=== PATIENT | female | born 1965 | race Caucasian/White ===

== ENCOUNTER 2018-12-31 09:50 | Emergency (ER) | payer OTHER ==
[~2018-12-31] VITALS: Ht 165.1 cm; Wt 65.8 kg
[2018-12-31] MEDS ORDERED: NS IV 1000 ML 1,000 ML IV ONE (10:03)
[2018-12-31] MEDS ORDERED: fentaNYL INJECTION 100 MCG/2 ML AMP IVP ONE (10:15)
[2018-12-31] MEDS ORDERED: PROMETHAZINE INJ 25 MG/ML (PHENERGAN) AMP IVP ONE (10:15)
[2018-12-31] MEDS ORDERED: ORPHENADRINE 60 MG/2 ML (NORFLEX) AMP IV ONE (10:15)
[2018-12-31 10:18] LABS: BASOPHILS % (AUTO) 1 % (0-10); EOSINOPHILS # (AUTO) 0.1 10^3/uL (0.0-0.3); EOSINOPHILS % (AUTO) 2 % (0-10); HEMATOCRIT 41 % (35-52); HEMOGLOBIN 13.9 G/DL (11.5-16.0); LYMPHOCYTES # (AUTO) 2.2 X 10^3 (1.0-4.0); LYMPHOCYTES % (AUTO) 33 % (12-44); MEAN CORPUSCULAR HEMOGLOBIN 30 PG (25-34); MEAN CORPUSCULAR HGB CONC 34 G/DL (32-36); MEAN CORPUSCULAR VOLUME 89 FL (80-99); MEAN PLATELET VOLUME 10.1 FL (7.4-10.4); MONOCYTES # (AUTO) 0.6 X 10^3 (0.0-1.0); MONOCYTES % (AUTO) 9 % (0-12); NEUTROPHILS # (AUTO) 3.8 X 10^3 (1.8-7.8); NEUTROPHILS % (AUTO) 56 % (42-75); PLATELET COUNT 272 10^3/uL (130-400); RED CELL DISTRIBUTION WIDTH 13.3 % (10.0-14.5); WHITE BLOOD COUNT 6.8 10^3/uL (4.3-11.0)
--- NOTE | 2018-12-31 10:21 | ED Headache ---
General Chief Complaint: Head/Cervical Problems Stated Complaint: HEADACHE Nursing Triage Note: AMB TO ROOM WITH YURY. PATIENT REPORTS THAT SHE HAS HAS A HEADACHE FOR 2 WEEKS WITH NAUSEA AND DIZZY. . TOOK 1000M OF IBPUFRON AT 5AM TODAY. Nursing Sepsis Screen: No Definite Risk Source: patient, family Exam Limitations: no limitations History of Present Illness Date Seen by Provider: Dec 31, 2018 Time Seen by Provider: 09:55 Initial Comments This 53-year-old woman presents to the emergency room accompanied by her daughter with complaints of intermittent severe headaches over the past 2 weeks. She has dizziness, nausea and light sensitivity associated with these head aches. She does not have a prior history of migraines. This is a new phenomenon for her. She just recently moved to the area from [place]. 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 She has been taking [id number]-[id number] medications at home including 1000 mg of ibuprofen taken at 05:00. She states this is not helpful. She denies any focal neurologic deficits although she sometimes has intermittent blurriness of partial smiley of vision. She also sometimes has incontinence with urinary leaking Allergies and Home Medications Allergies Coded Allergies: No Known Drug Allergies (Unverified , 12/31/18) Home Medications Cephalexin 500 Mg Capsule, 500 MG PO QID Prescribed by: DODIE CABRERA on 12/31/18 1120 Hydrocodone Bit/Acetaminophen 1 Tab Tab, 1 EACH PO Q4-6HR PRN for PAIN-MODERATE Prescribed by: DODIE CABRERA on 12/31/18 1120 Ondansetron 4 Mg Tab.rapdis, 4 MG PO Q4H PRN for NAUSEA/VOMITING-1ST LINE Prescribed by: DODIE CABRERA on 12/31/18 1120 Patient Home Medication List Home Medication List Reviewed: Yes Review of Systems Review of Systems Constitutional: no symptoms reported Eyes: See HPI Ears, Nose, Mouth, Throat: no symptoms reported Respiratory: no symptoms reported Cardiovascular: no symptoms reported Gastrointestinal: see HPI Genitourinary: see HPI : No Musculoskeletal: no symptoms reported Skin: no symptoms reported Psychiatric/Neurological: See HPI Past Blxjldx-Kpvsfk-Oubvgv Hx Past Med/Social Hx: Reviewed and Corrections made Patient Social History Alcohol Use: Occasionally Uses Recreational Drug Use: No Smoking Status: Current Everyday Smoker Recent Foreign Travel: No Contact w/Someone Who Travel: No Recent Infectious Disease Expo: No Past Medical History Surgeries: Yes (FISTULA , CERVICAL) Abdominal (fistula repair resulting in colostomy) Respiratory: No Cardiac: No Neurological: No : No Reproductive Disorders: No Genitourinary: No Gastrointestinal: No Musculoskeletal: No Endocrine: No HEENT: No Cancer: Yes Cervical Psychosocial: No Physical Exam Vital Signs Vital Signs - First Documented 12/31/18 09:54 Temp 97.5 Pulse 78 Resp 18 B/P (MAP) 143/80 (101) Pulse Ox 97 Capillary Refill : Less Than 3 Seconds Height, Weight, BMI Height: 5'5.00" Weight: 145lbs. oz. [id number]; BMI Method:Stated General Appearance: WD/WN, moderate distress (tearful) HEENT: PERRL/EOMI, normal ENT inspection, TMs normal, pharynx normal, other (light sensitivity) Neck: normal inspection Cardiovascular: regular rate, rhythm, no edema, no murmur Respiratory: lungs clear, normal breath sounds, no respiratory distress, no accessory muscle use Gastrointestinal: normal bowel sounds, non tender, soft, other (colostomy) Extremities: normal inspection, no pedal edema Crainal Nerves: normal hearing, normal speech, PERRL Coordination/Gait: normal finger to nose (normal heel to echols) Motor/Sensory: no motor deficit, no sensory deficit Skin: normal color, warm/dry Progress/Results/Core Measures Results/Orders Lab Results Laboratory Tests Test 12/31/18 10:08 12/31/18 10:41 Range/Units White Blood Count 6.8 4.3-11.0 10^3/uL Red Blood Count 4.61 4.35-5.85 10^6/uL Hemoglobin 13.9 11.5-16.0 G/DL Hematocrit 41 35-52 % Mean Corpuscular Volume 89 80-99 FL Mean Corpuscular Hemoglobin 30 25-34 PG Mean Corpuscular Hemoglobin Concent 34 32-36 G/DL Red Cell Distribution Width 13.3 10.0-14.5 % Platelet Count 272 130-400 10^3/uL Mean Platelet Volume 10.1 7.4-10.4 FL Neutrophils (%) (Auto) 56 42-75 % Lymphocytes (%) (Auto) 33 12-44 % Monocytes (%) (Auto) 9 0-12 % Eosinophils (%) (Auto) 2 0-10 % Basophils (%) (Auto) 1 0-10 % Neutrophils # (Auto) 3.8 1.8-7.8 X 10^3 Lymphocytes # (Auto) 2.2 1.0-4.0 X 10^3 Monocytes # (Auto) 0.6 0.0-1.0 X 10^3 Eosinophils # (Auto) 0.1 0.0-0.3 10^3/uL Basophils # (Auto) 0.0 0.0-0.1 10^3/uL Erythrocyte Sedimentation Rate 17 0-30 MM/HR Sodium Level 139 135-145 MMOL/L Potassium Level 3.5 L 3.6-5.0 MMOL/L Chloride Level 108 H 98-107 MMOL/L Carbon Dioxide Level 19 L 21-32 MMOL/L Anion Gap 12 5-14 MMOL/L Blood Urea Nitrogen 19 H 7-18 MG/DL Creatinine 0.79 0.60-1.30 MG/DL Estimat Glomerular Filtration Rate > 60 BUN/Creatinine Ratio 24 Glucose Level 113 H 70-105 MG/DL Calcium Level 9.3 8.5-10.1 MG/DL Corrected Calcium 9.1 8.5-10.1 MG/DL Magnesium Level 1.7 L 1.8-2.4 MG/DL Total Bilirubin 0.3 0.1-1.0 MG/DL Aspartate Amino Transf (AST/SGOT) 17 5-34 U/L Alanine Aminotransferase (ALT/SGPT) 15 0-55 U/L Alkaline Phosphatase 75 40-136 U/L Total Protein 7.0 6.4-8.2 GM/DL Albumin 4.2 3.2-4.5 GM/DL Urine Color YELLOW Urine Clarity SLIGHTLY CLOUDY Urine pH 5 5-9 Urine Specific Hume 1.020 1.016-1.022 Urine Protein 2+ H NEGATIVE Urine Glucose (UA) NEGATIVE NEGATIVE Urine Ketones NEGATIVE NEGATIVE Urine Nitrite NEGATIVE NEGATIVE Urine Bilirubin NEGATIVE NEGATIVE Urine Urobilinogen NORMAL NORMAL MG/DL Urine Leukocyte Esterase 3+ H NEGATIVE Urine RBC (Auto) 5+ H NEGATIVE Urine RBC >100 H /HPF Urine WBC TNTC H /HPF Urine Renal Epithelial Cells RARE /HPF Urine Crystals NONE /LPF Urine Bacteria MODERATE H /HPF Urine Casts NONE /LPF Urine Mucus NEGATIVE /LPF Urine Culture Indicated YES My Orders Orders - DODIE CASTANEDA MD Cbc With Automated Diff (12/31/18 10:03) Comprehensive Metabolic Panel (12/31/18 10:03) Erythrocyte Sedimentation Rate (12/31/18 10:03) Magnesium (12/31/18 10:03) Ua Culture If Indicated (12/31/18 10:03) Ed Iv/Invasive Line Start (12/31/18 10:03) Ns Iv 1000 Ml (Sodium Chloride 0.9%) (12/31/18 10:03) Ct Head Wo (12/31/18 10:03) Fentanyl Injection (Sublimaze Injection (12/31/18 10:15) Promethazine Injection (Phenergan Injec (12/31/18 10:15) Orphenadrine Injection (Norflex Injectio (12/31/18 10:15) Urine Culture (12/31/18 10:41) Ceftriaxone For Iv Use (Rocephin For I (12/31/18 11:00) Medications Given in ED Current Medications Medications Dose Ordered Sig/Reggie Route Start Time Stop Time Status Last Admin Dose Admin Ceftriaxone Sodium 1000 mg/ Sterile Water 10 ml @ 200 mls/hr ONCE ONCE IV 12/31/18 11:00 12/31/18 11:02 DC 12/31/18 11:07 200 MLS/HR Fentanyl Citrate 50 mcg ONCE ONCE IVP 12/31/18 10:15 12/31/18 10:16 DC 12/31/18 10:18 50 MCG Promethazine HCl 25 mg ONCE ONCE IVP 12/31/18 10:15 12/31/18 10:16 DC 12/31/18 10:16 25 MG Sodium Chloride 1,000 ml @ 0 mls/hr Q0M ONCE IV 12/31/18 10:03 12/31/18 10:06 DC 12/31/18 10:16 1,000 MLS/HR Vital Signs/I&O 12/31/18 09:54 Temp 97.5 Pulse 78 Resp 18 B/P (MAP) 143/80 (101) Pulse Ox 97 Blood Pressure Mean: 101 Progress Progress Note #1: Time: 10:30 Progress Note Patient is being treated with Phenergan, fentanyl, and IV fluids. Labs and CT of the head are pending. Progress Note #2: Time: 11:27 Progress Note Patient's pain improved from 10 down to 4/10. CT of the head showed an area of low attenuation in the right posterior periventricular area. This was nonspecific and does not necessarily correlate with her symptoms. Follow-up MRI was suggested if symptoms don't resolve after treating urinary tract infection. Significant evidence of UTI was seen on urinalysis. A gram of Rocephin is being administered by IV route. Patient was advised to follow-up with a primary care provider soon as possible, to review urine culture results, and to discuss her imaging results with a primary care provider. See discharge instructions. Diagnostic Imaging Diagonstic Imaging: CT Plain Films/CT/US/NM/MRI: head Comments CT head viewed by me and report reviewed. See report below: NAME: [facility] REC#: [id number] PT STATUS: REG ER : 1965 PHYSICIAN: DODIE CASTANEDA MD ADMIT DATE: 12/31/18/ER Draft Date of Exam:12/31/18 CT HEAD WO PROCEDURE: CT head without contrast. TECHNIQUE: Multiple contiguous axial images were obtained through the brain without the use of intravenous contrast. Auto Exposure Controls were utilized during the CT exam to meet ALARA standards for radiation dose reduction. DATE: December 31, 2018. COMPARISON: None. INDICATION: 53-year-old female, headache for 10 days. Nausea and dizziness. FINDINGS: There is an area of low attenuation in the right posterior periventricular white matter on axial image 17 which is not CSF in attenuation. This is not specific. The ventricles and cerebral spinal fluid spaces are of normal size and configuration for the patient's age. There is no mass effect or midline shift. There is no acute intracranial hemorrhage. There is no abnormal extra-axial fluid collection. The visualized portions of the paranasal sinuses, mastoid air cells and middle ears are well aerated. IMPRESSION: 1. Small focal area of low attenuation in the right posterior periventricular white matter which is nonspecific. Particularly if there are symptoms referrable to this area or concern for infarct, MRI brain with and without contrast may be helpful for further assessment. 2. No evidence of acute intracranial hemorrhage, mass effect, or midline shift. Dictated on workstation # [id number] Dict: 12/31/18 1039 Trans: 12/31/18 1048 [facility] [id number] Interpreted by: DUSTIN LOPEZ MD Departure Impression Primary Impression: Urinary tract infection Qualified Codes: N39.0 - Urinary tract infection, site not specified Additional Impressions: Migraine Qualified Codes: G43.109 - Migraine with aura, not intractable, without status migrainosus Dizziness Abnormal CT of the head Disposition: HOME, SELF-CARE Condition: Improved Departure-Patient Inst. Decision time for Depature: 11:10 Referrals: [facility] [place] SMITHA,LOCAL PHYSICIAN (PCP) Primary Care Physician Patient Instructions: Urinary Tract Infections in Adults, Migraine Headaches in Adults Add. Discharge Instructions: Drink plenty of clear liquids and get plenty of rest. Complete your antibiotic as prescribed. Follow-up with a primary care provider next week. Discuss your CT results with your primary care provider. Further studies such as MRI may be recommended. For pain you may take ibuprofen up to 600 mg every 6 hours as needed. Add hydrocodone as prescribed for pain not controlled by ibuprofen. Use Zofran (ondansetron) as prescribed for nausea and vomiting. You should follow-up on your urine culture result either through your primary care office or by calling the emergency room. Results should be available by Wednesday. Return to the emergency room if you have worsening symptoms. All discharge instructions reviewed with patient and/or family. Voiced understanding. Scripts Hydrocodone Bit/Acetaminophen (Hydrocodone/Acetaminophen 5/325mg Tablet) 1 Tab Tab 1 EACH PO Q4-6HR PRN for PAIN-MODERATE MDD 10, #10 TAB Prov: DODIE CASTANEDA MD 12/31/18 Ondansetron (Ondansetron Odt) 4 Mg Tab.rapdis 4 MG PO Q4H PRN for NAUSEA/VOMITING-1ST LINE, #10 TAB Prov: DODIE CASTANEDA MD 12/31/18 Cephalexin (Keflex) 500 Mg Capsule 500 MG PO QID, #28 CAP Prov: DODIE CASTANEDA MD 12/31/18 DODIE CASTANEDA MD Dec 31, 2018 10:21
[2018-12-31 10:40] LABS: BILIRUBIN,TOTAL 0.3 MG/DL (0.1-1.0); CALCIUM 9.3 MG/DL (8.5-10.1); CARBON DIOXIDE 19 MMOL/L (21-32); CHLORIDE 108 MMOL/L (98-107); MAGNESIUM 1.7 MG/DL (1.8-2.4); POTASSIUM 3.5 MMOL/L (3.6-5.0); SODIUM 139 MMOL/L (135-145)
[2018-12-31 10:45] LABS: ERYTHROCYTE SEDIMENTATION RATE 17 MM/HR (0-30)
--- NOTE | 2018-12-31 10:48 | Diagnostic Imaging Report ---
PROCEDURE: CT head without contrast. TECHNIQUE: Multiple contiguous axial images were obtained through the brain without the use of intravenous contrast. Auto Exposure Controls were utilized during the CT exam to meet ALARA standards for radiation dose reduction. DATE: December 31, 2018. COMPARISON: None. INDICATION: 53-year-old female, headache for 10 days. Nausea and dizziness. FINDINGS: There is an area of low attenuation in the right posterior periventricular white matter on axial image 17 which is not CSF in attenuation. This is not specific. The ventricles and cerebral spinal fluid spaces are of normal size and configuration for the patient's age. There is no mass effect or midline shift. There is no acute intracranial hemorrhage. There is no abnormal extra-axial fluid collection. The visualized portions of the paranasal sinuses, mastoid air cells and middle ears are well aerated. IMPRESSION: 1. Small focal area of low attenuation in the right posterior periventricular white matter which is nonspecific. Particularly if there are symptoms referrable to this area or concern for infarct, MRI brain with and without contrast may be helpful for further assessment. 2. No evidence of acute intracranial hemorrhage, mass effect, or midline shift. Dictated by: Dictated on workstation # [id number]
[2018-12-31 10:50] LABS: BILIRUBIN,URINE NEGATIVE (NEGATIVE); CLARITY,URINE SLIGHTLY CLOUDY; COLOR,URINE YELLOW; GLUCOSE, URINE (UA) NEGATIVE (NEGATIVE); KETONES,URINE NEGATIVE (NEGATIVE); LEUKOCYTE ESTERASE ,URINE 3+ (NEGATIVE); NITRITE,URINE NEGATIVE (NEGATIVE); PH,URINE 5 (5-9); PROTEIN,URINE 2+ (NEGATIVE); UROBILINOGEN,URINE NORMAL (NORMAL)
[2018-12-31 10:56] LABS: RBC,URINE >100 /HPF
[2018-12-31 10:57] LABS: BACTERIA,URINE MODERATE /HPF; RENAL EPITHELIAL CELLS,URINE RARE /HPF; WBC,URINE TNTC /HPF
[2018-12-31 10:58] LABS: ALANINE AMINOTRANSFERASE 15 U/L (0-55); ALBUMIN 4.2 GM/DL (3.2-4.5); ALKALINE PHOSPHATASE 75 U/L (40-136); BUN/CREATININE RATIO 24; CREATININE SERUM 0.79 MG/DL (0.60-1.30); GFR ESTIMATED > 60; GLUCOSE 113 MG/DL (70-105)
[2018-12-31] MEDS ORDERED: cefTRIAXone FOR IV USE 1,000 MG in WATER (STERILE) FOR INJECTION 10 ML IV ONE (11:00)
--- NOTE | 2018-12-31 11:03 | NUR ---
TO ROOM FLUIDS INFUSED PAIN 4/10
[2018-12-31] MEDS ORDERED: CEPH-507 PO (11:20)
[2018-12-31] MEDS ORDERED: ACHD5005 PO (11:20)
[2018-12-31] MEDS ORDERED: ONDA4TAB11 PO (11:20)
[2018-12-31 11:29] VITALS: BP 105/69
== END 2018-12-31 11:29 | disposition home or self-care (01) ==
LOC: ER 09:52
DX: G43.909 Migraine, unspecified, not intractable, without status migrainosus (principal); N39.0 Urinary tract infection, site not specified; R42 Dizziness and giddiness; R93.0 Abnormal findings on diagnostic imaging of skull and head, not elsewhere classified; F17.200 Nicotine dependence, unspecified, uncomplicated; Z85.41 Personal history of malignant neoplasm of cervix uteri; Z93.3 Colostomy status
CPT/HCPCS: 36415; 70450; 80053; 81000; 83735; 85025; 85652; 87077; 87088; 87186

== ENCOUNTER → 2019-01-16 | Outpatient (CLI) | payer OTHER ==
[~2019-01-16] MED LIST: ACHD5005 PO; CEPH-507 PO; GADOBUTROL 7.5 MMOL/7.5 ML (GADAVIST) VIAL IV ONE; ONDA4TAB11 PO
--- NOTE | 2019-01-16 17:26 | Diagnostic Imaging Report ---
PROCEDURE: MR imaging of the brain with and without contrast. TECHNIQUE: Multiplanar, multisequence MR imaging of the brain was performed with and without contrast. INDICATION: History of headaches. Prior abnormal head CT. COMPARISON: Comparison is made with prior CT head from December 31, 2018. FINDINGS: Areas of low attenuation within the white matter of the right parietal lobe near the atrium of the right lateral ventricle are found by MRI to be of nearly CSF signal intensity centrally on T2-weighted imaging with a small degree of adjacent surrounding gliosis. While this may reflect a prior small lacunar infarct, this is most likely reflective of some mild prominence of the perivascular spaces. There are some mild microvascular changes within the white matter about the lateral ventricles. The diffusion series demonstrates no evidence of restriction to suggest acute or subacute ischemia. There is no hemorrhage. There is no mass effect or shift. There is no hydrocephalus. There is no abnormal extra-axial fluid collection. The basilar cisterns are patent. The posterior fossa demonstrates no acute process. The pituitary gland and the pineal region are unremarkable. There is normal alignment of the craniocervical junction. Postcontrast imaging demonstrates no evidence of pathologic intracranial enhancement. Mastoids are clear. Paranasal sinuses are clear. Orbital contents are unremarkable. Major expected vascular flow voids appear preserved. IMPRESSION: 1. There are no MR findings of an acute intracranial abnormality. There is no evidence of acute ischemia, hemorrhage, mass effect, hydrocephalus, or pathologic intracranial enhancement. 2. Previously described low attenuation on the prior CT examination appears reflective of prominent perivascular spaces with less likely consideration of previous small lacunar infarct. 3. There are mild microvascular changes in the periventricular white matter. Dictated by: Dictated on workstation # [id number]
== END ==
LOC: RAD 01-10 08:51
PROVIDERS: ATTEND Physician Assistant
DX: R90.82 White matter disease, unspecified (principal)
CPT/HCPCS: 70553

== ENCOUNTER 2019-02-20 10:44 | Inpatient (IN) | payer OTHER ==
[~2019-02-20] VITALS: Ht 165.1 cm; Wt 63.2 kg
[~2019-02-20 10:44] MED LIST changes: -GADOBUTROL 7.5 MMOL/7.5 ML (GADAVIST) VIAL IV ONE
[2019-02-20 11:56] LABS: BASOPHILS % (AUTO) 0 % (0-10); EOSINOPHILS % (AUTO) 0 % (0-10); HEMATOCRIT 38 % (35-52); HEMOGLOBIN 13.8 G/DL (11.5-16.0); LYMPHOCYTES % (AUTO) 8 % (12-44); MEAN CORPUSCULAR HEMOGLOBIN 30 PG (25-34); MEAN CORPUSCULAR HGB CONC 36 G/DL (32-36); MEAN CORPUSCULAR VOLUME 83 FL (80-99); MONOCYTES % (AUTO) 7 % (0-12); NEUTROPHILS # (AUTO) 11.2 X 10^3 (1.8-7.8); NEUTROPHILS % (AUTO) 85 % (42-75); PLATELET COUNT 565 10^3/uL (130-400); RED CELL DISTRIBUTION WIDTH 11.9 % (10.0-14.5); WHITE BLOOD COUNT 13.2 10^3/uL (4.3-11.0)
[2019-02-20] MEDS ORDERED: NS IV 1000 ML 1,000 ML IV SCH ×2 (12:00→14:15)
--- NOTE | 2019-02-20 12:02 | ED Abdominal Pain ---
General Chief Complaint: Abdominal/GI Problems Stated Complaint: ABD PAIN Nursing Triage Note: AMB TO ROOM WAS SENT BY [facility]. ACCORDNG TO PATIENT HAS HAD ABD PAIN FOR 2 WEEKS WAS SEEN AT [facility] ON WEDNESDAY. HAD LAB AND SONO WHICH WAS OK FEMALE AT BEDSIDE REPORT AMYLASE AND LIPASE WAS NEG SON NEG. FOR GALLBLADDER.PATIENT DOES HAVE COLOSTOMY Sepsis Screen: No Definite Risk Source of Information: Patient Exam Limitations: No Limitations History of Present Illness Date Seen by Provider: Feb 20, 2019 Time Seen by Provider: 12:00 Initial Comments 53-year-old female who presents to emergency room with complaints of right upper quadrant abdominal pain for the past 2 weeks. She reports that last Wednesday she did have an appointment with Indy Mireles and she ordered a sonogram and the lab work which was normal. She does have a colostomy from a fistula is not having any issues and is having normal stool in her colostomy bag. She denies fevers. History of cervical cancer which led to her fistulas and colostomy. Radiation: RUQ Associated Symptoms: Nausea/Vomiting Allergies and Home Medications Allergies Coded Allergies: No Known Drug Allergies (Unverified , 02/20/19) Home Medications Ibuprofen 200 Mg Tablet, 800 MG PO TID PRN for PAIN-MILD, (Reported) Pantoprazole Sodium 40 Mg Tablet.dr, 40 MG PO DAILY, (Reported) Patient Home Medication List Home Medication List Reviewed: Yes Review of Systems Review of Systems Constitutional: see HPI; No chills, No fever Gastrointestinal: See HPI, Abdominal Pain, Nausea, Vomiting All Other Systems Reviewed Negative Unless Noted: Yes Past Bdzjgiq-Hfdlvn-Qlvach Hx Past Med/Social Hx: Reviewed Nursing Past Med/Soc Hx Patient Social History Recent Foreign Travel: No Contact w/Someone Who Travel: No Recent Infectious Disease Expo: No Past Medical History Surgeries: Yes (FISTULA , CERVICAL) Abdominal Respiratory: No Cardiac: No Neurological: No Reproductive Disorders: No Genitourinary: No Gastrointestinal: No Musculoskeletal: No Endocrine: No HEENT: No Cancer: Yes Cervical Psychosocial: No Family Medical History Reviewed Nursing Family Hx Physical Exam Vital Signs Vital Signs - First Documented 02/20/19 11:33 Temp 99.2 Pulse 92 Resp 18 B/P (MAP) 128/88 (101) Pulse Ox 100 O2 Delivery Room Air Capillary Refill : Less Than 3 Seconds Height/Weight/BMI Height: 5'5.00" Weight: 138lbs. oz. 62.511962cb; BMI Method:Stated General Appearance: WD/WN, no apparent distress Respiratory: chest non-tender, lungs clear, normal breath sounds, no respiratory distress, no accessory muscle use Cardiovascular: normal peripheral pulses, regular rate, rhythm, no edema, no gallop, no JVD, no murmur Gastrointestinal: normal bowel sounds, soft, no organomegaly, no pulsatile mass, tenderness (right upper quadrant abdominal) Extremities: normal capillary refill Neurologic/Psychiatric: alert, normal mood/affect, oriented x 3 Skin: normal color, warm/dry Progress/Results/Core Measures Results/Orders Lab Results Laboratory Tests Test 02/20/19 11:46 02/20/19 13:31 Range/Units White Blood Count 13.2 H 4.3-11.0 10^3/uL Red Blood Count 4.63 4.35-5.85 10^6/uL Hemoglobin 13.8 11.5-16.0 G/DL Hematocrit 38 35-52 % Mean Corpuscular Volume 83 80-99 FL Mean Corpuscular Hemoglobin 30 25-34 PG Mean Corpuscular Hemoglobin Concent 36 32-36 G/DL Red Cell Distribution Width 11.9 10.0-14.5 % Platelet Count 565 H 130-400 10^3/uL Mean Platelet Volume 10.0 7.4-10.4 FL Neutrophils (%) (Auto) 85 H 42-75 % Lymphocytes (%) (Auto) 8 L 12-44 % Monocytes (%) (Auto) 7 0-12 % Eosinophils (%) (Auto) 0 0-10 % Basophils (%) (Auto) 0 0-10 % Neutrophils # (Auto) 11.2 H 1.8-7.8 X 10^3 Lymphocytes # (Auto) 1.0 1.0-4.0 X 10^3 Monocytes # (Auto) 1.0 0.0-1.0 X 10^3 Eosinophils # (Auto) 0.0 0.0-0.3 10^3/uL Basophils # (Auto) 0.0 0.0-0.1 10^3/uL Neutrophils % (Manual) 63 % Lymphocytes % (Manual) 16 % Monocytes % (Manual) 7 % Eosinophils % (Manual) 1 % Basophils % (Manual) 0 % Band Neutrophils 13 % Blood Morphology Comment NORMAL Sodium Level 129 L 135-145 MMOL/L Potassium Level 3.6 3.6-5.0 MMOL/L Chloride Level 90 L 98-107 MMOL/L Carbon Dioxide Level 22 21-32 MMOL/L Anion Gap 17 H 5-14 MMOL/L Blood Urea Nitrogen 49 H 7-18 MG/DL Creatinine 0.99 0.60-1.30 MG/DL Estimat Glomerular Filtration Rate 59 BUN/Creatinine Ratio 49 Glucose Level 101 70-105 MG/DL Calcium Level 9.7 8.5-10.1 MG/DL Corrected Calcium 9.8 8.5-10.1 MG/DL Total Bilirubin 0.4 0.1-1.0 MG/DL Aspartate Amino Transf (AST/SGOT) 16 5-34 U/L Alanine Aminotransferase (ALT/SGPT) 10 0-55 U/L Alkaline Phosphatase 103 40-136 U/L Total Protein 7.8 6.4-8.2 GM/DL Albumin 3.9 3.2-4.5 GM/DL Amylase Level 32 25-125 U/L Lipase 27 8-78 U/L Urine Color YELLOW Urine Clarity CLEAR Urine pH 6 5-9 Urine Specific [place] 1.015 L 1.016-1.022 Urine Protein NEGATIVE NEGATIVE Urine Glucose (UA) NEGATIVE NEGATIVE Urine Ketones 3+ H NEGATIVE Urine Nitrite POSITIVE H NEGATIVE Urine Bilirubin NEGATIVE NEGATIVE Urine Urobilinogen NORMAL NORMAL MG/DL Urine Leukocyte Esterase 1+ H NEGATIVE Urine RBC (Auto) 3+ H NEGATIVE Urine RBC RARE /HPF Urine WBC 25-50 H /HPF Urine Squamous Epithelial Cells RARE /HPF Urine Crystals NONE /LPF Urine Bacteria MODERATE H /HPF Urine Casts NONE /LPF Urine Mucus NEGATIVE /LPF Urine Culture Indicated YES My Orders Orders - MÓNICA NOBLE Comprehensive Metabolic Panel (02/20/19 11:51) Lipase (02/20/19 11:51) Amylase (02/20/19 11:51) Ua Culture If Indicated (02/20/19 11:51) Ed Iv/Invasive Line Start (02/20/19 11:51) Cbc With Automated Diff (02/20/19 11:51) Ns Iv 1000 Ml (Sodium Chloride 0.9%) (02/20/19 12:00) Manual Differential (02/20/19 11:46) Fentanyl Injection (Sublimaze Injection (02/20/19 12:00) Ct Abdomen/Pelvis W (02/20/19 11:59) Ondansetron Injection (Zofran Injectio (02/20/19 12:15) Iohexol Injection (Omnipaque 350 Mg/Ml 1 (02/20/19 12:30) Di Iv Start (Assessment) .IV start (02/20/19 12:17) Received Contrast (Hold Metformin- Contr (02/20/19 12:30) Ns (Ivpb) (Sodium Chloride 0.9% Ivpb Bag (02/20/19 12:30) Urine Culture (02/20/19 13:31) Fentanyl Injection (Sublimaze Injection (02/20/19 14:15) Ns Iv 1000 Ml (Sodium Chloride 0.9%) (02/20/19 14:15) Ondansetron Injection (Zofran Injectio (02/20/19 14:45) Medications Given in ED Current Medications Medications Dose Ordered Sig/Reggie Route Start Time Stop Time Status Last Admin Dose Admin Fentanyl Citrate 50 mcg ONCE ONCE IVP 02/20/19 14:15 02/20/19 14:16 DC 02/20/19 12:09 50 MCG Fentanyl Citrate 50 mcg Q1H PRN IVP 02/20/19 12:00 02/20/19 16:33 DC 02/20/19 14:31 50 MCG Iohexol 100 ml ONCE ONCE IV 02/20/19 12:30 02/20/19 12:36 DC 02/20/19 13:24 100 ML Ondansetron HCl 4 mg ONCE ONCE IVP 02/20/19 12:15 02/20/19 12:16 DC 02/20/19 12:09 4 MG Ondansetron HCl 4 mg ONCE ONCE IVP 02/20/19 14:45 02/20/19 14:46 DC 02/20/19 14:40 4 MG Sodium Chloride 100 ml ONCE ONCE IV 02/20/19 12:30 02/20/19 12:36 DC 02/20/19 13:24 80 ML Vital Signs/I&O 02/20/19 11:33 Temp 99.2 Pulse 92 Resp 18 B/P (MAP) 128/88 (101) Pulse Ox 100 O2 Delivery Room Air Blood Pressure Mean: 101 Diagnostic Imaging Diagonstic Imaging: CT Comments NAME: CLAUDIA SHAW MED REC#: [id number] PT STATUS: ADM IN : 1965 PHYSICIAN: MÓNICA NOBLE ADMIT DATE: 02/20/19 Signed Date of Exam: 02/20/19 CT ABDOMEN/PELVIS W PROCEDURE: CT abdomen and pelvis with contrast. TECHNIQUE: Multiple contiguous axial images were obtained through the abdomen and pelvis after administration of intravenous contrast. Auto Exposure Controls were utilized during the CT exam to meet ALARA standards for radiation dose reduction. INDICATION: Mid abdominal pain, history of cervical cancer. FINDINGS: No comparison available. Limited views of the lower thorax are normal. Liver is normal. No focal liver lesions are seen. Gallbladder is normal. Portal vein is patent. No biliary ductal dilation. Pancreas, spleen, and left adrenal gland are normal. There is an indeterminate right adrenal nodule measuring 2.2 x 2.9 cm. Kidneys enhance symmetrically without focal lesion or hydronephrosis. Urinary bladder is normal. There is a small bowel obstruction with the transition point in the pelvis at the level of the vaginal fornices. There is an area of soft tissue thickening measuring 5.3 x 3.1 cm in this location concerning for local tumor recurrence given the provided history of cervical cancer. There is also a parastomal hernia containing small bowel, but the transition point is not within the parastomal hernia. There is presacral stranding and thickening which may represent changes of radiation or tumor infiltration. There has been a partial colectomy with an end colostomy. The colon is decompressed. Retroperitoneal lymph nodes all measure less than 1 cm in short axis. Abdominal aorta is normal in caliber with atherosclerosis but no aneurysm. No free fluid or air. There are no suspicious osseous lesions. IMPRESSION: 1. Small bowel obstruction with a transition point at the level of the vaginal fornices where there is an area of soft tissue thickening concerning for local tumor recurrence, less likely radiation fibrosis. 2. Please note that there is a parastomal hernia containing small bowel, but the transition point is not within the hernia. 3. Indeterminate right adrenal nodule. Dictated by: Dictated on workstation # [id number] Dict: 02/20/19 1333 Trans: 02/20/19 1535 Interpreted by: JARAD MORGAN MD Electronically signed by: JARAD MORGAN MD 02/20/19 1535 Reviewed: Reviewed by Me Departure Communication (Admissions) Time/Spoke to Admitting Phy: 15:[address] Novak she agrees to accept the patient to her services with a consult to Dr. Ortiz. Time/Spoke to Consulting Phy: 14:[address] Harris. He agrees to consult on the patient. He will be out to see the patient in the emergency room. 1535: Discussed case with Dr. Ortiz he agrees to consult on the patient. He recommends additional labs. Labs were ordered. Impression Primary Impression: Small bowel obstruction Additional Impression: Urinary tract infection Disposition: ADMITTED INPATIENT Condition: Stable/Unchanged Admissions Decision to Admit Reason: Admit from ER (General) Decision to Admit/Date: Feb 20, 2019 Time/Decision to Admit Time: 15:50 Departure-Patient Inst. Referrals: NO,LOCAL PHYSICIAN (PCP/Family) Primary Care Physician MÓNICA NOBLE Feb 20, 2019 12:01
[2019-02-20] MEDS: fentaNYL INJECTION 100 MCG/2 ML AMP IVP PRN ×2 (12:10→14:31)
[2019-02-20 12:15] LABS: ALBUMIN 3.9 GM/DL (3.2-4.5); BILIRUBIN,TOTAL 0.4 MG/DL (0.1-1.0); CALCIUM 9.7 MG/DL (8.5-10.1); CREATININE SERUM 0.99 MG/DL (0.60-1.30); POTASSIUM 3.6 MMOL/L (3.6-5.0); TOTAL PROTEIN 7.8 GM/DL (6.4-8.2)
[2019-02-20] MEDS ORDERED: ONDANSETRON 4 MG/2 ML (SDV) Z0FRAN IVP ONE ×2 (12:15→14:45)
[2019-02-20] MEDS ORDERED: IOHEXOL 350 MG/ML 100 ML (OMNIPAQUE 350) VIAL IV ONE (12:30)
[2019-02-20] MEDS ORDERED: HOLD METFORMIN - RECEIVED CONTRAST 20 ML VIAL IV SCH (12:30)
[2019-02-20] MEDS ORDERED: NS 100 ML (IVPB) BAG IV ONE (12:30)
[2019-02-20 12:43] LABS: BAND NEUTROPHILS 13 %; BASOPHILS % (MANUAL) 0 %; EOSINOPHILS % (MANUAL) 1 %; LYMPHOCYTES % (MANUAL) 16 %; MONOCYTES % (MANUAL) 7 %; NEUTROPHILS % (MANUAL) 63 %
[2019-02-20 12:44] LABS: RBC MORPH NORMAL
--- OUTSIDE RECORDS SUMMARY | 2019-02-20 13:11 | XMS REPORT | Continuity of Care Document ---
Author Organization Unknown Address Unknown Phone Unavailable Allergies There is no data. Medications There is no data. Problems There is no data. Procedures There is no data. Results Test Result Range TSH - 01/02/19 10:20 TSH 7.77 mIU/L NRG MAGNESIUM SERUM - 01/17/19 09:44 MAGNESIUM 1.9 mg/dL 1.5-2.5 CULTURE, URINE - 01/18/19 15:15 CULTURE, URINE, ROUTINE SEE NOTE NRG Encounters ACCT No. Visit Date/Time Discharge Status Pt. Type Provider Facility Loc./Unit Complaint [id number] 01/18/2019 15:00:00 01/18/2019 23:59:59 [facility] Outpatient SANDRA MENDOZA [facility] [id number] 01/18/2019 15:00:00 Document Registration [id number] 01/17/2019 08:40:00 Document Registration [id number] 01/02/2019 09:00:00 Document Registration
[2019-02-20 13:40] LABS: BILIRUBIN,URINE NEGATIVE (NEGATIVE); CLARITY,URINE CLEAR; COLOR,URINE YELLOW; GLUCOSE, URINE (UA) NEGATIVE (NEGATIVE); KETONES,URINE 3+ (NEGATIVE); LEUKOCYTE ESTERASE ,URINE 1+ (NEGATIVE); NITRITE,URINE POSITIVE (NEGATIVE); PH,URINE 6 (5-9); PROTEIN,URINE NEGATIVE (NEGATIVE); UROBILINOGEN,URINE NORMAL (NORMAL)
--- NOTE | 2019-02-20 13:45 | Diagnostic Imaging Report ---
PROCEDURE: CT abdomen and pelvis with contrast. TECHNIQUE: Multiple contiguous axial images were obtained through the abdomen and pelvis after administration of intravenous contrast. Auto Exposure Controls were utilized during the CT exam to meet ALARA standards for radiation dose reduction. INDICATION: Mid abdominal pain, history of cervical cancer. FINDINGS: No comparison available. Limited views of the lower thorax are normal. Liver is normal. No focal liver lesions are seen. Gallbladder is normal. Portal vein is patent. No biliary ductal dilation. Pancreas, spleen, and left adrenal gland are normal. There is an indeterminate right adrenal nodule measuring 2.2 x 2.9 cm. Kidneys enhance symmetrically without focal lesion or hydronephrosis. Urinary bladder is normal. There is a small bowel obstruction with the transition point in the pelvis at the level of the vaginal fornices. There is an area of soft tissue thickening measuring 5.3 x 3.1 cm in this location concerning for local tumor recurrence given the provided history of cervical cancer. There is also a parastomal hernia containing small bowel, but the transition point is not within the parastomal hernia. There is presacral stranding and thickening which may represent changes of radiation or tumor infiltration. There has been a partial colectomy with an end colostomy. The colon is decompressed. Retroperitoneal lymph nodes all measure less than 1 cm in short axis. Abdominal aorta is normal in caliber with atherosclerosis but no aneurysm. No free fluid or air. There are no suspicious osseous lesions. IMPRESSION: 1. Small bowel obstruction with a transition point at the level of the vaginal fornices where there is an area of soft tissue thickening concerning for local tumor recurrence, less likely radiation fibrosis. 2. Please note that there is a parastomal hernia containing small bowel, but the transition point is not within the hernia. 3. Indeterminate right adrenal nodule. Dictated by: Dictated on workstation # [id number]
[2019-02-20 13:50] LABS: BACTERIA,URINE MODERATE /HPF; RBC,URINE RARE /HPF; SQUAMOUS EPITHELIAL CELL,UR RARE /HPF; WBC,URINE 25-50 /HPF
[2019-02-20] MEDS ORDERED: fentaNYL INJECTION 100 MCG/2 ML AMP IVP ONE (14:15)
--- NOTE | 2019-02-20 15:06 | NUR ---
DR KLEIN HERE. TO ROOM TO SEE PATIENT.
--- OUTSIDE RECORDS SUMMARY | 2019-02-20 15:28 | XMS REPORT | Continuity of Care Document ---
[...] Status Pt. Type Provider Facility Loc./Unit Complaint [id number] 01/18/2019 15:00:00 01/18/2019 23:59:59 [facility] Outpatient SANDRA MENDOZA [facility] [id number] 01/18/2019 15:00:00 Document Registration [id number] 01/17/2019 08:40:00 Document Registration [id number] 01/02/2019 09:00:00 Document Registration
--- NOTE | 2019-02-20 16:00 | NUR ---
REPORT TAKEN FROM MICHELLE DUVALL AT THIS TIME. THIS RN WILL ASSUME CARE OF THIS PATIENT WHEN SHE ARRIVES TO THIS FLOOR.
[2019-02-20 16:07] VITALS: BP 127/61
[2019-02-20] MEDS ORDERED: IBUP-30 PO (16:33)
[2019-02-20] MEDS ORDERED: RANI-613 PO (16:33)
--- NOTE | 2019-02-20 16:34 | NUR ---
PATIENT STATES SHE TAKES ZANTAC THAT SHE WAS RECENTLY PRESCRIBED AND SHE TAKES ADVIL OTC. SHE STATES SHE CAN NOT TAKE TYLENOL BECAUSE IT UPSETS HER STOMACH BUT SHE HAS BEEN TAKING 8 OF THE OTC 200MG ADVIL TABLETS AT A TIME. I ENTERED IT 800MG PRN. [facility] HAS NOT FILLED ANY MEDICATIONS RECENTLY FOR THE PATIENT. I CALLED AND SPOKE WITH THE NURSE AT [facility] WHO STATES THE PATIENT HAS PANTOPRAZOLE 40MG DAILY READY FOR HER HOWEVER IT HAS NOT BEEN PICKED UP YET. I ADDED IT TO THE MED REC AT THIS TIME TO BE ADDRESSED AT DISCHARGE BECAUSE IT IS READY FOR [employer].
[2019-02-20] MEDS ORDERED: PANT40TA2 PO (16:43)
[2019-02-20] MEDS ORDERED: CATHETER FLUSH 10 ML SYR IV PRN (16:45)
[2019-02-20] MEDS: fentaNYL INJECTION 100 MCG/2 ML AMP IV PRN ×4 (16:47→23:39)
[2019-02-20] MEDS: cefTRIAXone 1,000 MG/SWFI 10 ML IV PUSH IV SCH ×2 (16:47)
[2019-02-20] MEDS: NS IV 1000 ML 1,000 ML IV SCH (16:48)
[2019-02-20] MEDS: ONDANSETRON 4 MG/2 ML (SDV) Z0FRAN IV PRN ×2 (16:57→20:59)
--- NOTE | 2019-02-20 17:04 | History & Physical-Hospitalist ---
GAY HERNANDEZ [facility] 02/20/19 1704: History of Present Illness HPI/Chief Complaint C/C: Abdominal pain HPI: Umu is a 53 year old white female that has had abdominal pain for the last 2 weeks. She was sent over from [facility]. She states she was trying to just wait and see what happens with the pain but it just got worse and worse until she had her appointment at [facility] and they sent her right over. Date Seen 02/20/19 Time Seen by a Provider: 04:30 Attending Physician Shona Jay DO [facility] [place] Referring Physician Date of Admission Feb 20, 2019 at 15:07 Home Medications & Allergies Home Medications Reviewed patient Home Medication Reconciliation performed by pharmacy medication reconciliations slot technician and/or nursing. Patients Allergies have been reviewed. Patient states she is on Advil and Zantac at home and cannot remember the dose or frequency Allergies Allergies Coded Allergies No Known Drug Allergies (Unverified02/20/19) Patient stated she has no allergies to medicine, food or the environment Past Jztwzpj-Gxtffw-Imwloz Hx Patient Social History Marrital Status: domestic partnership (Been with her partner for 32 years ) Number of Children: 2 (One son and one daughter ) Employed/Student: unemployed Alcohol Use: Denies Use Recreational Drug Use: No Smoking Status: Current Everyday Smoker Cigaretts per day: 24 (1 pack a day ) Recent Foreign Travel: No Contact w/other who traveled: No Recent Hopitalizations: No Recent Infectious Disease Expo: No Past Medical History Surgeries: Abdominal (Fistula in 2016) Reproductive: No Cervical cancer when the patient was 39 years old Fistula in 2016 Cancer: Cervical Did You Recieve Any Treatments: Yes What Type of Treatment Did You: Chemotherapy, Radiation Family History Patient has is currently is a parternership for 32 years. She has two kids, one boy and one girl Mother: from cancer (type: unknown) Father: , had history of strokes Review of Systems Constitutional: No chills, No diaphoresis; dizziness; No fever; weight loss, other (patient has lost about 10ibs since her pain started ) EENTM: No blurred vision, No double vision, No vision loss Respiratory: cough Cardiovascular: No edema; other (Patient had chest pain about a week ago, but believes it was gas. ) Gastrointestinal: abdominal pain, loss of appetite, nausea, vomiting, other (Patient has diffuse pain and has not been able to hold any solid foods down ) Genitourinary: no symptoms reported Musculoskeletal: no symptoms reported Skin: no symptoms reported Psychiatric/Neurological: Denies Anxiety; Other (Patient states she is feels bad about her dx and not getting better but never depressed to the point where it bothers her or ruins her day. She really just wants to get better and is motivated to do. ) Physical Exam Physical Exam Vital Signs Vital Signs - First Documented 02/20/19 11:33 Temp 99.2 Pulse 92 Resp 18 B/P (MAP) 128/88 (101) Pulse Ox 100 O2 Delivery Room Air Capillary Refill : Less Than 3 Seconds Height, Weight, BMI Height: 5'5.00" Weight: 138lbs. oz. 62.987715ni; BMI Method:Stated HEENT: Other Neck: Full Range of Motion Respiratory: Chest Non Tender, No Respiratory Distress, Wheezing Cardiovascular: Regular Rate, Rhythm, No Edema, No JVD, Other (radial pulse 2/4 bilaterally ) Gastrointestinal: Other (Did not examine abdomen because patient just came from ER where the examination caused alot of pain. She states it is a 10/10. 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 Assessment/Plan Assessment and Plan Assessment 1. GI obstruction 2. New cancer or metastasis from cervical cancer. 3. COPD 4. hyponatremia 5. UTI Plan: 1. Consult Surgery 2. Patient is NPO 3. DC Advil use 4. Consult oncology 5. Monitor vitals q4 6. Monitor patients pain and keep her comfortable 7. Consult Dr. Coulter for pulmonary 8. Consider Abx for UTI 9. Consider stopping Fluids due to hyponatremia SHONA JAY DO 02/21/192046: History of Present Illness Source: patient Past Tbxzzoc-Pzhmyd-Derjml Hx Past Med/Social Hx: Reviewed Nursing Past Med/Soc Hx, Reviewed and Corrections made Patient Social History Marrital Status: domestic partnership (Been with her partner for 32 years ) Employed/Student: unemployed Smoking Status: Current Everyday Smoker Past Medical History Surgeries: Abdominal (Fistula in 2016) Cancer: Cervical Did You Recieve Any Treatments: Yes What Type of Treatment Did You: Chemotherapy, Radiation Review of Systems Constitutional: see HPI Gastrointestinal: abdominal pain (RUQ), loss of appetite, nausea Physical Exam Physical Exam General Appearance: No Apparent Distress, WD/WN, Anxious, Chronically ill, Thin Eyes: Right Eye Normal Inspection, Right Eye PERRL HEENT: PERRL/EOMI, TMs Normal, Normal ENT Inspection, Pharynx Normal, Moist Mucous Membranes Neck: Full Range of Motion, Normal Inspection, Non Tender Respiratory: Chest Non Tender, Lungs Clear, Normal Breath Sounds, No Accessory Muscle Use, No Respiratory Distress Cardiovascular: Regular Rate, Rhythm, No Edema, No Gallop, No JVD, No Murmur, Normal Peripheral Pulses Gastrointestinal: No Organomegaly, No Pulsatile Mass, Tenderness Back: Normal Inspection, No CVA Tenderness, No Vertebral Tenderness Extremity: Normal Capillary Refill, Normal Inspection, Normal Range of Motion, Non Tender, No Calf Tenderness, No Pedal Edema Neurologic/Psychiatric: Alert, Oriented x3, No Motor/Sensory Deficits, Normal Mood/Affect Skin: Normal Color, Warm/Dry Lymphatic: No Adenopathy Assessment/Plan Admission Diagnosis Assessment: SBO Cervical cancer at 39yo [place] on CT scan? Smoker Plan: IVF Anti-emetics Dr Harris consultation Dr Burger consultation Admission Status: Inpatient Order (span 2 midnights) Reason for Inpatient Admission: SBO will take 3 days Diagnosis/Problems Diagnosis/Problems (1) Small bowel obstruction Status: Acute Supervisory-Addendum Brief Verification & Attestation Time: Verification & Attestat.: 16:00 Participated in pt care: history, MDM, physical Personally performed: exam, history, MDM, supervision of care Care discussed with: Medical Student Procedures: n/a Results interpretation: Verified all documentation Verification and Attestation of Medical Student E/M Service A medical student performed and documented this service in my presence. I reviewed and verified all information documented by the medical student and made modifications to such information, when appropriate. I personally performed the physical exam and medical decision making. Shona Jay, Feb 21, 2019,20:46 GAY HERNANDEZ [facility] Feb 20, 2019 17:04 SHONA JAY DO Feb 21, 2019 20:47
--- NOTE | 2019-02-20 18:56 | Consultation - Surgery ---
History of Present Illness History of Present Illness Patient Consulted On(sepideh/time) 02/20/19 18:47 Time Seen by Provider: 15:23 History of Present Illness Surgery asked to consult regarding PSBO. HPI: pt is a 53 yo female with hx of Cervical CA and Colostomy secondary to perforated diverticulitis. Pt seen with her daughter at bedside. Pt states pain started about 2 weeks ago; describes it as dull achey and constant. Started at about 3-4 out of 10 and now is 8 out of 10. Three days ago she started vomiting and has not been able to keep anything down. She has not eaten anything. Still has been getting stuff in her colostomy; solid until about 2 days ago and since then liquid. Still got some liquid output today. She thinks her belly is slightly distended. This has happened once before; "when I got backed up and they had to cut out 4 more inches of colostomy". Pain is mostly in upper abdomen, does not really radiate anywhere. Nothing seems to make pain better, attempting to eat makes it worse. She does admit to being thirsty. Allergies and Home Medications Allergies Coded Allergies: No Known Drug Allergies (Unverified , 02/20/19) Home Medications Ibuprofen 200 Mg Tablet, 800 MG PO TID PRN for PAIN-MILD, (Reported) Pantoprazole Sodium 40 Mg Tablet.dr, 40 MG PO DAILY, (Reported) Patient Home Medication List Home Medication List Reviewed: Yes Past Icexrgd-Slrxck-Vblgtr Hx Patient Social History Alcohol Use: Denies Use Recreational Drug Use: No Smoking Status: Current Everyday Smoker Cigarettes Per Day: 24 (1 pack a day ) Recent Foreign Travel: No Contact w/Someone Who Travel: No Recent Infectious Disease Expo: No Recent Hopitalizations: No Surgeries History of Surgeries: Yes (FISTULA , CERVICAL) Surgeries: Abdominal (Fistula in 2016) Respiratory History of Respiratory Disorde: No Cardiovascular History of Cardiac Disorders: No Neurological History of Neurological Disord: No Reproductive System Hx Reproductive Disorders: No Genitourinary History of Genitourinary Disor: No Gastrointestinal History of Gastrointestinal Di: No Musculoskeletal History of Musculoskeletal Dis: No Endocrine History of Endocrine Disorders: No HEENT History of HEENT Disorders: No Cancer History of Cancer: Yes Cancer: Cervical Psychosocial History of Psychiatric Problem: No Family Medical History Significant Family History: Cancer (father had lung cancer) Family Medial History: Dementia 19 FATHER FH: cancer 19 FATHER, Onset:76 19 MOTHER, Onset:46 Fibrocystic disease of breast Review of Systems-General Constitutional: No chills, No diaphoresis; malaise, weakness EENTM: No blurred vision, No mouth pain, No mouth swelling, No epistaxis, No throat swelling Respiratory: No cough, No dyspnea on exertion, No hemoptysis Cardiovascular: No chest pain, No edema Gastrointestinal: abdominal pain; No jaundice; nausea, vomiting Genitourinary: No frequency, No hematuria, No hesitancy Musculoskeletal: joint pain, joint swelling, muscle stiffness Skin: No change in color, No change in hair/nails Psychiatric/Neurological: Denies Anxiety, Denies Depressed, Denies Seizure, Denies Tremors Other pt denies any abnormal bleeding or bruising; no heat or cold intolerance Physical Exam-General Problems Physical Exam Vital Signs Vital Signs - First Documented 02/20/19 11:33 Temp 99.2 Pulse 92 Resp 18 B/P (MAP) 128/88 (101) Pulse Ox 100 O2 Delivery Room Air Capillary Refill : Less Than 3 Seconds General Appearance: mild distress, thin Eyes: Bilateral Eye PERRL, Bilateral Eye EOMI HEENT: pharynx normal; No scleral icterus (R), No scleral icterus (L); other (poor dentition) Neck: non-tender, supple; No thyromegaly Respiratory: lungs clear, normal breath sounds, no respiratory distress, no accessory muscle use Cardiovascular: regular rate, rhythm, no murmur Gastrointestinal: soft, no organomegaly, tenderness (diffusely), hernia (parastomal), other (stoma pink and functioning) Back: no CVA tenderness, no vertebral tenderness Extremities: non-tender, no pedal edema, no calf tenderness, normal capillary r efill Neurologic/Psychiatric: digital account supervisor II-XII nml as tested, no motor/sensory deficits, alert, normal mood/affect, oriented x 3 Skin: normal color, warm/dry Lymphatic: no adenopathy (neck, axilla or groin) Data Review Labs Laboratory Tests 02/20/19 11:46: White Blood Count 13.2H, Red Blood Count 4.63, Hemoglobin 13.8, Hematocrit 38, Mean Corpuscular Volume 83, Mean Corpuscular Hemoglobin 30, Mean Corpuscular Hemoglobin Concent 36, Red Cell Distribution Width 11.9, Platelet Count 565H, Mean Platelet Volume 10.0, Neutrophils (%) (Auto) 85H, Lymphocytes (%) (Auto) 8L , Monocytes (%) (Auto) 7, Eosinophils (%) (Auto) 0, Basophils (%) (Auto) 0, Neutrophils # (Auto) 11.2H, Lymphocytes # (Auto) 1.0, Monocytes # (Auto) 1.0, Eosinophils # (Auto) 0.0, Basophils # (Auto) 0.0, Neutrophils % (Manual) 63, Lymphocytes % (Manual) 16, Monocytes % (Manual) 7, Eosinophils % (Manual) 1, Basophils % (Manual) 0, Band Neutrophils 13, Blood Morphology Comment NORMAL, Sodium Level 129L, Potassium Level 3.6, Chloride Level 90L, Carbon Dioxide Level 22, Anion Gap 17H, Blood Urea Nitrogen 49H, Creatinine 0.99, Estimat Glomerular Filtration Rate 59, BUN/Creatinine Ratio 49, Glucose Level 101, Calcium Level 9.7, Corrected Calcium 9.8, Total Bilirubin 0.4, Aspartate Amino Transf (AST/SGOT) 16, Alanine Aminotransferase (ALT/SGPT) 10, Alkaline Phosphatase 103, Total Protein 7.8, Albumin 3.9, Amylase Level 32, Lipase 27 02/20/19 13:31: Urine Color YELLOW, Urine Clarity CLEAR, Urine pH 6, Urine Specific [place] 1.015L, Urine Protein NEGATIVE, Urine Glucose (UA) NEGATIVE, Urine Ketones 3+H, Urine Nitrite POSITIVEH, Urine Bilirubin NEGATIVE, Urine Urobilinogen NORMAL, Urine Leukocyte Esterase 1+H, Urine RBC (Auto) 3+H, Urine RBC RARE, Urine WBC 25-50H, Urine Squamous Epithelial Cells RARE, Urine Crystals NONE, Urine Bacteria MODERATEH, Urine Casts NONE, Urine Mucus NEGATIVE, Urine Culture Indicated YES Assessment/Plan Assessment/Plan Assessment/Plan PSBO Hx of Cervical CA Plan is to admit, NPO, IV fluids, pain control, anti-emetics as needed. CT showed possible transition point down in the pelvis; I went over films with radiologist. Will plan for SBFT tomorrow with gastrograffin and recheck labs. Monitor abdomen. Clinical Quality Measures DVT/VTE Risk/Contraindication: Risk Factor Score Per Nursin RFS Level Per Nursing on Admit: 4+=Very High Other: see orders for details, GOGO KLEIN DO Feb 20, 2019 18:56
[2019-02-20 20:16] VITALS: BP 100/68
[2019-02-21 00:30] VITALS: BP 90/59
[2019-02-21] MEDS: ONDANSETRON 4 MG/2 ML (SDV) Z0FRAN IV PRN ×4 (01:46→21:59)
[2019-02-21] MEDS: fentaNYL INJECTION 100 MCG/2 ML AMP IV PRN ×6 (01:49→11:12)
[2019-02-21 04:30] VITALS: BP 88/56
[2019-02-21] MEDS: NS IV 1000 ML 1,000 ML IV SCH ×2 (05:15→17:49)
[2019-02-21 05:59] LABS: BASOPHILS % (AUTO) 0 % (0-10); EOSINOPHILS % (AUTO) 0 % (0-10); HEMATOCRIT 32 % (35-52); HEMOGLOBIN 10.8 G/DL (11.5-16.0); LYMPHOCYTES # (AUTO) 0.7 X 10^3 (1.0-4.0); LYMPHOCYTES % (AUTO) 9 % (12-44); MEAN CORPUSCULAR HEMOGLOBIN 30 PG (25-34); MEAN CORPUSCULAR HGB CONC 34 G/DL (32-36); MEAN CORPUSCULAR VOLUME 87 FL (80-99); MEAN PLATELET VOLUME 9.9 FL (7.4-10.4); MONOCYTES # (AUTO) 0.8 X 10^3 (0.0-1.0); MONOCYTES % (AUTO) 10 % (0-12); NEUTROPHILS # (AUTO) 6.2 X 10^3 (1.8-7.8); NEUTROPHILS % (AUTO) 80 % (42-75); PLATELET COUNT 378 10^3/uL (130-400); RED CELL DISTRIBUTION WIDTH 12.1 % (10.0-14.5); WHITE BLOOD COUNT 7.7 10^3/uL (4.3-11.0)
[2019-02-21 06:17] LABS: ALANINE AMINOTRANSFERASE 10 U/L (0-55); ALBUMIN 2.9 GM/DL (3.2-4.5); ALKALINE PHOSPHATASE 83 U/L (40-136); BILIRUBIN,TOTAL 0.3 MG/DL (0.1-1.0); BUN/CREATININE RATIO 40; CALCIUM 8.3 MG/DL (8.5-10.1); CARBON DIOXIDE 17 MMOL/L (21-32); CHLORIDE 102 MMOL/L (98-107); CREATININE SERUM 0.75 MG/DL (0.60-1.30); GFR ESTIMATED > 60; GLUCOSE 75 MG/DL (70-105); POTASSIUM 3.4 MMOL/L (3.6-5.0); SODIUM 135 MMOL/L (135-145); TOTAL PROTEIN 5.6 GM/DL (6.4-8.2)
[2019-02-21 07:28] VITALS: BP 87/57
--- NOTE | 2019-02-21 11:40 | NUR ---
PT AND DAUGHTER VOICED THAT WHEN THEY WERE IN ER -- DR VOICED NEED TO CHECK BOWEL FOR POSSIBLE C DIFF AND OTHER PATHOGENS-- NO ORDER WAS FOUND -- CALLED AND TALKED TO DR JAY -- SHE VOICED THAT DR KLEIN WAS CONSULTED AND TO CALL HIM FOR ORDERS -- CALLED AND LEFT MESSAGE --
[2019-02-21 11:42] VITALS: BP 96/61
--- NOTE | 2019-02-21 11:46 | Progress Note - Hospitalist ---
[facility]Y HERNAN[facility]Z [facility] 02/21/19 1146: Subjective HPI/CC On Admission Date Seen by Provider: Feb 21, 2019 Time Seen by Provider: 08:00 C/C: Abdominal pain HPI: Umu is a 53 year old white female that has had abdominal pain for the last 2 weeks. She was sent over from [facility]. She states she was trying to just wait and see what happens with the pain but it just got worse and worse until she had her appointment at [facility] and they sent her right over. Subjective/Events-last exam Umu was alert and orieted this morning. She was in a lot of pain and crying when I was talking to her. Patient still has pain she has been sleeping better Patient is currently NPO, but has been urinating and can feel that she has been passing gas. Vitals: Blood pressure was low this morning at 87/57 and the rest of her vitals were stable ROS: Patient denied chest pain, SOB, N/V, fever and chills Labs: HgB 10.8, Potassium 3.4, WBC decreased from yesterday from 13.2 to 7.7 and her platelet count has come down from 565 to 378. Patient is receiving antibiotics and pain medications Has a small bowel follow through procedure today Focused Exam Respiratory: Chest Non Tender, No Accessory Muscle Use, No Respiratory Distress, Wheezing Cardiovascular: Regular Rate, Rhythm, No Edema Peripheral Pulses: 2+ Radial Pulses (R), 2+ Radial Pulses (L) Skin: normal color, warm/dry Objective Exam Vital Signs Vital Signs Date Time Temp Pulse Resp B/P (MAP) Pulse Ox O2 Delivery O2 Flow Rate FiO2 02/21/19 11:12 98.4 02/21/19 08:00 96 Nasal Cannula 02/21/19 07:28 66 18 87/57 (67) Capillary Refill : Less Than 3 Seconds General Appearance: Mild Distress Respiratory: Chest Non Tender, No Accessory Muscle Use, No Respiratory Distress, Wheezing Cardiovascular: Regular Rate, Rhythm, No Edema, No Gallop, No JVD, No Murmur Gastrointestinal: Other (Did not examine due to the patients pain ) Extremity: Normal Capillary Refill Neurologic/Psychiatric: Alert, Oriented x3 Skin: Normal Color, Warm/Dry Results/Procedures Lab Laboratory Tests 02/20/19 11:46 02/21/19 05:10 Patient resulted labs reviewed. Assessment/Plan Assessment and Plan Assess & Plan/Chief Complaint Assessment 1. GI obstruction 2. New cancer or metastasis from cervical cancer. 3. COPD 4. hyponatremia 5. UTI Plan: 1. Get results from surgery 2. Patient is NPO 3. DC Advil use 4. Consult oncology, they have not come yet 5. Monitor vitals q4 (make sure BP continues to increase 6. Monitor patients pain and keep her comfortable 7. Consult Dr. Coulter for pulmonary 8. Consider Abx for UTI 9. Consider stopping Fluids due to hyponatremia 10. Follow up on labs and imaging 11. Consult surgery about patient being able to eat and drink after imaging study 12. CBC with Diff and CMP for tomorrow 13. wound care to make sure colostomy bag is okay and in place Clinical Quality Measures DVT/VTE Risk/Contraindication: Risk Factor Score Per Nursin RFS Level Per Nursing on Admit: 4+=Very High Other: see orders for details, SHONA JAY DO 02/21/192049: Subjective Subjective/Events-last exam Pt undergoing small bowel follow-through series with gastric graffin Pain continues along with nausea. Reviewed chart. Appreciate Dr. Harris and Dr. Ortiz consultation. Pt appears to be thin and frail, highly suspicious of cancer as the small bowel obstruction versus scarring and adhesions. BP low 87/57 but she still remains dehydrated no evidence of any sepsis. Passing gas. Remains NPO. Slept better last night than she has in two weeks. Review of Systems General: Fatigue Gastrointestinal: Abdominal Pain Objective Exam General Appearance: No Apparent Distress, WD/WN, Chronically ill Respiratory: Chest Non Tender, Lungs Clear, Normal Breath Sounds, No Accessory Muscle Use, No Respiratory Distress Cardiovascular: Regular Rate, Rhythm, No Edema, No Gallop, No JVD, No Murmur, Normal Peripheral Pulses Gastrointestinal: Soft, Abnormal Bowel Sounds Assessment/Plan Assessment and Plan Assess & Plan/Chief Complaint Consult Dr Hernández Appreciate Ivonne Burger and Kimberly Diagnosis/Problems Diagnosis/Problems (1) Small bowel obstruction Status: Acute Supervisory-Addendum Brief Verification & Attestation Time: Verification & Attestat.: 09:00 Participated in pt care: history, MDM, physical Personally performed: exam, history, MDM, supervision of care Care discussed with: Medical Student Procedures: n/a Results interpretation: Verified all documentation Verification and Attestation of Medical Student E/M Service A medical student performed and documented this service in my presence. I reviewed and verified all information documented by the medical student and made modifications to such information, when appropriate. I personally performed the physical exam and medical decision making. Shona Jay, Feb 21, 2019,20:50 [facility] Feb 21, 2019 11:46 SHONA JAY DO Feb 21, 2019 20:50
--- NOTE | 2019-02-21 12:10 | Progress Note - Surgery ---
Subjective Time Seen by a Provider: 11:55 Subjective/Events-last exam Pt seen and examined, complaining of some abdominal pain. She just finished SBFT and had "complete blowout". She is hungry, but mostly thirsty. Review of Systems General: No Chills, No Night Sweats Pulmonary: No Dyspnea, No Cough Cardiovascular: No: Chest Pain, Palpitations Gastrointestinal: Abdominal Pain; No: Nausea, Vomiting Objective Exam Vital Signs Date Time Temp Pulse Resp B/P (MAP) Pulse Ox O2 Delivery O2 Flow Rate FiO2 02/21/19 11:42 98.0 76 18 96/61 (73) 98 Room Air 02/21/19 11:12 98.4 02/21/19 10:47 98.4 02/21/19 09:14 98.4 02/21/19 08:44 98.4 02/21/19 08:00 96 Nasal Cannula 02/21/19 07:28 98.4 66 18 87/57 (67) 97 Room Air 02/21/19 04:30 98.4 94 18 88/56 (67) 98 Room Air 02/21/19 00:30 99.1 73 19 90/59 (69) 96 Room Air 02/20/19 20:16 100.8 75 18 100/68 (79) 98 Room Air 02/20/19 20:00 96 Nasal Cannula 02/20/19 17:18 100 Room Air 02/20/19 16:07 99.6 77 18 127/61 100 Room Air 02/20/19 14:16 92 18 128/88 (101) 100 I & O 02/21/19 07:00 Intake Total 2000 ml Output Total 750 ml Balance 1250 ml Capillary Refill : Less Than 3 Seconds General Appearance: Mild Distress, Thin HEENT: PERRL/EOMI, Pharynx Normal Respiratory: Lungs Clear, Normal Breath Sounds, No Accessory Muscle Use, No Respiratory Distress, Wheezing Cardiovascular: Regular Rate, Rhythm, No Murmur Peripheral Pulses: 2+ Radial Pulses (R), 2+ Radial Pulses (L) Gastrointestinal: normal bowel sounds, soft, no organomegaly, no pulsatile mass, tenderness (right upper quadrant abdominal) Neurologic/Psychiatric: Alert, Oriented x3 Skin: Normal Color, Warm/Dry Results Lab Laboratory Tests 02/20/19 13:31: Urine Color YELLOW, Urine Clarity CLEAR, Urine pH 6, Urine Specific [place] 1.015L, Urine Protein NEGATIVE, Urine Glucose (UA) NEGATIVE, Urine Ketones 3+H, Urine Nitrite POSITIVEH, Urine Bilirubin NEGATIVE, Urine Urobilinogen NORMAL, Urine Leukocyte Esterase 1+H, Urine RBC (Auto) 3+H, Urine RBC RARE, Urine WBC 25-50H, Urine Squamous Epithelial Cells RARE, Urine Crystals NONE, Urine Bacteria MODERATEH, Urine Casts NONE, Urine Mucus NEGATIVE, Urine Culture Indicated YES 02/21/19 05:10: White Blood Count 7.7, Red Blood Count 3.65L, Hemoglobin 10.8#L, Hematocrit 32L, Mean Corpuscular Volume 87, Mean Corpuscular Hemoglobin 30, Mean Corpuscular Hemoglobin Concent 34, Red Cell Distribution Width 12.1, Platelet Count 378, Mean Platelet Volume 9.9, Neutrophils (%) (Auto) 80H, Lymphocytes (%) (Auto) 9L, Monocytes (%) (Auto) 10, Eosinophils (%) (Auto) 0, Basophils (%) (Auto) 0, Neutrophils # (Auto) 6.2, Lymphocytes # (Auto) 0.7L, Monocytes # (Auto) 0.8, Eosinophils # (Auto) 0.0, Basophils # (Auto) 0.0, Sodium Level 135, Potassium Level 3.4L, Chloride Level 102, Carbon Dioxide Level 17L, Anion Gap 16H, Blood Urea Nitrogen 30H, Creatinine 0.75, Estimat Glomerular Filtration Rate > 60, BUN/Creatinine Ratio 40, Glucose Level 75, Calcium Level 8.3L, Corrected Calcium 9.2, Total Bilirubin 0.3, Aspartate Amino Transf (AST/SGOT) 11, Alanine Aminotransferase (ALT/SGPT) 10, Alkaline Phosphatase 83, Total Protein 5.6L, Albumin 2.9L Assessment/Plan Assessment/Plan Assessment/Plan PSBO - resolved Hx of Cervical CA SBFT went through in 2 hours and pt is now having large liquid BM's. Labs look good; will switch to PO pain meds and start liquid diet. Increase diet as tolerated no indications for surgery intervention at this time. Will continue to follow while pt is in hospital. Clinical Quality Measures DVT/VTE Risk/Contraindication: Risk Factor Score Per Nursin RFS Level Per Nursing on Admit: 4+=Very High Other: see orders for details, GOGO KLEIN DO Feb 21, 2019 12:10
[2019-02-21] MEDS: HYDROcodone/APAP 10 MG/325 MG (LORTAB) TAB PO PRN ×2 (12:34→19:37)
--- NOTE | 2019-02-21 12:39 | Diagnostic Imaging Report ---
INDICATION: Mid abdominal pain for 2 weeks with nausea. Findings suggestive of small bowel obstruction on a CT of one day earlier. TECHNIQUE: The patient was given 120 cc of Gastrografin contrast mixed with 120 cc of water and serial radiographs over the abdomen were obtained. FINDINGS: The preliminary radiograph of the abdomen shows moderate gaseous distention of small bowel loops in the central abdomen. Serial radiographs do show moderate distention of the small bowel loops by ingested contrast; however, contrast does reach the right colon in approximately 2 hours. IMPRESSION: No evidence of complete small bowel obstruction. Dictated by: Dictated on workstation # [id number]
[2019-02-21 16:26] VITALS: BP 112/73
[2019-02-21] MEDS ORDERED: KETOROLAC 30 MG/ML VIAL IVP NR (16:30)
--- NOTE | 2019-02-21 16:36 | CONSULTATION REPORT ---
DATE OF SERVICE: 02/21/2019 THE PATIENT IS ADMITTED TO ROOM: 425. PHYSICIAN REQUESTING CONSULTATION: Shona Novak DO IMPRESSION: 1. A 53-year-old female with a history of cervical cancer, who was admitted with increasing abdominal pain, nausea and vomiting. 2. Evaluation at the emergency room showed evidence of partial small-bowel obstruction with a mass in the pelvis. 3. History of cervical cancer at the age of 38 years and treated at [facility] in [place]. Per patient history, she was treated with chemotherapy and radiation as well as implants. RECOMMENDATIONS: 1. Agree with surgical recommendations regarding a partial small-bowel obstruction. The patient is having bowel movements today and is drinking fluids without vomiting. 2. Try to obtain previous Oncology records including pathology report and radiation as well as chemotherapy details from [place]. 3. Consult Gynecology for evaluation of the mass. If this could be biopsied, then I would recommend so. Another option is to obtain a PET CT scan once the patient recovers from the current partial small-bowel obstruction. 4. If the patient does have evidence of recurrent disease, we will talk about palliative treatment options. If disease or scar tissue from previous chemoradiation, then she does not need any treatment at this point other than supportive care. 5. We will follow the patient with you. BRIEF HISTORY: The patient is a 53-year-old female, who came to the emergency room with several day history of worsening abdominal pain, nausea and vomiting. She has not been able to eat or drink for several days. She came to the emergency room for evaluation and was admitted to the hospital for further management. CT scan of the abdomen and pelvis done at the emergency room showed evidence of bowel obstruction with a transition zone in the pelvis. This also showed mass in the pelvis. Because of her history of cervical cancer and pelvic mass, Oncology consultation was requested. PAST MEDICAL HISTORY: Significant for diagnosis of cervical cancer at the age of 38 years and treated in [facility] in [place]. The patient indicated that she did not have any surgery done, but was treated with combined chemotherapy and radiation. She is unsure if she completed the chemotherapy, but mentioned that she may have missed one or two treatments at the end. She did not follow up with Oncology or Gynecological Oncology. In 2016, she was diagnosed with either a fistula or obstruction of the colon requiring exploration and placement of colostomy. She indicated that this was complications from previous radiation therapy. She denied any new bony aches or pains, no headaches or visual changes. No new lumps or masses. No other major medical problems: SOCIAL HISTORY: The patient is not , but has been living with her domestic partner for more than 32 years. They have two children in their early 30s. A son, who lives in [place] and a daughter, who lives in [place]. 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 She is smoking one pack of cigarettes daily. She denied any alcohol or other recreational drug use. FAMILY HISTORY: Unremarkable with no major malignancies that the patient knows of. PHYSICAL EXAMINATION: GENERAL: Today, showed a middle-aged female, thin appearing, anxious, awake and oriented, in mild distress due to the abdominal discomfort. HEENT: Normocephalic. Extraocular muscles are intact. Conjunctivae pink. Oral mucosa is slightly dry. NECK: Supple with no JVD. No cervical, supraclavicular or axillary lymphadenopathy palpable. CHEST: Symmetrical. LUNGS: With slightly diminished breath sounds bilaterally without wheezes or rales. CARDIOVASCULAR: Regular in rate and rhythm. No murmurs or gallops heard. ABDOMEN: Soft with tenderness in the upper abdomen without guarding or rebound. Bowel sounds were heard. EXTREMITIES: Showed no edema. NEUROLOGIC: Showed no focal motor deficits. LABORATORY DATA: CBC done today showed WBC 7.7, hemoglobin 10.8, platelet count 378,000. Neutrophil count 6.2 and lymphocyte count 0.7. Chemistry panel showed potassium level of and CO2 17. BUN was 30 and creatinine 0.75 with GFR more than 60 mL per minute. Liver function studies were within normal limits except albumin level of 2.9. CA125 level was elevated at 101.1. CT scan of the abdomen and pelvis done yesterday in the emergency room showed evidence of small-bowel obstruction with a transition point at the level of the vaginal fornices. There is an area of soft tissue thickening measuring 5.3 x 3.1 cm in this location concerning for local tumor recurrence or radiation fibrosis. There is a right lower quadrant colostomy with a parastomal hernia containing small bowel. There is an indeterminate right adrenal nodule measuring 2.2 x 2.9 cm. Thank you for allowing me to participate in this patient's care. I will follow the patient with you and make appropriate recommendations. Job ID: [id number] DocumentID: [id number] Dictated Date: 02/21/2019 15:59:15 Pattern Chart Writer Date: 02/21/2019 16:36:07 Dictated By: MILENA HART MD [facility]
--- NOTE | 2019-02-21 17:11 | Consultation ---
History of Present Illness History of Present Illness Patient Consulted On(sepideh/time) 02/21/19 17:05 Date Seen by Provider: Feb 21, 2019 Time Seen by Provider: 17:00 Reason for Visit: SBO, Hx of cervical cancer s/p radiation/chemo History of Present Illness This 53 yo female is a patient admitted by the medical service for SBO, consultations have been made to Med/Onc and General Surgery for hx of Cervical ca, and SBO. The patient reports having pain that started earlier last week and has become progressively worse. She was admitted through the ER for SBO, and has been managed by the other services up to this point. She complains of abdominal pain and is requesting pain medication as I speak with her, however has been told this must be withheld to hopefully restore bowel function. She does not seem to understand this and seems to become quite angry with discussion. Reports no vaginal bleeding, nor any intercourse in quite some time(several years). She had her treatment for, what sounds to be, >stage 2 cervical cancer, in [place], [place] and I have not seen records from this. Allergies and Home Medications Allergies Coded Allergies: No Known Drug Allergies (Unverified , 02/20/19) Home Medications Ibuprofen 200 Mg Tablet, 800 MG PO TID PRN for PAIN-MILD, (Reported) Pantoprazole Sodium 40 Mg Tablet.dr, 40 MG PO DAILY, (Reported) Patient Home Medication List Home Medication List Reviewed: Yes Past Lgoqcjj-Twypsf-Jlasst Hx Past Med/Social Hx: Reviewed Nursing Past Med/Soc Hx Patient Social History Alcohol Use: Denies Use Recreational Drug Use: No Smoking Status: Current Everyday Smoker Recent Foreign Travel: No Contact w/Someone Who Travel: No Recent Infectious Disease Expo: No Recent Hopitalizations: No Past Medical History Surgeries: Yes (FISTULA , CERVICAL) Abdominal (Fistula in 2016) Respiratory: No Cardiac: No Neurological: No Reproductive Disorders: No Genitourinary: No Gastrointestinal: No Musculoskeletal: No Endocrine: No HEENT: No Cancer: Yes Cervical Did You Recieve Any Treatments: Yes What Type of Treatment Did You: Chemotherapy, Radiation Psychosocial: No Family Medical History Reviewed Nursing Family Hx Dementia 19 FATHER FH: cancer 19 FATHER, Onset:[age] MOTHER, Onset:46 Fibrocystic disease of breast Cancer (father had lung cancer) Patient has is currently is a parternership for 32 years. She has two kids, one boy and one girl Mother: from cancer (type: unknown) Father: , had history of strokes Review of Systems-General Constitutional: see HPI EENTM: see HPI Cardiovascular: see HPI Genitourinary: see HPI : No Musculoskeletal: see HPI Skin: see HPI Psychiatric/Neurological: See HPI Physical Exam-General Problems Physical Exam Vital Signs Vital Signs - First Documented 02/20/19 11:33 Temp 99.2 Pulse 92 Resp 18 B/P (MAP) 128/88 (101) Pulse Ox 100 O2 Delivery Room Air Capillary Refill : Less Than 3 Seconds General Appearance: moderate distress HEENT: PERRL/EOMI Neurologic/Psychiatric: alert, normal mood/affect, oriented x 3 Skin: normal color Assessment/Plan Assessment/Plan Admission Diagnosis/Plan Diagnosis: SBO- being addressed by Surgical team management Pelvic mass noted on CT with involvement of SB. Plan: Will await records for final call, but this likely reoccurance of advanced stage recurrent cervical carcinoma has already been treated. Max doses of pelvic radiation have also likely already been reached. The patient, at this stage, is not a candidate for surgical treatment of this other than, as needed for tumor debulking and release of bowel obstruction as this may occur. This an advanced case that will likely require oncology recommendation for any further chemotherapy based on previous treatment, and possibly radiation but not likely. As far as from Construction Stonemason standpoint there is no further input I can offer as far as this patients management from here goes. If further recommendation is wanted GynOnclogy consultation would be the best line of care, however in my experience , they would not be able to offer anything further either. Please contact me via text/phone if any further questions, thanks for the consultation but I will not follow the patient further unless requested for any new information. Admission Status: Other Clinical Quality Measures DVT/VTE Risk/Contraindication: Risk Factor Score Per Nursin RFS Level Per Nursing on Admit: 4+=Very High Other: see orders for details, DONNA LOUSIE DO Feb 21, 2019 17:11
--- NOTE | 2019-02-21 17:30 | NUR ---
NOTE THAT PT IS VOICING A LOT OF MYKE DR KLEIN WAS CALLED AND HE GAVE THIS RN A ONE TIME DOS OF IV TORADOL 30MG AND HAT WAS GIVEN -- DR LOUISE WAS ON FLOOR AND SAW THE PT -- HE WAS QUESTIONING THE PAIN MEDS THIS RN EXPLAINED THAT DR KLEIN FOUND NO SBO AND HE CHANGED PAIN MED TO THE HYDROCODONE Q 6HRS PRN -- AND THAT I HAD GOTTEN A ONE TIME DOSE OF IV TORADOL 30 MG AND HAD GIVEN IT TO PT -- DR LOUISE VOICED PT PROBABLE HAD PAIN DUE TO INOPERATIVE CERVICAL CANCER -- THIS RN CALLED DR KLEIN BACK AND ASKED HIS IF IT WOULD BE OK TO CALL DR HART ABOUT PRN IV MEDS -- HE VOICED THAT WAS FINE THIS RN CALLED DR HART AND HE RESTARTED THE IV [id number] PRN FOR BREAK THROUGH DISCOMFORT
[2019-02-21] MEDS: cefTRIAXone 1,000 MG/SWFI 10 ML IV PUSH IV SCH ×2 (17:49)
[2019-02-21 19:28] VITALS: BP 98/64
[2019-02-21] MEDS: fentaNYL INJECTION 100 MCG/2 ML AMP IVP PRN ×2 (20:32→22:41)
[2019-02-22 00:25] VITALS: BP 103/71
[2019-02-22] MEDS: fentaNYL INJECTION 100 MCG/2 ML AMP IVP PRN ×5 (00:45→10:55)
[2019-02-22 04:30] VITALS: BP 101/67
[2019-02-22 05:34] LABS: BASOPHILS % (AUTO) 0 % (0-10); EOSINOPHILS # (AUTO) 0.1 10^3/uL (0.0-0.3); EOSINOPHILS % (AUTO) 1 % (0-10); HEMATOCRIT 31 % (35-52); HEMOGLOBIN 10.8 G/DL (11.5-16.0); LYMPHOCYTES # (AUTO) 0.5 X 10^3 (1.0-4.0); LYMPHOCYTES % (AUTO) 5 % (12-44); MEAN CORPUSCULAR HEMOGLOBIN 30 PG (25-34); MEAN CORPUSCULAR HGB CONC 35 G/DL (32-36); MEAN CORPUSCULAR VOLUME 86 FL (80-99); MEAN PLATELET VOLUME 9.8 FL (7.4-10.4); MONOCYTES # (AUTO) 0.9 X 10^3 (0.0-1.0); MONOCYTES % (AUTO) 9 % (0-12); NEUTROPHILS # (AUTO) 8.5 X 10^3 (1.8-7.8); NEUTROPHILS % (AUTO) 85 % (42-75); PLATELET COUNT 379 10^3/uL (130-400); RED CELL DISTRIBUTION WIDTH 11.8 % (10.0-14.5)
[2019-02-22 05:57] LABS: ALANINE AMINOTRANSFERASE 10 U/L (0-55); ALBUMIN 3.1 GM/DL (3.2-4.5); ALKALINE PHOSPHATASE 91 U/L (40-136); BILIRUBIN,TOTAL 0.2 MG/DL (0.1-1.0); BUN/CREATININE RATIO 35; CALCIUM 8.4 MG/DL (8.5-10.1); CARBON DIOXIDE 22 MMOL/L (21-32); CHLORIDE 99 MMOL/L (98-107); CREATININE SERUM 0.66 MG/DL (0.60-1.30); GFR ESTIMATED > 60; GLUCOSE 140 MG/DL (70-105); POTASSIUM 2.7 MMOL/L (3.6-5.0); SODIUM 132 MMOL/L (135-145)
[2019-02-22 07:18] VITALS: BP 106/71
[2019-02-22] MEDS: ONDANSETRON 4 MG/2 ML (SDV) Z0FRAN IV PRN ×5 (08:48→22:38)
[2019-02-22] MEDS: NS IV 1000 ML 1,000 ML IV SCH ×2 (09:47→22:47)
[2019-02-22] MEDS: MAGNESIUM 1 GM/100 ML IVPB 100 ML IV SCH ×2 (10:42→11:35)
--- NOTE | 2019-02-22 11:18 | Progress Note - Hospitalist ---
GAY HERNANDEZ [facility] 02/22/19 1118: Subjective HPI/CC On Admission Date Seen by Provider: Feb 22, 2019 Time Seen by Provider: 07:15 Subjective/Events-last exam Went in to see Umu and she was sitting at the edge of the bed in pain. Patient was in tears. She was alert and oriented and rated her abdominal pain a 10/10 Patient started eating again last night and then her pain started again and the pain is worse then it has ever been. She is drinking. She has had fluids come out her colostomy bag, but the patient also had small bowel follow through and had to drink then. The patient is feeling N/V ROS: patient denies chest pain, but feels short of breath, and she feels na useous and like she needs to vomit. She denies fevers and chills and the abdomen is in alot pain. Vitals: stable Labs: HgB 10.8, Sodium 132, Potassium 2.7, CA125 was 101.1, Glucose 140 Patient is having labs drawn for lactic acid, LDH and is starting potassium and Mg. Lungs: wheezing, no chest tenderness Heart: HRRR Abdomen: Abdomen was tender, distended, livedo reticularis, bowel sounds were pr esent Focused Exam Lactate Level 02/22/19 10:25: Lactic Acid Level 0.96 Respiratory: Chest Non Tender, Wheezing Cardiovascular: Regular Rate, Rhythm, No Edema, No JVD, Normal Peripheral Pulses Peripheral Pulses: 2+ Radial Pulses (R), 2+ Radial Pulses (L) Skin: other (Patients abdomen had what appeared to be livedo reticularis ) Lactic Acid Level Laboratory Tests Test 02/22/19 10:25 Lactic Acid Level 0.96 MMOL/L (0.50-2.00) Objective Exam Vital Signs Vital Signs Date Time Temp Pulse Resp B/P (MAP) Pulse Ox O2 Delivery O2 Flow Rate FiO2 02/22/19 08:00 Nasal Cannula 02/22/19 07:18 98.6 68 20 106/71 (83) 97 Capillary Refill : Less Than 3 Seconds General Appearance: Severe Distress Neck: Full Range of Motion, Normal Inspection, Non Tender Respiratory: Chest Non Tender, Wheezing Cardiovascular: Regular Rate, Rhythm, No Edema, No JVD, Normal Peripheral Pulses Gastrointestinal: Distended, Other (Patient had diminished bowel sounds with skin showing what appeared to be livedo reticularis. ) Extremity: Normal Capillary Refill Neurologic/Psychiatric: Alert, Oriented x3 Results/Procedures Lab Laboratory Tests 02/22/19 04:56 Patient resulted labs reviewed. Assessment/Plan Assessment and Plan Assess & Plan/Chief Complaint Assessment 1. GI obstruction 2. New cancer or metastasis from cervical cancer. 3. COPD 4. hyponatremia 5. UTI Plan: 1. Consult surgery again due to patient change 2. Patient should be back on NPO 3. DC Advil use 4. Continue to monitor oncology consult and plan 5. Monitor vitals q4 (make sure BP continues to increase 6. Monitor patients pain and keep her comfortable 7. Continue to monitor pulmonary function 8. Consider Abx for UTI 9. Start patient on potassium and magnesium. 10. Follow up on labs and imaging 11. Continue to talk with surgery and see what the patient status is 12. CBC with Diff and CMP for tomorrow 13. wound care to make sure colostomy bag is okay and in place 14. Lactic acid and LDH stat Clinical Quality Measures DVT/VTE Risk/Contraindication: Risk Factor Score Per Nursin RFS Level Per Nursing on Admit: 4+=Very High Other: see orders for details, SHONA JAY DO 02/22/192045: Subjective Subjective/Events-last exam Abdominal pain is still intense. Nausea and vomiting persists. CA125 is 101. Conferred with Dr. Hernández. Conferred with Dr. Harris. Abdomen has appearance of livedo reticularis so unsure of what that means. Lactic acid checked 0.96 so not sepsis and LDH is 118. Overall very poor prognosis it appears that this is a cancer process. Will reach out to Dr. Ortiz and Dr. Harris for plan. Dr Burger called me and we talked and he recommended to talk to Dr Burgos Oncology [employer] Ar[employer]anger at [facility] so I spoke to her and she rec NGT and prealbumin and biopsy CT guided so I spoke to Dr Harris who talked to Radiology and rec pelvic USG because she still has uterus and it may not be mass at all and will monitor pain and nausea in the meantime Review of Systems Gastrointestinal: Abdominal Pain Objective Exam General Appearance: WD/WN, Chronically ill, Moderate Distress Respiratory: Chest Non Tender, Lungs Clear, Normal Breath Sounds, No Accessory Muscle Use, No Respiratory Distress Cardiovascular: Regular Rate, Rhythm, No Edema, No Gallop, No JVD, No Murmur, Normal Peripheral Pulses Gastrointestinal: Distended, Tenderness, Other (Patient had diminished bowel sounds with skin showing what appeared to be livedo reticularis. ) Neurologic/Psychiatric: Alert, Oriented x3, No Motor/Sensory Deficits, Normal Mood/Affect Assessment/Plan Assessment and Plan Assess & Plan/Chief Complaint Dilaudid for pain and DC Fentanyl Conferred with Tao Tovar Delman and Aubrey ([facility] Onc Seed Potato Arranger) Pelvic USG NGT? Check prealbumin to see if she is a surgical candidate regardless Diagnosis/Problems Diagnosis/Problems (1) Abdominal pain Status: Acute Qualifiers: Qualified Codes: R10.84 - Generalized abdominal pain (2) Uterine cancer Status: Chronic Qualifiers: Qualified Codes: C55 - Malignant neoplasm of uterus, part unspecified (3) Nausea & vomiting Status: Acute Qualifiers: (4) Small bowel obstruction Status: Acute Supervisory-Addendum Brief Verification & Attestation Participated in pt care: history, MDM, physical Personally performed: exam, history, MDM, supervision of care Care discussed with: Medical Student Procedures: n/a Results interpretation: Verified all documentation Verification and Attestation of Medical Student E/M Service A medical student performed and documented this service in my presence. I reviewed and verified all information documented by the medical student and made modifications to such information, when appropriate. I personally performed the physical exam and medical decision making. Shona Jay, Feb 22, 2019,20:46 G[facility] HERNANDEZ [facility] Feb 22, 2019 11:18 SHONA JAY DO Feb 22, 2019 20:46
[2019-02-22 11:37] VITALS: BP 102/68
[2019-02-22] MEDS: POTASSIUM CL 10MEQ/50ML IVPB 50 ML IV SCH ×8 (12:35→20:14)
[2019-02-22] MEDS: HYDROmorphone 2 MG/ML VIAL (DILAUDID) IV PRN ×4 (13:24→22:39)
[2019-02-22] MEDS: ENOXAPARIN 40 MG/0.4 ML (LOVENOX) SYR SC SCH (14:00)
--- NOTE | 2019-02-22 14:27 | Progress Note - Surgery ---
Subjective Time Seen by a Provider: 14:15 Subjective/Events-last exam Pt seen and examined, states the pain medicine helped and is now trying to sleep cause she feels better. Pt denies vomiting and is still having ostomy output. She is not very hungry and states she can't really eat. Review of Systems General: No Chills, No Night Sweats Pulmonary: No Dyspnea, No Cough Cardiovascular: No: Chest Pain, Palpitations Genitourinary: No Dysuria, No Frequency Focused Exam Lactate Level 02/22/19 10:25: Lactic Acid Level 0.96 Lactic Acid Level Laboratory Tests Test 02/22/19 10:25 Lactic Acid Level 0.96 MMOL/L (0.50-2.00) Objective Exam Vital Signs Date Time Temp Pulse Resp B/P (MAP) Pulse Ox O2 Delivery O2 Flow Rate FiO2 02/22/19 11:37 97.6 59 20 102/68 (79) 98 Room Air 02/22/19 08:00 Nasal Cannula 02/22/19 07:18 98.6 68 20 106/71 (83) 97 Room Air 02/22/19 04:30 98.6 72 21 101/67 (78) 95 Room Air 02/22/19 00:25 98.5 63 22 103/71 (82) 96 Room Air 02/21/19 19:50 96 Nasal Cannula 02/21/19 19:28 99.0 74 18 98/64 (75) 100 Room Air 02/21/19 17:15 99.0 02/21/19 16:40 100.6 02/21/19 16:26 100.6 81 20 112/73 (86) 99 Room Air I & O 02/22/19 07:00 Intake Total 3390 ml Output Total 2700 ml Balance 690 ml Capillary Refill : Less Than 3 Seconds General Appearance: Mild Distress HEENT: PERRL/EOMI, Moist Mucous Membranes Respiratory: Chest Non Tender, No Accessory Muscle Use, No Respiratory Distress, Wheezing Cardiovascular: Regular Rate, Rhythm, No Murmur Peripheral Pulses: 2+ Radial Pulses (R), 2+ Radial Pulses (L) Gastrointestinal: normal bowel sounds, soft, no organomegaly, tenderness (diffusely with palpation, mild when she is lying still), other (abdomen appear to have almost a mottling appearance, but it is actually better compared to this am) Extremity: Normal Capillary Refill Neurologic/Psychiatric: Alert, Oriented x3 Skin: Normal Color, Warm/Dry Lymphatic: No Adenopathy Results Lab Laboratory Tests 02/22/19 04:56: White Blood Count 10.0, Red Blood Count 3.64L, Hemoglobin 10.8L, Hematocrit 31L, Mean Corpuscular Volume 86, Mean Corpuscular Hemoglobin 30, Mean Corpuscular Hemoglobin Concent 35, Red Cell Distribution Width 11.8, Platelet Count 379, Mean Platelet Volume 9.8, Neutrophils (%) (Auto) 85H, Lymphocytes (%) (Auto) 5L, Monocytes (%) (Auto) 9, Eosinophils (%) (Auto) 1, Basophils (%) (Auto) 0, Neutrophils # (Auto) 8.5H, Lymphocytes # (Auto) 0.5L, Monocytes # (Auto) 0.9, Eosinophils # (Auto) 0.1, Basophils # (Auto) 0.0, Sodium Level 132L, Potassium Level 2.7L, Chloride Level 99, Carbon Dioxide Level 22, Anion Gap 11, Blood Urea Nitrogen 23H, Creatinine 0.66, Estimat Glomerular Filtration Rate > 60, BUN/Creatinine Ratio 35, Glucose Level 140H, Calcium Level 8.4L, Corrected Calcium 9.1, Total Bilirubin 0.2, Aspartate Amino Transf (AST/SGOT) 15, Alanine Aminotransferase (ALT/SGPT) 10, Alkaline Phosphatase 91, Total Protein 6.0L, Albumin 3.1L 02/22/19 10:25: Lactic Acid Level 0.96, Lactate Dehydrogenase 118L Microbiology 02/20/19 Urine Culture - Final, Complete Escherichia coli Assessment/Plan Assessment/Plan Assessment/Plan Abdominal Pain - unknown etiology PSBO- resolved, SBFT showed contrast in colon after 2 hours and pt began having output in ostomy Plan is to continue IV fluids, pain control and anti-emetics. I am unsure why she is having pain; WBC was 10 and Lactic acid is not elevated. I will continue to monitor labs and her abdomen; I don't think she needs surgical intervention at this time, because I am not sure what I would be doing. Pt continues to have ostomy output. Pt did not have any surgical resection of Uterus/Cervix or Ovaries. I believe the "pelvic mass" is her uterus; although there still could be some cancer in this area. Clinical Quality Measures DVT/VTE Risk/Contraindication: Risk Factor Score Per Nursin RFS Level Per Nursing on Admit: 4+=Very High Other: see orders for details, GOGO KLEIN DO Feb 22, 2019 14:27
--- NOTE | 2019-02-22 15:59 | Progress Note ---
Standard Progress Note Progress Notes/Assess & Plan Date Seen by a Provider: Feb 22, 2019 Time Seen by a Provider: 15:52 Progress/Assessment & Plan 53-year-old female admitted with abdominal pain and found to have partial small bowel obstruction. Patient has history of cervical cancer at 38 years of age and underwent combined chemoradiation in [facility]. Unable to obtain records as they have been destroyed. 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 Pathology report from this surgery showed no evidence of recurrent malignancy. She developed stricture of colostomy requiring adhesion lysis and resection of a short segment of colon in May 2017. No pathology reports were available from this admission. Small bowel follow-through from current admission noted and patient was having bowel movements yesterday. She was started on liquid diet but developed significant abdominal pain, nausea and vomiting. Pain is under control with medications. Colostomy is functioning with liquid in the colostomy bag. TISSUE SPECIALIST evaluation noted. I have discussed the case with Dr. Hernández and he does not feel that he could do a biopsy of the pelvic mass locally. I have discussed this with the Dr. Novka and patient would be best served at the tertiary center their TISSUE SPECIALIST oncology and GI surgery services are available. Dr. Novak will con [facility] and arrange transfer. I discussed this with the patient and she is not opposed to transfer. Option of PET scan for further evaluation was discussed. This will not be available until next Wednesday in [place]. The results may be compromised because of inflammatory changes with the partial small bowel obstruction. In my opinion, she would be best served at a tertiary center. Focused Exam Lactate Level 02/22/19 10:25: Lactic Acid Level 0.96 MILENA HART Feb 22, 2019 15:59
[2019-02-22 16:25] VITALS: BP 98/67
--- NOTE | 2019-02-22 17:33 | Diagnostic Imaging Report ---
EXAMINATION: Limited pelvic ultrasound, transabdominal. HISTORY: Evaluate for presence of uterus versus a mass. FINDINGS: Comparison is CT from 02/20/2019. Transabdominal images of the pelvis were obtained. The uterus is not definitely seen. Ovaries are not seen. The patient was unable to tolerate transvaginal images. IMPRESSION: 1. No uterus or ovaries are seen on the transabdominal scan; the patient could not tolerate transvaginal images. Dictated by: Dictated on workstation # [id number]
[2019-02-22] MEDS: cefTRIAXone 1,000 MG/SWFI 10 ML IV PUSH IV SCH ×2 (18:03)
[2019-02-22 19:54] VITALS: BP 98/66
[2019-02-22] MEDS ORDERED: ACETAMINOPHEN 650 MG SUPP (TYLENOL) PR PRN (21:00)
[2019-02-23 00:34] VITALS: BP 104/70
[2019-02-23] MEDS: HYDROmorphone 2 MG/ML VIAL (DILAUDID) IV PRN ×6 (03:54→22:57)
[2019-02-23] MEDS: ONDANSETRON 4 MG/2 ML (SDV) Z0FRAN IV PRN ×3 (03:54→19:45)
[2019-02-23 05:14] LABS: BASOPHILS % (AUTO) 0 % (0-10); EOSINOPHILS # (AUTO) 0.1 10^3/uL (0.0-0.3); EOSINOPHILS % (AUTO) 1 % (0-10); HEMATOCRIT 31 % (35-52); HEMOGLOBIN 10.4 G/DL (11.5-16.0); LYMPHOCYTES # (AUTO) 0.5 X 10^3 (1.0-4.0); LYMPHOCYTES % (AUTO) 7 % (12-44); MEAN CORPUSCULAR HEMOGLOBIN 30 PG (25-34); MEAN CORPUSCULAR HGB CONC 34 G/DL (32-36); MEAN CORPUSCULAR VOLUME 87 FL (80-99); MEAN PLATELET VOLUME 9.4 FL (7.4-10.4); MONOCYTES % (AUTO) 13 % (0-12); NEUTROPHILS # (AUTO) 6.1 X 10^3 (1.8-7.8); NEUTROPHILS % (AUTO) 79 % (42-75); PLATELET COUNT 355 10^3/uL (130-400); RED CELL DISTRIBUTION WIDTH 12.2 % (10.0-14.5); WHITE BLOOD COUNT 7.7 10^3/uL (4.3-11.0)
[2019-02-23 05:42] LABS: ALANINE AMINOTRANSFERASE 11 U/L (0-55); ALBUMIN 2.9 GM/DL (3.2-4.5); ALKALINE PHOSPHATASE 96 U/L (40-136); BILIRUBIN,TOTAL 0.3 MG/DL (0.1-1.0); BUN/CREATININE RATIO 19; CARBON DIOXIDE 20 MMOL/L (21-32); CHLORIDE 100 MMOL/L (98-107); CREATININE SERUM 0.63 MG/DL (0.60-1.30); GFR ESTIMATED > 60; GLUCOSE 112 MG/DL (70-105); POTASSIUM 3.7 MMOL/L (3.6-5.0); SODIUM 130 MMOL/L (135-145); TOTAL PROTEIN 5.8 GM/DL (6.4-8.2)
[2019-02-23] MEDS: HYDROcodone/APAP 10 MG/325 MG (LORTAB) TAB PO PRN ×2 (07:52→19:45)
[2019-02-23 07:58] VITALS: BP 96/65
--- NOTE | 2019-02-23 10:26 | NUR ---
Met with pt briefly as she was tearful but pleasant. She states that she moved in with her daughter living locally about 3 months ago from [place] as could no longer work due to her health. She would like to file for Medicaid and Social Security disability. Advised Financial services of her request. Will follow and assit.
--- NOTE | 2019-02-23 10:31 | Progress Note - Hospitalist ---
GAY HERNANDEZ [facility] 02/23/19 1031: Subjective HPI/CC On Admission Date Seen by Provider: Feb 23, 2019 Time Seen by Provider: 07:30 Subjective/Events-last exam Umu is alert and oriented and her pain seems better controlled today. She has not been eating and has been drinking small amounts of fluids She is urinating and has had some movement into her colostomy bag ROS: patient denied chest pain, denies F/C but does have minor SOB, N/V Heart: HRRR Lungs: Wheezing bilaterally Abdomen: still distended but no change from yesterday, no change in skin color, pain on palpation, bowels sounds present. Vitals: stable Labs: Sodium 130, K+ 3.7, HgB 10.4, which is down from yesterday 10.8 and 13.8 on 02/20/19. WBC 7.7 Patient pelvic US: see report for notes. Midline placement today Continue to monitor patient and see what general surgery thinks Focused Exam Lactate Level 02/22/19 10:25: Lactic Acid Level 0.96 Respiratory: Chest Non Tender, Wheezing Cardiovascular: Regular Rate, Rhythm, No Edema, No JVD Peripheral Pulses: 2+ Radial Pulses (R), 2+ Radial Pulses (L) Objective Exam Vital Signs Vital Signs Date Time Temp Pulse Resp B/P (MAP) Pulse Ox O2 Delivery O2 Flow Rate FiO2 02/23/19 08:00 100 Room Air 02/23/19 07:58 97.8 70 16 96/65 (75) Capillary Refill : Less Than 3 SecondsLess Than 3 Seconds General Appearance: No Apparent Distress Neck: Full Range of Motion Respiratory: Chest Non Tender, Wheezing Cardiovascular: Regular Rate, Rhythm, No Edema, No JVD Gastrointestinal: Tenderness Extremity: Normal Capillary Refill Neurologic/Psychiatric: Alert, Oriented x3 Skin: Normal Color, Other (Abdomen still had livedo reticularis, but has not changed since yesterday ) Results/Procedures Lab Laboratory Tests 02/23/19 05:09 Patient resulted labs reviewed. Assessment/Plan Assessment and Plan Assess & Plan/Chief Complaint Assessment 1. GI obstruction 2. New cancer or metastasis from cervical cancer. 3. COPD 4. hyponatremia 5. UTI Plan: 1. Continue to be in contact with surgery 2. Patient should be back on NPO 3. DC Advil use 4. Continue to monitor oncology consult and plan 5. Monitor vitals q4 (make sure BP continues to increase 6. Monitor patients pain and keep her comfortable 7. Continue to monitor pulmonary function 8. Consider Abx for UTI 9. continue to monitor potassium and magnesium. Keep an eye on sodium level 10. Follow up on labs and imaging 11. CBC with Diff and CMP for tomorrow 13. wound care to make sure colostomy bag is okay and in place 14. Continue to monitor patients electrolytes and hydration status Clinical Quality Measures DVT/VTE Risk/Contraindication: Risk Factor Score Per Nursin RFS Level Per Nursing on Admit: 4+=Very High Other: see orders for details, SHONA JAY DO 02/23/192107: Subjective Subjective/Events-last exam Midline will be placed due to loss of IV access Pelvic US will be reviewed Pt report she did not have any type of hysterectomy or oophorectomy during uterine cancer diagnosis but pelvic US will be reviewed for details of that Pain is well controlled on Dilaudid Will continue IV fluid and advanced diet on clear liquids Appreciate Dr. Harris comment Dr. Burger, Dr. Hernández, and Dr. Burgos from Review of Systems General: Fatigue Gastrointestinal: Abdominal Pain, Constipation Objective Exam General Appearance: WD/WN, Chronically ill, Moderate Distress Respiratory: Chest Non Tender, Lungs Clear, Normal Breath Sounds, No Accessory Muscle Use, No Respiratory Distress Cardiovascular: Regular Rate, Rhythm, No Edema, No Gallop, No JVD, No Murmur, Normal Peripheral Pulses Gastrointestinal: Distended, Tenderness Assessment/Plan Assessment and Plan Assess & Plan/Chief Complaint Check labs in am Monitor pain Appreciate all consultants Diagnosis/Problems Diagnosis/Problems (1) Abdominal pain Status: Acute Qualifiers: Qualified Codes: R10.84 - Generalized abdominal pain (2) Nausea & vomiting Status: Acute Qualifiers: (3) Uterine cancer Status: Chronic Qualifiers: Qualified Codes: C55 - Malignant neoplasm of uterus, part unspecified (4) Small bowel obstruction Status: Acute (5) Urinary tract infection Status: Acute Supervisory-Addendum Brief Verification & Attestation Participated in pt care: history, MDM, physical Personally performed: exam, history, MDM, supervision of care Care discussed with: Medical Student Procedures: n/a Results interpretation: Verified all documentation Verification and Attestation of Medical Student E/M Service A medical student performed and documented this service in my presence. I reviewed and verified all information documented by the medical student and made modifications to such information, when appropriate. I personally performed the physical exam and medical decision making. Shona Jay, Feb 23, 2019,21:08 GAY HERNANDEZ [facility] Feb 23, 2019 10:31 SHONA JAY DO Feb 23, 2019 21:08
[2019-02-23] MEDS: ENOXAPARIN 40 MG/0.4 ML (LOVENOX) SYR SC SCH (13:37)
[2019-02-23] MEDS: NS IV 1000 ML 1,000 ML IV SCH (13:41)
--- NOTE | 2019-02-23 14:30 | NUR ---
Initial visit: Pt was tearful, states she is in pain and feels fearful and lonely. I pressed the call light for staff to respond to her request for pain management and offered prayer for her. No spiritual affiliation at this time.
[2019-02-23 15:35] VITALS: BP 92/69
--- NOTE | 2019-02-23 15:47 | Progress Note - Surgery ---
VIVIAN SANCHEZ,MED STUDENT 02/23/19 1547: Subjective Date Seen by a Provider: Feb 23, 2019 Time Seen by a Provider: 08:30 Subjective/Events-last exam Pt continues to have abdominal pain, although states the pressure under her ribs is gone. She thinks the pain has improved slightly. Pt has had no bowel movement since yesterday but has noticed gurgling at her stoma. Transvaginal ultrasonography was unsuccessful due to discomfort. Mottling on abdomen is reduced. Pt is voluntarily guarding. Focused Exam Lactate Level 02/22/19 10:25: Lactic Acid Level 0.96 Objective Exam Vital Signs Date Time Temp Pulse Resp B/P (MAP) Pulse Ox O2 Delivery O2 Flow Rate FiO2 02/23/19 08:00 100 Room Air 02/23/19 07:58 97.8 70 16 96/65 (75) 100 Room Air 02/23/19 04:43 98.6 02/23/19 00:34 98.6 66 19 104/70 (81) 97 Room Air 02/22/19 22:39 98.2 02/22/19 20:00 99 Room Air 02/22/19 19:54 98.2 74 20 98/66 (77) 96 Room Air 02/22/19 16:25 98.9 68 18 98/67 (77) 99 Room Air I & O 02/23/19 07:00 Intake Total 1925 ml Output Total 600 ml Balance 1325 ml Capillary Refill : Less Than 3 SecondsLess Than 3 Seconds General Appearance: WD/WN, Anxious HEENT: PERRL/EOMI; No Pale Conjunctivae (L), No Pale Conjunctivae (R), No Scleral Icterus (L), No Scleral Icterus (R) Neck: Full Range of Motion, Non Tender Respiratory: Chest Non Tender, No Accessory Muscle Use, No Respiratory Distress, Wheezing Cardiovascular: No Edema, Normal Peripheral Pulses Peripheral Pulses: 2+ Radial Pulses (R), 2+ Radial Pulses (L) Gastrointestinal: no organomegaly, distended, guarding (voluntary), tenderness (diffusely with palpation, mild when she is lying still), other (mild mottling) Extremity: Normal Capillary Refill, Non Tender Neurologic/Psychiatric: Alert, Oriented x3, No Motor/Sensory Deficits, Depressed Affect Skin: Normal Color, Mottled Lymphatic: No Adenopathy Results Lab Laboratory Tests 02/23/19 05:05: 02/23/19 05:09: White Blood Count 7.7, Red Blood Count 3.52L, Hemoglobin 10.4L, Hematocrit 31L, Mean Corpuscular Volume 87, Mean Corpuscular Hemoglobin 30, Mean Corpuscular Hemoglobin Concent 34, Red Cell Distribution Width 12.2, Platelet Count 355, Mean Platelet Volume 9.4, Neutrophils (%) (Auto) 79H, Lymphocytes (%) (Auto) 7L, Monocytes (%) (Auto) 13H, Eosinophils (%) (Auto) 1, Basophils (%) (Auto) 0, Neutrophils # (Auto) 6.1, Lymphocytes # (Auto) 0.5L, Monocytes # (Auto) 1.0, Eosinophils # (Auto) 0.1, Basophils # (Auto) 0.0, Sodium Level 130L, Potassium Level 3.7, Chloride Level 100, Carbon Dioxide Level 20L, Anion Gap 10, Blood Urea Nitrogen 12, Creatinine 0.63, Estimat Glomerular Filtration Rate > 60, BUN/Creatinine Ratio 19, Glucose Level 112H, Calcium Level 8.0L, Corrected Calc ium 8.9, Total Bilirubin 0.3, Aspartate Amino Transf (AST/SGOT) 11, Alanine Aminotransferase (ALT/SGPT) 11, Alkaline Phosphatase 96, Total Protein 5.8L, Albumin 2.9L Microbiology 02/20/19 Urine Culture - Final, Complete Escherichia coli Assessment/Plan Assessment/Plan Assessment/Plan Abdominal Pain - unknown etiology PSBO- resolved, SBFT showed contrast in colon after 2 hours and pt began having output in ostomy Plan is to continue IV fluids, pain control and anti-emetics while monitoring abdomen. WBC has fallen from 10 to 7. Clinical Quality Measures DVT/VTE Risk/Contraindication: Risk Factor Score Per Nursin RFS Level Per Nursing on Admit: 4+=Very High Other: see orders for details, FLAKITO HARRIS DO 02/23/191807: Subjective Subjective/Events-last exam Pt states pain is about the same as yesterday, not really better or worse. She does have stomal output. Thinks her belly is still distended. Review of Systems Cardiovascular: No: Chest Pain, Palpitations Gastrointestinal: Nausea, Abdominal Pain; No: Vomiting Supervisory-Addendum Brief Verification & Attestation Participated in pt care: history, MDM, physical Personally performed: exam, history Care discussed with: Medical Student Procedures: n/a Verification and Attestation of Medical Student E/M Service A medical student performed and documented this service in my presence. I reviewed and verified all information documented by the medical student and made modifications to such information, when appropriate. I personally performed the physical exam and medical decision making. Flakito Harris, Feb 23, 2019,18:08 VIVIAN SANCHEZ,MED STUDENT Feb 23, 2019 15:47 FLAKITO HARRIS DO Feb 23, 2019 18:08
[2019-02-23] MEDS: cefTRIAXone 1,000 MG/SWFI 10 ML IV PUSH IV SCH ×2 (16:41)
--- NOTE | 2019-02-23 23:49 | NUR ---
THIS NURSE WENT TO PATIENT ROOM TO REASSESS POST PAIN MEDICATION. PATIENT IS TEARFUL AND REPORTS THAT HER PAIN IS STILL A 10/10. SHE STATES "I DON'T KNOW WHY THE FEMALE DOCTOR CHANGED MY DOSE OF PAIN MEDICATION". THIS NURSE LOOKED THROUGH MAR AND TOLD PATIENT THAT HER DILAUDID DOSE IS 0.5MG WHICH IS THE INITIAL DOSE SHE WAS STARTED ON, NOTHING WAS DECREASED. PATIENT SAID "WELL WHEN THEY FIRST WERE GIVING IT TO ME I COULD FEEL IT GOING IN AND IT WOULD GIVE ME A BUZZ BUT I DON'T FEEL ANYTHING AT ALL NOW. WHEN I CAN HAVE IT AGAIN MAKE SURE TO BRING IT IN HERE TO ME". PATIENT WAS GIVEN A LORTAB AND DILAUDID SHORTLY AFTER SHIFT CHANGE AND WAS RESTING WITH EYES CLOSED WHEN THIS NURSE WENT TO REASSESS. PATIENT STATED THAT THE LORTAB DID NOTHING FOR HER PAIN. THIS NURSE OFFERED TO CALL PHYSICIAN AND DISCUSS CHANGING PAIN MEDS AND PATIENT SAID SHE WOULD WAIT UNTIL TOMORROW AND SPEAK WITH THE PHYSICIAN.
[2019-02-24] VITALS: BP 91/61
[2019-02-24] MEDS: NS IV 1000 ML 1,000 ML IV SCH (01:45)
[2019-02-24] MEDS: HYDROmorphone 2 MG/ML VIAL (DILAUDID) IV PRN ×8 (01:46→23:41)
[2019-02-24 05:46] LABS: BASOPHILS % (AUTO) 0 % (0-10); EOSINOPHILS % (AUTO) 1 % (0-10); HEMATOCRIT 29 % (35-52); HEMOGLOBIN 9.9 G/DL (11.5-16.0); LYMPHOCYTES # (AUTO) 0.6 X 10^3 (1.0-4.0); LYMPHOCYTES % (AUTO) 9 % (12-44); MEAN CORPUSCULAR HEMOGLOBIN 30 PG (25-34); MEAN CORPUSCULAR HGB CONC 35 G/DL (32-36); MEAN CORPUSCULAR VOLUME 87 FL (80-99); MONOCYTES # (AUTO) 0.9 X 10^3 (0.0-1.0); MONOCYTES % (AUTO) 15 % (0-12); NEUTROPHILS # (AUTO) 4.8 X 10^3 (1.8-7.8); NEUTROPHILS % (AUTO) 75 % (42-75); PLATELET COUNT 302 10^3/uL (130-400); WHITE BLOOD COUNT 6.4 10^3/uL (4.3-11.0)
[2019-02-24 06:21] LABS: CARBON DIOXIDE 19 MMOL/L (21-32); CHLORIDE 103 MMOL/L (98-107); POTASSIUM 3.5 MMOL/L (3.6-5.0); SODIUM 132 MMOL/L (135-145)
[2019-02-24 06:22] LABS: ALANINE AMINOTRANSFERASE 8 U/L (0-55); ALBUMIN 2.6 GM/DL (3.2-4.5); ALKALINE PHOSPHATASE 89 U/L (40-136); BILIRUBIN,TOTAL 0.3 MG/DL (0.1-1.0); BUN/CREATININE RATIO 10; CALCIUM 7.8 MG/DL (8.5-10.1); GFR ESTIMATED > 60; GLUCOSE 111 MG/DL (70-105); TOTAL PROTEIN 5.3 GM/DL (6.4-8.2)
[2019-02-24 08:00] VITALS: BP 100/55
[2019-02-24] MEDS: HYDROcodone/APAP 10 MG/325 MG (LORTAB) TAB PO PRN ×3 (08:08→20:43)
[2019-02-24] MEDS: ONDANSETRON 4 MG/2 ML (SDV) Z0FRAN IV PRN ×4 (08:08→21:36)
--- NOTE | 2019-02-24 09:43 | Progress Note - Surgery ---
VIVIAN SANCHEZ,MED STUDENT 02/24/19 0943: Subjective Date Seen by a Provider: Feb 24, 2019 Time Seen by a Provider: 07:15 Subjective/Events-last exam Pt states pain, nausea are better controlled today. Thinks her pain is improving. Admits fever overnight but temperature down today. Abdomen continues to have mottling and is distended, appears no change. Pt denies pressure under her ribs after drinking water last night which she was having. Review of Systems General: No Chills, No Night Sweats Pulmonary: Dyspnea (on exertion); No Cough Cardiovascular: No: Chest Pain, Edema Gastrointestinal: Nausea, Abdominal Pain; No: Vomiting Focused Exam Lactate Level 02/22/19 10:25: Lactic Acid Level 0.96 Objective Exam Vital Signs Date Time Temp Pulse Resp B/P (MAP) Pulse Ox O2 Delivery O2 Flow Rate FiO2 02/24/19 00:00 98.6 71 14 91/61 (71) 99 Room Air 02/23/19 22:45 98.5 02/23/19 20:30 100.6 02/23/19 19:56 Room Air 02/23/19 15:35 100.5 81 18 92/69 (77) 100 Room Air I & O 02/24/19 07:00 Intake Total 2610 ml Balance 2610 ml Capillary Refill : Less Than 3 SecondsLess Than 3 Seconds General Appearance: WD/WN, Chronically ill, Moderate Distress HEENT: PERRL/EOMI; No Pale Conjunctivae (L), No Pale Conjunctivae (R), No Scleral Icterus (L), No Scleral Icterus (R) Neck: Non Tender; No Lymphadenopathy (L), No Lymphadenopathy (R) Respiratory: Chest Non Tender, No Accessory Muscle Use, No Respiratory Distress Cardiovascular: Regular Rate, Rhythm, No Edema, Normal Peripheral Pulses Peripheral Pulses: 2+ Radial Pulses (R), 2+ Radial Pulses (L) Gastrointestinal: no organomegaly, distended, guarding (voluntary), tenderness (diffusely with palpation, mild when she is lying still), other (mottled) Extremity: Normal Capillary Refill, Non Tender Neurologic/Psychiatric: Alert, Oriented x3, No Motor/Sensory Deficits, Depressed Affect Skin: Normal Color, Mottled (abdomen) Lymphatic: No Adenopathy Results Lab Laboratory Tests 02/24/19 05:15: White Blood Count 6.4, Red Blood Count 3.31L, Hemoglobin 9.9L, Hematocrit 29L, Mean Corpuscular Volume 87, Mean Corpuscular Hemoglobin 30, Mean Corpuscular Hemoglobin Concent 35, Red Cell Distribution Width 12.0, Platelet Count 302, Mean Platelet Volume 10.0, Neutrophils (%) (Auto) 75, Lymphocytes (%) (Auto) 9L, Monocytes (%) (Auto) 15H, Eosinophils (%) (Auto) 1, Basophils (%) (Auto) 0, Neutrophils # (Auto) 4.8, Lymphocytes # (Auto) 0.6L, Monocytes # (Auto) 0.9, Eosinophils # (Auto) 0.0, Basophils # (Auto) 0.0, Sodium Level 132L, Potassium Level 3.5L, Chloride Level 103, Carbon Dioxide Level 19L, Anion Gap 10, Blood Urea Nitrogen 6L, Creatinine 0.60, Estimat Glomerular Filtration Rate > 60, BUN/Creatinine Ratio 10, Glucose Level 111H, Calcium Level 7.8L, Corrected Calcium 8.9, Total Bilirubin 0.3, Aspartate Amino Transf (AST/SGOT) 19, Alanine Aminotransferase (ALT/SGPT) 8, Alkaline Phosphatase 89, Total Protein 5.3L, Albumin 2.6L Microbiology 02/20/19 Urine Culture - Final, Complete Escherichia coli Assessment/Plan Assessment/Plan Assessment/Plan Abdominal pain, distension Anemia Pt is still experiencing bloating/abdominal pain with little fecal production. Continue pain control, IFV, and advance diet as tolerated. Clinical Quality Measures DVT/VTE Risk/Contraindication: Risk Factor Score Per Nursin RFS Level Per Nursing on Admit: 4+=Very High Other: see orders for details, FLAKITO HARRIS DO 02/24/19 1043: Subjective Time Seen by a Provider: 09:49 Subjective/Events-last exam Pt is frustrated about her pain and lack of perceived progress. She is able to drink some fluids, but states food make her stomach hurt. Pt is still getting output from ostomy. Objective Exam General Appearance: Mild Distress Gastrointestinal: soft, distended (mild, about same as yesterday), guarding (voluntary-minimal), tenderness (diffusely with palpation, mild when she is lying still), other (mottled, ostomy pink and functioning) Assessment/Plan Assessment/Plan Assessment/Plan Pt was told she must ambulate and should use an IS. I had long discussion at pt's bedside with her regarding next steps; unfortunately, there is still not a clear indication to do surgery. Her WBC is normal, she is not distended, pain not getting worse and she still has ostomy output. She may benefit from lysis of adhesions; however surgery will just cause more adhesions and I believe the risks outweigh the benefits of surgery at this point. Even if we take the small bowel off her uterus it will just stick back down. I am unsure if Die Cast Technician/Onc would have more to contribute, but this is still an option. I recommend she start sips of Ensure clear and will continue to monitor. Supervisory-Addendum Brief Verification & Attestation Participated in pt care: history, MDM, physical Personally performed: exam, history, MDM Care discussed with: Medical Student Procedures: n/a Verification and Attestation of Medical Student E/M Service A medical student performed and documented this service in my presence. I reviewed and verified all information documented by the medical student and made modifications to such information, when appropriate. I personally performed the physical exam and medical decision making. Flakito Harris, Feb 24, 2019,10:44 VIVIAN SANCHEZ,MED STUDENT Feb 24, 2019 09:43 FLAKITO HARRIS DO Feb 24, 2019 10:43
--- NOTE | 2019-02-24 10:49 | Progress Note - Hospitalist ---
GAY HERNANDEZ [facility] 02/24/19 1049: Subjective HPI/CC On Admission Date Seen by Provider: Feb 24, 2019 Time Seen by Provider: 07:15 Subjective/Events-last exam Patient was Alert and oriented with Mild distress She did not sleep due to discomfort. Patient tried eating again and pain came back. She has been urinating and has movement into her colostomy bag She has ambulating a little but not much. ROS: denied chest pain, SOB, N/V, fever and chills. Patient does has abdominal pain Vitals: Stable Labs: WBC 6.4, HgB is 9.9 down from 10.4 the previous day. K+ 3.5 and Na 132 Heart: HRRR Lungs: Wheezing Abdomen: slightly distented, tender to the touch and bowel sounds present Vascular: Radial 2/4 bilateral Focused Exam Lactate Level 02/22/19 10:25: Lactic Acid Level 0.96 Respiratory: Chest Non Tender, Wheezing Cardiovascular: Regular Rate, Rhythm, No Edema Peripheral Pulses: 2+ Radial Pulses (R), 2+ Radial Pulses (L) Skin: other (Still had some what seems to be livedo on the abdomen ) Objective Exam Vital Signs Vital Signs Date Time Temp Pulse Resp B/P (MAP) Pulse Ox O2 Delivery O2 Flow Rate FiO2 02/24/19 08:00 98.9 77 16 100/55 (70) 97 Room Air Capillary Refill : Less Than 3 SecondsLess Than 3 Seconds General Appearance: Mild Distress Neck: Full Range of Motion, Normal Inspection Respiratory: Chest Non Tender, No Accessory Muscle Use, No Respiratory Distress, Wheezing Cardiovascular: Regular Rate, Rhythm, No Edema, No JVD, Normal Peripheral Pulses Gastrointestinal: Tenderness, Other (Bowel sounds present ) Extremity: Normal Capillary Refill, No Pedal Edema Neurologic/Psychiatric: Alert, Oriented x3 Results/Procedures Lab Laboratory Tests 02/24/19 05:15 Patient resulted labs reviewed. Assessment/Plan Assessment and Plan Assess & Plan/Chief Complaint Assessment 1. GI obstruction 2. New cancer or metastasis from cervical cancer. 3. COPD 4. hyponatremia 5. UTI Plan: 1. Continue to be in contact with surgery 2. Patient should will try clear liquads and ensure 3. Make sure patient is seeing OT and PT 4. Continue to monitor oncology consult and plan 5. Monitor vitals q4 (make sure BP continues to increase 6. Monitor patients pain and keep her comfortable 7. Continue to monitor pulmonary function 8. Consider Abx for UTI 9. continue to monitor potassium and magnesium. Keep an eye on sodium level 10. Follow up on labs and imaging 11. CBC with Diff and CMP for tomorrow 13. wound care to make sure colostomy bag is okay and in place 14. Continue to monitor patients electrolytes and hydration status Clinical Quality Measures DVT/VTE Risk/Contraindication: Risk Factor Score Per Nursin RFS Level Per Nursing on Admit: 4+=Very High Other: see orders for details, SHONA NOVAK DO 02/24/192057: Subjective Subjective/Events-last exam Continues to eat a small amount than abdominal pain persist Peripheral nutrition will be started Colostomy has good output Hemoglobin 9.9 Ensure clear will be started also After rounds she appeared to want to eat more so diet was advanced Appreciate Dr. Harris expertise Review of Systems Gastrointestinal: Abdominal Pain Objective Exam General Appearance: No Apparent Distress, WD/WN Respiratory: Chest Non Tender, Lungs Clear, Normal Breath Sounds, No Accessory Muscle Use, No Respiratory Distress Cardiovascular: Regular Rate, Rhythm, No Edema, No Gallop, No JVD, No Murmur, Normal Peripheral Pulses Gastrointestinal: Tenderness Neurologic/Psychiatric: Alert, Oriented x3, No Motor/Sensory Deficits, Normal Mood/Affect Assessment/Plan Assessment and Plan Assess & Plan/Chief Complaint Ambulate PT/OT to get OOB Clinimix Diagnosis/Problems Diagnosis/Problems (1) Abdominal pain Status: Acute Qualifiers: Qualified Codes: R10.84 - Generalized abdominal pain (2) Nausea & vomiting Status: Acute Qualifiers: (3) Uterine cancer Status: Chronic Qualifiers: Qualified Codes: C55 - Malignant neoplasm of uterus, part unspecified (4) Small bowel obstruction Status: Acute Supervisory-Addendum Brief Verification & Attestation Participated in pt care: history, MDM, physical Personally performed: exam, history, MDM, supervision of care Care discussed with: Medical Student Procedures: n/a Results interpretation: Verified all documentation Verification and Attestation of Medical Student E/M Service A medical student performed and documented this service in my presence. I reviewed and verified all information documented by the medical student and made modifications to such information, when appropriate. I personally performed the physical exam and medical decision making. Shona Novak, Feb 24, 2019,20:58 GAY HERNANDEZ [facility] Feb 24, 2019 10:49 SHONA NOVAK DO Feb 24, 2019 20:58
[2019-02-24] MEDS: AA 4.25% W/LYTES IN D5W IV SOL 1,000 ML IV SCH ×2 (11:22→23:41)
--- NOTE | 2019-02-24 11:44 | Physical Therapy Progress Note ---
Therapy Progress Note Patient is up independently in hallway with family at this time. PT approached patient about PT and/or use of FWW to relieve abdominal pressure, however, patient adamantly declined all stated. Thank you for this referral. PT notified RN. 1 ref ([id number]) PUMA BEAN PT Feb 24, 2019 11:44
[2019-02-24] MEDS: ENOXAPARIN 40 MG/0.4 ML (LOVENOX) SYR SC SCH (12:25)
--- NOTE | 2019-02-24 13:30 | Occ Therapy Progress Note ---
Therapy Progress Note per communication with PT, nursing and patients, pt is independent with all ADLS and functional mobility using no AD. pt pleasantly declines OT evaluation session stating she is independence and stated no concerns for returning home. pt reports completing ambulation in hallway with dgtr indep, and dressing in room indep. pt is ad margi in room. d/c OT services at this time secondary to pt being independent. MOHAMUD OROZCO OT Feb 24, 2019 13:30
[2019-02-24 16:35] VITALS: BP 90/58
[2019-02-25 00:32] VITALS: BP 88/54
[2019-02-25] MEDS: HYDROcodone/APAP 10 MG/325 MG (LORTAB) TAB PO PRN ×2 (03:04→09:26)
[2019-02-25] MEDS: ONDANSETRON 4 MG/2 ML (SDV) Z0FRAN IV PRN ×2 (03:04→09:30)
[2019-02-25] MEDS: HYDROmorphone 2 MG/ML VIAL (DILAUDID) IV PRN ×2 (06:10→09:26)
--- NOTE | 2019-02-25 06:30 | NUR ---
Pt requested colostomy supplies (appliance & new bag). Pt denies assistance & states she and her daughter will change colostomy later today.
[2019-02-25 08:00] VITALS: BP 86/51
[2019-02-25] MEDS ORDERED: TRIM/SULFAMETH 160/800 (SEPTRA DS) TAB PO SCH (10:45)
--- NOTE | 2019-02-25 11:06 | Progress Note - Surgery ---
Subjective Time Seen by a Provider: 10:11 Subjective/Events-last exam Pt seen and examined, no changes. States she still has abdominal pain, no changes from yesterday and is having nausea and dry heaves yesterday. Nurse states that last night pt complained that someone had changed her meds and now she is not getting "the buzz I was getting". Review of Systems General: No Chills, No Night Sweats; Malaise Pulmonary: No Dyspnea, No Cough Cardiovascular: No: Chest Pain, Palpitations Gastrointestinal: Nausea, Vomiting, Abdominal Pain Objective Exam Vital Signs Date Time Temp Pulse Resp B/P (MAP) Pulse Ox O2 Delivery O2 Flow Rate FiO2 02/25/19 08:00 Room Air 02/25/19 08:00 98.5 63 20 86/51 (63) 95 Room Air 02/25/19 00:32 97.7 63 16 88/54 (65) 97 Room Air 02/24/19 20:05 Room Air 02/24/19 16:35 98.5 74 18 90/58 (69) 99 Room Air I & O 02/25/19 07:00 Intake Total 2800 ml Output Total 1450 ml Balance 1350 ml Capillary Refill : Less Than 3 SecondsLess Than 3 Seconds General Appearance: No Apparent Distress, WD/WN HEENT: PERRL/EOMI; No Pale Conjunctivae (L), No Pale Conjunctivae (R), No Scleral Icterus (L), No Scleral Icterus (R) Respiratory: Chest Non Tender, Lungs Clear, Normal Breath Sounds, No Accessory Muscle Use, No Respiratory Distress Cardiovascular: Regular Rate, Rhythm, No Murmur Peripheral Pulses: 2+ Radial Pulses (R), 2+ Radial Pulses (L) Gastrointestinal: soft; No distended (think this is her normal); guarding (voluntary-minimal), tenderness (diffusely with palpation but very minimal), other (mottled, ostomy pink and functioning) Extremity: Normal Capillary Refill, No Pedal Edema Neurologic/Psychiatric: Alert, Oriented x3, Depressed Affect Skin: Mottled (abdomen - no change) Results Lab Microbiology 02/20/19 Urine Culture - Final, Complete Escherichia coli Assessment/Plan Assessment/Plan Assessment/Plan PSBO - resolved Abd pain - unknown etiology UTI - Bactrim ordered I am unsure why pt still has abdominal pain, it may be her normal. It concerns me that pt was looking for pain meds to "make her feel good". I do not think she needs any surgical intervention at this time. Hopefully treating her UTI will help. She does not have a bowel obstruction; may just need to be sent home and continue anything further as an outpt. Clinical Quality Measures DVT/VTE Risk/Contraindication: Risk Factor Score Per Nursin RFS Level Per Nursing on Admit: 4+=Very High Other: see orders for details, GOGO KLEIN DO Feb 25, 2019 11:06
[2019-02-25] MEDS ORDERED: HYDR-3820 PO (11:16)
[2019-02-25] MEDS ORDERED: Trimethoprim/Sulfamethoxazole PO (11:16)
--- NOTE | 2019-02-25 11:17 | Discharge Summary ---
Diagnosis/Chief Complaint Date of Admission Feb 20, 2019 at 15:07 Date of Discharge Discharge Date: Feb 25, 2019 Admission Diagnosis Assessment: SBO Cervical cancer at 39yo Mass on CT scan? Smoker Plan: IVF Anti-emetics Dr Harris consultation Dr Burger consultation [facility] Discharge Diagnosis (1) Abdominal pain Status: Acute (2) Nausea & vomiting Status: Acute (3) Uterine cancer Status: Chronic (4) Small bowel obstruction Status: Acute Discharge Summary Discharge Physical Exam Allergies: Coded Allergies: No Known Drug Allergies (Unverified , 02/20/19) Vitals & I&Os Vital Signs Date Time Temp Pulse Resp B/P (MAP) Pulse Ox O2 Delivery O2 Flow Rate FiO2 02/25/19 08:00 Room Air 02/25/19 08:00 98.5 63 20 86/51 (63) 95 General Appearance: No Apparent Distress, WD/WN, Chronically ill Respiratory: Chest Non Tender, Lungs Clear, Normal Breath Sounds, No Accessory Muscle Use, No Respiratory Distress Cardiovascular: Regular Rate, Rhythm, No Edema, No Gallop, No JVD, No Murmur, Normal Peripheral Pulses Neurologic/Psychiatric: Alert, Oriented x3, No Motor/Sensory Deficits, Normal Mood/Affect Hospital Course Was the Problem List Reviewed?: Yes Hospital course: patient was admitted with abdominal pain suspicious for SBO so she was admitted placed NPO and maintained on IVF and Dilaudid pain meds along with antiemetics. Small bowel series revealed no obstruction. Dr Harris was consulted along with Dr Burger and Dr Hernández and reviewed CT scan for any sign of uterine cancer recurrence. DR Burgos at [facility] was called and updated and she recommended NGT if needed and check for biopsy of any mass on CT scan but no mass was identified after further eval by Dr Harris with Radiologist. Pelvic USG did not reveal any mass. Colostomy was functioning well with good output and na usea was improved at time of DC but she seemed to "get high" after Dilaudid given and was asking for a dose of it before she went home. Prealbumin was noted to be 4.4 which appeared to suggest a longer term issue instead of the 2 days prior to admit so she will have close f/u with PCP at [facility] to arrange for additional testing. Patient was able to eat small meals at time of DC. Labs (last 24 hrs) Microbiology 02/20/19 Urine Culture - Final, Complete Escherichia coli Patient resulted labs reviewed. Discussion & Recommendations Discharge Planning: <30 minutes discharge planning Discharge Home Medications: Active Scripts Active Hydrocodon-Acetaminophn 10-325 (Hydrocodone/Acetaminophen) 1 Each Tablet 1 Ea PO Q6HR PRN Reported Protonix (Pantoprazole Sodium) 40 Mg Tablet.dr 40 Mg PO DAILY Advil (Ibuprofen) 200 Mg Tablet 800 Mg PO TID PRN Instructions to patient/family Please see electronic discharge instructions given to patient. Clinical Quality Measures DVT/VTE Risk/Contraindication: Risk Factor Score Per Nursin RFS Level Per Nursing on Admit: 4+=Very High Other: see orders for details, Problem Qualifiers (1) Abdominal pain: Abdominal location: generalized Qualified Codes: R10.84 - Generalized abdominal pain (2) Nausea & vomiting: Vomiting type: unspecified (3) Uterine cancer: Malignant neoplasm of uterus location: unspecified site of uterus Qualified Codes: C55 - Malignant neoplasm of uterus, part unspecified ADRIANA JAY DO Feb 25, 2019 11:17
[2019-02-25] MEDS: AA 4.25% W/LYTES IN D5W IV SOL 1,000 ML IV SCH (12:55)
[2019-02-25] MEDS: ENOXAPARIN 40 MG/0.4 ML (LOVENOX) SYR SC SCH (13:00)
== END 2019-02-25 13:39 | disposition home or self-care (01) | DRG 389 ==
LOC: EDUNIT# 10:44 → ER 10:45 → 4TH 15:07
PROVIDERS: ADMIT Internal Medicine; ATTEND Internal Medicine
DX: K56.600 Partial intestinal obstruction, unspecified as to cause (principal); E87.1 Hypo-osmolality and hyponatremia; N39.0 Urinary tract infection, site not specified; K43.5 Parastomal hernia without obstruction or gangrene; R63.4 Abnormal weight loss; R11.2 Nausea with vomiting, unspecified; F17.210 Nicotine dependence, cigarettes, uncomplicated; J44.9 Chronic obstructive pulmonary disease, unspecified; Z85.41 Personal history of malignant neoplasm of cervix uteri; Z92.21 Personal history of antineoplastic chemotherapy; Z92.3 Personal history of irradiation; Z93.3 Colostomy status; Z87.19 Personal history of other diseases of the digestive system
CPT/HCPCS: 36415; 74177; 74250; 76857; 80053; 81000; 82150; 83605; 83615; 83690; 84134; 85007; 85025; 85027; 86304; 87088; 87186; 96361; 96374; 96375; 96376

== ENCOUNTER 2019-04-06 19:26 | Inpatient (IN) | payer OTHER ==
[~2019-04-06] VITALS: Ht 165.1 cm; Wt 43.4 kg
[~2019-04-06 19:26] MED LIST changes: +HYDR-3820 PO; +IBUP-30 PO; +PANT40TA2 PO; +RANI-613 PO; +Trimethoprim/Sulfamethoxazole PO
[2019-04-06] MEDS ORDERED: ONDANSETRON 4 MG/2 ML (SDV) Z0FRAN IVP ONE (20:00)
[2019-04-06] MEDS ORDERED: fentaNYL INJECTION 100 MCG/2 ML AMP IVP ONE (20:00)
[2019-04-06] MEDS: LACTATED RINGERS 1,000 ML IV SCH (20:05)
[2019-04-06 20:11] LABS: BASOPHILS # (AUTO) 0.1 10^3/uL (0.0-0.1); BASOPHILS % (AUTO) 0 % (0-10); EOSINOPHILS % (AUTO) 0 % (0-10); HEMATOCRIT 43 % (35-52); HEMOGLOBIN 15.6 G/DL (11.5-16.0); LYMPHOCYTES # (AUTO) 2.1 X 10^3 (1.0-4.0); LYMPHOCYTES % (AUTO) 19 % (12-44); MEAN CORPUSCULAR HEMOGLOBIN 29 PG (25-34); MEAN CORPUSCULAR HGB CONC 36 G/DL (32-36); MEAN CORPUSCULAR VOLUME 80 FL (80-99); MEAN PLATELET VOLUME 10.1 FL (7.4-10.4); MONOCYTES % (AUTO) 9 % (0-12); NEUTROPHILS % (AUTO) 72 % (42-75); PLATELET COUNT 551 10^3/uL (130-400); RED CELL DISTRIBUTION WIDTH 13.4 % (10.0-14.5); WHITE BLOOD COUNT 11.1 10^3/uL (4.3-11.0)
[2019-04-06] MEDS ORDERED: morphine INJ 10 MG/ML 1ML (SYR OR VIAL) IVP STA ×2 (20:29→22:03)
[2019-04-06 20:30] LABS: ALBUMIN 4.4 GM/DL (3.2-4.5); BILIRUBIN,TOTAL 0.9 MG/DL (0.1-1.0); CALCIUM 9.7 MG/DL (8.5-10.1); CREATININE SERUM 1.01 MG/DL (0.60-1.30); TOTAL PROTEIN 8.2 GM/DL (6.4-8.2)
--- NOTE | 2019-04-06 20:39 | ED Abdominal Pain ---
General Chief Complaint: Abdominal/GI Problems Stated Complaint: ABD PAIN Source of Information: Patient Exam Limitations: No Limitations (EFRAÍN BEAN STUDENT) History of Present Illness Date Seen by Provider: Apr 06, 2019 Time Seen by Provider: 19:44 Initial Comments 53yo female that presents LLQ abdominal pain and 3 day history of no bowel movements and vomiting. She has a colostomy bag. She is crying and asking for pain medication, pain 10/10. States abdominal issues presistant for months but significantly worse this last three days. Severity/Quality: Severe Activities at Onset: None Associated Symptoms: No Chest Pain; Fever/Chills, Nausea/Vomiting; No Shortness of Air (EFRAÍN BEAN STUDENT) Allergies and Home Medications Allergies Coded Allergies: No Known Drug Allergies (Unverified , 02/20/19) Home Medications Hydrocodone/Acetaminophen 1 Each Tablet, 1 EA PO Q6HR PRN for PAIN-MODERATE Prescribed by: ADRIANA JAY on 02/25/19 1116 Ibuprofen 200 Mg Tablet, 800 MG PO TID PRN for PAIN-MILD, (Reported) Pantoprazole Sodium 40 Mg Tablet.dr, 40 MG PO DAILY, (Reported) Patient Home Medication List Home Medication List Reviewed: Yes (EFRAÍN BEAN STUDENT) Review of Systems Review of Systems Constitutional: chills EENTM: No Symptoms Reported Respiratory: No Symptoms Reported Cardiovascular: No Symptoms Reported Gastrointestinal: See HPI, Abdomen Distended, Abdominal Pain, Constipated, Nausea Genitourinary: No Symptoms Reported Musculoskeletal: no symptoms reported Skin: other Psychiatric/Neurological: No Symptoms Reported Endocrine: No Symptoms Reported Hematologic/Lymphatic: No Symptoms Reported (EFRAÍN BEAN STUDENT) Past Hdeguhz-Ghudob-Nsojpg Hx Past Med/Social Hx: Reviewed and Corrections made (EFRAÍN BEAN STUDENT) Patient Social History Alcohol Use: Denies Use Recreational Drug Use: No Smoking Status: Current Everyday Smoker Type Used: Cigarettes Recent Foreign Travel: No Contact w/Someone Who Travel: No Recent Hopitalizations: No Physical Abuse: No Sexual Abuse: No Mistreated: No Fear: No (EFRAÍN BEAN STUDENT) Past Medical History Surgeries: Yes (FISTULA , CERVICAL) Abdominal, Bowel Surgery (Colostomy) Respiratory: No Cardiac: No Neurological: Yes Stroke Reproductive Disorders: No Genitourinary: No Gastrointestinal: Yes (COLOSTOMY, DIVERTICULITIS) Musculoskeletal: No Endocrine: No HEENT: No Cancer: Yes Cervical Did You Recieve Any Treatments: Yes What Type of Treatment Did You: Chemotherapy, Radiation Psychosocial: No Integumentary: No Blood Disorders: No (EFRAÍN BEAN STUDENT) Family Medical History Dementia 19 FATHER FH: cancer 19 FATHER, Onset:76 19 MOTHER, Onset:46 Fibrocystic disease of breast Cancer Patient has is currently is a parternership for 32 years. She has two kids, one boy and one girl Mother: from cancer (type: unknown) Father: , had history of strokes (EFRAÍN BEAN STUDENT) Physical Exam Vital Signs Vital Signs - First Documented 04/06/19 19:43 Temp 36.6 Pulse 122 Resp 20 B/P (MAP) 118/102 (107) (DODIE CASTANEDA MD) Vital Signs Capillary Refill : (EFRANÍ BEAN STUDENT) Height/Weight/BMI Height: 5'5.00" Weight: 139lbs. 7.0oz. 63.749498yd; 23.2 BMI Method:Stated General Appearance: severe distress (Patient and daughter crying), thin Respiratory: no respiratory distress, no accessory muscle use Cardiovascular: regular rate, rhythm, no edema, tachycardia Gastrointestinal: no organomegaly, no pulsatile mass, abnormal bowel sounds (hypoactive), distended, tenderness Neurologic/Psychiatric: alert, oriented x 3 Skin: mottled (Mottled discoloration on abdomen reported to be from heating pad) (EFRAÍN BEAN STUDENT) Progress/Results/Core Measures Results/Orders Lab Results Laboratory Tests Test 04/06/19 19:50 04/06/19 20:11 Range/Units White Blood Count 11.1 H 4.3-11.0 10^3/uL Red Blood Count 5.37 4.35-5.85 10^6/uL Hemoglobin 15.6 11.5-16.0 G/DL Hematocrit 43 35-52 % Mean Corpuscular Volume 80 80-99 FL Mean Corpuscular Hemoglobin 29 25-34 PG Mean Corpuscular Hemoglobin Concent 36 32-36 G/DL Red Cell Distribution Width 13.4 10.0-14.5 % Platelet Count 551 H 130-400 10^3/uL Mean Platelet Volume 10.1 7.4-10.4 FL Neutrophils (%) (Auto) 72 42-75 % Lymphocytes (%) (Auto) 19 12-44 % Monocytes (%) (Auto) 9 0-12 % Eosinophils (%) (Auto) 0 0-10 % Basophils (%) (Auto) 0 0-10 % Neutrophils # (Auto) 8.0 H 1.8-7.8 X 10^3 Lymphocytes # (Auto) 2.1 1.0-4.0 X 10^3 Monocytes # (Auto) 1.0 0.0-1.0 X 10^3 Eosinophils # (Auto) 0.0 0.0-0.3 10^3/uL Basophils # (Auto) 0.1 0.0-0.1 10^3/uL Prothrombin Time 14.0 12.2-14.7 SEC INR Comment 1.0 0.8-1.4 Activated Partial Thromboplast Time 30 24-35 SEC Sodium Level 127 L 135-145 MMOL/L Potassium Level 3.0 L 3.6-5.0 MMOL/L Chloride Level 83 L 98-107 MMOL/L Carbon Dioxide Level 25 21-32 MMOL/L Anion Gap 19 H 5-14 MMOL/L Blood Urea Nitrogen 31 H 7-18 MG/DL Creatinine 1.01 0.60-1.30 MG/DL Estimat Glomerular Filtration Rate 57 BUN/Creatinine Ratio 31 Glucose Level 128 H 70-105 MG/DL Calcium Level 9.7 8.5-10.1 MG/DL Corrected Calcium 9.4 8.5-10.1 MG/DL Total Bilirubin 0.9 0.1-1.0 MG/DL Aspartate Amino Transf (AST/SGOT) 31 5-34 U/L Alanine Aminotransferase (ALT/SGPT) 19 0-55 U/L Alkaline Phosphatase 121 40-136 U/L C-Reactive Protein High Sensitivity 0.50 0.00-0.50 MG/DL Total Protein 8.2 6.4-8.2 GM/DL Albumin 4.4 3.2-4.5 GM/DL Lipase 44 8-78 U/L Urine Color YELLOW Urine Clarity SLIGHTLY CLOUDY Urine pH 5 5-9 Urine Specific [place] 1.025 H 1.016-1.022 Urine Protein 2+ H NEGATIVE Urine Glucose (UA) NEGATIVE NEGATIVE Urine Ketones 4+ H NEGATIVE Urine Nitrite NEGATIVE NEGATIVE Urine Bilirubin 1+ H NEGATIVE Urine Urobilinogen 1 NORMAL MG/DL Urine Leukocyte Esterase 3+ H NEGATIVE Urine RBC (Auto) 2+ H NEGATIVE Urine RBC 5-10 H /HPF Urine WBC >100 H /HPF Urine Squamous Epithelial Cells 5-10 /HPF Urine Crystals NONE /LPF Urine Bacteria LARGE H /HPF Urine Casts NONE /LPF Urine Mucus NEGATIVE /LPF Urine Culture Indicated YES Urine Opiates Screen NEGATIVE NEGATIVE Urine Oxycodone Screen NEGATIVE NEGATIVE Urine Methadone Screen NEGATIVE NEGATIVE Urine Propoxyphene Screen NEGATIVE NEGATIVE Urine Barbiturates Screen NEGATIVE NEGATIVE Ur Tricyclic Antidepressants Screen NEGATIVE NEGATIVE Urine Phencyclidine Screen NEGATIVE NEGATIVE Urine Amphetamines Screen NEGATIVE NEGATIVE Urine Methamphetamines Screen NEGATIVE NEGATIVE Urine Benzodiazepines Screen NEGATIVE NEGATIVE Urine Cocaine Screen NEGATIVE NEGATIVE Urine Cannabinoids Screen POSITIVE H NEGATIVE (DODIE CASTANEDA MD) My Orders Orders - DODIE CASTANEDA MD Hs C Reactive Protein (04/06/19 20:01) Morphine Injection (Morphine Injection (04/06/19 20:29) Drug Screen Stat (Urine) (04/06/19 20:33) Ua Culture If Indicated (04/06/19 20:33) Iohexol Injection (Omnipaque 350 Mg/Ml 1 (04/06/19 21:00) Received Contrast (Hold Metformin- Contr (04/06/19 21:00) Sodium Chloride Flush (Catheter Flush Sy (04/06/19 21:00) Ns (Ivpb) (Sodium Chloride 0.9% Ivpb Bag (04/06/19 21:00) Diatrizoate Meglum/Sodium 37% (Gastrogra (04/06/19 21:00) Urine Culture (04/06/19 20:11) Ed Iv/Invasive Line Start (04/06/19 21:11) Ns Iv 1000 Ml (Sodium Chloride 0.9%) (04/06/19 21:11) Potassium Cl 10meq/50ml Ivpb (Kcl 10 Meq (04/06/19 21:15) Ng Tube Insert & Assessment (04/06/19 21:58) Chest 1 View, Ap/Pa Only (04/06/19 21:58) Ceftriaxone For Iv Use (Rocephin For I (04/06/19 22:15) Morphine Injection (Morphine Injection (04/06/19 22:03) Lorazepam Injection (Ativan Injection) (04/06/19 22:15) Benzocaine Extension Tube (Hurricaine Ex (04/06/19 22:15) (DODIE CASTANEDA MD) Medications Given in ED Current Medications Medications Dose Ordered Sig/Reggie Route Start Time Stop Time Status Last Admin Dose Admin Benzocaine 1 ea ONCE ONCE XX 04/06/19 22:15 04/06/19 22:16 DC 04/06/19 22:16 1 EA Ceftriaxone Sodium 1000 mg/ Sterile Water 10 ml @ 200 mls/hr ONCE ONCE IV 04/06/19 22:15 04/06/19 22:17 DC 04/06/19 22:15 200 MLS/HR Diatrizoate Meglum/ Diatrizoate Sod 120 ml ONCE ONCE PO 04/06/19 21:00 04/06/19 21:01 DC 04/06/19 20:56 50 ML Fentanyl Citrate 50 mcg ONCE ONCE IVP 04/06/19 20:00 04/06/19 20:01 DC 04/06/19 20:05 50 MCG Iohexol 100 ml ONCE ONCE IV 04/06/19 21:00 04/06/19 21:01 DC 04/06/19 21:37 66 ML Ondansetron HCl 4 mg ONCE ONCE IVP 04/06/19 20:00 04/06/19 20:01 DC 04/06/19 20:04 4 MG Potassium Chloride 50 ml @ 50 mls/hr ONCE ONCE IV 04/06/19 21:15 04/06/19 22:14 DC 04/06/19 21:59 50 MLS/HR Sodium Chloride 100 ml ONCE ONCE IV 04/06/19 21:00 04/06/19 21:01 DC 04/06/19 21:37 80 ML Sodium Chloride 1,000 ml @ 500 mls/hr Q2H ONCE IV 04/06/19 21:11 04/06/19 23:10 04/06/19 21:59 500 MLS/HR (DODIE CASTANEDA MD) Vital Signs/I&O 04/06/19 19:43 Temp 36.6 Pulse 122 Resp 20 B/P (MAP) 118/102 (107) (DODIE CASTANEDA MD) Departure Communication (Admissions) Time/Spoke to Admitting Phy: 22:07 Dr. Patel Time/Spoke to Consulting Phy: 22:05 Dr. Karimi (DODIE CASTANEDA MD) Impression Primary Impression: Small bowel obstruction Additional Impressions: Abdominal pain Qualified Codes: R10.84 - Generalized abdominal pain Acute hypokalemia Hyponatremia Disposition: ADMITTED INPATIENT Condition: Improved Admissions Decision to Admit Reason: Admit from ER (General) Decision to Admit/Date: Apr 06, 2019 Time/Decision to Admit Time: 19:55 (DODIE CASTANEDA MD) Departure-Patient Inst. Decision time for Depature: 21:12 (DODIE CASTANEDA MD) Referrals: [facility] [place] ([place]P/Family) Primary Care Physician Add. Discharge Instructions: All discharge instructions reviewed with patient and/or family. Voiced understanding. This patient was interviewed and examined by me personally along with Chad Bean, RENEE student. I have reviewed his documentation and agree with his history, physical, assessment, and documentation with the following additions and corrections. This 53-year-old woman presents to the emergency room with 3 days of fairly diffuse abdominal pain and no gas or stool output from her colostomy bag. She has history of admission last month for a small bowel obstruction. Colostomy is due to history of diverticulitis. Patient is afebrile. She is in distress and tachycardic upon arrival. She is fairly new to the area. Her colostomy was performed in [place]. Her primary care provider is Zelda Mireles at [facility]. Exam: Gen.: Alert, oriented, in moderate distress and tearful HEENT normocephalic and atraumatic, mucous membranes moist Heart: Tachycardia with regular rhythm without murmur Lungs: Clear to auscultation bilaterally with normal effort Abdomen: Distended, firm, bowel sounds present, diffusely tender, no output in the ostomy bag Extremities: normal to inspection without edema Neuropsych: Alert, anxious, in distress from pain, no focal deficits Skin: Warm and dry without rashes Patient was given Zofran and a multiple doses of opioid analgesics. CT scan with oral contrast was performed and showed a high-grade small bowel obstruction. NG was placed. Patient was also found to have a urinary tract infection. Rocephin was administered. WBC was minimally elevated and CRP was normal. I do not believe this patient has sepsis. Hypokalemia was also noted. Replacement was started with 10 mEq by IV route. Patient received a liter of LR and a liter of normal saline in the ER. Case was discussed with Dr. Karimi and Dr. Patel. (DODIE CASTANEDA MD) Copy Copies To 1: JUSTICE URBANO MD, NICK PA STUDENT Apr 06, 2019 20:38 DODIE CASTANEDA MD Apr 06, 2019 21:14
[2019-04-06 20:42] LABS: CLARITY,URINE SLIGHTLY CLOUDY; COLOR,URINE YELLOW; GLUCOSE, URINE (UA) NEGATIVE (NEGATIVE); KETONES,URINE 4+ (NEGATIVE); LEUKOCYTE ESTERASE ,URINE 3+ (NEGATIVE); NITRITE,URINE NEGATIVE (NEGATIVE); PH,URINE 5 (5-9); PROTEIN,URINE 2+ (NEGATIVE); UROBILINOGEN,URINE 1 MG/DL (NORMAL)
[2019-04-06] MEDS ORDERED: HOLD METFORMIN - RECEIVED CONTRAST 20 ML VIAL IV SCH (21:00)
[2019-04-06] MEDS ORDERED: IOHEXOL 350 MG/ML 100 ML (OMNIPAQUE 350) VIAL IV ONE (21:00)
[2019-04-06] MEDS ORDERED: NS 100 ML (IVPB) BAG IV ONE (21:00)
[2019-04-06] MEDS ORDERED: DIATRIZOATE MEGLUM/SODIUM 37% 120 ML (GASTROGRAFIN) PO ONE (21:00)
[2019-04-06] MEDS ORDERED: CATHETER FLUSH 10 ML SYR IV PRN (21:00)
[2019-04-06 21:05] LABS: AMPHETAMINE SCREEN, URINE NEGATIVE (NEGATIVE); BARBITURATE SCREEN URINE NEGATIVE (NEGATIVE); BENZODIAZEPINES SCREEN URINE NEGATIVE (NEGATIVE); CANNABINOID SCREEN, URINE POSITIVE (NEGATIVE); COCAINE SCREEN URINE NEGATIVE (NEGATIVE); METHADONE STAT NEGATIVE (NEGATIVE); METHAMPHETAMINE SCREEN URINE S NEGATIVE (NEGATIVE); OPIATE SCREEN URINE NEGATIVE (NEGATIVE); OXYCODONE STAT NEGATIVE (NEGATIVE); PROPOXYPHENE STAT NEGATIVE (NEGATIVE); TRICYCLIC ANTIDEPRESSANTS SCRE NEGATIVE (NEGATIVE)
[2019-04-06 21:06] LABS: BACTERIA,URINE LARGE /HPF; BILIRUBIN,URINE 1+ (NEGATIVE); WBC,URINE >100 /HPF
[2019-04-06] MEDS ORDERED: NS IV 1000 ML 1,000 ML IV ONE (21:11)
[2019-04-06] MEDS ORDERED: POTASSIUM CL 10MEQ/50ML IVPB 50 ML IV ONE (21:15)
--- NOTE | 2019-04-06 21:52 | Diagnostic Imaging Report ---
PROCEDURE: CT abdomen and pelvis with contrast. TECHNIQUE: Multiple contiguous axial images were obtained through the abdomen and pelvis after administration of intravenous contrast. Auto Exposure Controls were utilized during the CT exam to meet ALARA standards for radiation dose reduction. INDICATION: Abdominal pain. COMPARISON: 02/20/2019. FINDINGS: Compared to the previous examination, there has been significantly increased small bowel distention throughout. There is a stoma in the left lower quadrant. The colon is decompressed. A precise transition point in the small bowel is not clearly identified. There is no free air or free fluid. The gallbladder, solid organs and lung bases are clear. Distal ureters and urinary bladder are normal. There is no abscess. There is some stable thickening of the pre-sacral space. Osseous structures are unremarkable. IMPRESSION: 1. High-grade small bowel obstruction without obvious transition point. 2. No CT evidence for bowel ischemia, free air, free fluid or abscess. Dictated by: Dictated on workstation # [id number]
[2019-04-06 22:10] VITALS: BP 96/57
--- NOTE | 2019-04-06 22:10 | NUR ---
ELLIOTCLAUDIA HUFF admitted to room 409-1, with an admitting diagnosis of SBO, UTI, HYPONATREMIA, AND HYPOKALEMIA, on 04/06/19 from [facility] via [facility], accompanied by DAUGHTER.SAMRAFRANCKCLAUDIA Cullen introduced to surroundings, call light, bed controls, phone, TV, temperature control, lights, meal times, smoking policy, visitor policy, side rail policy, bathrooms and showers. Patient Rights given to patient in the handbook. CLAUDIA SHAW verbalizes understanding that [facility] is not responsible for the loss or damage to any personal effects or valuables that are kept in the patients posession during their hospitalization. Addendum: 04/07/19 at 0022 by ABDIAS SHAH RN PT ARRIVED TO FLOOR AT 2310, NOT 2210.
[2019-04-06] MEDS ORDERED: cefTRIAXone FOR IV USE 1,000 MG in WATER (STERILE) FOR INJECTION 10 ML IV ONE (22:15)
[2019-04-06] MEDS ORDERED: HURRICAINE EXT TUBE (BENZOCAINE) XX ONE (22:15)
[2019-04-06] MEDS ORDERED: LORazepam INJ 2 MG/ML (ATIVAN) VIAL IVP ONE (22:15)
--- NOTE | 2019-04-06 22:45 | NUR ---
16FR NG RIGHT NARE PLACED AT THIS TIME.
--- NOTE | 2019-04-06 23:03 | NUR ---
NGT PLACEMENT VERIFIED BY DR. CASTANEDA AFTER pCXR REVIEW.
[2019-04-06 23:10] VITALS: BP 96/57
[2019-04-06] MEDS ORDERED: ONDANSETRON 4 MG/2 ML (SDV) Z0FRAN IV PRN (23:45)
[2019-04-07] VITALS (13 sets, daily range): BP systolic 92–115; BP diastolic 54–76
[2019-04-07] MEDS: NS W/KCL 20 MEQ/L 1,000 ML IV SCH ×4 (00:01→23:57)
[2019-04-07] MEDS: morphine INJ 10 MG/ML 1ML (SYR OR VIAL) IV PRN ×6 (01:50→23:57)
[2019-04-07] MEDS: PROMETHAZINE INJ 25 MG/ML (PHENERGAN) AMP IV PRN ×2 (05:23→23:57)
[2019-04-07 06:48] LABS: BASOPHILS % (AUTO) 0 % (0-10); EOSINOPHILS # (AUTO) 0.1 10^3/uL (0.0-0.3); EOSINOPHILS % (AUTO) 2 % (0-10); HEMATOCRIT 34 % (35-52); HEMOGLOBIN 11.5 G/DL (11.5-16.0); LYMPHOCYTES # (AUTO) 1.2 X 10^3 (1.0-4.0); LYMPHOCYTES % (AUTO) 24 % (12-44); MEAN CORPUSCULAR HEMOGLOBIN 29 PG (25-34); MEAN CORPUSCULAR HGB CONC 34 G/DL (32-36); MEAN CORPUSCULAR VOLUME 84 FL (80-99); MEAN PLATELET VOLUME 10.7 FL (7.4-10.4); MONOCYTES # (AUTO) 0.5 X 10^3 (0.0-1.0); MONOCYTES % (AUTO) 11 % (0-12); NEUTROPHILS # (AUTO) 3.2 X 10^3 (1.8-7.8); NEUTROPHILS % (AUTO) 63 % (42-75); PLATELET COUNT 292 10^3/uL (130-400); RED CELL DISTRIBUTION WIDTH 13.4 % (10.0-14.5)
[2019-04-07 07:08] LABS: ALANINE AMINOTRANSFERASE 16 U/L (0-55); ALBUMIN 3.3 GM/DL (3.2-4.5); ALKALINE PHOSPHATASE 81 U/L (40-136); BILIRUBIN,TOTAL 0.4 MG/DL (0.1-1.0); BUN/CREATININE RATIO 36; CALCIUM 8.1 MG/DL (8.5-10.1); CARBON DIOXIDE 25 MMOL/L (21-32); CHLORIDE 91 MMOL/L (98-107); CREATININE SERUM 0.75 MG/DL (0.60-1.30); GFR ESTIMATED > 60; GLUCOSE 86 MG/DL (70-105); SODIUM 130 MMOL/L (135-145); TOTAL PROTEIN 5.7 GM/DL (6.4-8.2)
--- NOTE | 2019-04-07 07:16 | Consultation - Surgery ---
OLESYA CLINE [facility] 04/07/19 0716: History of Present Illness History of Present Illness Patient Consulted On(sepdieh/time) 04/07/19 07:11 Date Seen by Provider: Apr 07, 2019 Time Seen by Provider: 06:42 History of Present Illness Consult requested by Dr. Patel for small bowel obstruction. This is a 53 year old female that presented to the ED with LLQ abdominal pain that she has been having for several months, intensifying over the last three days. Patient reports that her pain is currently better, improves with pain medication and not made worse by anything. 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 CT of abdomen/pelvis showed high grade sbo. Allergies and Home Medications Allergies Coded Allergies: No Known Drug Allergies (Unverified , 02/20/19) Home Medications Ibuprofen 200 Mg Tablet, 800 MG PO TID PRN for PAIN-MILD, (Reported) Patient Home Medication List Home Medication List Reviewed: Yes Past Ahgxarf-Hscsuy-Qfxenw Hx Patient Social History Alcohol Use: Denies Use Recreational Drug Use: No Smoking Status: Current Everyday Smoker Type Used: Cigarettes Recent Foreign Travel: No Contact w/Someone Who Travel: No Recent Infectious Disease Expo: No Recent Hopitalizations: No Immunizations Up To Date Date of Pneumonia Vaccine: Aug 12, 2017 Surgeries History of Surgeries: Yes (FISTULA , CERVICAL) Surgeries: Abdominal, Bowel Surgery (Colostomy) Respiratory History of Respiratory Disorde: No Cardiovascular History of Cardiac Disorders: No Neurological History of Neurological Disord: Yes Neurological Disorders: Stroke Reproductive System Hx Reproductive Disorders: No Genitourinary History of Genitourinary Disor: No Gastrointestinal History of Gastrointestinal Di: Yes (COLOSTOMY, DIVERTICULITIS) Musculoskeletal History of Musculoskeletal Dis: No Endocrine History of Endocrine Disorders: No HEENT History of HEENT Disorders: No Cancer History of Cancer: Yes Cancer: Cervical Psychosocial History of Psychiatric Problem: No Integumentary History of Skin or Integumenta: No Blood Transfusions History of Blood Disorders: No Family Medical History Significant Family History: Cancer Family Medial History: Dementia 19 FATHER FH: cancer 19 FATHER, Onset:76 19 MOTHER, Onset:46 Fibrocystic disease of breast Review of Systems-General Constitutional: no symptoms reported EENTM: no symptoms reported Respiratory: no symptoms reported Cardiovascular: no symptoms reported Gastrointestinal: abdominal pain Genitourinary: no symptoms reported Musculoskeletal: no symptoms reported Skin: no symptoms reported Psychiatric/Neurological: No Symptoms Reported Physical Exam-General Problems Physical Exam Vital Signs Vital Signs - First Documented 04/06/19 04/06/19 19:43 22:10 Temp 36.6 Pulse 122 Resp 20 B/P (MAP) 118/102 (107) Pulse Ox 95 O2 Delivery Room Air Capillary Refill : Less Than 3 Seconds General Appearance: no apparent distress HEENT: PERRL/EOMI Neck: full range of motion, normal inspection Respiratory: no respiratory distress, no accessory muscle use Cardiovascular: regular rate, rhythm Gastrointestinal: soft Rectal: deferred Back: no CVA tenderness Extremities: normal inspection Neurologic/Psychiatric: no motor/sensory deficits, alert, normal mood/affect, oriented x 3 Skin: normal color, warm/dry Lymphatic: no adenopathy Data Review Labs Laboratory Tests 04/06/19 19:50: White Blood Count 11.1H, Red Blood Count 5.37, Hemoglobin 15.6, Hematocrit 43, Mean Corpuscular Volume 80, Mean Corpuscular Hemoglobin 29, Mean Corpuscular Hemoglobin Concent 36, Red Cell Distribution Width 13.4, Platelet Count 551H, Mean Platelet Volume 10.1, Neutrophils (%) (Auto) 72, Lymphocytes (%) (Auto) 19, Monocytes (%) (Auto) 9, Eosinophils (%) (Auto) 0, Basophils (%) (Auto) 0, Neutrophils # (Auto) 8.0H, Lymphocytes # (Auto) 2.1, Monocytes # (Auto) 1.0, Eosinophils # (Auto) 0.0, Basophils # (Auto) 0.1, Prothrombin Time 14.0, INR Comment 1.0, Activated Partial Thromboplast Time 30, Sodium Level 127L, Potassium Level 3.0L, Chloride Level 83L, Carbon Dioxide Level 25, Anion Gap 19H , Blood Urea Nitrogen 31H, Creatinine 1.01, Estimat Glomerular Filtration Rate 57, BUN/Creatinine Ratio 31, Glucose Level 128H, Calcium Level 9.7, Corrected Calcium 9.4, Total Bilirubin 0.9, Aspartate Amino Transf (AST/SGOT) 31, Alanine Aminotransferase (ALT/SGPT) 19, Alkaline Phosphatase 121, C-Reactive Protein High Sensitivity 0.50, Total Protein 8.2, Albumin 4.4, Lipase 44 04/06/19 20:11: Urine Color YELLOW, Urine Clarity SLIGHTLY CLOUDY, Urine pH 5, Urine Specific [place] 1.025H, Urine Protein 2+H, Urine Glucose (UA) NEGATIVE, Urine Ketones 4+H, Urine Nitrite NEGATIVE, Urine Bilirubin 1+H, Urine Urobilinogen 1, Urine Leukocyte Esterase 3+H, Urine RBC (Auto) 2+H, Urine RBC 5-10H, Urine WBC >100H, Urine Squamous Epithelial Cells 5-10, Urine Crystals NONE, Urine Bacteria LARGEH , Urine Casts NONE, Urine Mucus NEGATIVE, Urine Culture Indicated YES, Urine Opiates Screen NEGATIVE, Urine Oxycodone Screen NEGATIVE, Urine Methadone Screen NEGATIVE, Urine Propoxyphene Screen NEGATIVE, Urine Barbiturates Screen NEGATIVE, Ur Tricyclic Antidepressants Screen NEGATIVE, Urine Phencyclidine Screen NEGATIVE, Urine Amphetamines Screen NEGATIVE, Urine Methamphetamines Screen NEGATIVE, Urine Benzodiazepines Screen NEGATIVE, Urine Cocaine Screen NEGATIVE, Urine Cannabinoids Screen POSITIVEH 04/07/19 05:43: White Blood Count 5.0, Red Blood Count 4.00L, Hemoglobin 11.5#, Hematocrit 34L, Mean Corpuscular Volume 84, Mean Corpuscular Hemoglobin 29, Mean Corpuscular Hemoglobin Concent 34, Red Cell Distribution Width 13.4, Platelet Count 292, Mean Platelet Volume 10.7H, Neutrophils (%) (Auto) 63, Lymphocytes (%) (Auto) 24, Monocytes (%) (Auto) 11, Eosinophils (%) (Auto) 2, Basophils (%) (Auto) 0, Neutrophils # (Auto) 3.2, Lymphocytes # (Auto) 1.2, Monocytes # (Auto) 0.5, Eosinophils # (Auto) 0.1, Basophils # (Auto) 0.0, Sodium Level 130L, Potassium Level 3.0L, Chloride Level 91L, Carbon Dioxide Level 25, Anion Gap 14, Blood Urea Nitrogen 27H, Creatinine 0.75, Estimat Glomerular Filtration Rate > 60, BUN/Creatinine Ratio 36, Glucose Level 86, Calcium Level 8.1L, Corrected Calcium 8.7, Total Bilirubin 0.4, Aspartate Amino Transf (AST/SGOT) 23, Alanine Aminotransferase (ALT/SGPT) 16, Alkaline Phosphatase 81, Total Protein 5.7L, Albumin 3.3 Assessment/Plan Assessment/Plan Assessment/Plan high grade sbo leukocytosis - resolved Clinical Quality Measures DVT/VTE Risk/Contraindication: Risk Factor Score Per Nursin RFS Level Per Nursing on Admit: 3=High MAGEN KARIMI DO 04/07/19 1515: History of Present Illness History of Present Illness History of Present Illness Patient is a 53 year old female with several months of abdominal pain. Last 3 days having debilitating abdominal pain that varies in intensity but states is 10/10 at worse. She has not had any gas or stool out her colostomy for which she had colon resection and end colostomy for colovaginal fistula. Patient states she has had nausea and vomiting. Can not keep any food or liquids down. Pain medication has helped pain but still returns and severe. Patient had ct scan demonstrating high grade small bowel obstruction. Still with pain and follow up kub still evidence of obstruction and abdomen still with debilitating pain. Allergies and Home Medications Allergies Coded Allergies: No Known Drug Allergies (Unverified , 02/20/19) Home Medications Ibuprofen 200 Mg Tablet, 800 MG PO TID PRN for PAIN-MILD, (Reported) Patient Home Medication List Home Medication List Reviewed: Yes Past Yvxgdte-Hfwume-Bldjgj Hx Patient Social History Type Used: Cigarettes Surgeries Surgeries: Abdominal, Bowel Surgery (Colostomy) Neurological Neurological Disorders: Stroke Family Medical History Significant Family History: Cancer Family Medial History: Dementia 19 FATHER FH: cancer 19 FATHER, Onset:76 19 MOTHER, Onset:46 Fibrocystic disease of breast Review of Systems-General Constitutional: no symptoms reported EENTM: no symptoms reported Respiratory: no symptoms reported Cardiovascular: no symptoms reported Gastrointestinal: see HPI, abdominal pain, nausea, vomiting Genitourinary: no symptoms reported Musculoskeletal: no symptoms reported Skin: no symptoms reported Psychiatric/Neurological: No Symptoms Reported Physical Exam-General Problems Physical Exam General Appearance: no apparent distress HEENT: PERRL/EOMI Neck: full range of motion Respiratory: chest non-tender, no respiratory distress, no accessory muscle use Cardiovascular: regular rate, rhythm Gastrointestinal: distended, tenderness (diffusely, colostomy llq no gas or stool in colostomy bag) Rectal: deferred Back: no CVA tenderness Extremities: normal inspection Neurologic/Psychiatric: no motor/sensory deficits, alert, normal mood/affect, oriented x 3 Skin: normal color, warm/dry Lymphatic: no adenopathy Assessment/Plan Assessment/Plan Assessment/Plan high grade small bowel obstruction nausea and vomiting history of colovaginal fistula with colon resection and colostomy patient with significant abdominal pain, and evidence of high grade small bowel obstruction, I don't feel this is going to resolve on its own, and patient with significant pain, feel best to proceed with exploratory laparotomy all other indicated procedures. patient understands risks and benefits and wishes to proceed. To oR. ancef/flagyl preop consent NPO NG Tube Supervisory-Addendum Brief Verification & Attestation Participated in pt care: history, MDM, physical Personally performed: exam, history, MDM, supervision of care Care discussed with: Medical Student Procedures: n/a Results interpretation: Verified all documentation Verification and Attestation of Medical Student E/M Service A medical student performed and documented this service in my presence. I reviewed and verified all information documented by the medical student and made modifications to such information, when appropriate. I personally performed the physical exam and medical decision making. Magen Karimi, Apr 07, 2019,15:22 OLESYA CLINE [facility] [facility] Apr 07, 2019 07:16 MAGEN KARIMI DO Apr 07, 2019 15:15
--- NOTE | 2019-04-07 07:24 | Diagnostic Imaging Report ---
PATIENT HISTORY: NG tube check. TECHNIQUE: Frontal view of the chest COMPARISON: None FINDINGS: Lung volumes are normal. No focal consolidation is seen. There is no pleural effusion or pneumothorax. The cardiac silhouette is normal in size. The nasogastric tube projects over the stomach. IMPRESSION: The nasogastric tube projects over the stomach. No acute pulmonary abnormality is seen. Dictated by: Dictated on workstation # [id number]
[2019-04-07] MEDS: FAMOTIDINE 20MG/2ML IV (PEPCID) IV SCH ×2 (07:57→21:53)
--- NOTE | 2019-04-07 09:15 | NUR ---
PATIENT STATES SHE DOES NOT TAKE ANY PRESCRIPTION MEDICATIONS. SHE TAKES IBU OTC. SHE REPORTS SHE TAKES 5 AT A TIME, I ENTERED IT 800MG PRN.
--- NOTE | 2019-04-07 09:36 | History & Physical-Hospitalist ---
History of Present Illness HPI/Chief Complaint CC: Small bowel obstruction with UTI HPI: This is a 53yoWF clinic pt of [facility] who presented to the ER with complaints of abdominal pain with nausea and vomiting in the left lower quadrant for the past three days. She does have a colostomy. She reports the pain and nausea has worsened the last three days. CT scan showed a high grade small bowel obstruction with UTI and hyponatremia. She was subsequently placed in admission status, provided supportive care and pain medication, and white count went from 11 to 5.0, and sodium level went from 127 to 130. She is npo at this current time and Dr. Karimi has been consulted. UDS is positive for THC. She had been placed on Rocephin empirically. Source: patient, old records Exam Limitations: no limitations Date Seen 04/07/19 Time Seen by a Provider: 09:00 Attending Physician Shahana Patel DO [facility] [place] Referring Physician Date of Admission Apr 06, 2019 at 22:11 Home Medications & Allergies Home Medications Reviewed patient Home Medication Reconciliation performed by pharmacy medication reconciliations nail technician and/or nursing. Patients Allergies have been reviewed. Allergies Allergies Coded Allergies No Known Drug Allergies (Unverified02/20/19) Past Tyqouua-Urktjp-Xtvtry Hx Past Med/Social Hx: Reviewed Nursing Past Med/Soc Hx, Reviewed and Corrections made Patient Social History Marrital Status: single Employed/Student: employed Alcohol Use: Denies Use Recreational Drug Use: No Smoking Status: Current Everyday Smoker Type Used: Cigarettes Recent Foreign Travel: No Contact w/other who traveled: No Recent Hopitalizations: No Recent Infectious Disease Expo: No Immunizations Up To Date Date of Pneumonia Vaccine: Aug 12, 2017 Past Medical History Surgeries: Abdominal, Bowel Surgery (Colostomy) Neurological: Stroke Reproductive: No Cervical cancer when the patient was 39 years old Fistula in 2016 Cancer: Cervical Did You Recieve Any Treatments: Yes What Type of Treatment Did You: Chemotherapy, Radiation History of Blood Disorders: No Family History Dementia 19 FATHER FH: cancer 19 FATHER, Onset:76 19 MOTHER, Onset:46 Fibrocystic disease of breast Cancer Patient has is currently is a parternership for 32 years. She has two kids, one boy and one girl Mother: from cancer (type: unknown) Father: , had history of strokes Review of Systems Constitutional: see HPI Gastrointestinal: abdominal pain, loss of appetite, nausea, vomiting Physical Exam Physical Exam Vital Signs Vital Signs - First Documented 04/06/19 04/06/19 19:43 22:10 Temp 36.6 Pulse 122 Resp 20 B/P (MAP) 118/102 (107) Pulse Ox 95 O2 Delivery Room Air Capillary Refill : Less Than 3 Seconds Height, Weight, BMI Height: 5'5.00" Weight: 139lbs. 7.0oz. [id number]; 15.73 BMI Method:Stated General Appearance: Anxious, Chronically ill, Moderate Distress Respiratory: Lungs Clear, Normal Breath Sounds Cardiovascular: Regular Rate, Rhythm Gastrointestinal: Abnormal Bowel Sounds, Distended Neurologic/Psychiatric: Alert, Oriented x3, No Motor/Sensory Deficits, Normal Mood/Affect Results Results/Procedures Labs Laboratory Tests 04/06/19 19:50 04/07/19 05:43 Patient resulted labs reviewed. Assessment/Plan Admission Diagnosis Assessment: SBO Abdominal pain Cervical cancer at 39yo Smoker Similar admit 02/2019 included extensive testing and consultation due to possible mass on CT s/p disproved and conversation with Dr Burgos at [facility] and Dr Burger and Dr Hernández and Dr Harris Plan: OR per Dr Karimi Admission Status: Inpatient Order (span 2 midnights) Reason for Inpatient Admission: SBO Diagnosis/Problems Diagnosis/Problems (1) Small bowel obstruction Status: Acute (2) UTI (urinary tract infection) Status: Acute Qualifiers: Urinary tract infection type: acute cystitis Hematuria presence: without hematuria Qualified Codes: N30.00 - Acute cystitis without hematuria (3) Hyponatremia Status: Acute (4) Acute hypokalemia Status: Acute (5) Abdominal pain Status: Acute Qualifiers: Abdominal location: generalized Qualified Codes: R10.84 - Generalized abdominal pain (6) Nausea & vomiting Status: Acute (7) Uterine cancer Status: Chronic Clinical Quality Measures DVT/VTE Risk/Contraindication: Risk Factor Score Per Nursin RFS Level Per Nursing on Admit: 3=High ADRIANA JAY DO Apr 07, 2019 09:36
--- NOTE | 2019-04-07 10:30 | NUR ---
NG REMOVED BY PT. REINSERTED BY THIS RN. PT TOLERATED PROCEDURE WELL.
--- NOTE | 2019-04-07 11:17 | Diagnostic Imaging Report ---
INDICATION: Supine chest at 1055 hours. INDICATION: NG line placement. FINDINGS: The prior chest exam of 04/06/2019 noted that there was an NG line in place with the tip of the line overlying the lateral aspect of the gastric fundus. In the interval since the prior study, the tip of the line has been retracted and now lies at the gastroesophageal junction. The overall appearance of the chest itself is stable. The heart size is within normal limits and the lungs are clear. The mediastinum is not widened. The osseous structures are intact. IMPRESSION: 1. In the interval since the prior exam, the NG line has been retracted and the tip now overlies the gastroesophageal junction. 2. There is no acute cardiopulmonary abnormality noted. Dictated by: Dictated on workstation # [id number]
--- NOTE | 2019-04-07 12:43 | Diagnostic Imaging Report ---
CLINICAL INDICATION: Nasogastric tube adjustment. EXAM: Portable chest x-ray, upright view. COMPARISONS: Chest x-ray dated 04/07/2019 at 1055 hours. FINDINGS: Lungs/pleura: Lungs are clear. There is no pneumothorax. There is no pleural effusion. Mediastinum: Unremarkable. Pulmonary vasculature: Unremarkable. Heart: Unremarkable. Bones/extrathoracic soft tissue: Unremarkable. Nasogastric tube is again seen which has been advanced, and the tip is now overlying the expected region of the gastric antrum. The nasogastric tube is in good position. Air-filled dilated loops of small bowel are again seen overlying the stomach. IMPRESSION: 1: Nasogastric tube is again seen which has been advanced, and the tip is now overlying the expected region of the gastric antrum. The nasogastric tube is in good position. 2: The remainder of this exam shows no significant interval change compared to the prior study of comparison. Dictated by: Dictated on workstation # [id number]
--- NOTE | 2019-04-07 12:46 | Diagnostic Imaging Report ---
EXAMINATION: Supine abdomen at 1057 hours. INDICATION: Small bowel obstruction. TECHNIQUE: Two supine views of the abdomen were obtained. FINDINGS: The CT abdomen/pelvis exam on 04/06/2019 noted a small bowel obstruction. In the interval since the prior exam, an NG line has been inserted. The tip of the line overlies the gastroesophageal junction. The tip could be advanced another 10 cm to assure it is well within the stomach. The dilated gas-filled segments of small bowel seen on the prior study are again evident although perhaps somewhat less conspicuous than on the prior study. There is no mass or organomegaly appreciated. There is a moderate amount of contrast within the bladder. The ostomy site overlying the left lower quadrant seen previously is again evident. IMPRESSION: 1. There has been interval insertion of an NG line. The tip of the NG line overlies the gastroesophageal junction. It could be advanced another 10 cm. 2. There are still numerous dilated gas-filled segments of small bowel present, consistent with a small bowel obstruction. These gas filled segments are not quite as dilated as on the prior study, however. 3. A followup exam would be recommended for continued evaluation. 4. The report was called to Barbara by tanya@ 12:44 PM. Dictated by: Dictated on workstation # [id number]
[2019-04-07] MEDS: ENOXAPARIN 30 MG/0.3 ML (LOVENOX) SYR SC SCH (12:51)
--- NOTE | 2019-04-07 13:00 | NUR ---
Received report from MICHELLE Baldwin. Agree with previous assessment.
[2019-04-07] MEDS ORDERED: BUP/EPI 0.25% 1:200,000 (MARCAINE) 10 ML VIAL IJ ONE (14:55)
[2019-04-07] MEDS ORDERED: ceFAZolin INJECTION 1,000 MG in WATER (STERILE) FOR INJECTION 10 ML IV NR (15:00)
[2019-04-07] MEDS ORDERED: metroNIDAZOLE 500MG/100ML IVPB 100 ML IV NR (15:00)
[2019-04-07] MEDS ORDERED: ROCURONIUM 10 MG/ML 5 ML SYRINGE IV ONE (15:25)
[2019-04-07] MEDS ORDERED: DEXAMETHASONE 10 MG/ML (DECADRON) 1 ML VIAL ONE (15:25)
[2019-04-07] MEDS ORDERED: LIDOCAINE PF 2% 5 ML (XYLOCAINE) VIAL ONE (15:25)
[2019-04-07] MEDS ORDERED: MIDAZOLAM 2 MG/2 ML (VERSED) VIAL ONE (15:25)
[2019-04-07] MEDS ORDERED: ONDANSETRON 4 MG/2 ML (SDV) Z0FRAN ONE (15:25)
[2019-04-07] MEDS ORDERED: fentaNYL INJECTION 100 MCG/2 ML AMP ONE (15:25)
[2019-04-07] MEDS ORDERED: SUCCINYLCHOLINE INJ 100 MG/5 ML SYR ONE (15:25)
[2019-04-07] MEDS ORDERED: proPOfol 200 MG/20 ML (DIPRIVAN) VIAL IV ONE (15:25)
[2019-04-07] MEDS ORDERED: metroNIDAZOLE 500MG/100ML IVPB 100 ML ONE ×2 (15:34→21:45)
[2019-04-07] MEDS ORDERED: ceFAZolin INJECTION 1,000 MG ONE (15:34)
[2019-04-07] MEDS ORDERED: WATER (STERILE) FOR INJECTION 20 ML ONE (15:34)
[2019-04-07] MEDS ORDERED: HYDROmorphone 2 MG/ML VIAL (DILAUDID) ONE ×2 (15:40→16:21)
[2019-04-07] MEDS ORDERED: ETOMIDATE IV SOLN 20 MG/10 ML VIAL ONE (15:55)
[2019-04-07] MEDS ORDERED: SEVOFLURANE (ULTANE) 15 ML INHAL SOLN ONE ×7 (15:56→17:40)
[2019-04-07] MEDS: LACTATED RINGERS 1,000 ML IV SCH ×3 (16:32→17:16)
[2019-04-07] MEDS ORDERED: ROPIVACAINE 5MG/ML 30ML VIAL ONE (16:56)
--- NOTE | 2019-04-07 17:49 | Progress Note-Post Operative ---
Post-Operative Progess Note Surgeon (s)/[employer] (s) Surgeon MAGEN COUGHLIN DO [employer]: Dr. Harris Pre-Operative Diagnosis high grade small bowel obstruction Post-Operative Diagnosis high grade small bowel obstruction Procedure & Operative Findings Date of Procedure 04/07/19 Procedure Performed/Findings ex lap, lysis of adhesions, right colon resection, manual decompression of small bowel Anesthesia Type gen Estimated Blood Loss Estimated blood loss (mL): 150mL Specimens/Packing Specimens Removed right colon MAGEN COUGHLIN DO Apr 07, 2019 17:49
[2019-04-07] MEDS ORDERED: NALOXONE 0.4 MG/ML 1 ML (NARCAN) VIAL ONE (18:12)
[2019-04-07] MEDS ORDERED: ONDANSETRON 4 MG/2 ML (SDV) Z0FRAN IVP PRN (18:30)
[2019-04-07] MEDS ORDERED: HYDROmorphone 2 MG/ML VIAL (DILAUDID) IV ONE (18:30)
--- NOTE | 2019-04-07 20:10 | NUR ---
PT RETURNED FROM SURGERY AND IS STABLE. REPORT GIVEN FROM MICHELLE JUDD. DAUGHTER AT BEDSIDE.
--- NOTE | 2019-04-07 20:26 | NUR ---
THIS RN RECEIVED CALL FROM DR. COUGHLIN STATING HE WANTED PT TO HAVE IS EVERY 2 HOURS. ORDERS RECEIVED.
[2019-04-07] MEDS: ceFAZolin INJECTION 1,000 MG in WATER (STERILE) FOR INJECTION 10 ML IV SCH (21:52)
[2019-04-07] MEDS: cefTRIAXone 1,000 MG/SWFI 10 ML IV PUSH IV SCH ×2 (21:53)
[2019-04-07] MEDS: metroNIDAZOLE 500MG/100ML IVPB 250 MG in SYRINGE-IVPB 0 SYRINGE IV SCH (21:54)
[2019-04-08] MEDS: NS W/KCL 20 MEQ/L 1,000 ML IV SCH ×2 (03:19→14:55)
[2019-04-08 04:10] VITALS: BP 103/73
[2019-04-08] MEDS ORDERED: metroNIDAZOLE 500MG/100ML IVPB 100 ML ONE (04:18)
[2019-04-08] MEDS: ceFAZolin INJECTION 1,000 MG in WATER (STERILE) FOR INJECTION 10 ML IV SCH (04:31)
[2019-04-08] MEDS: metroNIDAZOLE 500MG/100ML IVPB 250 MG in SYRINGE-IVPB 0 SYRINGE IV SCH (04:31)
[2019-04-08 04:59] LABS: HEMOGLOBIN 13.4 G/DL (11.5-16.0); MEAN PLATELET VOLUME 10.1 FL (7.4-10.4); RED CELL DISTRIBUTION WIDTH 13.9 % (10.0-14.5); WHITE BLOOD COUNT 9.6 10^3/uL (4.3-11.0)
[2019-04-08 05:18] LABS: CALCIUM 8.2 MG/DL (8.5-10.1); CREATININE SERUM 1.01 MG/DL (0.60-1.30); MAGNESIUM 1.8 MG/DL (1.6-2.4); POTASSIUM 3.9 MMOL/L (3.6-5.0)
[2019-04-08] MEDS: morphine INJ 10 MG/ML 1ML (SYR OR VIAL) IV PRN ×8 (07:22→22:42)
[2019-04-08 07:31] VITALS: BP 93/63
[2019-04-08] MEDS: FAMOTIDINE 20MG/2ML IV (PEPCID) IV SCH (08:05)
[2019-04-08] MEDS: LORazepam INJ 2 MG/ML (ATIVAN) VIAL IVP PRN ×2 (08:06→12:07)
--- NOTE | 2019-04-08 09:01 | Progress Note - Surgery ---
OLESYA CLINE [facility] 04/08/19 0901: Subjective Date Seen by a Provider: Apr 08, 2019 Time Seen by a Provider: 07:45 Subjective/Events-last exam Patient is s/p exploratory laparotomy. Patient is awake and alert. She is very anxious about the pain she is experiencing which is causing her some distress and SOB. Pain is constant but moderately better with morphine but not controlled. NG tube drainage is 650mL, colostomy bag is empty. Patient says she is very thirsty and wants to drink, she is NPO right now. Review of Systems General: No Chills, No Night Sweats HEENT: No Head Aches, No Visual Changes Pulmonary: Dyspnea (with agitation/anxiety) Cardiovascular: No: Chest Pain Gastrointestinal: Abdominal Pain (diffuse s/p ex lap); No: Nausea, Vomiting Neurological: No: Change in speech, Confusion Objective Exam Vital Signs Date Time Temp Pulse Resp B/P (MAP) Pulse Ox O2 Delivery O2 Flow Rate FiO2 04/08/19 07:31 36.6 116 18 93/63 (73) 99 Room Air 04/08/19 04:10 36.0 108 18 103/73 (83) 97 OxyMask 5.00 04/07/19 23:33 36.2 96 16 92/64 (73) 97 OxyMask 5.00 04/07/19 20:00 99 OxyMask 5.00 04/07/19 19:51 36.4 93 20 94/64 (74) 95 Room Air 04/07/19 19:20 37.3 14 104/65 (78) 94 OxyMask 4 04/07/19 19:20 OxyMask 3 04/07/19 19:10 OxyMask 3 04/07/19 19:10 11 101/65 (77) 96 OxyMask 4 04/07/19 19:00 14 101/65 (77) 96 OxyMask 4 04/07/19 18:55 OxyMask 3 04/07/19 18:50 16 101/73 (82) 96 OxyMask 4 04/07/19 18:45 OxyMask 3 04/07/19 18:40 24 105/54 (71) 99 OxyMask 4 04/07/19 18:30 OxyMask 6 04/07/19 18:30 24 108/69 (82) 99 OxyMask 6 04/07/19 18:20 22 113/67 (82) 99 OxyMask 6 04/07/19 18:18 OxyMask 6 04/07/19 18:18 37.2 15 110/73 (85) 100 OxyMask 6 04/07/19 12:00 36.8 63 18 92/58 (69) 98 Room Air I & O 04/08/19 07:00 Intake Total 3130 ml Output Total 1680 ml Balance 1450 ml Capillary Refill : Less Than 3 SecondsLess Than 3 Seconds General Appearance: Anxious, Chronically ill, Mild Distress HEENT: PERRL/EOMI Neck: Non Tender, Supple Respiratory: Lungs Clear, Normal Breath Sounds, No Accessory Muscle Use, No Respiratory Distress Cardiovascular: Regular Rate, Rhythm, No Edema Gastrointestinal: distended, tenderness (diffuse) Extremity: Normal Inspection Neurologic/Psychiatric: Alert, Oriented x3, No Motor/Sensory Deficits, Normal Mood/Affect Skin: Warm/Dry, Mottled (abdomen) Lymphatic: No Adenopathy Results Lab Laboratory Tests 04/08/19 04:45: White Blood Count 9.6, Red Blood Count 4.73, Hemoglobin 13.4, Hematocrit 40, Mean Corpuscular Volume 85, Mean Corpuscular Hemoglobin 28, Mean Corpuscular Hemoglobin Concent 33, Red Cell Distribution Width 13.9, Platelet Count 425H, Mean Platelet Volume 10.1, Sodium Level 134L, Potassium Level 3.9, Chloride Level 99, Carbon Dioxide Level 22, Anion Gap 13, Blood Urea Nitrogen 32H, Creatinine 1.01, Estimat Glomerular Filtration Rate 57, BUN/Creatinine Ratio 32, Glucose Level 107H, Calcium Level 8.2L, Magnesium Level 1.8 Microbiology 04/06/19 Urine Culture - Preliminary, Resulted Escherichia coli Assessment/Plan Assessment/Plan Assessment/Plan s/p exploratory laparotomy, lysis of adhesions, R Colon resection, manual decompression of small bowel indicated for high grade SBO nausea and vomiting - resolved 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 She is asking for at least ice chips. Objective Exam Gastrointestinal: soft, other (incision is clean, some old blood, intact) Assessment/Plan Assessment/Plan Assessment/Plan Hyponatremia - on IV fluids which should help, it is already slowly improving Hypokalemia - resolved S/P Right colon resection - pain control and antiemetics, cont NGT Supervisory-Addendum Brief Verification & Attestation Participated in pt care: history, MDM, physical Personally performed: exam, history, MDM Care discussed with: Medical Student Procedures: n/a Verification and Attestation of Medical Student E/M Service A medical student performed and documented this service in my presence. I reviewed and verified all information documented by the medical student and made modifications to such information, when appropriate. I personally performed the physical exam and medical decision making. Flakito Harris, Apr 08, 2019,12:43 OLESYA CLINE [facility] Apr 08, 2019 09:01 FLAKITO HARRIS DO Apr 08, 2019 12:43
--- NOTE | 2019-04-08 09:32 | OPERATIVE REPORT ---
DATE OF SERVICE: 04/07/2019 PREOPERATIVE DIAGNOSIS: High-grade small bowel obstruction. POSTOPERATIVE DIAGNOSIS: High-grade small bowel obstruction. PROCEDURES: Exploratory laparotomy, lysis of adhesions, right colon resection and manual decompression of the small bowel. SURGEON: Gerardo Karimi DO. HEALTH SCIENCES DEPARTMENT CHAIR: Dr. Harris, assisted in retraction, dissection and closure. ANESTHESIA: General. ESTIMATED BLOOD LOSS: 150 mL. COMPLICATIONS: None. INDICATIONS: The patient is a 53-year-old female, who has been having abdominal issues for several months. Over the last 3 days ago though she became more distended having nausea and vomiting, had no output from her colostomy. 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 The patient had a CT scan demonstrating a high-grade bowel obstruction. She had NG tube placed and decompressed. Followup KUB did not show any improvement and the patient is having debilitating pain. We discussed risks and benefits of the procedure and she wished to proceed with procedure. Consent was signed in the chart. DESCRIPTION OF PROCEDURE: The patient was taken to the operating suite. She was prepped and draped in sterile fashion. Timeout was performed. Midline incision was made. Cautery was used to dissect down through the subcutaneous tissues and the fascia was then scored and opened. The small bowel was brought out through the incision, which was extremely dilated and multiple adhesions had to be taken down in order to continue to mobilize the small bowel out of the abdomen. The dilated small bowel advanced all proximal to an area that was fixed down on the left side of the pelvis, which was significantly adhered, which at a fixed point and then continued to be more fixed in the second spot down further in the deeper pelvis. Both cautery, blunt and finger fracture dissection was utilized in removing this. In doing so, a large enterotomy was made in the small bowel leaking some succus. The distal portion of this area where the adhesion was, was all nondilated, A bowel clamp was placed and the small bowel was then manually decompressed all the way back up towards the stomach using the NG tube in order to suction as well. From the small bowel enterotomy distally to the ileocecal valve, had multiple adhesions and also was fixed just above the sacral posteriorly. Therefore, the right colon was then begin to be mobilized with the cecum being scarred down within the pelvis. The cecum was significantly scarred down the pelvis and towards the right side. Both blunt and sharp dissection was used along with finger fracturing. Within this dissection, the cecum was then partially opened, but had to be grasped and continued to be carefully dissected around until it was able to be completely removed, which was stuck behind the uterus and deep in the pelvis. Once removed, the small bowel proximal to the ileocecal valve was able to be mobilized and had the appearance of some ischemic changes. Therefore, the small bowel was dissected around proximal to where the enterotomy was made and the portion of the right colon was removed in the small bowel where the enterocolonic anastomosis was made in a [id number] fashion using a [place] two-step fashion. Once fired, LigaSure was used to divide the mesentery and the mesentery defect was then closed using 3-0 Vicryl in a running fashion. A cross stitch was placed on the staple line. The anastomosis was patent. The abdomen was irrigated with copious amounts of irrigation and suction. Hemostasis was achieved. Small bowel was ran again demonstrating no other abnormalities. The incision was then closed using 1-0 looped PDS and the wound was then irrigated with copious amounts of irrigation and the skin was then closed with guilherme. The patient tolerated the procedure well without any complications. She was taken to the recovery room in stable condition. Job ID: [id number] DocumentID: [id number] Dictated Date: 04/07/2019 21:31:13 Explosive Specialist Date: 04/08/2019 02:38:03 Dictated By: DO NIRMAL HUMPHREY
--- NOTE | 2019-04-08 10:09 | Anesthesia-General Post-Op ---
General Patient Condition Mental Status/LOC: Same as Preop Cardiovascular: Satisfactory Nausea/Vomiting: Absent Respiratory: Satisfactory Pain: Controlled Complications: Absent Post Op Complications Complications None Follow Up Care/Instructions Patient Instructions None needed. Anesthesia/Patient Condition Patient Condition Patient is doing well, no complaints, stable vital signs, no apparent adverse anesthesia problems. No complications reported per nursing. [place] [facility] [place]: NISH Crowell CRNA Apr 08, 2019 10:08
--- NOTE | 2019-04-08 11:15 | Physical Therapy Evaluation ---
PT Evaluation-General Medical Diagnosis Admission Date Apr 06, 2019 at 22:11 Medical Diagnosis: SBO, s/p ex lap right colon resention Onset Date: Apr 06, 2019 Therapy Diagnosis Therapy Diagnosis: decreased mobility Height/Weight Height (Feet): 5 Height (Inches): 5.00 Weight (Pounds): 139 Weight (Ounces): 7.0 Precautions Precautions/Isolations: Fall Prevention, Standard Precautions Weight Bear Status Right Lower Extremity: Right Weight Bearing/Tolerated Left Lower Extremity: Left Weight Bearing/Tolerated Referral Physician: Gerardo Karimi DO Reason for Referral: Evaluation/Treatment Medical History Pertinent Medical History: CVA Additional Medical History colostomy, cervical CA Current History Presented to ED with abdominal pain, n/v. Social History Home: Single Level Current Living Status: Children (daughter) Entry Into Home: Stairs With Railing PT Steps Into Home: 5 Prior/Core FIM Prior Level of Function Therapy Code Descriptions/Definitions Functional [place] Measure: 0=Not Assessed/NA 4=Minimal Assistance 1=Total Assistance 5=Supervision or Setup 2=Maximal Assistance 6=Modified [place] 3=Moderate Assistance 7=Complete [place] Therapy Quality Codes: 6 Independent with activity with or without an assistive device 5 Patient requires set up or clean up by helper. Patient completes activity by themselves 4 Supervision or touching assist (CGA). [place] provide cues , steadying assist 3 The helper provides less than half the effort to complete the activity 2 The helper provides more than half the effort to complete the activity 1 Dependent. The helper does all the effort to complete an activity 7 Patient refused to complete or attempt activity 9 The patient did not perform the activity before the current illness or injury 88 Not attempted due to Medical conditions or safety concerns Functional Abilities and Goals: Independent: Patient completed the activities by him/herself, with or without an assistive device, with no assistance from a helper. Needed Some Help: Patient needed partial assistance from another person to complete activities. Dependent: A helper completed the activities for the patient. Unknown: Not Applicable: Bed Mobility: 7 Transfers (B,C,W/C) (FIM): 7 Gait: 7 Stairs: 7 PT Evaluation-Current Subjective Pt. rates abdominal pain 10/10 but agrees to therapy. Nursing states patient has been very anxious and recently given Ativan. Pt/Family Goals home with daughter Objective Patient Orientation: Person, Place, Time, Situation Attachments: IV ROM/Strength ROM Upper Extremities WFL ROM Lower Extremities WFL Strength Upper Extremities WFL Strength Lower Extremities Grossly 4/5 Integumentary/Posture Integumentary see nursing notes Neuromuscular (Tone, Coordination, Reflexes) unremarkable Sensory Vision: Functional Hearing: Functional Sensation Right Upper Extremit: Intact Sensation Left Upper Extremity: Intact Sensation Right Lower Extremit: Intact Sensation Left Lower Extremity: Intact Transfers Therapy Code Descriptions/Definitions Functional [place] Measure: 0=Not Assessed/NA 4=Minimal Assistance 1=Total Assistance 5=Supervision or Setup 2=Maximal Assistance 6=Modified [place] 3=Moderate Assistance 7=Complete [place] Transfers (B, C, W/C) (FIM): 3 Supine to/from Sit: 4 Sit to/from Stand: 4 bed t/f WC(FIM only if WC use): 3 Gait Mode of Locomotion: Walk Anticipated Mode of Locomotion: Walk Balance Sitting Static: Good Sitting Dynamic: Good Standing Static: Fair Standing Dynamic: Fair Assessment/Needs Pt. is a 53 y.o. female with decreased mobility following laparoscopic surgery for colon resection. Pt. is currently min-mod A with transfers; did not ambulate due to high pain level in abdomen. Pt. would benefit from skilled PT to improve mobility for return home (I) with daughter. Rehab Potential: Good PT Short Term Goals Short Term Goals Time Frame: Apr 15, 2019 Transfers (B,C,W/C) (FIM): 6 Gait (FIM): 6 Distance (FIM): 3=150 ft Gait Distance Comment: 150 ft Gait Level of Assist: 6 Gait Assistive Device: None, FWW PT Plan Problem List Problem List: Activity Tolerance, Functional Strength, Safety, Balance, Gait, Transfer, Bed Mobility, ROM Treatment/Plan Treatment Plan: Continue Plan of Care Treatment Plan: Bed Mobility, Education, Functional Activity Michael, Functional Strength, Gait, Safety, Therapeutic Exercise, Transfers Treatment Duration: Apr 15, 2019 Frequency: 6 times per week Estimated Hrs Per Day: .25 hour per day Patient and/or Family Agrees t: Yes Time/GCodes Time In: 825 Time Out: 840 Total Billed Treatment Time: 15 Total Billed Treatment 1, ROSI 15' MAHI LEE PT Apr 08, 2019 11:15
[2019-04-08 11:30] VITALS: BP 81/62
[2019-04-08] MEDS: ENOXAPARIN 30 MG/0.3 ML (LOVENOX) SYR SC SCH (12:06)
--- NOTE | 2019-04-08 13:01 | Progress Note - Hospitalist ---
Subjective HPI/CC On Admission Date Seen by Provider: Apr 08, 2019 Time Seen by Provider: 12:00 CC: Small bowel obstruction with UTI HPI: This is a 53yoWF clinic pt of [facility] who presented to the ER with complaints of abdominal pain with nausea and vomiting in the left lower quadrant for the past three days. She does have a colostomy. She reports the pain and nausea has worsened the last three days. CT scan showed a high grade small bowel obstruction with UTI and hyponatremia. She was subsequently placed in admission status, provided supportive care and pain medication, and white count went from 11 to 5.0, and sodium level went from 127 to 130. She is npo at this current time and Dr. Karimi has been consulted. UDS is positive for THC. She had been placed on Rocephin empirically. Subjective/Events-last exam I recall this patient in more detail every day from experience I had with her in February Now she is complaining of left foot numbness She is able to get up and around and daughter gave her a shower without nurse permission and lost another IV Patient appears to be very debilitated and just overall very difficult to manage Daughter at the bedside and seems to enable some behaviors Pain is well-controlled Ativan was given for severe anxiety Overall patient has very complex medical issues and continues to smoke and have bizarre behavior along with her daughter Review of Systems General: Fatigue Gastrointestinal: Abdominal Pain Objective Exam Vital Signs Vital Signs Date Time Temp Pulse Resp B/P (MAP) Pulse Ox O2 Delivery O2 Flow Rate FiO2 04/08/19 11:30 37.2 98 18 81/62 (68) 97 04/08/19 08:05 Room Air 04/08/19 04:10 5.00 Capillary Refill : Less Than 3 SecondsLess Than 3 Seconds General Appearance: WD/WN, Anxious, Chronically ill, Cachetic, Mild Distress, Thin Respiratory: Lungs Clear Cardiovascular: Regular Rate, Rhythm Neurologic/Psychiatric: Alert, Oriented x3, No Motor/Sensory Deficits, Normal Mood/Affect Results/Procedures Lab Laboratory Tests 04/08/19 04:45 Patient resulted labs reviewed. Assessment/Plan Assessment and Plan Assess & Plan/Chief Complaint Assessment: Small bowel obstruction status post right colectomy POD #1 History of uterine cancer Smoker Anxiety Personality disorder Plan: Supportive care Ambulate with assistance line pain control Monitor closely Diagnosis/Problems Diagnosis/Problems (1) Small bowel obstruction Status: Acute (2) UTI (urinary tract infection) Status: Acute Qualifiers: Urinary tract infection type: acute cystitis Hematuria presence: without hematuria Qualified Codes: N30.00 - Acute cystitis without hematuria (3) Hyponatremia Status: Acute (4) Acute hypokalemia Status: Acute (5) Abdominal pain Status: Acute Qualifiers: Abdominal location: generalized Qualified Codes: R10.84 - Generalized abdominal pain (6) Nausea & vomiting Status: Acute (7) Uterine cancer Status: Chronic Clinical Quality Measures DVT/VTE Risk/Contraindication: Risk Factor Score Per Nursin RFS Level Per Nursing on Admit: 3=High ADRIANA JAY DO Apr 08, 2019 13:01
[2019-04-08] MEDS ORDERED: NS IV 1000 ML 1,000 ML IV SCH (15:30)
[2019-04-08 16:00] VITALS: BP 87/58
[2019-04-08 19:37] VITALS: BP 94/64
[2019-04-08] MEDS: cefTRIAXone 1,000 MG/SWFI 10 ML IV PUSH IV SCH ×2 (20:32)
[2019-04-09] VITALS: BP 92/60
[2019-04-09] MEDS: NS W/KCL 20 MEQ/L 1,000 ML IV SCH ×4 (00:35→20:09)
[2019-04-09] MEDS: morphine INJ 10 MG/ML 1ML (SYR OR VIAL) IV PRN ×10 (00:35→22:43)
[2019-04-09 03:49] VITALS: BP 104/66
[2019-04-09 05:29] LABS: BASOPHILS % (AUTO) 0 % (0-10); EOSINOPHILS % (AUTO) 0 % (0-10); HEMATOCRIT 29 % (35-52); HEMOGLOBIN 9.7 G/DL (11.5-16.0); LYMPHOCYTES # (AUTO) 0.5 X 10^3 (1.0-4.0); LYMPHOCYTES % (AUTO) 8 % (12-44); MEAN CORPUSCULAR HEMOGLOBIN 29 PG (25-34); MEAN CORPUSCULAR HGB CONC 33 G/DL (32-36); MEAN CORPUSCULAR VOLUME 87 FL (80-99); MEAN PLATELET VOLUME 10.4 FL (7.4-10.4); MONOCYTES # (AUTO) 0.5 X 10^3 (0.0-1.0); MONOCYTES % (AUTO) 7 % (0-12); NEUTROPHILS # (AUTO) 6.1 X 10^3 (1.8-7.8); NEUTROPHILS % (AUTO) 85 % (42-75); PLATELET COUNT 212 10^3/uL (130-400); RED CELL DISTRIBUTION WIDTH 13.8 % (10.0-14.5); WHITE BLOOD COUNT 7.1 10^3/uL (4.3-11.0)
[2019-04-09 06:02] LABS: ALANINE AMINOTRANSFERASE 14 U/L (0-55); ALBUMIN 2.5 GM/DL (3.2-4.5); ALKALINE PHOSPHATASE 74 U/L (40-136); BILIRUBIN,TOTAL 0.2 MG/DL (0.1-1.0); BUN/CREATININE RATIO 46; CALCIUM 7.8 MG/DL (8.5-10.1); CARBON DIOXIDE 21 MMOL/L (21-32); CHLORIDE 105 MMOL/L (98-107); CREATININE SERUM 0.71 MG/DL (0.60-1.30); GFR ESTIMATED > 60; GLUCOSE 92 MG/DL (70-105); POTASSIUM 4.4 MMOL/L (3.6-5.0); SODIUM 134 MMOL/L (135-145); TOTAL PROTEIN 4.8 GM/DL (6.4-8.2)
[2019-04-09 08:20] VITALS: BP 92/54
[2019-04-09] MEDS: FAMOTIDINE 20MG/2ML IV (PEPCID) IV SCH (08:24)
[2019-04-09] MEDS: LORazepam INJ 2 MG/ML (ATIVAN) VIAL IVP PRN ×2 (08:24→22:43)
--- NOTE | 2019-04-09 08:45 | NUR ---
Telesitter initiated for pt. Bed alarm and chair alarm in place. Pt has gotten up without calling for assistance multiple tomes this AM. Pt has ELIE, murray, and IV connected, this RN has found pt to have multiple lines tangled when responding to bed alarms. Pt is A&O to person, place, and situation at this time but has answered questions inappropriately. Dr. Novak aware of pt condition. Will continue to monitor.
--- NOTE | 2019-04-09 08:52 | Progress Note - Surgery ---
OLESYA CLINE [facility] 04/09/19 0852: Subjective Date Seen by a Provider: Apr 09, 2019 Time Seen by a Provider: 08:16 Subjective/Events-last exam Patient says pain is better controlled. Ambulating with assistance and with pain. Pts Hgb has dropped to 9.7 today, down from 13.4 yesterday. Patient is upset and agitated and is confused about whether its day or night. Patient is crying when talking. Told the nurse she wanted her clothes so she can leave. Observed SOB is better from yesterday when she is talking. Colostomy bag has had no output. Drainage from NG tube has decreased. 400ml from 2pm to 10pm yesterday and 100ml from 10pm to 6am. Review of Systems General: No Chills, No Night Sweats Gastrointestinal: Abdominal Pain; No: Nausea, Vomiting Musculoskeletal: No: other, neck pain, shoulder pain, arm pain, back pain, hand pain, leg pain, foot pain Neurological: Confusion; No: Change in speech, Seizures Objective Exam Vital Signs Date Time Temp Pulse Resp B/P (MAP) Pulse Ox O2 Delivery O2 Flow Rate FiO2 04/09/19 03:49 36.3 108 20 104/66 (79) 93 Room Air 04/09/19 00:00 36.5 59 20 92/60 (71) 91 Room Air 04/08/19 20:00 Room Air 04/08/19 19:37 94/64 (74) 04/08/19 19:35 36.8 100 20 99 Room Air 04/08/19 16:00 36.8 93 20 87/58 (68) 87 Room Air 04/08/19 11:30 37.2 98 18 81/62 (68) 97 I & O 04/09/19 07:00 Intake Total 3000 ml Output Total 3175 ml Balance -175 ml Capillary Refill : Less Than 3 SecondsLess Than 3 Seconds General Appearance: WD/WN, Anxious, Chronically ill, Cachetic, Mild Distress, Thin HEENT: PERRL/EOMI Neck: Non Tender, Supple Respiratory: Lungs Clear, No Accessory Muscle Use, No Respiratory Distress Cardiovascular: Regular Rate, Rhythm Gastrointestinal: soft, other (incision is clean, some old blood, intact) Extremity: Normal Inspection Neurologic/Psychiatric: Alert, Oriented x3, No Motor/Sensory Deficits; No Normal Mood/Affect Skin: Warm/Dry, Mottled (abdomen) Lymphatic: No Adenopathy Results Lab Laboratory Tests 04/09/19 04:50: White Blood Count 7.1, Red Blood Count 3.35L, Hemoglobin 9.7#L, Hematocrit 29L, Mean Corpuscular Volume 87, Mean Corpuscular Hemoglobin 29, Mean Corpuscular Hemoglobin Concent 33, Red Cell Distribution Width 13.8, Platelet Count 212, Mean Platelet Volume 10.4, Neutrophils (%) (Auto) 85H, Lymphocytes (%) (Auto) 8L , Monocytes (%) (Auto) 7, Eosinophils (%) (Auto) 0, Basophils (%) (Auto) 0, Neutrophils # (Auto) 6.1, Lymphocytes # (Auto) 0.5L, Monocytes # (Auto) 0.5, Eosinophils # (Auto) 0.0, Basophils # (Auto) 0.0, Sodium Level 134L, Potassium Level 4.4, Chloride Level 105, Carbon Dioxide Level 21, Anion Gap 8, Blood Urea Nitrogen 33H, Creatinine 0.71, Estimat Glomerular Filtration Rate > 60, BUN/Creatinine Ratio 46, Glucose Level 92, Calcium Level 7.8L, Corrected Calcium 9.0, Total Bilirubin 0.2, Aspartate Amino Transf (AST/SGOT) 49H, Alanine Aminotransferase (ALT/SGPT) 14, Alkaline Phosphatase 74, Total Protein 4.8L, Albumin 2.5L Microbiology 04/07/19 MRSA Screen - Final, Complete MRSA not isolated 04/06/19 Urine Culture - Final, Complete Gram Pos Mixed Bacterial Riddhi Escherichia coli Assessment/Plan Assessment/Plan Assessment/Plan Hyponatremia - on IV fluids which should help, it is already slowly improving Hypokalemia - resolved S/P Right colon resection - pain control and antiemetics, cont NGT Continue ambulating Clinical Quality Measures DVT/VTE Risk/Contraindication: Risk Factor Score Per Nursin RFS Level Per Nursing on Admit: 3=High FLAKITO HARRIS DO 04/09/19 1245: Subjective Time Seen by a Provider: 10:23 Subjective/Events-last exam Pt has minimal pain, controlled with meds. Assessment/Plan Assessment/Plan Assessment/Plan Hyponatremia - cont IVF S/P R colon resection - pain control anti-emetics Supervisory-Addendum Brief Verification & Attestation Participated in pt care: history, MDM, physical Personally performed: exam, history, MDM Care discussed with: Medical Student Procedures: n/a Verification and Attestation of Medical Student E/M Service A medical student performed and documented this service in my presence. I reviewed and verified all information documented by the medical student and made modifications to such information, when appropriate. I personally performed the physical exam and medical decision making. Flakito Harris, Apr 09, 2019,12:45 OLESYA CLINE [facility] Apr 09, 2019 08:52 FLAKITO HARRIS DO Apr 09, 2019 12:45
--- NOTE | 2019-04-09 09:31 | Progress Note - Hospitalist ---
Subjective HPI/CC On Admission Date Seen by Provider: Apr 09, 2019 Time Seen by Provider: 08:30 CC: Small bowel obstruction with UTI HPI: This is a 53yoWF clinic pt of [facility] who presented to the ER with complaints of abdominal pain with nausea and vomiting in the left lower quadrant for the past three days. She does have a colostomy. She reports the pain and nausea has worsened the last three days. CT scan showed a high grade small bowel obstruction with UTI and hyponatremia. She was subsequently placed in admission status, provided supportive care and pain medication, and white count went from 11 to 5.0, and sodium level went from 127 to 130. She is npo at this current time and Dr. Karimi has been consulted. UDS is positive for THC. She had been placed on Rocephin empirically. Subjective/Events-last exam Patient doing much better but she has some sort of bizarre behavior at times Decreased urinary output resolved with a liter of IV fluid bolus I gave orders for yesterday Ambulating with assistance Ileus still remains Pain is well controlled Ativan given helps her anxiety Check meds and labs Conferred with legal financial specialist of Systems General: Fatigue Gastrointestinal: Abdominal Pain Objective Exam Vital Signs Vital Signs Date Time Temp Pulse Resp B/P (MAP) Pulse Ox O2 Delivery O2 Flow Rate FiO2 04/09/19 08:20 Room Air 04/09/19 08:20 36.1 99 19 92/54 (67) 100 04/08/19 04:10 5.00 Capillary Refill : Less Than 3 SecondsLess Than 3 Seconds General Appearance: No Apparent Distress, WD/WN, Chronically ill Respiratory: Chest Non Tender, Lungs Clear, Normal Breath Sounds, No Accessory Muscle Use, No Respiratory Distress Cardiovascular: Regular Rate, Rhythm, No Edema, No Gallop, No JVD, No Murmur, Normal Peripheral Pulses Neurologic/Psychiatric: Alert, Oriented x3, No Motor/Sensory Deficits, Normal Mood/Affect Results/Procedures Lab Laboratory Tests 04/09/19 04:50 Patient resulted labs reviewed. Assessment/Plan Assessment and Plan Assess & Plan/Chief Complaint Assessment: Small bowel obstruction status post right colectomy POD #2 History of uterine cancer Smoker Anxiety Personality disorder Plan: Supportive care Ambulate with assistance pain control Monitor closely Diagnosis/Problems Diagnosis/Problems (1) Small bowel obstruction Status: Acute (2) UTI (urinary tract infection) Status: Acute Qualifiers: Urinary tract infection type: acute cystitis Hematuria presence: without hematuria Qualified Codes: N30.00 - Acute cystitis without hematuria (3) Hyponatremia Status: Acute (4) Acute hypokalemia Status: Acute (5) Abdominal pain Status: Acute Qualifiers: Abdominal location: generalized Qualified Codes: R10.84 - Generalized abdominal pain (6) Nausea & vomiting Status: Acute (7) Uterine cancer Status: Chronic (8) S/P right colectomy (9) Ileus following gastrointestinal surgery (10) Postoperative anemia Clinical Quality Measures DVT/VTE Risk/Contraindication: Risk Factor Score Per Nursin RFS Level Per Nursing on Admit: 3=High ADRIANA JAY DO Apr 09, 2019 09:31
[2019-04-09 11:45] VITALS: BP 96/61
[2019-04-09] MEDS: ENOXAPARIN 30 MG/0.3 ML (LOVENOX) SYR SC SCH (13:59)
[2019-04-09 16:50] VITALS: BP 93/60
[2019-04-09] MEDS: cefTRIAXone 1,000 MG/SWFI 10 ML IV PUSH IV SCH ×2 (20:09)
[2019-04-09 20:57] VITALS: BP 94/60
[2019-04-10] VITALS: BP 93/61
[2019-04-10] MEDS: LORazepam INJ 2 MG/ML (ATIVAN) VIAL IVP PRN ×3 (03:12→20:31)
[2019-04-10] MEDS: morphine INJ 10 MG/ML 1ML (SYR OR VIAL) IV PRN ×3 (03:18→20:31)
[2019-04-10 04:00] VITALS: BP 103/69
[2019-04-10] MEDS: NS W/KCL 20 MEQ/L 1,000 ML IV SCH ×3 (04:26→23:05)
[2019-04-10 06:34] LABS: BASOPHILS % (AUTO) 0 % (0-10); EOSINOPHILS # (AUTO) 0.1 10^3/uL (0.0-0.3); EOSINOPHILS % (AUTO) 1 % (0-10); HEMATOCRIT 28 % (35-52); LYMPHOCYTES # (AUTO) 0.7 X 10^3 (1.0-4.0); LYMPHOCYTES % (AUTO) 9 % (12-44); MEAN CORPUSCULAR HEMOGLOBIN 28 PG (25-34); MEAN CORPUSCULAR HGB CONC 32 G/DL (32-36); MEAN CORPUSCULAR VOLUME 89 FL (80-99); MONOCYTES # (AUTO) 0.4 X 10^3 (0.0-1.0); MONOCYTES % (AUTO) 6 % (0-12); NEUTROPHILS # (AUTO) 6.2 X 10^3 (1.8-7.8); NEUTROPHILS % (AUTO) 84 % (42-75); PLATELET COUNT 219 10^3/uL (130-400); RED CELL DISTRIBUTION WIDTH 14.9 % (10.0-14.5); WHITE BLOOD COUNT 7.4 10^3/uL (4.3-11.0)
[2019-04-10 06:52] LABS: ALANINE AMINOTRANSFERASE 25 U/L (0-55); ALBUMIN 2.7 GM/DL (3.2-4.5); ALKALINE PHOSPHATASE 72 U/L (40-136); BILIRUBIN,TOTAL 0.2 MG/DL (0.1-1.0); BUN/CREATININE RATIO 41; CALCIUM 8.2 MG/DL (8.5-10.1); CARBON DIOXIDE 16 MMOL/L (21-32); CHLORIDE 111 MMOL/L (98-107); CREATININE SERUM 0.56 MG/DL (0.60-1.30); GFR ESTIMATED > 60; GLUCOSE 61 MG/DL (70-105); POTASSIUM 4.5 MMOL/L (3.6-5.0); SODIUM 139 MMOL/L (135-145); TOTAL PROTEIN 5.7 GM/DL (6.4-8.2)
[2019-04-10 08:00] VITALS: BP 92/53
--- NOTE | 2019-04-10 08:19 | Progress Note - Surgery ---
OLESYA CLINE [facility] 04/10/19 0819: Subjective Date Seen by a Provider: Apr 10, 2019 Time Seen by a Provider: 07:55 Subjective/Events-last exam Patient is unable to answer questions at this time. Wakes up to verbal and physical stimuli but is unable to maintain herself awake long enough to answer questions. Last 24 hours of drainage from NG tube was 225mL. Nursing said there is nothing out of the colostomy bag yet. Patient was walking several times over night. Hgb is down again to 9.0 from 9.7 yesterday. Objective Exam Vital Signs Date Time Temp Pulse Resp B/P (MAP) Pulse Ox O2 Delivery O2 Flow Rate FiO2 04/10/19 04:00 36.9 100 18 103/69 (80) 97 Room Air 04/10/19 00:00 36.5 89 18 93/61 (72) 97 Room Air 04/09/19 20:57 36.6 99 18 94/60 (71) 94 Room Air 04/09/19 20:00 Room Air 04/09/19 16:50 36.8 89 18 93/60 (71) 98 Room Air 04/09/19 11:45 36.0 92 19 96/61 (73) 98 Room Air 04/09/19 08:20 Room Air 04/09/19 08:20 36.1 99 19 92/54 (67) 100 Room Air I & O 04/10/19 07:00 Intake Total 2000 ml Output Total 2275 ml Balance -275 ml Capillary Refill : Less Than 3 SecondsLess Than 3 Seconds General Appearance: No Apparent Distress, WD/WN, Chronically ill HEENT: PERRL/EOMI Neck: Non Tender, Supple Respiratory: Chest Non Tender, Lungs Clear, Normal Breath Sounds, No Accessory Muscle Use, No Respiratory Distress Cardiovascular: Regular Rate, Rhythm, No Edema, No Gallop, No JVD, No Murmur, Normal Peripheral Pulses Gastrointestinal: soft, other (incision is clean, some old blood, intact) Extremity: Normal Inspection Neurologic/Psychiatric: Alert, Oriented x3, No Motor/Sensory Deficits, Normal Mood/Affect Skin: Warm/Dry, Mottled (abdomen) Lymphatic: No Adenopathy Results Lab Laboratory Tests 04/10/19 06:15: White Blood Count 7.4, Red Blood Count 3.16L, Hemoglobin 9.0L, Hematocrit 28L, Mean Corpuscular Volume 89, Mean Corpuscular Hemoglobin 28, Mean Corpuscular H emoglobin Concent 32, Red Cell Distribution Width 14.9H, Platelet Count 219, Mean Platelet Volume 10.0, Neutrophils (%) (Auto) 84H, Lymphocytes (%) (Auto) 9L , Monocytes (%) (Auto) 6, Eosinophils (%) (Auto) 1, Basophils (%) (Auto) 0, Neutrophils # (Auto) 6.2, Lymphocytes # (Auto) 0.7L, Monocytes # (Auto) 0.4, Eosinophils # (Auto) 0.1, Basophils # (Auto) 0.0, Sodium Level 139, Potassium Level 4.5, Chloride Level 111H, Carbon Dioxide Level 16L, Anion Gap 12, Blood Urea Nitrogen 23H, Creatinine 0.56L, Estimat Glomerular Filtration Rate > 60, BUN/Creatinine Ratio 41, Glucose Level 61L, Calcium Level 8.2L, Corrected Calcium 9.2, Total Bilirubin 0.2, Aspartate Amino Transf (AST/SGOT) 61H, Alanine Aminotransferase (ALT/SGPT) 25, Alkaline Phosphatase 72, Total Protein 5.7L, Albumin 2.7L Microbiology 04/07/19 MRSA Screen - Final, Complete MRSA not isolated 04/06/19 Urine Culture - Final, Complete Gram Pos Mixed Bacterial Riddhi Escherichia coli Assessment/Plan Assessment/Plan Assessment/Plan S/P R colon resection - pain control anti-emetics Hyponatremia - resolved Clinical Quality Measures DVT/VTE Risk/Contraindication: Risk Factor Score Per Nursin RFS Level Per Nursing on Admit: 3=High MAGEN COUGHLIN 04/11/19 1443: Subjective Subjective/Events-last exam Patient ambulating. Having abdominal pain. NG and gao in place. NPO. No output from colostomy. Verbalizes her complaints. Objective Exam General Appearance: No Apparent Distress HEENT: PERRL/EOMI Neck: Non Tender, Supple Respiratory: Chest Non Tender, No Accessory Muscle Use, No Respiratory Distress Cardiovascular: Regular Rate, Rhythm Gastrointestinal: other (incision clean dry intact, colostomy pink no output) Extremity: Normal Inspection Neurologic/Psychiatric: Alert, Other (flat affect) Skin: Warm/Dry, Mottled (discoloration of abdomen) Lymphatic: No Adenopathy Assessment/Plan Assessment/Plan Assessment/Plan s/p right colon resection and lysis of adhesions for small bowel resection. 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 I reviewed and verified all information documented by the medical student and made modifications to such information, when appropriate. I personally performed the physical exam and medical decision making. Magen Coughlin, Apr 10, 2019,14:[address] [facility] Apr 10, 2019 08:19 MAGEN COUGHLIN DO Apr 11, 2019 14:43
[2019-04-10] MEDS: FAMOTIDINE 20MG/2ML IV (PEPCID) IV SCH (08:51)
--- NOTE | 2019-04-10 09:35 | Physical Therapy Daily Note ---
PT Daily Note-Current Subjective Patient is very sedated and lethargic. RN present. Mental Status Patient Orientation: Confused, Listless Attachments: NG Tube, Schmid Catheter, IV Transfers Therapy Code Descriptions/Definitions Functional [place] Measure: 0=Not Assessed/NA 4=Minimal Assistance 1=Total Assistance 5=Supervision or Setup 2=Maximal Assistance 6=Modified [place] 3=Moderate Assistance 7=Complete [place] Therapy Quality Codes: 6 Independent with activity with or without an assistive device 5 Patient requires set up or clean up by helper. Patient completes activity by themselves 4 Supervision or touching assist (CGA). [place] provide cues , steadying assist 3 The helper provides less than half the effort to complete the activity 2 The helper provides more than half the effort to complete the activity 1 Dependent. The helper does all the effort to complete an activity 7 Patient refused to complete or attempt activity 9 The patient did not perform the activity before the current illness or in jury 88 Not attempted due to Medical conditions or safety concerns Transfers (B, C, W/C) (FIM): 4 Scootin Rollin Supine to/from Sit: 4 Sit to/from Stand: 4 Bed to/from Chair: 4 CGA for safety due to lethargy Weight Bearing Right Lower Extremity: Right Weight Bearing/Tolerated Left Lower Extremity: Left Weight Bearing/Tolerated Gait Training Gait (FIM): 2 Distance (FIM): 4=488-74 ft Distance: 60' Gait Level of Assist: 4 Gait Persons Needed: 1 Gait Assistive Device: FWW extended UE's with FWW use/forward lean/unsteady Assessment Patient is up in recliner with chair alarm activated. Patient has been receiving morphine per RN for pain. Patient is extremely listless and unable to follow simple direction on this date. PT Short Term Goals Short Term Goals Time Frame: Apr 15, 2019 Transfers (B,C,W/C) (FIM): 6 Gait (FIM): 6 Distance (FIM): 3=150 ft Gait Distance Comment: 150 ft Gait Level of Assist: 6 Gait Assistive Device: None, FWW PT Plan Treatment/Plan Treatment Plan: Continue Plan of Care Treatment Plan: Bed Mobility, Education, Functional Activity Michael, Functional Strength, Gait, Safety, Therapeutic Exercise, Transfers Treatment Duration: Apr 15, 2019 Frequency: 6 times per week Estimated Hrs Per Day: .25 hour per day Patient and/or Family Agrees t: Yes Time/GCodes Time In: 845 Time Out: 857 Total Billed Treatment Time: 12 Total Billed Treatment 1 visit GT 12 min PUMA BEAN PT Apr 10, 2019 09:35
[2019-04-10 12:00] VITALS: BP 91/53
[2019-04-10] MEDS: ENOXAPARIN 30 MG/0.3 ML (LOVENOX) SYR SC SCH (12:04)
[2019-04-10] MEDS: HYDROcodone/APAP 5 MG/325 MG (LORTAB) TAB PO PRN ×2 (13:15→18:02)
--- NOTE | 2019-04-10 14:58 | NUR ---
Pastoral care visit.
[2019-04-10 16:24] VITALS: BP 99/58
--- NOTE | 2019-04-10 17:15 | Progress Note ---
Subjective Subjective/Events-last exam Afebrile. No ostomy output yet. Objective Exam Last Set of Vital Signs Vital Signs Date Time Temp Pulse Resp B/P (MAP) Pulse Ox O2 Delivery O2 Flow Rate FiO2 04/10/19 16:24 36.9 104 16 99/58 (72) 98 Room Air 04/08/19 04:10 5.00 Capillary Refill : Less Than 3 SecondsLess Than 3 Seconds I&O Intake and Output 04/10/19 00:00 Intake Total 2000 ml Output Total 2025 ml Balance -25 ml Intake Oral 0 ml IV Total 2000 ml Tube Feeding 0 ml Output Urine Total 925 ml Gastric Drainage Total 1100 ml General: No Acute Distress Lungs: Clear to Auscultation, Normal Air Movement Heart: Regular Rate, No Murmurs Abdomen: Normal Bowel Sounds, Soft, Other (incision c/d/i, ostomy bag in place, empty) Psych/Mental Status: Other (drowsy, opens eyes and nods to questions) Results/Procedures Lab Laboratory Tests 04/10/19 06:15: White Blood Count 7.4, Red Blood Count 3.16L, Hemoglobin 9.0L, Hematocrit 28L, Mean Corpuscular Volume 89, Mean Corpuscular Hemoglobin 28, Mean Corpuscular Hemoglobin Concent 32, Red Cell Distribution Width 14.9H, Platelet Count 219, Mean Platelet Volume 10.0, Neutrophils (%) (Auto) 84H, Lymphocytes (%) (Auto) 9L , Monocytes (%) (Auto) 6, Eosinophils (%) (Auto) 1, Basophils (%) (Auto) 0, Neutrophils # (Auto) 6.2, Lymphocytes # (Auto) 0.7L, Monocytes # (Auto) 0.4, E osinophils # (Auto) 0.1, Basophils # (Auto) 0.0, Sodium Level 139, Potassium Level 4.5, Chloride Level 111H, Carbon Dioxide Level 16L, Anion Gap 12, Blood Urea Nitrogen 23H, Creatinine 0.56L, Estimat Glomerular Filtration Rate > 60, BUN/Creatinine Ratio 41, Glucose Level 61L, Calcium Level 8.2L, Corrected Calcium 9.2, Total Bilirubin 0.2, Aspartate Amino Transf (AST/SGOT) 61H, Alanine Aminotransferase (ALT/SGPT) 25, Alkaline Phosphatase 72, Total Protein 5.7L, Albumin 2.7L Microbiology 04/07/19 MRSA Screen - Final, Complete MRSA not isolated 04/06/19 Urine Culture - Final, Complete Gram Pos Mixed Bacterial Riddhi Escherichia coli Assessment/Plan Assessment/Plan (1) Small bowel obstruction Status: Acute Assessment & Plan: Surgery consulted, s/p right colon resection. (2) S/P right colectomy Status: Acute Assessment & Plan: management per Surgery, awaiting return of bowel function (3) Hyperchloremic acidosis Status: Acute (4) Postoperative anemia Assessment & Plan: Trending down, monitor closely. (5) Hyponatremia Status: Acute Assessment & Plan: Improving, continue IVF. (6) UTI (urinary tract infection) Status: Acute Assessment & Plan: Culture with E coli resistant to amp and Bactrim. On ceftriaxone. Qualifiers: Qualified Codes: N30.00 - Acute cystitis without hematuria (7) DVT prophylaxis Status: Acute Assessment & Plan: Enoxaparin Clinical Quality Measures DVT/VTE Risk/Contraindication: Risk Factor Score Per Nursin RFS Level Per Nursing on Admit: 3=High ROLY PUGH MD Apr 10, 2019 17:15
[2019-04-10 19:22] VITALS: BP 100/63
--- NOTE | 2019-04-10 23:00 | NUR ---
NURSE SUPPRESSION CREW LEADER NOTIFIED BY CONTINUOUS MINING MACHINE LODE MINER STAFF THAT PT HAD SKIN CHANGES TO ABDOMEN AROUND MIDLINE INCISION ALONG WITH DECREASED LOC. AT 2029 THIS NURSE SUPPRESSION CREW LEADER HAD ADMIN 0.25/0.5ML ATIVAN AND 5MG/0.5 ML IV MORPHINE D/T EXTREME AGITATION TO NURSING STAFF AND PAIN PT AT RATED AT A 9. THIS NURSE SUPPRESSION CREW LEADER HAD PREVIOUSLY GIVEN BOTH MEDS TOGETHER AND PT HAD NOT HAD ANY NEGATIVE REACTION TO THEM. WHEN RN WENT TO ASSESS HER SHE WAS IN BED, BP 135/80 WHICH WAS ELEVATED FOR PT, SHE HAS TYPICALLY BEEN RUNNING 90'S/60'S. ABDOMEN APPEARED TO HAVE WEB LIKE BRUISING, HER ABD IS DISTENDED AND PT HAD NO GAS OR BM IN COLOSTOMY BAG. BOWEL SOUNDS WERE ABSENT. PT ALSO WAS NOT RESPONDING TO NURSING STAFF, SHE WOULD OPEN EYES BUT WOULD NOT SPEAK. DR COUGHLIN NOTIFIED BY THIS NURSE SUPPRESSION CREW LEADER, HE ADVISED NOT TO GIVE ATIVAN AND MORPHINE TOGETHER AND WHEN SHE BECOMES AGITATED FIND OUT IF IT DUE TO PAIN AND ONLY ADMIN PAIN MED. BROACH OPERATOR CAME IN SHORTLY AFTER AND ASSESSED PT AND SAID TO CONTINUE TO MONITOR.
[2019-04-11] VITALS (7 sets, daily range): BP systolic 107–168; BP diastolic 68–96
[2019-04-11] MEDS: HYDROcodone/APAP 5 MG/325 MG (LORTAB) TAB PO PRN ×5 (02:12→20:27)
[2019-04-11] MEDS ORDERED: cefTRIAXone FOR IV USE 1,000 MG in WATER (STERILE) FOR INJECTION 10 ML IV SCH (02:15)
[2019-04-11] MEDS ORDERED: cefTRIAXone 1,000 MG IV (ROCEPHIN) VIAL ONE (02:26)
[2019-04-11] MEDS: cefTRIAXone 1,000 MG/SWFI 10 ML IV PUSH IV SCH ×2 (02:28)
--- NOTE | 2019-04-11 05:30 | NUR ---
PT PULLED OUT IV AT APPROX 0530. SHE ALSO STARTED HAVING WATERY BM COME OUT OF HER COLOSTOMY AT THIS TIME. PACKAGING ASSOCIATE STAFF CLEANED HER UP AND THIS RN APPLIED NEW COLOSTOMY BAG. SHE SCREAMED THRU THE WHOLE PROCEDURE THAT SHE WAS IN PAIN. THIS RN ATTEMPTED TO ADMIN HER PRN LORTAB TO HER AND SHE SPIT IT OUT BACK AT THIS NURSE PUBLIC STENOGRAPHER.
[2019-04-11] MEDS ORDERED: HALOPERIDOL 5 MG/ML (HALDOL) AMP IM NR (07:59)
--- NOTE | 2019-04-11 09:10 | Progress Note - Surgery ---
[facility] 04/11/19 0910: Subjective Date Seen by a Provider: Apr 11, 2019 Time Seen by a Provider: 07:30 Subjective/Events-last exam Patient is very agitated and uncooperative. Complains of inadequate treatment and wants to be taken to a hospital. Does not complain of any pain. Did not sleep last night and does not have an appetite. Review of Systems General: No Appetite Cardiovascular: No: Chest Pain Gastrointestinal: No: Abdominal Pain Focused Exam Respiratory: Chest Non Tender, Lungs Clear, Normal Breath Sounds, No Accessory Muscle Use, No Respiratory Distress Cardiovascular: Regular Rate, Rhythm, No Edema, No Gallop, No JVD, No Murmur Skin: normal color, warm/dry Objective Exam Vital Signs Date Time Temp Pulse Resp B/P (MAP) Pulse Ox O2 Delivery O2 Flow Rate FiO2 04/11/19 06:57 36.7 96 19 108/69 (82) 97 Room Air 04/11/19 04:00 36.7 94 20 108/68 (81) 98 Room Air 04/11/19 00:00 36.7 95 19 109/68 (82) 99 Room Air 04/10/19 20:00 Room Air 04/10/19 19:22 36.9 98 18 100/63 (75) 97 Room Air 04/10/19 16:24 36.9 104 16 99/58 (72) 98 Room Air 04/10/19 12:00 37.2 88 16 91/53 (66) 96 Room Air I & O 04/11/19 07:00 Intake Total 630 ml Output Total 800 ml Balance -170 ml Capillary Refill : Less Than 3 SecondsLess Than 3 Seconds General Appearance: WD/WN, Anxious, Chronically ill, Moderate Distress HEENT: PERRL/EOMI Neck: Non Tender, Supple Respiratory: Chest Non Tender, Lungs Clear, Normal Breath Sounds, No Accessory Muscle Use, No Respiratory Distress Cardiovascular: Regular Rate, Rhythm, No Edema, No Gallop, No JVD, No Murmur Gastrointestinal: other (incision is clean, some old blood, intact) Extremity: Normal Inspection Neurologic/Psychiatric: Alert, Oriented x3, No Motor/Sensory Deficits, Normal Mood/Affect Skin: Normal Color, Warm/Dry, Mottled (abdomen) Lymphatic: No Adenopathy Results Lab Microbiology 04/07/19 MRSA Screen - Final, Complete MRSA not isolated 04/06/19 Urine Culture - Final, Complete Gram Pos Mixed Bacterial Riddhi Escherichia coli Assessment/Plan Assessment/Plan Assessment/Plan S/P R colon resection - pain control anti-emetics Hyponatremia - resolved Clinical Quality Measures DVT/VTE Risk/Contraindication: Risk Factor Score Per Nursin RFS Level Per Nursing on Admit: 3=High MAGEN KARIMI DO 04/11/19 1539: Subjective Subjective/Events-last exam Patient agitated. No family at beside. Patient knows who I am. Was able to get her to calm down. She complains of severe abdominal pain all over. She refused pain medication and spitting it out earlier. Got Haldol and calmed her earlier. Patient hgb slight drop. Output from colostomy. Objective Exam General Appearance: Anxious HEENT: PERRL/EOMI Neck: Non Tender, Supple Respiratory: Chest Non Tender, No Accessory Muscle Use, No Respiratory Distress Cardiovascular: Regular Rate, Rhythm Gastrointestinal: tenderness (incisional, does not seem to have pain otherwise with palpation), other (incision clean dry and intact surrounding skin mottled appearance (chronic). colostomy pink with output) Extremity: Normal Inspection Neurologic/Psychiatric: Alert (answers questions but seems to have some confusion), No Motor/Sensory Deficits Skin: Warm/Dry, Mottled (abdomen) Lymphatic: No Adenopathy Assessment/Plan Assessment/Plan Assessment/Plan s/p ex lap with right colon resection, lysis of adhesions for small bowel obstruction anemia continue to monitor patient at times combative with staff, question source of this behavior no elevation of wbc or findings on physical exam suggestive of issue with abdomen other than normal postoperative course. patient with colostomy output will advance diet on lovenox if hgb keeps dropping will hold repeat labs in am patient not letting nurse restart IV since she pulled out, continue with oral pain medication and intramuscular if needed Supervisory-Addendum Brief Verification & Attestation Participated in pt care: history, MDM, physical Personally performed: exam, history, MDM, supervision of care Care discussed with: Medical Student Procedures: n/a Results interpretation: Verified all documentation Verification and Attestation of Medical Student E/M Service A medical student performed and documented this service in my presence. I reviewed and verified all information documented by the medical student and made modifications to such information, when appropriate. I personally performed the physical exam and medical decision making. Magen Karimi, Apr 11, 2019,15:44 NISH MAGALLANES Apr 11, 2019 09:10 MAGEN KARIMI DO Apr 11, 2019 15:39
--- NOTE | 2019-04-11 09:25 | NUR ---
Pt assessment done by this RN just for knowledge of pt condition. Pt resting in chair with eyes closed at this time. Pt noted to have an abdominal incision with guilherme CARLOS, stomach appears to be mottled around and beside incision. Pt nurse Shasha, stated that this was normal for her as given report this AM. Pt has no IV access as pt has pulled all IV's out that have been placed. It was told to this RN that pt is incontinent by Aide staff. Pt seems dry and comfortable at this time.
[2019-04-11 09:30] LABS: HEMOGLOBIN 8.4 G/DL (11.5-16.0); MEAN PLATELET VOLUME 9.7 FL (7.4-10.4); RED CELL DISTRIBUTION WIDTH 14.9 % (10.0-14.5); WHITE BLOOD COUNT 6.1 10^3/uL (4.3-11.0)
--- NOTE | 2019-04-11 09:47 | Physical Therapy Progress Note ---
Therapy Progress Note Hold per RN secondary to patient is sedated due to combative behavior and agitation. PT will attempt in a.jose. PUMA BEAN PT Apr 11, 2019 09:47
[2019-04-11 09:52] LABS: ALANINE AMINOTRANSFERASE 27 U/L (0-55); ALBUMIN 2.6 GM/DL (3.2-4.5); ALKALINE PHOSPHATASE 89 U/L (40-136); BILIRUBIN,TOTAL 0.3 MG/DL (0.1-1.0); BUN/CREATININE RATIO 23; CARBON DIOXIDE 18 MMOL/L (21-32); CHLORIDE 114 MMOL/L (98-107); CREATININE SERUM 0.53 MG/DL (0.60-1.30); GFR ESTIMATED > 60; GLUCOSE 89 MG/DL (70-105); POTASSIUM 4.3 MMOL/L (3.6-5.0); SODIUM 140 MMOL/L (135-145); TOTAL PROTEIN 5.2 GM/DL (6.4-8.2)
[2019-04-11] MEDS: FAMOTIDINE 20MG/2ML IV (PEPCID) IV SCH (10:01)
[2019-04-11] MEDS: NS W/KCL 20 MEQ/L 1,000 ML IV SCH ×2 (10:01→13:38)
--- NOTE | 2019-04-11 11:05 | NUR ---
Pt stood up out of chair, this RN placed hand on pt's arm for support, pt tried to hit this RN, screaming "leave me alone". Pt asked if she would like to use the restroom, pt just kept yelling no and hollering for, who she states, her caregiver. This RN attempted to reorientate pt without success. Pt still trying to fight this RN and MICHELLE Bolden, by punching and scratching. Jasmin, scanning manager, in room to assist. Haldol given during this episode to calm pt and keep pt from hurting herself and staff. Dr. Karimi called by MICHELLE Castellanos, to report pt findings.
[2019-04-11] MEDS ORDERED: morphine INJ 10 MG/ML 1ML (SYR OR VIAL) IM STA ×2 (11:49→15:06)
--- NOTE | 2019-04-11 11:50 | NUR ---
This RN and MICHELLE Pulliam tried to give pt her pain medication for obvious pain presented by pt. Pt grimacing and rubbing stomach, but refused to take the pain medication. Pt calling both RN's names and states "I hope you both burn in hell". This RN tried to explain that we were trying to help the pt but pt remained belligerent and still refused medication.
[2019-04-11] MEDS: ENOXAPARIN 30 MG/0.3 ML (LOVENOX) SYR SC SCH (12:00)
--- NOTE | 2019-04-11 12:00 | NUR ---
Report received from MICHELLE Pulliam. This RN to be 1:1 with pt at this time until further notice.
--- NOTE | 2019-04-11 14:25 | NUR ---
Pt woke up cussing and rolling around in bed holding stomach. Pt did take some oral medication for this RN. Dr. Mancilla called to update. Pt belligerent at this time but staying in bed.
--- NOTE | 2019-04-11 15:07 | NUR ---
pt calm in bed right now. Drowsy but arousable. Pt still states her stomach hurts.
[2019-04-11] MEDS ORDERED: ZIPRASIDONE 20 MG INJ (GEODON) VIAL IM NR (15:15)
[2019-04-11] MEDS ORDERED: morphine INJ 10 MG/ML 1ML (SYR OR VIAL) IM PRN (15:30)
[2019-04-11] MEDS ORDERED: ZIPRASIDONE 20 MG INJ (GEODON) VIAL IM PRN (15:30)
--- NOTE | 2019-04-11 16:16 | Diagnostic Imaging Report ---
EXAMINATION: Acute abdomen series at 01:26 p.m. INDICATION: Abdominal pain. FINDINGS: The accompanying erect PA chest shows the heart size to be within normal limits and stable when compared to 04/07/2019. The lungs are clear. There is no sign of a pneumoperitoneum. Supine and erect views of the abdomen were obtained. In the interval since the prior exam of 04/07/2019, the patient has undergone a surgical procedure. There is now a row of skin guilherme near midline. The dilated gas-filled segments of small bowel seen on the prior exam have resolved. There is some gas in both the large and small bowel in a nonspecific fashion. There is no mass or organomegaly identified. The ostomy site seen previously overlying the left lower quadrant is again visualized. The NG line has been removed. IMPRESSION: 1. There are postoperative changes consistent with an interval abdominal surgical procedure. The small bowel obstruction seen on the previous exam has resolved. 2. There is no acute abnormality identified. Dictated by: Dictated on workstation # [id number]
--- NOTE | 2019-04-11 17:29 | Progress Note ---
Subjective Subjective/Events-last exam Afebrile, has had ostomy output but is very agitated, pulled out IV and spit out meds. Objective Exam Last Set of Vital Signs Vital Signs Date Time Temp Pulse Resp B/P (MAP) Pulse Ox O2 Delivery O2 Flow Rate FiO2 04/11/19 12:00 36.6 105 24 119/74 (89) 99 Room Air 04/08/19 04:10 5.00 Capillary Refill : Less Than 3 SecondsLess Than 3 Seconds I&O Intake and Output 04/11/19 00:00 Intake Total 1470 ml Output Total 1600 ml Balance -130 ml Intake Oral 470 ml IV Total 1000 ml Output Urine Total 1175 ml Gastric Drainage Total 425 ml General: Other (sleeping comfortably in chair) Psych/Mental Status: Other (has been agitated, did not disturb as she was resting quietly) Results/Procedures Lab Laboratory Tests 04/11/19 09:23: White Blood Count 6.1, Red Blood Count 2.95L, Hemoglobin 8.4L, Hematocrit 26L, Mean Corpuscular Volume 88, Mean Corpuscular Hemoglobin 29, Mean Corpuscular Hemoglobin Concent 32, Red Cell Distribution Width 14.9H, Platelet Count 252, Mean Platelet Volume 9.7, Sodium Level 140, Potassium Level 4.3, Chloride Level 114H, Carbon Dioxide Level 18L, Anion Gap 8, Blood Urea Nitrogen 12, Creatinine 0.53L, Estimat Glomerular Filtration Rate > 60, BUN/Creatinine Ratio 23, Glucose Level 89, Calcium Level 8.0L, Corrected Calcium 9.1, Total Bilirubin 0.3, Aspartate Amino Transf (AST/SGOT) 56H, Alanine Aminotransferase (ALT/SGPT) 27, Alkaline Phosphatase 89, Total Protein 5.2L, Albumin 2.6L Microbiology 04/07/19 MRSA Screen - Final, Complete MRSA not isolated 04/06/19 Urine Culture - Final, Complete Gram Pos Mixed Bacterial Riddhi Escherichia coli Assessment/Plan Assessment/Plan (1) Small bowel obstruction Status: Acute Assessment & Plan: Surgery consulted, s/p right colon resection. 04/11 has had ostomy output, NG is out. (2) S/P right colectomy Status: Acute Assessment & Plan: management per Surgery (3) Hyperchloremic acidosis Status: Acute (4) Postoperative anemia Assessment & Plan: Trending down, monitor closely. (5) Hyponatremia Status: Acute Assessment & Plan: Improving, continue IVF. (6) UTI (urinary tract infection) Status: Acute Assessment & Plan: Culture with E coli resistant to amp and Bactrim. Completed ceftriaxone. Qualifiers: Qualified Codes: N30.00 - Acute cystitis without hematuria (7) DVT prophylaxis Status: Acute Assessment & Plan: Enoxaparin (8) Agitation Status: Acute Assessment & Plan: Unclear etiology, possibly unmanaged pain due to not taking pain medication and unable to give IV pain meds, will try IM morphine. Check repeat UA and abdominal x-ray. Clinical Quality Measures DVT/VTE Risk/Contraindication: Risk Factor Score Per Nursin RFS Level Per Nursing on Admit: 3=High ROLY PUGH MD Apr 11, 2019 17:29
[2019-04-12] VITALS: BP 111/62
[2019-04-12] MEDS: NS W/KCL 20 MEQ/L 1,000 ML IV SCH ×4 (00:19→22:25)
[2019-04-12] MEDS: HYDROcodone/APAP 5 MG/325 MG (LORTAB) TAB PO PRN ×3 (02:12→23:40)
[2019-04-12] MEDS: morphine INJ 10 MG/ML 1ML (SYR OR VIAL) IV PRN ×7 (05:51→22:25)
[2019-04-12 06:28] LABS: HEMOGLOBIN 8.1 G/DL (11.5-16.0); MEAN PLATELET VOLUME 9.6 FL (7.4-10.4); WHITE BLOOD COUNT 5.4 10^3/uL (4.3-11.0)
[2019-04-12 06:42] LABS: BUN/CREATININE RATIO 17; CALCIUM 7.7 MG/DL (8.5-10.1); CARBON DIOXIDE 20 MMOL/L (21-32); CHLORIDE 106 MMOL/L (98-107); CREATININE SERUM 0.47 MG/DL (0.60-1.30); GFR ESTIMATED > 60; GLUCOSE 94 MG/DL (70-105); MAGNESIUM 1.2 MG/DL (1.6-2.4); PHOSPHORUS 1.7 MG/DL (2.3-4.7); POTASSIUM 3.8 MMOL/L (3.6-5.0); SODIUM 136 MMOL/L (135-145)
[2019-04-12 08:00] VITALS: BP 122/75
[2019-04-12] MEDS: FAMOTIDINE 20MG/2ML IV (PEPCID) IV SCH (08:14)
--- NOTE | 2019-04-12 08:19 | NUR ---
2026-PT REPORTS PAIN RATE 4-PRN LORTAB GIVEN 2099-THIS RN ATTEMPTED TO START PT IV-PT REFUSED-THIS RN WAS INFORMED BY THE PT THAT I SHOULD "FUCK OFF AND , YOU FUCKING BITCH" 2129-PT SITTING UP ON THE SIDE OF THE BED EMPTYING COLOSTOMY IN THE TRASH CAN. THIS RN WENT IN HER ROOM TO ASSIST THIS PT, THIS RN WAS INFORMED TO "GET THE FUCK OUT OF HERE & LEAVE ME ALONE." PCT ZAHEER WAS ALSO TOLD THAT SHE SHOULD "GO " THIS RN ATTEMPTED THERAPEUTIC WHICH WAS NOT SUCCESSFUL. 2199-PT YELLING OUT THIS RN WENT IN TO CHECK ON PT- PT STATED SHE WAS WANTING SOMETHING TO EAT-THIS RN BROUGHT HER IN SOME JELLO & PUDDING. 2229-THIS RN WENT IN THE ROOM TO CHECK ON THIS PT, PT ASKED THIS RN "WHEN IS MY DATE?" THIS RN ATTEMPTED THERAPEUTIC COMMUNICATION WHICH WAS NOT SUCCESSFUL. PT STATED THAT SHE "WAS NOT EATING THAT" SHE POINTED TO HER JELLO & PUDDING. PT WAS OFFERED OTHER OPTIONS PT STATED "I HAVEN'T EATEN IN 10 DAYS WHY BOTHER NOW?" 211-PT REPORTS ABD PAIN 7/10 PRN LORTAB GIVEN 0400-PT RESTING IN BED, NO DISTRESS NOTED 30-PT DAUGHTER AT BEDSIDE-ASKING THIS RN WHAT'S BEEN GOING ON WITH THIS PT, THIS RN INFORMED HER OF ISSUES OF THE DAY & NIGHT. PT DAUGHTER INFORMED THIS RN THAT THIS PT CALLED HER AT WORK STATING SHE HAS BEEN MOVED TO NEW ROOMS & THAT SHE HAS HAD ORANGE & YELLOW CHILD TOYS TO PLAY WITH. 44-PT AGREED TO ALLOW THIS RN TO START IV & PL[place] DRESSING ON ABDOMEN INCISION 0551-PT REPORTS PAIN IS 10 IN THE ABDOMEN, MORPHINE 5MG GIVEN 0625-PT RESTING IN BED,EYES CLOSED, NO DISTRESS NOTED.
[2019-04-12] MEDS: MAGNESIUM 1 GM/100 ML IVPB 100 ML IV SCH ×2 (09:15→10:15)
[2019-04-12] MEDS ORDERED: POTASSIUM PHOSPHATE INJ 15 MM in NS (IVPB) 250 ML IV NR (09:28)
--- NOTE | 2019-04-12 10:00 | NUR ---
SPOKE WITH . SHE IS GOING TO CHANGE IV K+ AND MAG TO PO DUE LATER IN DAY.
--- NOTE | 2019-04-12 10:41 | Physical Therapy Progress Note ---
Therapy Progress Note Patient refuses therapy this morning. She says she is not doing it unless she has pain meds. Patient's daughter is in the room and states that she also has not been able to convince her mother to get out of bed. AMANDA DECKER PT Apr 12, 2019 10:41
[2019-04-12] MEDS ORDERED: POT PHOS/NA PHOS (K-PHOS NEUTRAL) PO NR (13:15)
[2019-04-12] MEDS ORDERED: MAGNESIUM OXIDE (MAG-OX)400 MG TAB PO NR (13:15)
[2019-04-12] MEDS: ENOXAPARIN 30 MG/0.3 ML (LOVENOX) SYR SC SCH (13:31)
--- NOTE | 2019-04-12 14:27 | Physical Therapy Daily Note ---
PT Daily Note-Current Subjective Patient in bed pre tx, agrees to PT, has no complaints of pain. Appearance Patient in bed post tx with nurse call, phone, tray, all needs met. Mental Status Patient Orientation: Person Transfers Therapy Quality Codes: 6 Independent with activity with or without an assistive device 5 Patient requires set up or clean up by helper. Patient completes activity by themselves 4 Supervision or touching assist (CGA). [place] provide cues , steadying shoaib t 3 The helper provides less than half the effort to complete the activity 2 The helper provides more than half the effort to complete the activity 1 Dependent. The helper does all the effort to complete an activity 7 Patient refused to complete or attempt activity 9 The patient did not perform the activity before the current illness or injury 88 Not attempted due to Medical conditions or safety concerns Transfers (B, C, W/C): 4 Roll Left to Right (QC): 4 Sit to Lying (QC): 4 Sit to Stand (QC): 4 Chair/[id number]-[id number] Xfer(QC): 4 Patient performs bed mobility with SBA, sit to stand and transfers with CGA. Weight Bearing Right Lower Extremity: Right Weight Bearing/Tolerated Left Lower Extremity: Left Weight Bearing/Tolerated Gait Training Distance: 500' Walk 10 feet (QC): 4 Walk 50 ft with 2 Turns(QC): 4 Gait Assistive Device: FWW Extremely slow ambulation but steady Treatments bed mobility and transfers, ambulation Assessment Current Status: Fair Progress improved endurance, no LOB PT Short Term Goals Short Term Goals Time Frame: Apr 15, 2019 Gait Distance Comment: 150 ft Gait Assistive Device: None, FWW PT Plan Problem List Problem List: Activity Tolerance, Functional Strength, Safety, Balance, Gait, Transfer, Bed Mobility Treatment/Plan Treatment Plan: Continue Plan of Care Treatment Plan: Bed Mobility, Education, Functional Activity Michael, Functional Strength, Gait, Safety, Therapeutic Exercise, Transfers Treatment Duration: Apr 15, 2019 Frequency: 6 times per week Estimated Hrs Per Day: .25 hour per day Patient and/or Family Agrees t: Yes Safety Risks/Education Patient Education: Gait Training, Transfer Techniques, Correct Positioning, Safety Issues Teaching Recipient: Patient Teaching Methods: Demonstration, Discussion Response to Teaching: Reinforcement Needed Time/GCodes Time In: 1405 Time Out: 1421 Total Billed Treatment Time: 16 Total Billed Treatment 1 visit GT 16' AMANDA DECKER PT Apr 12, 2019 14:27
--- NOTE | 2019-04-12 14:58 | Progress Note ---
Subjective Subjective/Events-last exam Had significant agitation on and off in last 24 hours, spitting at nurses and upset. This am she is calm and states she was just frustrated. She reports she is feeling a little better over all. Has ostomy output. Objective Exam Last Set of Vital Signs Vital Signs Date Time Temp Pulse Resp B/P (MAP) Pulse Ox O2 Delivery O2 Flow Rate FiO2 04/12/19 11:12 36.9 04/12/19 08:00 Room Air 04/12/19 08:00 82 20 122/75 (91) 99 04/08/19 04:10 5.00 Capillary Refill : Less Than 3 SecondsLess Than 3 Seconds I&O Intake and Output 04/12/19 00:00 Intake Total 310 ml Balance 310 ml Intake Oral 300 ml IV Total 10 ml # Voids 6 # Bowel Movements 1 General: Alert, No Acute Distress Lungs: Clear to Auscultation, Normal Air Movement Heart: Regular Rate, No Murmurs Abdomen: Normal Bowel Sounds, Soft, Other (incision dressed, ostomy with brown stool in bag) Psych/Mental Status: Mood NL Results/Procedures Lab Laboratory Tests 04/12/19 05:43: Sodium Level 136, Potassium Level 3.8, Chloride Level 106, Carbon Dioxide Level 20L, Anion Gap 10, Blood Urea Nitrogen 8, Creatinine 0.47L, Estimat Glomerular Filtration Rate > 60, BUN/Creatinine Ratio 17, Glucose Level 94, Calcium Level 7.7L, Phosphorus Level 1.7L, Magnesium Level 1.2L 04/12/19 06:17: White Blood Count 5.4, Red Blood Count 2.81L, Hemoglobin 8.1L, Hematocrit 24L, Mean Corpuscular Volume 86, Mean Corpuscular Hemoglobin 29, Mean Corpuscular Hemoglobin Concent 34, Red Cell Distribution Width 15.0H, Platelet Count 234, Mean Platelet Volume 9.6 Microbiology 04/07/19 MRSA Screen - Final, Complete MRSA not isolated 04/06/19 Urine Culture - Final, Complete Gram Pos Mixed Bacterial Riddhi Escherichia coli Assessment/Plan Assessment/Plan (1) Small bowel obstruction Status: Acute Assessment & Plan: Surgery consulted, s/p right colon resection. 04/11 has had ostomy output, NG is out. (2) S/P right colectomy Status: Acute Assessment & Plan: management per Surgery (3) Hyperchloremic acidosis Status: Resolved (4) Postoperative anemia Assessment & Plan: Trending down, monitor closely. 10/ stable (5) Hyponatremia Status: Resolved Assessment & Plan: Improving, continue IVF. (6) UTI (urinary tract infection) Status: Resolved Assessment & Plan: Culture with E coli resistant to amp and Bactrim. Completed ceftriaxone. Qualifiers: Qualified Codes: N30.00 - Acute cystitis without hematuria (7) DVT prophylaxis Status: Acute Assessment & Plan: Enoxaparin (8) Agitation Status: Acute Assessment & Plan: Unclear etiology, possibly unmanaged pain due to not taking pain medication and unable to give IV pain meds, will try IM morphine. Check repeat UA and abdominal x-ray. 04/12 mood normal this am, working on d/c planning due to needing a lot of ass istance still to get around. Encouraged to work with PT. Clinical Quality Measures DVT/VTE Risk/Contraindication: Risk Factor Score Per Nursin RFS Level Per Nursing on Admit: 3=High ROLY PUGH MD Apr 12, 2019 14:58
[2019-04-12 15:28] VITALS: BP 101/63
--- NOTE | 2019-04-12 15:57 | NUR ---
RD ASSESSMENT PMHx: SBO, colostomy PT INTERACTION: Pt was awake and pleasant during nutrition assessment. Pt states current appetite is "zero," and has been for the past several weeks. Pt states no recent issues with n/v at this time, though pt is currently on anti-emetic. Note pt currently has ostomy, with recent output of 425 ml. Pt states recent wt loss of 35# [id number]. Note 45# wt loss since 02/20/19. This is significant wt loss at 32%. Given pt's poor po intake and significant wt loss, pt meets criteria for chronic severe malnutrition, per ASPEN guidelines. ABNORMAL NUTRITION-RELATED LAB VALUES: cr 0.47 (L); Ca 7.7 (L); phos 1.7 (L); Mg 1.2 (L); Hgb 8.1 (L); Hct 24 (L) Est. kcal needs: 2047-5643 kcal (30-35 kcal/kg) Est. Pro needs: 52-64 g Pro (1.2-1.5 g Pro/kg) PES STATEMENT: Inadequate oral intake related to poor po intake as evidenced by Pt interview | 32% wt loss x2mon INTERVENTION: Continue with current diet order of regular diet. Add Ensure Enlive (asif) to meals BID. Provides 350 kcal and 20 g Pro per serving. Encouraged pt to eat when able. MONITOR/EVALUATE: Supplement Tolerance, PO Intake, Weight Status, Hydration Status, Lab Values Wesley Faust, MS, RD [phone]
--- NOTE | 2019-04-12 16:11 | NUR ---
CM/SS, initial visit with patient and her daughter, Ayanna Cooper. Patient EMR reflected recent verbal aggression and cognition impairment, patient was calm during magnetic tape typewriter operator visit. She said several times that the only thing she needs is someone to drive her to her doctor appointments so that her daughter can sleep during the day. It is apparent that patient is weak and deconditioned at this time, serious weight loss over past weeks (see dietitian progress note) and post op now. Needs appear greater than just transportation. Ayanna and patient reside together, but Ayanna works nights at [employer] in [place] 11p to 7a. Daughter reports she has to assist patient for bathing, toileting, ambulation, all household tasks, and meals. Librarian Head explored 24-7 care in a community SNF to allow for longer recuperation, daughter appeared in agreement, patient reluctant. The challenge is that patient is uninsured. [facility] has completed a Medicaid application for patient and indicate her benefit status is "Medicaid Pending." Will discuss further with Ayanna regarding pursuit of SNF. Patient did ambulate with PT this afternoon, noted progress.
--- NOTE | 2019-04-12 17:06 | NUR ---
CM/SS. Spoke with daughter Ayanna. She was employed at [employer] in [facility] and that facility shut down. They offered her a transfer to [employer] in [place] which he accepted, she and patient moved from [place] to [place]. She brought patient with her because she was in poor health and she was caring for her. They apparently intend to continue to reside in [place] and there are no other family/friend connections here at all. Discussed SNF with Ayanna, they know no resources here. Pickling Grader offered to reach out to first available facility who would accept Medicaid pending, started with [facility]. They will first explore permission to take a benefit pending patient with Exec Director. There was no referral sent at this time. Ayanna indicates hardship trying to provide the level of care patient requires at this time, patient will need support/encouragement to agree to SNF short term. Ideally, find potential to accept, inform Ayanna who may tour, finalize as appropriate.
--- NOTE | 2019-04-12 17:28 | Progress Note - Surgery ---
NISH MAGALLANES [facility] 04/12/19 1728: Subjective Date Seen by a Provider: Apr 12, 2019 Time Seen by a Provider: 11:45 Subjective/Events-last exam Patient is less agitated today. Still complains of pain but is much more cooperative with the physical exam and nurses. Patient's mood is overall better. Colostomy bag is functioning properly and had to be emptied earlier this morning. Patient denies fevers, chills, nausea, vomiting, sweats, shortness of breath and chest pain. Hemoglobin is at 2.81 from 2.96 but is still receiving enoxaparin. Review of Systems General: No Chills, No Night Sweats Pulmonary: No Cough Cardiovascular: No: Chest Pain Gastrointestinal: No: Nausea, Vomiting Focused Exam Respiratory: Chest Non Tender, No Accessory Muscle Use, No Respiratory Distress Cardiovascular: Regular Rate, Rhythm, No Edema, No JVD Skin: normal color, warm/dry Objective Exam Vital Signs Date Time Temp Pulse Resp B/P (MAP) Pulse Ox O2 Delivery O2 Flow Rate FiO2 04/12/19 15:28 37.1 83 20 101/63 (76) 98 Room Air 04/12/19 11:12 36.9 04/12/19 08:00 Room Air 04/12/19 08:00 36.9 82 20 122/75 (91) 99 Room Air 04/12/19 00:00 37.1 83 20 111/62 (78) 98 Room Air 04/11/19 20:36 37.1 85 18 107/68 (81) 97 Room Air 04/11/19 20:00 Room Air 04/11/19 18:17 36.4 85 22 111/76 (88) 98 Room Air I & O 04/12/19 07:00 Intake Total 250 ml Balance 250 ml Capillary Refill : Less Than 3 SecondsLess Than 3 Seconds HEENT: PERRL/EOMI Neck: Non Tender, Supple Respiratory: Chest Non Tender, No Accessory Muscle Use, No Respiratory Distress Cardiovascular: Regular Rate, Rhythm Gastrointestinal: tenderness (incisional, does not seem to have pain otherwise with palpation), other (incision clean dry and intact surrounding skin mottled appearance (chronic). colostomy pink with output) Extremity: Normal Inspection Neurologic/Psychiatric: Alert (may still have confusion but is more alert.), No Motor/Sensory Deficits Skin: Warm/Dry, Mottled (abdomen) Lymphatic: No Adenopathy Results Lab Laboratory Tests 04/12/19 05:43: Sodium Level 136, Potassium Level 3.8, Chloride Level 106, Carbon Dioxide Level 20L, Anion Gap 10, Blood Urea Nitrogen 8, Creatinine 0.47L, Estimat Glomerular Filtration Rate > 60, BUN/Creatinine Ratio 17, Glucose Level 94, Calcium Level 7.7L, Phosphorus Level 1.7L, Magnesium Level 1.2L 04/12/19 06:17: White Blood Count 5.4, Red Blood Count 2.81L, Hemoglobin 8.1L, Hematocrit 24L, Mean Corpuscular Volume 86, Mean Corpuscular Hemoglobin 29, Mean Corpuscular Hemoglobin Concent 34, Red Cell Distribution Width 15.0H, Platelet Count 234, Mean Platelet Volume 9.6 Microbiology 04/07/19 MRSA Screen - Final, Complete MRSA not isolated 04/06/19 Urine Culture - Final, Complete Gram Pos Mixed Bacterial Riddhi Escherichia coli Assessment/Plan Assessment/Plan Assessment/Plan anemic with hemoglobin of 2.81. s/p ex lap with right colon resection, lysis of adhesions for small bowel obstruction anemia continue to monitor patient at times combative with staff, question source of this behavior no elevation of wbc or findings on physical exam suggestive of issue with abdomen other than normal postoperative course. patient with colostomy output will advance diet on lovenox if hgb keeps dropping will hold repeat labs in am patient not letting nurse restart IV since she pulled out, continue with oral pain medication and intramuscular if needed Clinical Quality Measures DVT/VTE Risk/Contraindication: Risk Factor Score Per Nursin RFS Level Per Nursing on Admit: 3=High MAGEN KARIMI DO 04/12/192100: Subjective Subjective/Events-last exam Patient he is cooperative today. She states that she has been having pain which is now better controlled. She states that she was a little bit confused yesterday. Patient feeling better. Her colostomy is functioning. Her hemoglobin is 8.1. Patient tolerating diet. No new complaints. Denies nausea vomiting fever sweats chills shortness of breath or chest pain. Daughter at bedside. Objective Exam General Appearance: No Apparent Distress Neck: Non Tender, Supple Respiratory: Chest Non Tender Cardiovascular: Regular Rate, Rhythm Gastrointestinal: tenderness (incisional), other (incision clean dry and intact surrounding skin mottled appearance (chronic). colostomy pink with output) Extremity: Normal Inspection Neurologic/Psychiatric: Alert (answers questions appropriately), No Motor/Sensory Deficits Skin: Warm/Dry Lymphatic: No Adenopathy Assessment/Plan Assessment/Plan Assessment/Plan s/p ex lap with right colon resection, lysis of adhesions for small bowel obstruction anemia continue to monitor hx colovaginal fistula with colon resection and end colostomy diet as tolerates, since having bowel function home soon Supervisory-Addendum Brief Verification & Attestation Participated in pt care: history, MDM, physical Personally performed: exam, history, MDM, supervision of care Care discussed with: Medical Student Procedures: n/a Results interpretation: Verified all documentation Verification and Attestation of Medical Student E/M Service A medical student performed and documented this service in my presence. I reviewed and verified all information documented by the medical student and made modifications to such information, when appropriate. I personally performed the physical exam and medical decision making. Magen Karimi, Apr 12, 2019,21:[address] [facility] Apr 12, 2019 17:28 MAGEN KARIMI DO Apr 12, 2019 21:01
[2019-04-13] VITALS: BP 106/75
[2019-04-13] MEDS: morphine INJ 10 MG/ML 1ML (SYR OR VIAL) IV PRN ×3 (01:50→05:15)
--- NOTE | 2019-04-13 02:23 | NUR ---
DUE TO COMPUTER GLITCH, DOCUMENTATION OF 5MG MORPHINE WAS DONE TWICE, ONLY ONE DOSE GIVEN.
[2019-04-13] MEDS: HYDROcodone/APAP 5 MG/325 MG (LORTAB) TAB PO PRN ×2 (02:44→09:02)
[2019-04-13 06:27] LABS: BASOPHILS % (AUTO) 1 % (0-10); EOSINOPHILS # (AUTO) 0.2 10^3/uL (0.0-0.3); EOSINOPHILS % (AUTO) 5 % (0-10); HEMATOCRIT 29 % (35-52); HEMOGLOBIN 9.5 G/DL (11.5-16.0); LYMPHOCYTES # (AUTO) 0.9 X 10^3 (1.0-4.0); LYMPHOCYTES % (AUTO) 20 % (12-44); MEAN CORPUSCULAR HEMOGLOBIN 29 PG (25-34); MEAN CORPUSCULAR HGB CONC 33 G/DL (32-36); MEAN CORPUSCULAR VOLUME 86 FL (80-99); MEAN PLATELET VOLUME 10.4 FL (7.4-10.4); MONOCYTES # (AUTO) 0.7 X 10^3 (0.0-1.0); MONOCYTES % (AUTO) 16 % (0-12); NEUTROPHILS # (AUTO) 2.6 X 10^3 (1.8-7.8); NEUTROPHILS % (AUTO) 59 % (42-75); PLATELET COUNT 206 10^3/uL (130-400); RED CELL DISTRIBUTION WIDTH 14.9 % (10.0-14.5); WHITE BLOOD COUNT 4.5 10^3/uL (4.3-11.0)
[2019-04-13 06:50] LABS: BUN/CREATININE RATIO 9; CALCIUM 7.4 MG/DL (8.5-10.1); CARBON DIOXIDE 20 MMOL/L (21-32); CHLORIDE 107 MMOL/L (98-107); CREATININE SERUM 0.44 MG/DL (0.60-1.30); GFR ESTIMATED > 60; GLUCOSE 80 MG/DL (70-105); POTASSIUM 4.2 MMOL/L (3.6-5.0); SODIUM 135 MMOL/L (135-145)
[2019-04-13] MEDS: NS W/KCL 20 MEQ/L 1,000 ML IV SCH (07:57)
[2019-04-13 08:00] VITALS: BP 99/64
--- NOTE | 2019-04-13 09:00 | NUR ---
LOTAB 5 PO FOR PAIN.
[2019-04-13] MEDS: FAMOTIDINE 20 MG (PEPCID) TABLET PO SCH (09:01)
--- NOTE | 2019-04-13 09:20 | NUR ---
PTS DAUGHTER AT BEDSIDE AND C/O PT NOT GETTING ENOUGH PAIN MEDICATION SINCE DR. CASAS'Jesus IV MORPHINE. DR. PUGH NOTIFIED AND MED DOSE CHANGED.
--- NOTE | 2019-04-13 09:20 | NUR ---
ADDITIONAL LORTAB 5 PER ORDER.
[2019-04-13] MEDS ORDERED: HYDROcodone/APAP 10 MG/325 MG (LORTAB) TAB PO PRN (09:30)
[2019-04-13] MEDS ORDERED: HYDROcodone/APAP 5 MG/325 MG (LORTAB) TAB PO ONE (09:30)
--- NOTE | 2019-04-13 10:21 | Physical Therapy Progress Note ---
Therapy Progress Note Patient adamantly declined PT stating, "I don't feel like it and you can't make me. You all are trying to get rid of me and I'm not having it." Daughter present. RN notified. PT will attempt later today or in a.m 1 ref ([id number]) PUMA BEAN PT Apr 13, 2019 10:21
--- NOTE | 2019-04-13 13:56 | Physical Therapy Progress Note ---
Therapy Progress Note Patient continues to declined PT on this date. Patient remained in bed with telesitter and sitter present. PT will attempt in a.m. 1 ref ([id number]) PUMA BEAN PT Apr 13, 2019 13:56
--- NOTE | 2019-04-13 14:00 | NUR ---
LORTAB 10 PO FOR PAIN.
--- NOTE | 2019-04-13 14:30 | NUR ---
PTS DAUGHTER C/O PT HAVING BLOATING. EDUCATION DONE ON PT AMBULATING AND BEING OUT OF BED PT HAS REFUSED TODAY. DTR STATES PT IS HAVING TOO MUCH PAIN. PT HAS BEEN SLEEPING MOST OF DAY. DTR REQUESTS THAT DR. PUGH BE CALLED. NOTIFIED. ORDERS REC'D.
[2019-04-13] MEDS: ENOXAPARIN 30 MG/0.3 ML (LOVENOX) SYR SC SCH (14:38)
--- NOTE | 2019-04-13 15:05 | Progress Note ---
Subjective Subjective/Events-last exam Afebrile, continues to have ostomy output, still having a significant amount of pain. Objective Exam Last Set of Vital Signs Vital Signs Date Time Temp Pulse Resp B/P (MAP) Pulse Ox O2 Delivery O2 Flow Rate FiO2 04/13/19 08:00 36.4 70 16 99/64 (76) 98 Room Air 04/08/19 04:10 5.00 Capillary Refill : Less Than 3 SecondsLess Than 3 Seconds I&O Intake and Output 04/13/19 00:00 Intake Total 890 ml Output Total 450 ml Balance 440 ml Intake Oral 890 ml Output Urine Total 250 ml Stool Total 200 ml # Voids 6 General: Alert, No Acute Distress Lungs: Clear to Auscultation, Normal Air Movement Heart: Regular Rate, No Murmurs Abdomen: Normal Bowel Sounds, Soft, Other (ttp, dressing in place to surgical wound, ostomy in place with brown stool in bag) Neuro: Normal Speech Psych/Mental Status: Mood NL Results/Procedures Lab Laboratory Tests 04/13/19 05:55: White Blood Count 4.5, Red Blood Count 3.31L, Hemoglobin 9.5L, Hematocrit 29L, Mean Corpuscular Volume 86, Mean Corpuscular Hemoglobin 29, Mean Corpuscular Hemoglobin Concent 33, Red Cell Distribution Width 14.9H, Platelet Count 206, Mean Platelet Volume 10.4, Neutrophils (%) (Auto) 59, Lymphocytes (%) (Auto) 20, Monocytes (%) (Auto) 16H, Eosinophils (%) (Auto) 5, Basophils (%) (Auto) 1, Neutrophils # (Auto) 2.6, Lymphocytes # (Auto) 0.9L, Monocytes # (Auto) 0.7, Eosinophils # (Auto) 0.2, Basophils # (Auto) 0.0, Sodium Level 135, Potassium Level 4.2, Chloride Level 107, Carbon Dioxide Level 20L, Anion Gap 8, Blood Urea Nitrogen 4L, Creatinine 0.44L, Estimat Glomerular Filtration Rate > 60, BUN/Creatinine Ratio 9, Glucose Level 80, Calcium Level 7.4L Microbiology 04/07/19 MRSA Screen - Final, Complete MRSA not isolated 04/06/19 Urine Culture - Final, Complete Gram Pos Mixed Bacterial Riddhi Escherichia coli Assessment/Plan Assessment/Plan (1) Small bowel obstruction Status: Acute Assessment & Plan: Surgery consulted, s/p right colon resection. 04/11 has had ostomy output, NG is out. 04/13 advancing diet, try to manage pain with oral pain meds (2) S/P right colectomy Status: Acute Assessment & Plan: management per Surgery (3) Hyperchloremic acidosis Status: Resolved (4) Postoperative anemia Assessment & Plan: Trending down, monitor closely. 04/13 stable (5) Hyponatremia Status: Resolved Assessment & Plan: Improving, continue IVF. (6) UTI (urinary tract infection) Status: Resolved Assessment & Plan: Culture with E coli resistant to amp and Bactrim. Completed ceftriaxone. Qualifiers: Qualified Codes: N30.00 - Acute cystitis without hematuria (7) DVT prophylaxis Status: Acute Assessment & Plan: Enoxaparin (8) Agitation Status: Resolved Assessment & Plan: Unclear etiology, possibly unmanaged pain due to not taking pain medication and unable to give IV pain meds, will try IM morphine. Check repeat UA and abdominal x-ray. 04/12 mood normal this am, working on d/c planning due to needing a lot of assistance still to get around. Encouraged to work with PT. Clinical Quality Measures DVT/VTE Risk/Contraindication: Risk Factor Score Per Nursin RFS Level Per Nursing on Admit: 3=High ROLY PUGH MD Apr 13, 2019 15:05
[2019-04-13 16:07] VITALS: BP 113/78
--- NOTE | 2019-04-13 16:46 | NUR ---
Met with pt and daughter concerning continued care plans.Both requesting short-term care in a community halfway. . Pt doesn't think like she can function at home and daughter works nights and her assistance is limited. Pt agreeable to local or nearby community placements. Pt's evaluations have been faxed to [facility] in [place]. and [facility] for possible acceptance Awaiting their decision for possible admission to their facility tomorrow. Discussed Home Health as possible alternative which they state wouldn't work as daughter works nights in [place] and sleeps during the day and apparently they have several ranch dogs who would need to be locked up when staff made their visits.
[2019-04-13] MEDS: morphine IMMEDIATE RELEASE 15 MG TABLET PO PRN ×2 (17:55→22:00)
--- NOTE | 2019-04-13 19:06 | Progress Note - Surgery ---
NISH MAGALLANES [facility] 04/13/19 1906: Subjective Date Seen by a Provider: Apr 13, 2019 Time Seen by a Provider: 07:10 Subjective/Events-last exam Patient was awake and complained of still having pain in the abdomen. Agitated at the monitor that was in her room. Colostomy bag is still functioning. Stated she had more discomfort after eating a salad. Ambulating around her room. States she has fevers and chills, but denies nausea, vomiting, shortness of breath, or chest pain. Patient's daughter stated that the house is not prepared for her mother's needs. Discussed possibility of being admitted to the in patient rehab unit and that the patient would need to want to undergo physical therapy . Temp is 36.6 *C. Hemoglobin tracy from 8.1 to 9.5 with an RBC of 3.31. Review of Systems General: Chills; No Night Sweats Pulmonary: No Pleuritic Chest Pain Cardiovascular: No: Chest Pain Gastrointestinal: Abdominal Pain; No: Nausea, Vomiting Focused Exam Respiratory: Chest Non Tender, Lungs Clear, Normal Breath Sounds, No Accessory Muscle Use, No Respiratory Distress Cardiovascular: Regular Rate, Rhythm, No JVD, No Murmur Objective Exam Vital Signs Date Time Temp Pulse Resp B/P (MAP) Pulse Ox O2 Delivery O2 Flow Rate FiO2 04/13/19 16:07 36.6 82 18 113/78 (90) 99 Room Air 04/13/19 08:00 Room Air 04/13/19 08:00 36.4 70 16 99/64 (76) 98 Room Air 04/13/19 00:00 36.9 82 18 106/75 (85) 98 Room Air 04/12/19 20:00 Room Air I & O 04/13/19 06:59 Intake Total 1290 ml Output Total 875 ml Balance 415 ml Capillary Refill : Less Than 3 SecondsLess Than 3 Seconds General Appearance: No Apparent Distress Respiratory: Chest Non Tender, Lungs Clear, Normal Breath Sounds, No Accessory Muscle Use, No Respiratory Distress Cardiovascular: Regular Rate, Rhythm, No Gallop, No JVD, No Murmur Gastrointestinal: tenderness (incisional), other (incision clean dry and intact surrounding skin mottled appearance (chronic). colostomy pink with output) Extremity: Normal Inspection Neurologic/Psychiatric: Alert (answers questions appropriately), No Mot or/Sensory Deficits Skin: Warm/Dry Lymphatic: No Adenopathy Results Lab Laboratory Tests 04/13/19 05:55: White Blood Count 4.5, Red Blood Count 3.31L, Hemoglobin 9.5L, Hematocrit 29L, Mean Corpuscular Volume 86, Mean Corpuscular Hemoglobin 29, Mean Corpuscular Hemoglobin Concent 33, Red Cell Distribution Width 14.9H, Platelet Count 206, Mean Platelet Volume 10.4, Neutrophils (%) (Auto) 59, Lymphocytes (%) (Auto) 20, Monocytes (%) (Auto) 16H, Eosinophils (%) (Auto) 5, Basophils (%) (Auto) 1, Neutrophils # (Auto) 2.6, Lymphocytes # (Auto) 0.9L, Monocytes # (Auto) 0.7, Eosinophils # (Auto) 0.2, Basophils # (Auto) 0.0, Sodium Level 135, Potassium Level 4.2, Chloride Level 107, Carbon Dioxide Level 20L, Anion Gap 8, Blood Urea Nitrogen 4L, Creatinine 0.44L, Estimat Glomerular Filtration Rate > 60, BUN/Creatinine Ratio 9, Glucose Level 80, Calcium Level 7.4L Microbiology 04/07/19 MRSA Screen - Final, Complete MRSA not isolated 04/06/19 Urine Culture - Final, Complete Gram Pos Mixed Bacterial Riddhi Escherichia coli Assessment/Plan Assessment/Plan Assessment/Plan Consult patient about physical rehabilitation for longer stay at hospital. s/p ex lap with right colon resection, lysis of adhesions for small bowel obstruction anemia continue to monitor hx colovaginal fistula with colon resection and end colostomy diet as tolerates, since having bowel function home soon Clinical Quality Measures DVT/VTE Risk/Contraindication: Risk Factor Score Per Nursin RFS Level Per Nursing on Admit: 3=High MAGEN KARIMI DO 04/13/192027: Subjective Subjective/Events-last exam Patient tolerating diet, but salad was a little upsetting to stomach. Having pain still, but better controlled this evening. Patient has ostomy output. Not participating with physical activity. Denies n/v fever sweats chills shortness of breath or chest pain. Objective Exam General Appearance: No Apparent Distress HEENT: PERRL/EOMI Neck: Supple Respiratory: Chest Non Tender, No Accessory Muscle Use, No Respiratory Distress Cardiovascular: Regular Rate, Rhythm Gastrointestinal: tenderness (incisional), other (incision clean and intact, small amount of serrous fluid at incision surrounding skin mottled appearance (chronic). colostomy pink with output) Assessment/Plan Assessment/Plan Assessment/Plan s/p ex lap with right colon resection, lysis of adhesions for small bowel obstruction anemia continue to monitor hx colovaginal fistula with colon resection and end colostomy pain control discussed physical therapy need to participate to help to assess placement needs home soon. Supervisory-Addendum Brief Verification & Attestation Participated in pt care: history, MDM, physical Personally performed: exam, history, MDM, supervision of care Care discussed with: Medical Student Procedures: n/a Results interpretation: Verified all documentation Verification and Attestation of Medical Student E/M Service A medical student performed and documented this service in my presence. I reviewed and verified all information documented by the medical student and made modifications to such information, when appropriate. I personally performed the physical exam and medical decision making. Magen Karimi, Apr 13, 2019,20:28 NISH MAGALLANES [facility] Apr 13, 2019 19:06 MAGEN KARIMI DO Apr 13, 2019 20:28
[2019-04-13 23:58] VITALS: BP 113/76
[2019-04-14] MEDS: morphine IMMEDIATE RELEASE 15 MG TABLET PO PRN ×4 (02:00→14:03)
[2019-04-14 04:36] LABS: HEMOGLOBIN 8.9 G/DL (11.5-16.0); MEAN PLATELET VOLUME 9.9 FL (7.4-10.4); RED CELL DISTRIBUTION WIDTH 14.9 % (10.0-14.5); WHITE BLOOD COUNT 4.4 10^3/uL (4.3-11.0)
[2019-04-14 04:55] LABS: ALANINE AMINOTRANSFERASE 25 U/L (0-55); ALBUMIN 2.4 GM/DL (3.2-4.5); ALKALINE PHOSPHATASE 85 U/L (40-136); BILIRUBIN,TOTAL 0.4 MG/DL (0.1-1.0); BUN/CREATININE RATIO 9; CALCIUM 7.5 MG/DL (8.5-10.1); CARBON DIOXIDE 20 MMOL/L (21-32); CHLORIDE 103 MMOL/L (98-107); CREATININE SERUM 0.47 MG/DL (0.60-1.30); GFR ESTIMATED > 60; GLUCOSE 82 MG/DL (70-105); POTASSIUM 3.6 MMOL/L (3.6-5.0); SODIUM 133 MMOL/L (135-145)
[2019-04-14 08:00] VITALS: BP 103/60
[2019-04-14] MEDS: FAMOTIDINE 20 MG (PEPCID) TABLET PO SCH (08:27)
--- NOTE | 2019-04-14 09:59 | Physical Therapy Daily Note ---
PT Daily Note-Current Subjective Patient reluctantly agrees to PT. Continues to c/o 10/10 abdominal pain. RN is aware. Pain Numeric Pain Scale: 10-Worst Possible Pain Location: Lower Location Body Site: Abdomen Pain Description: Ache, Pressure Mental Status Patient Orientation: Confused Transfers Therapy Quality Codes: 6 Independent with activity with or without an assistive device 5 Patient requires set up or clean up by helper. Patient completes activity by themselves 4 Supervision or touching assist (CGA). [place] provide cues , steadying assist 3 The helper provides less than half the effort to complete the activity 2 The helper provides more than half the effort to complete the activity 1 Dependent. The helper does all the effort to complete an activity 7 Patient refused to complete or attempt activity 9 The patient did not perform the activity before the current illness or injury 88 Not attempted due to Medical conditions or safety concerns Roll Left to Right (QC): 6 Sit to Lying (QC): 6 Sit to Stand (QC): 5 patient declined up in recliner Weight Bearing Right Lower Extremity: Right Weight Bearing/Tolerated Left Lower Extremity: Left Weight Bearing/Tolerated Gait Training Does the Patient Walk?: Yes Distance: 250' Walk 10 feet (QC): 5 Walk 50 ft with 2 Turns(QC): 5 Walk 150 ft (QC): 5 Gait Assistive Device: FWW extended UE's with FWW use requiring VC's for body placement in FWW Assessment Patient returned to bed with needs met and bed alarm activated. Patient tolerated treatment. PT Short Term Goals Short Term Goals Time Frame: Apr 15, 2019 Gait Distance Comment: 150 ft Gait Assistive Device: None, FWW PT Plan Treatment/Plan Treatment Plan: Continue Plan of Care Treatment Plan: Bed Mobility, Education, Functional Activity Michael, Functional Strength, Gait, Safety, Therapeutic Exercise, Transfers Treatment Duration: Apr 15, 2019 Frequency: 6 times per week Estimated Hrs Per Day: .25 hour per day Patient and/or Family Agrees t: Yes Time/GCodes Time In: 930 Time Out: 939 Total Billed Treatment Time: 9 Total Billed Treatment 1 visit FA 9 min PUMA BEAN PT Apr 14, 2019 09:59
--- NOTE | 2019-04-14 10:39 | NUR ---
IRF Evaluation Order received to evaluate patient for the ARU. Chart review complete and findings discussed with Dr. Novak - patient denied. Denial associated with patient functioning near baseline, therefore, not expected to make significant improvement. Patient is currently ambulating (250ft, RWW) and transferring with supervision; therefore, patient does not require intensive therapies, at this time. It does appear assigned SW is working an SNF placement. Thank you for this referral.
--- NOTE | 2019-04-14 12:17 | Progress Note - Surgery ---
[facility] 04/14/19 1216: Subjective Date Seen by a Provider: Apr 14, 2019 Time Seen by a Provider: 07:05 Subjective/Events-last exam Patient is still in pain this morning but mood is much better. Patient states that she is being moved to a facility. She got up and walked 3 times yesterday. Has been eating soup but complains that food has to much flavor and is trying to find food that is bland. Requests pain medication for pain control. Also requests that the monitor be moved from her room. Hemoglobin is at 8.9. Patient denies fevers, chills, n/v, shortness of breath, or chest pain. Review of Systems General: No Chills, No Night Sweats Pulmonary: No Pleuritic Chest Pain Cardiovascular: No: Chest Pain Gastrointestinal: Abdominal Pain; No: Nausea, Vomiting Focused Exam Respiratory: Chest Non Tender, Lungs Clear, Normal Breath Sounds, No Accessory Muscle Use, No Respiratory Distress Cardiovascular: Regular Rate, Rhythm, No Gallop, No JVD, No Murmur Objective Exam Vital Signs Date Time Temp Pulse Resp B/P (MAP) Pulse Ox O2 Delivery O2 Flow Rate FiO2 04/14/19 08:00 36.1 76 20 103/60 (74) 98 Room Air 04/14/19 08:00 Room Air 04/13/19 23:58 37.6 92 18 113/76 (88) 97 Room Air 04/13/19 20:00 Room Air 04/13/19 16:07 36.6 82 18 113/78 (90) 99 Room Air I & O 04/14/19 07:00 Intake Total 2700 ml Output Total 600 ml Balance 2100 ml Capillary Refill : Less Than 3 SecondsLess Than 3 Seconds General Appearance: No Apparent Distress Neck: Supple Respiratory: Chest Non Tender, Lungs Clear, Normal Breath Sounds, No Accessory Muscle Use, No Respiratory Distress Cardiovascular: Regular Rate, Rhythm, No Gallop, No JVD, No Murmur Gastrointestinal: normal bowel sounds, tenderness (incisional), other (incision clean and intact, small amount of serrous fluid at incision surrounding skin mottled appearance (chronic). colostomy pink with output) Extremity: Normal Inspection Neurologic/Psychiatric: Alert (answers questions appropriately), No Motor/Sensory Deficits Skin: Warm/Dry Lymphatic: No Adenopathy Results Lab Laboratory Tests 04/14/19 04:05: White Blood Count 4.4, Red Blood Count 3.16L, Hemoglobin 8.9L, Hematocrit 27L, Mean Corpuscular Volume 85, Mean Corpuscular Hemoglobin 28, Mean Corpuscular Hemoglobin Concent 33, Red Cell Distribution Width 14.9H, Platelet Count 266, Mean Platelet Volume 9.9, Sodium Level 133L, Potassium Level 3.6, Chloride Level 103, Carbon Dioxide Level 20L, Anion Gap 10, Blood Urea Nitrogen 4L, Creatinine 0.47L, Estimat Glomerular Filtration Rate > 60, BUN/Creatinine Ratio 9, Glucose Level 82, Calcium Level 7.5L, Corrected Calcium 8.8, Total Bilirubin 0.4, Aspartate Amino Transf (AST/SGOT) 21, Alanine Aminotransferase (ALT/SGPT) 25, Alkaline Phosphatase 85, Total Protein 5.0L, Albumin 2.4L Microbiology 04/07/19 MRSA Screen - Final, Complete MRSA not isolated 04/06/19 Urine Culture - Final, Complete Gram Pos Mixed Bacterial Riddhi Escherichia coli Assessment/Plan Assessment/Plan Assessment/Plan s/p ex lap with right colon resection, lysis of adhesions for small bowel obstruction anemia continue to monitor hx colovaginal fistula with colon resection and end colostomy pain control discussed physical therapy need to participate to help to assess placement needs home soon. Clinical Quality Measures DVT/VTE Risk/Contraindication: Risk Factor Score Per Nursin RFS Level Per Nursing on Admit: 3=High MAGEN KARIMI DO 04/14/19 3009: Subjective Subjective/Events-last exam tolerating diet, pain better controlled. functioning colostomy. hoping for placement today. no new complaints. Objective Exam General Appearance: No Apparent Distress HEENT: PERRL/EOMI Respiratory: Chest Non Tender, No Accessory Muscle Use, No Respiratory Distress Cardiovascular: Regular Rate, Rhythm Gastrointestinal: tenderness (incisional), other (incision clean dry and intact, skin mottled appearance (chronic). colostomy pink with output) Extremity: Normal Inspection Neurologic/Psychiatric: Alert (answers questions appropriately), No Motor/Senso ry Deficits Skin: Warm/Dry Lymphatic: No Adenopathy Assessment/Plan Assessment/Plan Assessment/Plan s/p ex lap with right colon resection, lysis of adhesions for small bowel obstruction anemia continue to monitor hx colovaginal fistula with colon resection and end colostomy okay for dc home awaiting placement Supervisory-Addendum Brief Verification & Attestation Participated in pt care: history, MDM, physical Personally performed: exam, history, MDM, supervision of care Care discussed with: Medical Student Procedures: n/a Results interpretation: Verified all documentation Verification and Attestation of Medical Student E/M Service A medical student performed and documented this service in my presence. I reviewed and verified all information documented by the medical student and made modifications to such information, when appropriate. I personally performed the physical exam and medical decision making. Magen Karimi, Apr 14, 2019,17:19 [facility] Apr 14, 2019 12:16 MAGEN KARIMI DO Apr 14, 2019 17:19
[2019-04-14] MEDS: ENOXAPARIN 30 MG/0.3 ML (LOVENOX) SYR SC SCH (12:42)
[2019-04-14] MEDS ORDERED: FAMO20TA5 PO (12:56)
[2019-04-14] MEDS ORDERED: MORP15TA PO (12:56)
[2019-04-14] MEDS ORDERED: PROM25TA14 PO (12:56)
--- NOTE | 2019-04-14 12:58 | Discharge Inst-Skilled Nursing ---
Discharge Inst-Skilled NF Patient Instructions Patient Problems: Small bowel obstruction s/p colon resection Debility Consult/Follow Up/Orders Skilled NF Admit to: [facility] [place] Certifications SNF I certify that SNF services are required to be given on an inpatient basis bec ause of the above named patient's need for senior care care on a continuing basis for the conditions(s) for which he/she was receiving inpatient hospital services prior to his/her transfer to the SNF. Residential Facility Order: Nursing Services, Physical Therapy-Evaluate & Treat Oxygen Delivery Method: Room Air Discharge Diet: Soft Diet Daily Activity as Tolerated: Yes Discharge Medications New, Converted or Re-Newed RX: RX on Chart (morphine script on chart, others electronic) New Medications: Promethazine HCl (Promethazine Tablet) 25 Mg Tablet 25 MG PO Q6H PRN for NAUSEA/VOMITING, #30 TAB 0 Refills Famotidine (Famotidine) 20 Mg Tablet 20 MG PO DAILY, #30 TAB 0 Refills Morphine Sulfate (Morphine Sulfate) 15 Mg Tablet 15 MG PO Q4H PRN for PAIN-SEVERE, #15 TAB 0 Refills Discontinued Medications: Ibuprofen (Advil) 200 Mg Tablet 800 MG PO TID PRN for PAIN-MILD, TAB Roly Mancilla Apr 14, 2019 12:57 ROLY MANCILLA MD Apr 14, 2019 12:58
--- NOTE | 2019-04-14 14:06 | NUR ---
CM/SS, patient discharged to new placement with [facility]. EMR indicates skilled status; however, patient is not insured and does not have skilled benefits to access. [facility] [employer] has completed Medicaid application, patient is considered Medicaid pending and was accepted by [facility] with that understanding. Patient has been trying to reach her daughter today but has not been successful. Bun Machine Operator left message and text of transfer to [facility] scheduled for 1400 without response. CARE Assessment completed with patient, processed with [facility]. Faxed to [facility] along with final orders/instructions/Rx, prepared packet to accompany patient. Unit RN aware.
--- NOTE | 2019-04-14 16:48 | Discharge Summary ---
Discharge Summary Hospital Course Problems/Diagnosis: (1) Small bowel obstruction Status: Acute Assessment & Plan: Surgery consulted, s/p right colon resection. 04/11 has had ostomy output, NG is out. 04/13 advancing diet, try to manage pain with oral pain meds 04/15 managing pain with oral morphine, script for 15 given on d/c. (2) S/P right colectomy Status: Acute Assessment & Plan: management per Surgery (3) Hyperchloremic acidosis Status: Resolved Resolution Date/Time: 04/12/19 @ 14:57 (4) Postoperative anemia Assessment & Plan: Trending down, monitor closely. 04/13 stable (5) Hyponatremia Status: Resolved Resolution Date/Time: 04/12/19 @ 14:57 Assessment & Plan: Improving, continue IVF. (6) UTI (urinary tract infection) Status: Resolved Resolution Date/Time: 04/12/19 @ 14:57 Assessment & Plan: Culture with E coli resistant to amp and Bactrim. Completed ceftriaxone. Qualifiers: Qualified Codes: N30.00 - Acute cystitis without hematuria (7) Agitation Status: Resolved Resolution Date/Time: 04/13/19 @ 15:04 Assessment & Plan: Unclear etiology, possibly unmanaged pain due to not taking pain medication and unable to give IV pain meds, will try IM morphine. Check repeat UA and abdominal x-ray. 04/12 mood normal this am, working on d/c planning due to needing a lot of assistance still to get around. Encouraged to work with PT. Hospital Course Date of Admission: Apr 06, 2019 at 22:11 Admission Diagnosis : [facility] [place] of [facility]charge: 04/14/19 Discharge Diagnosis: See problems Hospital Course: See problems. Discharged to snf at [facility] Labs and Pending Lab Test: Laboratory Tests 04/14/19 04:05: White Blood Count 4.4, Red Blood Count 3.16L, Hemoglobin 8.9L, Hematocrit 27L, Mean Corpuscular Volume 85, Mean Corpuscular Hemoglobin 28, Mean Corpuscular Hemoglobin Concent 33, Red Cell Distribution Width 14.9H, Platelet Count 266, Mean Platelet Volume 9.9, Sodium Level 133L, Potassium Level 3.6, Chloride Level 103, Carbon Dioxide Level 20L, Anion Gap 10, Blood Urea Nitrogen 4L, Creatinine 0.47L, Estimat Glomerular Filtration Rate > 60, BUN/Creatinine Ratio 9, Glucose Level 82, Calcium Level 7.5L, Corrected Calcium 8.8, Total Bilirubin 0.4, Aspartate Amino Transf (AST/SGOT) 21, Alanine Aminotransferase (ALT/SGPT) 25, Alkaline Phosphatase 85, Total Protein 5.0L, Albumin 2.4L Microbiology 04/07/19 MRSA Screen - Final, Complete MRSA not isolated 04/06/19 Urine Culture - Final, Complete Gram Pos Mixed Bacterial Riddhi Escherichia coli Home Meds Active Promethazine Tablet (Promethazine HCl) 25 Mg Tablet 25 Mg PO Q6H PRN Famotidine 20 Mg Tablet 20 Mg PO DAILY Morphine Sulfate 15 Mg Tablet 15 Mg PO Q4H PRN Assessment/Pt DC Instructions See above Discharge Physical Examination Allergies: Coded Allergies: No Known Drug Allergies (Unverified , 02/20/19) General Appearance: No Apparent Distress, WD/WN Respiratory: Lungs Clear, Normal Breath Sounds Cardiovascular: Regular Rate, Rhythm, No Murmur Gastrointestinal: Normal Bowel Sounds, Soft, Tenderness, Other (ostomy bag with brown stool in it) Neurologic/Psychiatric: Normal Mood/Affect Discharge Summary Date of Admission Apr 06, 2019 at 22:11 Date of Discharge Discharge Date: Apr 14, 2019 Admission Diagnosis Assessment: SBO Abdominal pain Cervical cancer at 39yo Smoker Similar admit 02/2019 included extensive testing and consultation due to possible mass on CT s/p disproved and conversation with Dr Burgos at [facility] and Dr Burger and Dr Hernández and Dr Harris Plan: OR per Dr Karimi Discharge Diagnosis (1) Small bowel obstruction Status: Acute (2) UTI (urinary tract infection) Status: Resolved Qualifiers: Qualified Codes: N30.00 - Acute cystitis without hematuria (3) Hyponatremia Status: Resolved (4) Acute hypokalemia Status: Acute (5) Abdominal pain Status: Acute Qualifiers: Qualified Codes: R10.84 - Generalized abdominal pain (6) Nausea & vomiting Status: Acute (7) Uterine cancer Status: Chronic (8) S/P right colectomy Status: Acute (9) Ileus following gastrointestinal surgery (10) Postoperative anemia Clinical Quality Measures DVT/VTE Risk/Contraindication: Risk Factor Score Per Nursin RFS Level Per Nursing on Admit: 3=High ROLY PUGH MD Apr 14, 2019 16:48
== END 2019-04-14 14:05 | DRG 330 ==
LOC: EDUNIT# 19:26 → ER 19:27 → 4TH 22:11
PROVIDERS: ADMIT Family Medicine; ATTEND Family Medicine
PROC: 0DBH0ZZ Excision of Cecum, Open Approach (ICD-10-PCS; 2019-04-07)
PROC: 0DN80ZZ Release Small Intestine, Open Approach (ICD-10-PCS; 2019-04-07)
PROC: 0DNH0ZZ Release Cecum, Open Approach (ICD-10-PCS; 2019-04-07)
PROC: 0D980ZZ Drainage of Small Intestine, Open Approach (ICD-10-PCS; 2019-04-07)
PROC: 0DBB0ZZ Excision of Ileum, Open Approach (ICD-10-PCS; principal; 2019-04-07 15:37)
DX: K56.609 Unspecified intestinal obstruction, unspecified as to partial versus complete obstruction (principal); E87.6 Hypokalemia; E87.1 Hypo-osmolality and hyponatremia; N30.00 Acute cystitis without hematuria; F17.210 Nicotine dependence, cigarettes, uncomplicated; F41.9 Anxiety disorder, unspecified; F60.9 Personality disorder, unspecified; E87.2 Acidosis; D64.9 Anemia, unspecified; Z93.3 Colostomy status; Z85.41 Personal history of malignant neoplasm of cervix uteri
CPT/HCPCS: 36415; 71045; 74018; 74022; 74177; 80048; 80053; 80306; 81000; 83690; 83735; 84100; 84703; 85025; 85027; 85610; 85730; 86141; 86850; 86900; 86901; 87077; 87081; 87088; 87186; 88307; 96365; 96375; 96376

== ENCOUNTER 2019-04-28 15:57 | Inpatient (IN) | payer SELFPAY ==
[~2019-04-28] VITALS: Ht 165 cm; Wt 58.7 kg
[~2019-04-28 15:57] MED LIST changes: +FAMO20TA5 PO; +MORP15TA PO; +PROM25TA14 PO
[2019-04-28 16:44] LABS: BASOPHILS # (AUTO) 0.1 10^3/uL (0.0-0.1); BASOPHILS % (AUTO) 1 % (0-10); EOSINOPHILS # (AUTO) 0.1 10^3/uL (0.0-0.3); EOSINOPHILS % (AUTO) 1 % (0-10); HEMATOCRIT 25 % (35-52); HEMOGLOBIN 8.3 G/DL (11.5-16.0); LYMPHOCYTES # (AUTO) 1.5 X 10^3 (1.0-4.0); LYMPHOCYTES % (AUTO) 23 % (12-44); MEAN CORPUSCULAR HEMOGLOBIN 28 PG (25-34); MEAN CORPUSCULAR HGB CONC 33 G/DL (32-36); MEAN CORPUSCULAR VOLUME 84 FL (80-99); MEAN PLATELET VOLUME 9.7 FL (7.4-10.4); MONOCYTES # (AUTO) 0.9 X 10^3 (0.0-1.0); MONOCYTES % (AUTO) 14 % (0-12); NEUTROPHILS # (AUTO) 4.1 X 10^3 (1.8-7.8); NEUTROPHILS % (AUTO) 61 % (42-75); PLATELET COUNT 439 10^3/uL (130-400); RED CELL DISTRIBUTION WIDTH 15.3 % (10.0-14.5); WHITE BLOOD COUNT 6.6 10^3/uL (4.3-11.0)
[2019-04-28] MEDS ORDERED: LACTATED RINGERS 1,000 ML IV ONE (16:59)
[2019-04-28 17:06] LABS: ALANINE AMINOTRANSFERASE 8 U/L (0-55); ALBUMIN 2.3 GM/DL (3.2-4.5); ALKALINE PHOSPHATASE 91 U/L (40-136); BILIRUBIN,TOTAL 0.3 MG/DL (0.1-1.0); BUN/CREATININE RATIO 27; CALCIUM 7.2 MG/DL (8.5-10.1); CARBON DIOXIDE 25 MMOL/L (21-32); CHLORIDE 99 MMOL/L (98-107); CREATININE SERUM 0.55 MG/DL (0.60-1.30); GFR ESTIMATED > 60; GLUCOSE 97 MG/DL (70-105); SODIUM 134 MMOL/L (135-145); TOTAL PROTEIN 5.1 GM/DL (6.4-8.2)
[2019-04-28] MEDS ORDERED: KCL 10 MEQ TAB (MICRO K) PO ONE (17:30)
[2019-04-28] MEDS ORDERED: PIPERACILLIN/TAZOBACTAM (BULK) 4.5 GM in NS (IVPB) 100 ML IV ONE (18:45)
[2019-04-28 19:02] LABS: INR 1.2 (0.8-1.4); PROTHROMBIN TIME PATIENT 15.6 SEC (12.2-14.7)
[2019-04-28 19:05] LABS: BILIRUBIN,URINE NEGATIVE (NEGATIVE); CLARITY,URINE SLIGHTLY CLOUDY; COLOR,URINE YELLOW; GLUCOSE, URINE (UA) NEGATIVE (NEGATIVE); KETONES,URINE NEGATIVE (NEGATIVE); LEUKOCYTE ESTERASE ,URINE 2+ (NEGATIVE); NITRITE,URINE POSITIVE (NEGATIVE); PH,URINE 7 (5-9); PROTEIN,URINE 1+ (NEGATIVE)
[2019-04-28 19:16] LABS: BACTERIA,URINE LARGE /HPF
--- NOTE | 2019-04-28 19:22 | Diagnostic Imaging Report ---
CLINICAL INDICATION: Patient has a fistula and stool coming from vagina. No chest complaints. EXAM: Portable chest x-ray, upright view. COMPARISONS: Chest x-ray dated 04/07/2019. FINDINGS: Lungs/pleura: Lungs are clear. There is no pneumothorax. There is no pleural effusion. Mediastinum: Unremarkable. Pulmonary vasculature: Unremarkable. Heart: Unremarkable. Bones/extrathoracic soft tissue: Unremarkable. IMPRESSION: There is no radiographic evidence of acute cardiopulmonary process. Dictated by: Dictated on workstation # [id number]
[2019-04-28] MEDS ORDERED: NS IV 500 ML 500 ML IV ONE (19:35)
[2019-04-28] MEDS ORDERED: SIME180C4 PO (19:36)
[2019-04-28] MEDS ORDERED: IBUP-16 PO (19:36)
[2019-04-28] MEDS ORDERED: OMEP20TA33 PO (19:36)
[2019-04-28] MEDS ORDERED: DCCL10A2 PO (19:36)
--- NOTE | 2019-04-28 19:43 | ED Abdominal Pain ---
General Chief Complaint: Abdominal/GI Problems Stated Complaint: STOOL FROM VAG Nursing Triage Note: patient reports having a fistula and having stool come from her vagina Sepsis Screen: No Definite Risk Source of Information: Patient, EMS, Old Records Exam Limitations: No Limitations History of Present Illness Date Seen by Provider: Apr 28, 2019 Time Seen by Provider: 15:59 Initial Comments This 53-year-old woman presents to the emergency room from [facility] with primary complaint of stool coming from the vaginal area. Patient has a remote history of rectovaginal fistula. This was previously repaired. Patient had small bowel obstruction in March resulting in right colectomy and decompression of the small bowel. She has a colostomy. She denies any output of stool rectally or vaginally until tonight. She is afebrile. She is otherwise feeling at baseline. Patient is noted to be hypotensive. She reports her baseline blood pressures are in the 90s systolic. Allergies and Home Medications Allergies Coded Allergies: No Known Drug Allergies (Unverified , 02/20/19) Home Medications Dicyclomine HCl 20 Mg/2 Ml Inj, 20 MG PO QID, (Reported) Ibuprofen 200 Mg Tablet, 600 MG PO Q6H, (Reported) Morphine Sulfate 15 Mg Tablet, 15 MG PO Q4H PRN for PAIN-SEVERE Prescribed by: ROLY PUGH on 04/14/19 1256 Omeprazole Magnesium 20 Mg Tablet.dr, 20 MG PO DAILY, (Reported) Promethazine HCl 25 Mg Tablet, 25 MG PO Q6H PRN for NAUSEA/VOMITING Prescribed by: ROLY PUGH on 04/14/19 1256 Simethicone 180 Mg Capsule, 180 MG PO Q6H, (Reported) Patient Home Medication List Home Medication List Reviewed: Yes Review of Systems Review of Systems Constitutional: no symptoms reported EENTM: No Symptoms Reported Respiratory: No Symptoms Reported Cardiovascular: See HPI Gastrointestinal: See HPI Genitourinary: See HPI Musculoskeletal: no symptoms reported Skin: no symptoms reported Psychiatric/Neurological: No Symptoms Reported Endocrine: No Symptoms Reported Hematologic/Lymphatic: No Symptoms Reported Past Pydgcen-Ldoxwf-Iwpxgm Hx Past Med/Social Hx: Reviewed Nursing Past Med/Soc Hx Patient Social History Alcohol Use: Denies Use Recreational Drug Use: No Type Used: Cigarettes Recent Foreign Travel: No Contact w/Someone Who Travel: No Recent Infectious Disease Expo: No Recent Hopitalizations: No Immunizations Up To Date Date of Pneumonia Vaccine: Aug 12, 2017 Past Medical History Surgeries: Yes (FISTULA , CERVICAL) Abdominal, Bowel Surgery (Right colectomy, colostomy) Respiratory: No Cardiac: No Neurological: Yes Stroke Reproductive Disorders: No Genitourinary: No Gastrointestinal: Yes (COLOSTOMY, DIVERTICULITIS) Musculoskeletal: No Endocrine: No HEENT: No Cancer: Yes Cervical Did You Recieve Any Treatments: Yes What Type of Treatment Did You: Chemotherapy, Radiation Psychosocial: No Integumentary: No Blood Disorders: No Family Medical History Dementia 19 FATHER FH: cancer 19 FATHER, Onset:76 19 MOTHER, Onset:46 Fibrocystic disease of breast Cancer Patient has is currently is a parternership for 32 years. She has two kids, one boy and one girl Mother: from cancer (type: unknown) Father: , had history of strokes Physical Exam Vital Signs Vital Signs - First Documented 04/28/19 16:02 Temp 36.5 Pulse 68 Resp 18 B/P (MAP) 92/61 (71) Pulse Ox 100 Capillary Refill : Less Than 3 Seconds Height/Weight/BMI Height: 5'5.00" Weight: 139lbs. 7.0oz. 63.810069zb; 15.00 BMI Method:Stated General Appearance: WD/WN, no apparent distress, thin HEENT: PERRL/EOMI, normal ENT inspection Neck: normal inspection Respiratory: lungs clear, normal breath sounds, no respiratory distress Cardiovascular: regular rate, rhythm, no edema, no murmur Gastrointestinal: normal bowel sounds, soft, tenderness (Diffuse significant tenderness throughout), other (Colostomy intact) Genital/Rectal: other (There does appear to be stool within the vagina on exam) Extremities: normal inspection, no pedal edema Neurologic/Psychiatric: rhythmic gymnastics coach II-XII nml as tested, no motor/sensory deficits, alert, normal mood/affect, oriented x 3 Skin: normal color, warm/dry Focused Exam Reason for ruling out sepsis: Sepsis felt unlikely but not completely ruled out Possible Source: Genitouriary Lactate Level 04/28/19 18:55: Lactic Acid Level 1.06 Time of Focused Exam: 19:10 Respiratory: Lungs Clear, Normal Breath Sounds, No Accessory Muscle Use Cardiovascular: Regular Rate, Rhythm, No Edema Capillary Refill: Less Than 3 Seconds Peripheral Pulses: 2+ Dorsalis Pedis (R), 2+ Left Dors-Pedis (L), 2+ Radial Pulses (R), 2+ Radial Pulses (L) Skin: normal color, warm/dry Lactic Acid Level Laboratory Tests Test 04/28/19 18:55 Lactic Acid Level 1.06 MMOL/L (0.50-2.00) Within 3hrs of presentation: Admin fluids, Admin ABX, Blood cultures prior to ABX's, Focus exam, Lactate level Progress/Results/Core Measures Results/Orders Lab Results Laboratory Tests Test 04/28/19 16:30 04/28/19 18:50 04/28/19 18:55 Range/Units White Blood Count 6.6 4.3-11.0 10^3/uL Red Blood Count 3.02 L 4.35-5.85 10^6/uL Hemoglobin 8.3 L 11.5-16.0 G/DL Hematocrit 25 L 35-52 % Mean Corpuscular Volume 84 80-99 FL Mean Corpuscular Hemoglobin 28 25-34 PG Mean Corpuscular Hemoglobin Concent 33 32-36 G/DL Red Cell Distribution Width 15.3 H 10.0-14.5 % Platelet Count 439 H 130-400 10^3/uL Mean Platelet Volume 9.7 7.4-10.4 FL Neutrophils (%) (Auto) 61 42-75 % Lymphocytes (%) (Auto) 23 12-44 % Monocytes (%) (Auto) 14 H 0-12 % Eosinophils (%) (Auto) 1 0-10 % Basophils (%) (Auto) 1 0-10 % Neutrophils # (Auto) 4.1 1.8-7.8 X 10^3 Lymphocytes # (Auto) 1.5 1.0-4.0 X 10^3 Monocytes # (Auto) 0.9 0.0-1.0 X 10^3 Eosinophils # (Auto) 0.1 0.0-0.3 10^3/uL Basophils # (Auto) 0.1 0.0-0.1 10^3/uL Prothrombin Time 15.6 H 12.2-14.7 SEC INR Comment 1.2 0.8-1.4 Activated Partial Thromboplast Time 46 H 24-35 SEC Sodium Level 134 L 135-145 MMOL/L Potassium Level 3.0 L 3.6-5.0 MMOL/L Chloride Level 99 98-107 MMOL/L Carbon Dioxide Level 25 21-32 MMOL/L Anion Gap 10 5-14 MMOL/L Blood Urea Nitrogen 15 7-18 MG/DL Creatinine 0.55 L 0.60-1.30 MG/DL Estimat Glomerular Filtration Rate > 60 BUN/Creatinine Ratio 27 Glucose Level 97 70-105 MG/DL Calcium Level 7.2 L 8.5-10.1 MG/DL Corrected Calcium 8.6 8.5-10.1 MG/DL Total Bilirubin 0.3 0.1-1.0 MG/DL Aspartate Amino Transf (AST/SGOT) 11 5-34 U/L Alanine Aminotransferase (ALT/SGPT) 8 0-55 U/L Alkaline Phosphatase 91 40-136 U/L C-Reactive Protein High Sensitivity 5.16 H 0.00-0.50 MG/DL Total Protein 5.1 L 6.4-8.2 GM/DL Albumin 2.3 L 3.2-4.5 GM/DL Urine Color YELLOW Urine Clarity SLIGHTLY CLOUDY Urine pH 7 5-9 Urine Specific [place] 1.010 L 1.016-1.022 Urine Protein 1+ H NEGATIVE Urine Glucose (UA) NEGATIVE NEGATIVE Urine Ketones NEGATIVE NEGATIVE Urine Nitrite POSITIVE H NEGATIVE Urine Bilirubin NEGATIVE NEGATIVE Urine Urobilinogen NORMAL NORMAL MG/DL Urine Leukocyte Esterase 2+ H NEGATIVE Urine RBC (Auto) NEGATIVE NEGATIVE Urine RBC NONE /HPF Urine WBC 2-5 /HPF Urine Crystals NONE /LPF Urine Bacteria LARGE H /HPF Urine Casts NONE /LPF Urine Mucus NEGATIVE /LPF Urine Culture Indicated CULTURE PENDING Lactic Acid Level 1.06 0.50-2.00 MMOL/L My Orders Orders - DODIE CASTANEDA MD Cbc With Automated Diff (04/28/19 16:06) Comprehensive Metabolic Panel (04/28/19 16:06) Hs C Reactive Protein (04/28/19 16:06) Ed Iv/Invasive Line Start (04/28/19 16:06) Lactated Ringers (Lr 1000 Ml Iv Solution (04/28/19 16:59) Potassium Chloride (Tablet) (Klor Con Ta (04/28/19 17:30) Blood Culture (04/28/19 18:34) Sputum Culture (04/28/19 18:34) Urinalysis (04/28/19 18:34) Urine Culture (04/28/19 18:34) Protime With Inr (04/28/19 18:34) Partial Thromboplastin Time (04/28/19 18:34) Chest 1 View, Ap/Pa Only (04/28/19 18:34) Ed Iv/Invasive Line Start (04/28/19 18:34) Vital Signs Adult Sepsis Patie Q15M (04/28/19 18:34) O2 (04/28/19 18:34) Remove Rings In Anticipation O (04/28/19 18:34) Lactic Acid Analyzer (04/28/19 18:34) Piperacillin/Tazobactam (Bulk) (Zosyn In (04/28/19 18:45) Medications Given in ED Current Medications Medications Dose Ordered Sig/Reggie Route Start Time Stop Time Status Last Admin Dose Admin Lactated Ringer's 1,000 ml @ 0 mls/hr Q0M ONCE IV 04/28/19 16:59 04/28/19 17:00 DC 04/28/19 17:17 0 MLS/HR Piperacillin Sod/ Tazobactam Sod 4.5 gm/Sodium Chloride 120 ml @ 240 mls/hr ONCE ONCE IV 04/28/19 18:45 04/28/19 19:14 DC 04/28/19 20:19 240 MLS/HR Potassium Chloride 40 meq ONCE ONCE PO 04/28/19 17:30 04/28/19 17:31 DC 04/28/19 17:19 40 MEQ Vital Signs/I&O 04/28/19 16:02 Temp 36.5 Pulse 68 Resp 18 B/P (MAP) 92/61 (71) Pulse Ox 100 Blood Pressure Mean: 71 Progress Progress Note : Progress Note Case was discussed with Dr. Harris. He is concerned because there should be no stool output from anywhere near the rectum as the distal bowel was closed off with no significant rectal remnant. Patient was also noted to be hypotensive with systolic blood pressures as low as the 70s. Patient's typical systolic blood pressures in the 90s. Blood pressure did not correct with 1 L of IV fluid. As a precaution, septic workup was pursued. She was found to have some subtle suggestion of urinary tract infection. Zosyn was initiated. Labs would not suggest that patient is truly septic. However, she was admitted on IV antibiotic therapy as a precaution. Dr. Harris plans to evaluate further with small bowel follow-through in the morning. Patient is being admitted to the ICU as a precaution. Blood pressures are very difficult to obtain. Automated cuffs do not read her blood pressures well. Blood pressures taken by manual measurement were 88/52 on the right and 76/48 on the left. Physical exam would suggest she is perfusion during her extremities well with strong peripheral pulses in all 4 extremities and normal capillary refill. Diagnostic Imaging Diagonstic Imaging: Xray Plain Films/CT/US/NM/MRI: chest Comments Chest x-ray viewed by me and report reviewed. See report below: NAME: CLAUDIA SHAW MED REC#: [id number] PT STATUS: REG ER : 1965 PHYSICIAN: DODIE CASTANEDA MD ADMIT DATE: 04/28/19/ER Draft Date of Exam:04/28/19 CHEST 1 VIEW, AP/PA ONLY CLINICAL INDICATION: Patient has a fistula and stool coming from vagina. No chest complaints. EXAM: Portable chest x-ray, upright view. COMPARISONS: Chest x-ray dated 04/07/2019. FINDINGS: Lungs/pleura: Lungs are clear. There is no pneumothorax. There is no pleural effusion. Mediastinum: Unremarkable. Pulmonary vasculature: Unremarkable. Heart: Unremarkable. Bones/extrathoracic soft tissue: Unremarkable. IMPRESSION: There is no radiographic evidence of acute cardiopulmonary process. Dictated on workstation # [id number] Dict: 04/28/191918 Trans: 04/28/191921 [id number] Interpreted by: NILSA MORRIS MD Departure Communication (Admissions) Time/Spoke to Admitting Phy: 19:25 Dr. Collado Time/Spoke to Consulting Phy: 16:15 Dr. Harris Impression Primary Impression: Urinary tract infection Qualified Codes: N39.0 - Urinary tract infection, site not specified Additional Impressions: suspected enterovaginal fistula Hypotension Qualified Codes: I95.9 - Hypotension, unspecified Disposition: ADMITTED INPATIENT Condition: Stable Admissions Decision to Admit Reason: Admit from ER (General) Decision to Admit/Date: Apr 28, 2019 Time/Decision to Admit Time: 18:30 Departure-Patient Inst. Referrals: [facility] (PCP/Family) Primary Care Physician DODIE CASTANEDA MD Apr 28, 2019 19:43
[2019-04-28] MEDS ORDERED: WATER (STERILE) FOR INJECTION 20 ML ONE (20:14)
[2019-04-28] MEDS ORDERED: PIPERACILLIN/TAZO 4.5 GM VIAL (ZOSYN) IV ONE (20:14)
[2019-04-28] MEDS ORDERED: NS (IVPB) 100 ML ONE (20:14)
[2019-04-28 21:30] VITALS: BP 80/56
[2019-04-28 22:00] VITALS: BP 89/57
[2019-04-28] MEDS ORDERED: PROMETHAZINE INJ 25 MG/ML (PHENERGAN) AMP IV PRN (22:15)
[2019-04-28] MEDS ORDERED: ONDANSETRON 4 MG/2 ML (SDV) Z0FRAN IV PRN (22:15)
[2019-04-28] MEDS: KETOROLAC 15 MG/ML VIAL IVP PRN (22:28)
[2019-04-28] MEDS: NS W/KCL 20 MEQ/L 1,000 ML IV SCH (22:28)
[2019-04-28 22:30] VITALS: BP 82/58
[2019-04-28 23:00] VITALS: BP 82/50
[2019-04-29] VITALS (14 sets, daily range): BP systolic 82–120; BP diastolic 48–75
--- NOTE | 2019-04-29 | NUR ---
THIS NURSE NOTIFIED [facility] THAT PT IS C/O SEVERE PAIN TO HER ABD THAT IS UNRELIEVED BY TORADOL. ORDERS GIVEN FOR FLUID BOLUS AND ALBUMIN, THEN TO TRY MORPHINE. Addendum: 04/29/19 at 0800 by MELISSA COPPOLA RN PT SBP HAS BEEN IN THE 80S.
[2019-04-29] MEDS ORDERED: NS IV 1000 ML 1,000 ML ONE (01:01)
[2019-04-29] MEDS ORDERED: NS IV 1000 ML 1,000 ML IV SCH (01:15)
[2019-04-29] MEDS: morphine INJ 4 MG/ML 1 ML (VIAL/SYRINGE) IV PRN ×8 (01:48→21:29)
[2019-04-29] MEDS: ALBUMIN 25% 25 GM/100 ML IV (PRE-MIX) IV SCH ×2 (02:16→03:30)
[2019-04-29] MEDS ORDERED: PIPERACILLIN/TAZO 4.5 GM VIAL (ZOSYN) IV ONE (03:33)
[2019-04-29] MEDS ORDERED: NS (IVPB) 100 ML ONE (03:34)
[2019-04-29] MEDS: PIPERACILLIN/TAZO 4.5 GM/NS 100 ML IV SCH ×4 (03:44→12:33)
[2019-04-29 05:17] LABS: BASOPHILS % (AUTO) 0 % (0-10); EOSINOPHILS # (AUTO) 0.1 10^3/uL (0.0-0.3); EOSINOPHILS % (AUTO) 2 % (0-10); LYMPHOCYTES % (AUTO) 23 % (12-44); MEAN CORPUSCULAR HEMOGLOBIN 27 PG (25-34); MEAN CORPUSCULAR HGB CONC 32 G/DL (32-36); MEAN CORPUSCULAR VOLUME 85 FL (80-99); MEAN PLATELET VOLUME 9.6 FL (7.4-10.4); MONOCYTES # (AUTO) 0.6 X 10^3 (0.0-1.0); MONOCYTES % (AUTO) 13 % (0-12); NEUTROPHILS # (AUTO) 2.8 X 10^3 (1.8-7.8); NEUTROPHILS % (AUTO) 62 % (42-75); PLATELET COUNT 274 10^3/uL (130-400); RED CELL DISTRIBUTION WIDTH 15.3 % (10.0-14.5); WHITE BLOOD COUNT 4.5 10^3/uL (4.3-11.0)
[2019-04-29 05:19] LABS: HEMOGLOBIN 6.4 G/DL (11.5-16.0)
[2019-04-29 05:20] LABS: HEMATOCRIT 20 % (35-52)
[2019-04-29 05:37] LABS: ALANINE AMINOTRANSFERASE < 6 U/L (0-55); ALKALINE PHOSPHATASE 79 U/L (40-136); BILIRUBIN,TOTAL 0.4 MG/DL (0.1-1.0); BUN/CREATININE RATIO 24; CALCIUM 7.1 MG/DL (8.5-10.1); CARBON DIOXIDE 22 MMOL/L (21-32); CHLORIDE 106 MMOL/L (98-107); CREATININE SERUM 0.51 MG/DL (0.60-1.30); GFR ESTIMATED > 60; GLUCOSE 90 MG/DL (70-105); PHOSPHORUS 2.5 MG/DL (2.3-4.7); POTASSIUM 3.7 MMOL/L (3.6-5.0); SODIUM 136 MMOL/L (135-145); TOTAL PROTEIN 5.1 GM/DL (6.4-8.2)
[2019-04-29 05:48] LABS: MAGNESIUM 1.1 MG/DL (1.6-2.4)
[2019-04-29] MEDS ORDERED: MAGNESIUM 1 GM/100 ML IVPB 100 ML IV SCH (06:00)
[2019-04-29] MEDS ORDERED: POTASSIUM CL 10MEQ/50ML IVPB 50 ML IV SCH (06:00)
[2019-04-29] MEDS ORDERED: KCL 20 MEQ TAB (K-DUR) PO SCH (06:00)
[2019-04-29] MEDS ORDERED: NS (IVPB) 250 ML ONE (06:05)
[2019-04-29] MEDS: NS W/KCL 20 MEQ/L 1,000 ML IV SCH (06:27)
[2019-04-29] MEDS: MAGNESIUM 1 GM/100 ML IVPB 100 ML IV SCH ×3 (06:28→09:05)
--- NOTE | 2019-04-29 06:49 | NUR ---
THIS NURSE NOTIFIED EICU THAT PT IS REFUSING BLOOD DRAW FOR TYPE AND CROSS. LAB IS UNABLE TO USE PREVIOUS BLOOD. PT EDUCATED OR WHAT SHE IS REFUSING AND THE RISKS. NO NEW ORDERS AT THIS TIME.
--- NOTE | 2019-04-29 08:29 | Diagnostic Imaging Report ---
INDICATION: Enterovaginal fistula, hypotension and UTI. Comparison made with prior examination 04/28/2019. FINDINGS: The heart size, mediastinal configuration, and pulmonary vascularity are within normal limits. There is no pleural effusion, pneumothorax, or pneumonia. The osseous structures are unremarkable. IMPRESSION: No acute cardiopulmonary abnormality. Dictated by: Dictated on workstation # [id number]
[2019-04-29] MEDS: FAMOTIDINE 20MG/2ML IV (PEPCID) IVP SCH (09:04)
[2019-04-29] MEDS: KETOROLAC 15 MG/ML VIAL IVP PRN (09:04)
--- NOTE | 2019-04-29 09:08 | Consultation - Surgery ---
KASANDRA HORNER,MED STUDENT 04/29/19 0908: History of Present Illness History of Present Illness Patient Consulted On(sepideh/time) 04/29/19 09:01 Date Seen by Provider: Apr 29, 2019 Time Seen by Provider: 07:45 History of Present Illness Surgical consult for possible fistula HPI per ED: This 53-year-old woman presents to the emergency room from [facility] with primary complaint of stool coming from the vaginal area. Patient has a remote history of rectovaginal fistula. This was previously repaired. Patient had small bowel obstruction in March resulting in right colectomy and decompression of the small bowel. She has a colostomy. She denies any output of stool rectally or vaginally until tonight. She is afebrile. She is otherwise feeling at baseline. Patient is noted to be hypotensive. She reports her baseline blood pressures are in the 90s systolic. Mrs. Cooper is a 53 yo female that presented to the ED yesterday with complaints of stool coming from her vagina that began today and no output from her colostomy. She had surgery for a small bowel obstruction at the end of March. She denies any fevers, chills, nausea, vomiting, chest pain or shortness of breath. She states she has had some dizziness with positional changes and abdominal pain. Allergies and Home Medications Allergies Coded Allergies: No Known Drug Allergies (Unverified , 02/20/19) Home Medications Dicyclomine HCl 20 Mg/2 Ml Inj, 20 MG PO QID, (Reported) Ibuprofen 200 Mg Tablet, 600 MG PO Q6H, (Reported) Morphine Sulfate 15 Mg Tablet, 15 MG PO Q4H PRN for PAIN-SEVERE Prescribed by: ROLY PUGH on 04/14/19 1256 Omeprazole Magnesium 20 Mg Tablet.dr, 20 MG PO DAILY, (Reported) Promethazine HCl 25 Mg Tablet, 25 MG PO Q6H PRN for NAUSEA/VOMITING Prescribed by: ROLY PUGH on 04/14/19 1256 Simethicone 180 Mg Capsule, 180 MG PO Q6H, (Reported) Past Lbgnkqp-Qzrfju-Vqfyip Hx Patient Social History Alcohol Use: Denies Use Recreational Drug Use: No Smoking Status: Current Everyday Smoker Type Used: Cigarettes (1 PPD for 35 years) Recent Foreign Travel: No Contact w/Someone Who Travel: No Recent Infectious Disease Expo: No Recent Hopitalizations: No Immunizations Up To Date Date of Pneumonia Vaccine: Apr 26, 2019 Date of Influenza Vaccine: Apr 26, 2019 Surgeries History of Surgeries: Yes (FISTULA , CERVICAL) Surgeries: Abdominal, Bowel Surgery (Right colectomy, colostomy) Respiratory History of Respiratory Disorde: No Cardiovascular History of Cardiac Disorders: No Neurological History of Neurological Disord: Yes Neurological Disorders: Stroke Reproductive System Hx Reproductive Disorders: No Genitourinary History of Genitourinary Disor: No Gastrointestinal History of Gastrointestinal Di: Yes (COLOSTOMY, DIVERTICULITIS) Gastrointestinal Disorders: Diverticulosis Musculoskeletal History of Musculoskeletal Dis: No Endocrine History of Endocrine Disorders: No HEENT History of HEENT Disorders: No Cancer History of Cancer: Yes Cancer: Cervical Psychosocial History of Psychiatric Problem: No Integumentary History of Skin or Integumenta: No Blood Transfusions History of Blood Disorders: No Family Medical History Significant Family History: Cancer (mother, unknown type), Stroke (father) Family Medial History: Dementia 19 FATHER FH: cancer 19 FATHER, Onset:76 19 MOTHER, Onset:46 Fibrocystic disease of breast Review of Systems-General Constitutional: No chills; dizziness (with positional changes); No fever EENTM: No nose congestion, No throat pain Respiratory: No cough, No short of breath Cardiovascular: No chest pain, No syncope Gastrointestinal: abdominal pain (diffuse); No melena, No nausea, No vomiting; other (colostomy) Musculoskeletal: back pain; No joint pain Skin: No pruritus, No rash; other (opening in midline abdominal incision from surgery, closed with guilherme ) Psychiatric/Neurological: Denies Headache, Denies Weakness Physical Exam-General Problems Physical Exam Vital Signs Vital Signs - First Documented 04/28/19 04/28/19 04/28/19 09:38 16:02 21:30 Temp 36.5 Pulse 75 Resp 18 B/P (MAP) 92/61 (71) Pulse Ox 100 O2 Delivery Room Air Capillary Refill : Less Than 3 Seconds General Appearance: WD/WN, no apparent distress HEENT: PERRL/EOMI, other (mucous membranes moist) Neck: non-tender, full range of motion; No lymphadenopathy (R), No lymphadenopathy (L) Respiratory: chest non-tender, lungs clear, normal breath sounds, no respiratory distress, no accessory muscle use Cardiovascular: regular rate, rhythm, no murmur Peripheral Pulses: 2+ Radial Pulses (R), 2+ Radial Pulses (L) Gastrointestinal: No distended, No rebound; tenderness (diffusly, worst at LUQ and suprapubic) Extremities: no pedal edema, no calf tenderness Neurologic/Psychiatric: alert, normal mood/affect Skin: warm/dry, other (midline abdominal incision from previous surgery with small opening packed with iodophor) Data Review Labs Laboratory Tests 04/28/19 16:30: White Blood Count 6.6, Red Blood Count 3.02L, Hemoglobin 8.3L, Hematocrit 25L, Mean Corpuscular Volume 84, Mean Corpuscular Hemoglobin 28, Mean Corpuscular Hemoglobin Concent 33, Red Cell Distribution Width 15.3H, Platelet Count 439H, Mean Platelet Volume 9.7, Neutrophils (%) (Auto) 61, Lymphocytes (%) (Auto) 23, Monocytes (%) (Auto) 14H, Eosinophils (%) (Auto) 1, Basophils (%) (Auto) 1, Neutrophils # (Auto) 4.1, Lymphocytes # (Auto) 1.5, Monocytes # (Auto) 0.9, Eosinophils # (Auto) 0.1, Basophils # (Auto) 0.1, Prothrombin Time 15.6H, INR Comment 1.2, Activated Partial Thromboplast Time 46H, Sodium Level 134L, Potassium Level 3.0L, Chloride Level 99, Carbon Dioxide Level 25, Anion Gap 10, Blood Urea Nitrogen 15, Creatinine 0.55L, Estimat Glomerular Filtration Rate > 60, BUN/Creatinine Ratio 27, Glucose Level 97, Calcium Level 7.2L, Corrected Calcium 8.6, Total Bilirubin 0.3, Aspartate Amino Transf (AST/SGOT) 11, Alanine Aminotransferase (ALT/SGPT) 8, Alkaline Phosphatase 91, C-Reactive Protein High Sensitivity 5.16H, Total Protein 5.1L, Albumin 2.3L 04/28/19 18:50: Urine Color YELLOW, Urine Clarity SLIGHTLY CLOUDY, Urine pH 7, Urine Specific [place] 1.010L, Urine Protein 1+H, Urine Glucose (UA) NEGATIVE, Urine Ketones NEGATIVE, Urine Nitrite POSITIVEH, Urine Bilirubin NEGATIVE, Urine Urobilinogen NORMAL, Urine Leukocyte Esterase 2+H, Urine RBC (Auto) NEGATIVE, Urine RBC NONE, Urine WBC 2-5, Urine Crystals NONE, Urine Bacteria LARGEH, Urine Casts NONE, Urine Mucus NEGATIVE, Urine Culture Indicated CULTURE PENDING 04/28/19 18:55: Lactic Acid Level 1.06 04/29/19 05:04: White Blood Count 4.5, Red Blood Count 2.34L, Hemoglobin 6.4#*L, Hematocrit 20*L , Mean Corpuscular Volume 85, Mean Corpuscular Hemoglobin 27, Mean Corpuscular Hemoglobin Concent 32, Red Cell Distribution Width 15.3H, Platelet Count 274, Mean Platelet Volume 9.6, Neutrophils (%) (Auto) 62, Lymphocytes (%) (Auto) 23, Monocytes (%) (Auto) 13H, Eosinophils (%) (Auto) 2, Basophils (%) (Auto) 0, Neutrophils # (Auto) 2.8, Lymphocytes # (Auto) 1.0, Monocytes # (Auto) 0.6, E osinophils # (Auto) 0.1, Basophils # (Auto) 0.0, Sodium Level 136, Potassium Level 3.7, Chloride Level 106, Carbon Dioxide Level 22, Anion Gap 8, Blood Urea Nitrogen 12, Creatinine 0.51L, Estimat Glomerular Filtration Rate > 60, BUN/Cr eatinine Ratio 24, Glucose Level 90, Calcium Level 7.1L, Corrected Calcium 7.9L, Total Bilirubin 0.4, Aspartate Amino Transf (AST/SGOT) 8, Alanine Aminotransferase (ALT/SGPT) < 6, Alkaline Phosphatase 79, C-Reactive Protein High Sensitivity 4.15H, Total Protein 5.1L, Albumin 3.0L, Phosphorus Level 2.5, Magnesium Level 1.1*L Assessment/Plan Assessment/Plan Assessment/Plan Possible Enterovaginal fistula Anemia Hypotension Hypomagnesium - begin replaced UTI Continue clear liquid diet Will order small bowel follow through for this morning Hgb is 6.4, patient is refusing type and cross at this time Continue IVF and abx Antiemetics and pain control as needed Continue to pack abdominal opening daily with iodophor Clinical Quality Measures DVT/VTE Risk/Contraindication: Risk Factor Score Per Nursin RFS Level Per Nursing on Admit: 4+=Very High GOGO KLEIN DO 04/29/19 1010: History of Present Illness History of Present Illness Time Seen by Provider: 08:57 History of Present Illness Pt stated that what we saw in her colostomy bag this am, was what she saw in her vagina. She has min-mod abdominal pain. She is refusing any blood draw this am. Allergies and Home Medications Allergies Coded Allergies: No Known Drug Allergies (Unverified , 02/20/19) Home Medications Dicyclomine HCl 20 Mg/2 Ml Inj, 20 MG PO QID, (Reported) Ibuprofen 200 Mg Tablet, 600 MG PO Q6H, (Reported) Morphine Sulfate 15 Mg Tablet, 15 MG PO Q4H PRN for PAIN-SEVERE Prescribed by: ROLY PUGH on 04/14/19 1256 Omeprazole Magnesium 20 Mg Tablet.dr, 20 MG PO DAILY, (Reported) Promethazine HCl 25 Mg Tablet, 25 MG PO Q6H PRN for NAUSEA/VOMITING Prescribed by: ROLY PUGH on 04/14/19 1256 Simethicone 180 Mg Capsule, 180 MG PO Q6H, (Reported) Patient Home Medication List Home Medication List Reviewed: Yes Past Ljxzgpf-Lyxqkj-Hjuihy Hx Musculoskeletal History of Musculoskeletal Dis: No Endocrine History of Endocrine Disorders: No HEENT History of HEENT Disorders: No Loss of Vision: Denies Hearing Impairment: Denies Psychosocial History of Psychiatric Problem: Yes Behavioral Health Disorders: Bipolar Integumentary History of Skin or Integumenta: Yes (pt has abnormal appearance to abdominal skin, looks mottled.....but this is not new) Family Medical History Family Medial History: Dementia 19 FATHER FH: cancer 19 FATHER, Onset:76 19 MOTHER, Onset:46 Fibrocystic disease of breast Review of Systems-General Psychiatric/Neurological: Emotional Problems Other pt denies any hx of abnromal bleeding or bruising Physical Exam-General Problems Physical Exam Eyes: Bilateral Eye PERRL, Bilateral Eye EOMI Gastrointestinal: soft (right, but left feels like she is voluntarily guarding), tenderness (diffusly, worst at LUQ and suprapubic) Assessment/Plan Assessment/Plan Assessment/Plan SBFT ordered, will try to convince pt to allow us to draw blood for labs. Pt can go down to 4th floor. Supervisory-Addendum Brief Verification & Attestation Participated in pt care: history, MDM, physical Personally performed: exam, history, MDM Care discussed with: Medical Student Procedures: n/a Verification and Attestation of Medical Student E/M Service A medical student performed and documented this service in my presence. I reviewed and verified all information documented by the medical student and made modifications to such information, when appropriate. I personally performed the physical exam and medical decision making. Gogo Klein, Apr 29, 2019,10:10 KASANDRA HORNER,MED STUDENT Apr 29, 2019 09:08 GOGO KLEIN DO Apr 29, 2019 10:10
--- NOTE | 2019-04-29 10:47 | NUR ---
This nurse called [facility] report to Zelda MARTINEZ on medical.
[2019-04-29] MEDS ORDERED: morphine IMMEDIATE RELEASE 15 MG TABLET PO PRN (11:00)
[2019-04-29] MEDS ORDERED: PROMETHAZINE 25 MG (PHENERGAN) TAB PO PRN (11:00)
--- NOTE | 2019-04-29 11:04 | History & Physical-Hospitalist ---
History of Present Illness HPI/Chief Complaint This is a 53-year-old white female resident of [facility]. She presents to the emergency room with complaints of stool coming out of her vagina. She has had no further trouble with this overnight. She has been afebrile. Her blood pressure has been low. She was received IV fluids and her blood pressures improved but her hemoglobin has dropped to 6.4. She is currently refusing to get a type and cross because of the multiple sticks. Source: patient Exam Limitations: no limitations Date Seen 04/29/19 Time Seen by a Provider: 10:00 Attending Physician Dora Vega MD [place] [place] Referring Physician Date of Admission Apr 28, 2019 at 19:32 Home Medications & Allergies Home Medications Reviewed patient Home Medication Reconciliation performed by pharmacy medication reconciliations lawn and garden technician and/or nursing. Patients Allergies have been reviewed. Allergies Allergies Coded Allergies No Known Drug Allergies (Unverified02/20/19) Past Oavpbyz-Hqazvv-Vjfaib Hx Past Med/Social Hx: Reviewed Nursing Past Med/Soc Hx Patient Social History Marrital Status: single Employed/Student: unemployed Alcohol Use: Denies Use Recreational Drug Use: No Smoking Status: Current Everyday Smoker Type Used: Cigarettes (1 PPD for 35 years) Recent Foreign Travel: No Contact w/other who traveled: No Recent Hopitalizations: No Recent Infectious Disease Expo: No Immunizations Up To Date Date of Pneumonia Vaccine: Apr 26, 2019 Date of Influenza Vaccine: Apr 26, 2019 Past Medical History Surgeries: Abdominal, Bowel Surgery (Right colectomy, colostomy) Neurological: Stroke Reproductive: No Cervical cancer when the patient was 39 years old Gastrointestinal: Diverticulosis Fistula in 2016 Loss of Vision: Denies Hearing Impairment: Denies Cancer: Cervical Did You Recieve Any Treatments: Yes What Type of Treatment Did You: Chemotherapy, Radiation Psychosocial: Bipolar History of Blood Disorders: No Family History Dementia 19 FATHER FH: cancer 19 FATHER, Onset:76 19 MOTHER, Onset:46 Fibrocystic disease of breast Cancer (mother, unknown type), Stroke (father) Patient has is currently is a parternership for 32 years. She has two kids, one boy and one girl Mother: from cancer (type: unknown) Father: , had history of strokes Review of Systems Constitutional: weakness, weight loss EENTM: no symptoms reported Respiratory: no symptoms reported Cardiovascular: no symptoms reported Gastrointestinal: abdominal pain, loss of appetite Genitourinary: other (stool from the vagina) Skin: no symptoms reported Psychiatric/Neurological: Depressed Physical Exam Physical Exam Vital Signs Vital Signs - First Documented 04/28/19 04/28/19 04/28/19 09:38 16:02 21:30 Temp 36.5 Pulse 75 Resp 18 B/P (MAP) 92/61 (71) Pulse Ox 100 O2 Delivery Room Air Capillary Refill : Less Than 3 Seconds Height, Weight, BMI Height: 5'5.00" Weight: 139lbs. 7.0oz. 63.409191zc; 15.00 BMI Method:Stated General Appearance: Chronically ill HEENT: Normal ENT Inspection Neck: Full Range of Motion, Non Tender, Supple Respiratory: Chest Non Tender, Lungs Clear, Normal Breath Sounds, No Accessory Muscle Use, No Respiratory Distress Cardiovascular: Regular Rate, Rhythm, No Edema, No Gallop, No JVD, No Murmur Gastrointestinal: Soft, Tenderness (diffusely no localization), Other (colostomy in the left lower quadrant packing midline with evidence of sutures and diffusely tender) Back: Normal Inspection, No CVA Tenderness Extremity: Non Tender, No Calf Tenderness, No Pedal Edema Neurologic/Psychiatric: Alert, Oriented x3, Depressed Affect Skin: Pallor Results Results/Procedures Labs Laboratory Tests 04/28/19 16:30 04/29/19 05:04 Patient resulted labs reviewed. Assessment/Plan Admission Diagnosis 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 CVA remote history Tobaccoism non-curtailed Status post diverting colostomy History of cancer the cervix, remote, history of radiation Admission Status: Observation Clinical Quality Measures DVT/VTE Risk/Contraindication: Risk Factor Score Per Nursin RFS Level Per Nursing on Admit: 4+=Very High DORA VEGA MD Apr 29, 2019 11:04
[2019-04-29] MEDS ORDERED: DIATRIZOATE MEGLUM/SODIUM 37% 120 ML (GASTROGRAFIN) PO ONE (11:45)
--- NOTE | 2019-04-29 11:55 | NUR ---
PT TO ROOM 406. REPORT RECEIVED FROM MICHELLE JULES.
[2019-04-29] MEDS: SIMETHICONE 80 MG (MYLICON) CHEW PO SCH ×3 (11:59→23:36)
[2019-04-29] MEDS: PANTOPRAZOLE 20 MG TABLET (PROTONIX) PO SCH (12:00)
[2019-04-29] MEDS ORDERED: DICYCLOMINE 10 MG/ML (BENTYL) 2 ML AMP IM SCH (13:00)
[2019-04-29] MEDS: DICYCLOMINE 10 MG (BENTYL) CAP PO SCH ×3 (14:03→23:36)
--- NOTE | 2019-04-29 15:55 | Diagnostic Imaging Report ---
EXAMINATION: Small bowel follow-through. HISTORY: Enterovaginal fistula. FINDINGS: No comparison available. Midline skin guilherme are noted. There are dilated loops of bowel in the left upper quadrant. The patient was given water-soluble contrast. There is a fairly large volume of emesis after the initial contrast administration. No further contrast was administered to reduce the risk of aspiration. The residual contrast did extend through the colon by approximately four hours after the initial film. No contrast is seen within the vagina. IMPRESSION: 1. No contrast seen within the vagina on the small bowel follow-through. However, the contrast at this level is quite dilute. A vaginogram could be performed for more definitive characterization. Dictated by: Dictated on workstation # [id number]
--- NOTE | 2019-04-29 20:01 | Diagnostic Imaging Report ---
CLINICAL INDICATIONS: Patient emptied bag an hour ago because it was full of watery liquid. Patient has small amount of liquid in bag. Patient has ostomy. EXAMS: X-ray of the chest, PA view and x-ray of the abdomen, supine and upright views. COMPARISONS: Small bowel follow-through study dated 04/29/2019. FINDINGS: LUNGS/ PLEURA: Lungs are clear. There is no pneumothorax. There is no pleural effusion. MEDIASTINUM: Unremarkable. PULMONARY VASCULATURE: Unremarkable. HEART: Unremarkable. BONES/ EXTRATHORACIC SOFT TISSUE: Unremarkable. ABDOMEN AND PELVIS: There is residual enteric contrast in the region of the colon from prior small bowel follow-through. The enteric contrast is seen in the region of the ostomy overlying the left abdomen. There are dilated loops of intestine overlying the left upper abdomen and mid abdominal region. There is minimal air in the rectal region. There is no intra-abdominal free air. There are skin guilherme overlying the mid lower abdominal region. IMPRESSION: 1: There are dilated air filled loops of intestine overlying the left upper quadrant and mid abdominal region. If there is concern for intestinal obstruction, CT scan would better evaluate. 2: There is residual enteric contrast seen which is in the region of the ostomy overlying the left abdomen. 3: There is no radiographic evidence of acute cardiopulmonary process. Dictated by: Dictated on workstation # [id number]
[2019-04-29] MEDS ORDERED: NS IV 500 ML 500 ML ONE (20:07)
--- NOTE | 2019-04-29 21:13 | NUR ---
TEMP TAKEN PRIOR TO BLOOD INFUSION WAS AT 37.[address] VEGA NOTIFIED AND ORDERED 1000 MG TYLENOL PO ONE TIME WITH A SIP OF WATER.
[2019-04-29] MEDS ORDERED: ACETAMINOPHEN 500 MG TAB (TYLENOL) ONE (21:21)
--- NOTE | 2019-04-29 23:00 | NUR ---
DR KLEIN REPORTED TO THIS RN THAT ACUTE AB XRAY WAS NORMAL, NO NEW ORDERS. HE DID SAY RN COULD ADVANCE DIET TO CLEAR LIQUIDS. PT GIVEN ALBANIAN ICE, JELLO AND SPRITE. TOLERATING WELL AT THIS TIME.
[2019-04-30] VITALS: BP 92/54
[2019-04-30] MEDS: PIPERACILLIN/TAZO 4.5 GM/NS 100 ML IV SCH ×6 (00:12→11:36)
[2019-04-30] MEDS: FAMOTIDINE 20MG/2ML IV (PEPCID) IVP SCH ×2 (00:14→09:29)
[2019-04-30] MEDS: morphine INJ 4 MG/ML 1 ML (VIAL/SYRINGE) IV PRN ×4 (00:14→09:30)
[2019-04-30 03:53] VITALS: BP 94/59
[2019-04-30] MEDS: SIMETHICONE 80 MG (MYLICON) CHEW PO SCH ×2 (05:05→10:21)
[2019-04-30 06:40] LABS: BASOPHILS % (AUTO) 0 % (0-10); EOSINOPHILS # (AUTO) 0.1 10^3/uL (0.0-0.3); EOSINOPHILS % (AUTO) 2 % (0-10); HEMATOCRIT 31 % (35-52); HEMOGLOBIN 10.4 G/DL (11.5-16.0); LYMPHOCYTES # (AUTO) 1.3 X 10^3 (1.0-4.0); LYMPHOCYTES % (AUTO) 20 % (12-44); MEAN CORPUSCULAR HEMOGLOBIN 27 PG (25-34); MEAN CORPUSCULAR HGB CONC 34 G/DL (32-36); MEAN CORPUSCULAR VOLUME 81 FL (80-99); MEAN PLATELET VOLUME 9.8 FL (7.4-10.4); MONOCYTES # (AUTO) 0.7 X 10^3 (0.0-1.0); MONOCYTES % (AUTO) 11 % (0-12); NEUTROPHILS # (AUTO) 4.6 X 10^3 (1.8-7.8); NEUTROPHILS % (AUTO) 67 % (42-75); PLATELET COUNT 321 10^3/uL (130-400); RED CELL DISTRIBUTION WIDTH 17.6 % (10.0-14.5); WHITE BLOOD COUNT 6.8 10^3/uL (4.3-11.0)
[2019-04-30 07:03] LABS: ALANINE AMINOTRANSFERASE 9 U/L (0-55); ALBUMIN 2.9 GM/DL (3.2-4.5); ALKALINE PHOSPHATASE 89 U/L (40-136); BILIRUBIN,TOTAL 0.5 MG/DL (0.1-1.0); BUN/CREATININE RATIO 19; CALCIUM 7.7 MG/DL (8.5-10.1); CARBON DIOXIDE 21 MMOL/L (21-32); CHLORIDE 106 MMOL/L (98-107); CREATININE SERUM 0.52 MG/DL (0.60-1.30); GFR ESTIMATED > 60; GLUCOSE 94 MG/DL (70-105); POTASSIUM 3.2 MMOL/L (3.6-5.0); SODIUM 135 MMOL/L (135-145); TOTAL PROTEIN 5.5 GM/DL (6.4-8.2)
[2019-04-30 08:00] VITALS: BP 117/73
--- NOTE | 2019-04-30 08:35 | Diagnostic Imaging Report ---
EXAMINATION: Chest 1 view HISTORY: Enterovaginal fistula FINDINGS: Comparison is 04/29/2019. The lungs are clear. No edema. No pneumonia. No pleural effusion. No pneumothorax. Heart is normal in size. IMPRESSION: 1. Clear lungs. Dictated by: Dictated on workstation # [id number]
[2019-04-30] MEDS: PANTOPRAZOLE 20 MG TABLET (PROTONIX) PO SCH (09:29)
[2019-04-30] MEDS: DICYCLOMINE 10 MG (BENTYL) CAP PO SCH ×2 (09:33→12:58)
--- NOTE | 2019-04-30 10:02 | Progress Note - Surgery ---
KASANDRA HORNER,MED STUDENT 04/30/19 1002: Subjective Date Seen by a Provider: Apr 30, 2019 Time Seen by a Provider: 09:43 Subjective/Events-last exam Patient seen and examined. Ms. Cooper states she is doing well today. She continues to have abdominal pain but states it is no different to her chronic, baseline pain. She is on a clear liquid diet and has tolerated it well with no nausea or vomiting. She has continued to have output from her colostomy since admission. She denies any stool from her vagina since the night of arrival to the hospital. She had a small bowel follow through yesterday that showed no fistula. Review of Systems General: No Chills; Fatigue HEENT: No Head Aches Pulmonary: No Dyspnea, No Cough Cardiovascular: No: Chest Pain Gastrointestinal: Abdominal Pain (diffuse); No: Nausea, Vomiting Genitourinary: No Dysuria, No Frequency Musculoskeletal: back pain Neurological: No: Weakness, Confusion Focused Exam Lactate Level 04/28/19 18:55: Lactic Acid Level 1.06 Time of Focused Exam: 19:10 Objective Exam Vital Signs Date Time Temp Pulse Resp B/P (MAP) Pulse Ox O2 Delivery O2 Flow Rate FiO2 04/30/19 09:30 100 Room Air 04/30/19 08:00 37.0 57 16 117/73 (88) 100 Room Air 04/30/19 03:53 36.7 57 16 94/59 (71) 99 Room Air 04/30/19 00:00 36.8 60 18 92/54 (67) 99 Room Air 04/29/19 21:46 37.0 71 18 96/62 71 Room Air 04/29/19 20:00 100 Room Air 04/29/19 19:25 37.2 69 20 113/65 (81) 100 Room Air 04/29/19 17:03 62 20 120/75 98 Room Air 04/29/19 16:00 36.7 63 16 97/53 (68) 99 Room Air 04/29/19 14:06 36.8 62 20 97/63 100 Room Air 04/29/19 13:47 36.8 62 20 99/62 100 Room Air 04/29/19 12:00 100 Room Air 04/29/19 12:00 37.2 68 19 90/52 (65) 100 Room Air I & O 04/30/19 07:00 Intake Total 1330 ml Output Total 325 ml Balance 1005 ml Capillary Refill : Less Than 3 Seconds General Appearance: No Apparent Distress, Chronically ill HEENT: Moist Mucous Membranes Neck: Full Range of Motion, Non Tender, Supple; No Lymphadenopathy (L), No Lymphadenopathy (R) Respiratory: Chest Non Tender, Lungs Clear, Normal Breath Sounds, No Accessory Muscle Use, No Respiratory Distress Cardiovascular: Regular Rate, Rhythm, No Murmur Peripheral Pulses: 2+ Radial Pulses (R), 2+ Radial Pulses (L) Gastrointestinal: soft (right, but feels like she is voluntarily guarding on left), tenderness (diffusly, worst at LLQ), other (midline abdominal incision with small opening packed with iodophor) Extremity: No Calf Tenderness, No Pedal Edema Neurologic/Psychiatric: Alert, Oriented x3 Results Lab Laboratory Tests 04/30/19 06:29: White Blood Count 6.8, Red Blood Count 3.81L, Hemoglobin 10.4#L, Hematocrit 31L, Mean Corpuscular Volume 81, Mean Corpuscular Hemoglobin 27, Mean Corpuscular Hemoglobin Concent 34, Red Cell Distribution Width 17.6H, Platelet Count 321, Mean Platelet Volume 9.8, Neutrophils (%) (Auto) 67, Lymphocytes (%) (Auto) 20, Monocytes (%) (Auto) 11, Eosinophils (%) (Auto) 2, Basophils (%) (Auto) 0, Neutrophils # (Auto) 4.6, Lymphocytes # (Auto) 1.3, Monocytes # (Auto) 0.7, Eosinophils # (Auto) 0.1, Basophils # (Auto) 0.0, Sodium Level 135, Potassium Level 3.2L, Chloride Level 106, Carbon Dioxide Level 21, Anion Gap 8, Blood Urea Nitrogen 10, Creatinine 0.52L, Estimat Glomerular Filtration Rate > 60, BUN/Creatinine Ratio 19, Glucose Level 94, Calcium Level 7.7L, Corrected Calcium 8.6, Magnesium Level 2.0, Total Bilirubin 0.5, Aspartate Amino Transf (AST/SGOT) 10, Alanine Aminotransferase (ALT/SGPT) 9, Alkaline Phosphatase 89, Total Protein 5.5L, Albumin 2.9L Microbiology 04/28/19 Blood Culture - Preliminary, Resulted No growth Assessment/Plan Assessment/Plan Assessment/Plan Possible enterovaginal fistula Anemia UTI Abdominal Pain SBFT with normal results Hgb 10.4 after 2 units Increase diet as tolerated Pain control and antiemetics as needed. Continue Abx Continue packing abdominal incision opening daily with iodophor Clinical Quality Measures DVT/VTE Risk/Contraindication: Risk Factor Score Per Nursin RFS Level Per Nursing on Admit: 4+=Very High FLAKITO HARRIS DO 04/30/19 1234: Subjective Time Seen by a Provider: 11:23 Subjective/Events-last exam Pt doing better, hungry and wants to walk to the halls. SBFT did not show fistula, contrast went into ostomy bag. Assessment/Plan Assessment/Plan Assessment/Plan Pt is doing better today and wants to go home. Will increase diet and send home later today. Supervisory-Addendum Brief Verification & Attestation Participated in pt care: history, MDM, physical Personally performed: exam, history, MDM Care discussed with: Medical Student Procedures: n/a Verification and Attestation of Medical Student E/M Service A medical student performed and documented this service in my presence. I reviewed and verified all information documented by the medical student and made modifications to such information, when appropriate. I personally performed the physical exam and medical decision making. Flakito Harris, Apr 30, 2019,12:37 KASANDRA HORNER MED STUDENT Apr 30, 2019 10:02 FLAKITO HARRIS DO Apr 30, 2019 12:34
[2019-04-30 12:00] VITALS: BP 110/73
--- NOTE | 2019-04-30 12:27 | Discharge Summary ---
Discharge Summary Hospital Course Was the Problem List Reviewed?: Yes Hospital Course Date of Admission: Apr 28, 2019 at 19:32 Admission Diagnosis : UTI, hypotension [facility]: [facility]30/19 Discharge Diagnosis: [ ] UTI-culture pending Hypotension secondary to volume depletion Severe anemia hemoglobin of 6 Hospital Course: [ ] The patient presented to the emergency room with complaints of stool coming from the vagina. 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 She did have evidence of a urinary tract infection with a culture pending at this time. She was treated with Zosyn and is remained afebrile. White count has remained normal. The patient was seen in consultation by Dr. Harris who ordered a small bowel follow-through and there was no evidence of a fistula tracking through the vagina. The patient also noted that she had had no further discharge through the vagina. The patient was aggressively hydrated because of her low blood pressure and her hemoglobin dropped to 6. She was then transfused with 2 units with a systolic pressure in the upper 90s and she was feeling much stronger. At the time of discharge she has continued severe abdominal discomfort related to previous surgeries. Her wound will continue to be packed as previously ordered by Dr. Karimi. Labs and Pending Lab Test: Laboratory Tests 04/30/19 06:29: White Blood Count 6.8, Red Blood Count 3.81L, Hemoglobin 10.4#L, Hematocrit 31L, Mean Corpuscular Volume 81, Mean Corpuscular Hemoglobin 27, Mean Corpuscular Hemoglobin Concent 34, Red Cell Distribution Width 17.6H, Platelet Count 321, Mean Platelet Volume 9.8, Neutrophils (%) (Auto) 67, Lymphocytes (%) (Auto) 20, Monocytes (%) (Auto) 11, Eosinophils (%) (Auto) 2, Basophils (%) (Auto) 0, Neutrophils # (Auto) 4.6, Lymphocytes # (Auto) 1.3, Monocytes # (Auto) 0.7, Eosinophils # (Auto) 0.1, Basophils # (Auto) 0.0, Sodium Level 135, Potassium Level 3.2L, Chloride Level 106, Carbon Dioxide Level 21, Anion Gap 8, Blood Urea Nitrogen 10, Creatinine 0.52L, Estimat Glomerular Filtration Rate > 60, BUN/Creatinine Ratio 19, Glucose Level 94, Calcium Level 7.7L, Corrected Calcium 8.6, Magnesium Level 2.0, Total Bilirubin 0.5, Aspartate Amino Transf (AST/SGOT) 10, Alanine Aminotransferase (ALT/SGPT) 9, Alkaline Phosphatase 89, Total Protein 5.5L, Albumin 2.9L Microbiology 04/28/19 Blood Culture - Preliminary, Resulted No growth 04/28/19 MRSA Screen - Final, Complete MRSA not isolated Home Meds Active Promethazine Tablet (Promethazine HCl) 25 Mg Tablet 25 Mg PO Q6H PRN Morphine Sulfate 15 Mg Tablet 15 Mg PO Q4H PRN Reported Gas-X Ultra Strength (Simethicone) 180 Mg Capsule 180 Mg PO Q6H Bentyl (Dicyclomine HCl) 20 Mg/2 Ml Inj 20 Mg PO QID Prilosec Otc (Omeprazole Magnesium) 20 Mg Tablet.dr 20 Mg PO DAILY Assessment/Pt Instructions Urinary tract infection Hypotension secondary to volume depletion Chronic abdominal pain 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 Discharge Planning: >30 minutes discharge planning Discharge Instructions Discharge Diet: Eat Small Frequent Meals Activity as Tolerated: Yes Consultations Dr. Harris Discharge Physical Examination Vital Signs Vital Signs Date Time Temp Pulse Resp B/P (MAP) Pulse Ox O2 Delivery O2 Flow Rate FiO2 04/30/19 09:30 100 Room Air 04/30/19 08:00 37.0 57 16 117/73 (88) General Appearance: No Apparent Distress, Chronically ill HEENT: Normal ENT Inspection Respiratory: Chest Non Tender, Lungs Clear, Normal Breath Sounds, No Accessory Muscle Use, No Respiratory Distress Cardiovascular: Regular Rate, Rhythm, No Gallop, No JVD, No Murmur, Normal Peripheral Pulses Gastrointestinal: Tenderness (diffusely) Extremity: Normal Capillary Refill, Non Tender, No Calf Tenderness Skin: Warm/Dry, Pallor Neurologic/Psychiatric: Alert, Oriented x3, No Motor/Sensory Deficits, Normal Mood/Affect Allergies: Coded Allergies: No Known Drug Allergies (Unverified , 02/20/19) Discharge Summary Date of Admission Apr 28, 2019 at 19:32 Date of Discharge Discharge Date: Apr 30, 2019 Discharge Time: 1400 Admission Diagnosis 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 CVA remote history Tobaccoism non-curtailed Status post diverting colostomy History of cancer the cervix, remote, history of radiation Clinical Quality Measures DVT/VTE Risk/Contraindication: Risk Factor Score Per Nursin RFS Level Per Nursing on Admit: 4+=Very High IMER VEGA MD Apr 30, 2019 12:26
--- NOTE | 2019-04-30 13:42 | Discharge Inst-Skilled Nursing ---
Discharge Inst-Skilled NF Reconcile Patient Problems Problems Reviewed?: Yes Patient Instructions Patient Problems: Urinary tract infection Colostomy Wound dehiscence Consult/Follow Up/Orders Follow up appt.: as scheduled Skilled NF Admit to: [facility] Certifications SNF I certify that SNF services are required to be given on an inpatient basis because of the above named patient's need for long-term care on a continuing basis for the conditions(s) for which he/she was receiving inpatient hospital services prior to his/her transfer to the SNF. [facility]-Way Facility Order: Nursing Services, Physical Therapy-Evaluate & Treat, Wound Care-Eval/Treat Oxygen Delivery Method: Room Air Discharge Diet: Eat Small Frequent Meals, Soft Diet Resuscitation Status: Full Code New & Resume Previous Orders New & Resume Previous Orders Please resume previous orders in their entirety Other Instructions Wound care and packing as before Discharge Medications Dora Vega Apr 30, 2019 13:40 DORA VEGA MD Apr 30, 2019 13:42
[2019-04-30 14:15] VITALS: BP 110/73
--- OUTSIDE RECORDS SUMMARY | 2019-05-22 07:57 | XMS REPORT | Continuity of Care Document ---
Author Organization Unknown POS Address Unknown SP Phone Unavailable SP Allergies Active Description Code Type Severity POS Reaction Onset Reported/Identified POS to Patient Clinical Status POS Yes No Known Drug Allergies [id number] Drug SP Unknown N/A 02/20/2019 SP SP Medications There is no data. Problems Date Dx Coded Attending Type Code POS Diagnosed By POS 12/31/2018 LEONEL VELAZCO, DODIE Moon Ot F17.200 SP NICOTINE DEPENDENCE, UNSPECIFIED, UNCOMP SP 12/31/2018 DODIE CASTANEDA MD Ot G43.909 SP MIGRAINE, UNSP, NOT INTRACTABLE, WITHOUT SP 12/31/2018 DODIE CASTANEDA MD Ot N39.0 SP URINARY TRACT INFECTION, SITE NOT SPECIF SP 12/31/2018 DODIE CASTANEDA MD Ot R42 SP DIZZINESS AND GIDDINESS SP 12/31/2018 DODIE CASTANEDA MD Ot R51 SP HEADACHE SP 12/31/2018 DODIE CASTANEDA MD Ot R93.0 SP ABNORMAL FINDINGS ON DX IMAGING OF SKULL SP 12/31/2018 DODIE CASTANEDA MD Ot Z85.41 SP PERSONAL HISTORY OF MALIGNANT NEOPLASM O SP 12/31/2018 DODIE CASTANEDA MD Ot Z93.3 SP COLOSTOMY STATUS SP 01/02/2019 DODIE CASTANEDA MD Ot F17.200 SP NICOTINE DEPENDENCE, UNSPECIFIED, UNCOMP SP 01/02/2019 DODIE CASTANEDA MD Ot G43.909 SP MIGRAINE, UNSP, NOT INTRACTABLE, WITHOUT SP 01/02/2019 DODIE CASTANEDA MD Ot N39.0 SP URINARY TRACT INFECTION, SITE NOT SPECIF SP 01/02/2019 DODIE CASTANEDA MD Ot R42 SP DIZZINESS AND GIDDINESS SP 01/02/2019 DODIE CASTANEDA MD Ot R51 SP HEADACHE SP 01/02/2019 LEONEL VELAZCO, DODIE Moon Ot R93.0 SP ABNORMAL FINDINGS ON DX IMAGING OF SKULL SP 01/02/2019 LEONEL VELAZCO, DODIE Moon Ot Z85.41 SP PERSONAL HISTORY OF MALIGNANT NEOPLASM O SP 01/02/2019 LEONEL VELAZCO, DODIE Moon Ot Z93.3 SP COLOSTOMY STATUS SP 01/18/2019 LORELEI DURAN, WILSON M Ot R90.82 SP WHITE MATTER DISEASE, UNSPECIFIED SP 02/20/2019 TORCHIA PA, WILSON M Ot R90.82 SP WHITE MATTER DISEASE, UNSPECIFIED SP 02/20/2019 TORCHIA PA, WILSON M Ot R90.82 SP WHITE MATTER DISEASE, UNSPECIFIED SP 02/20/2019 TORCHIA PA, WILSON M Ot R90.82 SP WHITE MATTER DISEASE, UNSPECIFIED SP 02/20/2019 TORCHIA PA, WILSON M Ot R90.82 SP WHITE MATTER DISEASE, UNSPECIFIED SP 02/21/2019 ADRIANA JAY DO Ot E87.1 SPOSMOLALITY AND HYPONATREMIA SP 02/21/2019 MISTY RODRIGUEZ ADRIANA Ot F17.21 0 SP DEPENDENCE, CIGARETTES, UNCOMPL SP 02/21/2019 RENETTA JAY DOI Ot J44.9 SP OBSTRUCTIVE PULMONARY DISEASE, U SP 02/21/2019 ADRIANA JAY DO Ot K43.5 SP HERNIA WITHOUT OBSTRUCTION OR SP 02/21/2019 MISTY RODRIGUEZ ADRIANA Ot K56.69 0 SP PARTIAL INTESTINAL OBSTRUCTION SP 02/21/2019 RENETTA JAY DOI Ot N39.0 SP TRACT INFECTION, SITE NOT SPECIF SP 02/21/2019 RENETTA JAY DOI Ot R11.2 SP WITH VOMITING, UNSPECIFIED SP 02/21/2019 RENETTA JAY DOI Ot R63.4 SP WEIGHT LOSS SP 02/21/2019 ADRIANA JAY DO Ot Z85.41 SP HISTORY OF MALIGNANT NEOPLASM O SP 02/21/2019 ADRIANA JAY DO Ot Z87.19 SP HISTORY OF OTHER DISEASES OF TH SP 02/21/2019 ADRIANA JAY DO Ot Z92.21 SP HISTORY OF ANTINEOPLASTIC CHEMO SP 02/21/2019 RENETTA JAY DOI Ot Z92.3 SP HISTORY OF IRRADIATION SP 02/21/2019 JAY DO, ADRIANA Ot Z93.3 SP STATUS SP 02/24/2019 WILSON OLIVAREZ Ot R90.82 SP WHITE MATTER DISEASE, UNSPECIFIED SP 02/24/2019 JAY DO, ADRIANA Ot E87.1 SPOSMOLALITY AND HYPONATREMIA SP 02/24/2019 JAY DO, ADRIANA Ot F17.21 0 SP DEPENDENCE, CIGARETTES, UNCOMPL SP 02/24/2019 JAY DO, ADRIANA Ot J44.9 SP OBSTRUCTIVE PULMONARY DISEASE, U SP 02/24/2019 JAY DO, ADRIANA Ot K43.5 SP HERNIA WITHOUT OBSTRUCTION OR SP 02/24/2019 JAY DO, ADRIANA Ot K56.69 0 SP PARTIAL INTESTINAL OBSTRUCTION SP 02/24/2019 JAY DO, ADRIANA Ot N39.0 SP TRACT INFECTION, SITE NOT SPECIF SP 02/24/2019 JAY DO, ADRIANA Ot R11.2 SP WITH VOMITING, UNSPECIFIED SP 02/24/2019 JAY DO, ADRIANA Ot R63.4 SP WEIGHT LOSS SP 02/24/2019 JAY DO, ADRIANA Ot Z85.41 SP HISTORY OF MALIGNANT NEOPLASM O SP 02/24/2019 JAY DO, ADRIANA Ot Z87.19 SP HISTORY OF OTHER DISEASES OF TH SP 02/24/2019 JAY DO, ADRIANA Ot Z92.21 SP HISTORY OF ANTINEOPLASTIC CHEMO SP 02/24/2019 JAY DO, ADRIANA Ot Z92.3 SP HISTORY OF IRRADIATION SP 02/24/2019 JAY DO, ADRIANA Ot Z93.3 SP STATUS SP 02/24/2019 WILSON OLIVAREZ Ot R90.82 SP WHITE MATTER DISEASE, UNSPECIFIED SP 02/24/2019 JAY DO, ADRIANA Ot E87.1 SPOSMOLALITY AND HYPONATREMIA SP 02/24/2019 JAY DO, ADRIANA Ot F17.21 0 SP DEPENDENCE, CIGARETTES, UNCOMPL SP 02/24/2019 JAY DO, ADRIANA Ot J44.9 SP OBSTRUCTIVE PULMONARY DISEASE, U SP 02/24/2019 JAY DO, ADRIANA Ot K43.5 SP HERNIA WITHOUT OBSTRUCTION OR SP 02/24/2019 JAY DO, ADRIANA Ot K56.69 0 SP PARTIAL INTESTINAL OBSTRUCTION SP 02/24/2019 JAY DO, ADRIANA Ot N39.0 SP TRACT INFECTION, SITE NOT SPECIF SP 02/24/2019 JAY DO, ADRIANA Ot R11.2 SP WITH VOMITING, UNSPECIFIED SP 02/24/2019 JAY DO, ADRIANA Ot R63.4 SP WEIGHT LOSS SP 02/24/2019 JAY DO, ADRIANA Ot Z85.41 SP HISTORY OF MALIGNANT NEOPLASM O SP 02/24/2019 JAY DO, ADRIANA Ot Z87.19 SP HISTORY OF OTHER DISEASES OF TH SP 02/24/2019 JAY DO, ADRIANA Ot Z92.21 SP HISTORY OF ANTINEOPLASTIC CHEMO SP 02/24/2019 JAY DO, ADRIANA Ot Z92.3 SP HISTORY OF IRRADIATION SP 02/24/2019 JAY DO, ADRIANA Ot Z93.3 SP STATUS SP 02/25/2019 JAY DO, ADRIANA Ot E87.1 SPOSMOLALITY AND HYPONATREMIA SP 02/25/2019 JAY DO, ADRIANA Ot F17.21 0 SP DEPENDENCE, CIGARETTES, UNCOMPL SP 02/25/2019 JAY DO, ADRIANA Ot J44.9 SP OBSTRUCTIVE PULMONARY DISEASE, U SP 02/25/2019 JAY DO, ADRIANA Ot K43.5 SP HERNIA WITHOUT OBSTRUCTION OR SP 02/25/2019 JAY DO, ADRIANA Ot K56.60 0 SP INTESTINAL OBSTRUCTION, UNSPECIF SP 02/25/2019 JAY DO, ADRIANA Ot K56.69 0 SP PARTIAL INTESTINAL OBSTRUCTION SP 02/25/2019 JAY DO, ADRIANA Ot N39.0 SP TRACT INFECTION, SITE NOT SPECIF SP 02/25/2019 JAY DO, ADRIANA Ot R11.2 SP WITH VOMITING, UNSPECIFIED SP 02/25/2019 JAY DO, ADRIANA Ot R63.4 SP WEIGHT LOSS SP 02/25/2019 JAY DO, ADRIANA Ot Z85.41 SP HISTORY OF MALIGNANT NEOPLASM O SP 02/25/2019 JAY DO, ADRIANA Ot Z87.19 SP HISTORY OF OTHER DISEASES OF TH SP 02/25/2019 JAY DO, ADRIANA Ot Z92.21 SP HISTORY OF ANTINEOPLASTIC CHEMO SP 02/25/2019 JAY DO, ADRIANA Ot Z92.3 SP HISTORY OF IRRADIATION SP 02/25/2019 JAY DO, ADRIANA Ot Z93.3 SP STATUS SP 03/07/2019 LORELEI DURAN, WILSON Harvey Ot R90.82 SP WHITE MATTER DISEASE, UNSPECIFIED SP 04/14/2019 ROLY PUGH MD Ot D64 .9 SP UNSPECIFIED SP 04/14/2019 ROLY PUGH MD Ot E87 .1 SPOSMOLALITY AND HYPONATREMIA SP 04/14/2019 ROLY PUGH MD Ot E87 .2 SP SP 04/14/2019 ROLY PUGH MD Ot E87 .6 SP SP 04/14/2019 ROLY PUGH MD Ot F17.210 SP NICOTINE DEPENDENCE, CIGARETTES, UNCOMPL SP 04/14/2019 ROLY PUGH MD Ot F41 .9 SP DISORDER, UNSPECIFIED SP 04/14/2019 ROLY PUGH MD Ot F60 .9 SP DISORDER, UNSPECIFIED SP 04/14/2019 ROLY PUGH MD Ot K56.609 SP UNSP INTESTNL OBST, UNSP TO PARTIAL V SP 04/14/2019 ROLY PUGH MD Ot N30.00 SP ACUTE CYSTITIS WITHOUT HEMATURIA SP 04/14/2019 ROLY PUGH MD Ot Z85.41 SP PERSONAL HISTORY OF MALIGNANT NEOPLASM O SP 04/14/2019 ROLY PUGH MD Ot Z93 .3 SP STATUS SP 04/30/2019 IMER VEGA MD Ot D63.8 SP ANEMIA IN OTHER CHRONIC DISEASES CLASSIF SP 04/30/2019 IMER VEGA MD Ot E83.42 SP HYPOMAGNESEMIA SP 04/30/2019 IMER VEGA MD Ot E86.9 SP VOLUME DEPLETION, UNSPECIFIED SP 04/30/2019 IMER VEGA MD Ot F17.210 SP NICOTINE DEPENDENCE, CIGARETTES, UNCOMPL SP 04/30/2019 IMER VEGA MD Ot F31.9 SP BIPOLAR DISORDER, UNSPECIFIED SP 04/30/2019 IMER VEGA MD Ot G89.29 SP OTHER CHRONIC PAIN SP 04/30/2019 IMER VEGA MD Ot I95.9 SP HYPOTENSION, UNSPECIFIED SP 04/30/2019 IMER VEGA MD Ot 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, PART UNSP, W/O PERF SP 04/30/2019 IMER VEGA MD Ot N39.0 SP URINARY TRACT INFECTION, SITE NOT SPECIF SP 04/30/2019 IMER VEGA MD Ot R10.9 SP UNSPECIFIED ABDOMINAL PAIN SP 04/30/2019 IMER VEGA MD Ot Z85.41 SP PERSONAL HISTORY OF MALIGNANT NEOPLASM O SP 04/30/2019 IMER VEGA MD Ot Z86.79 SP PERSONAL HISTORY OF OTHER DISEASES OF TH SP 04/30/2019 IMER VEGA MD Ot Z87.19 SP PERSONAL HISTORY OF OTHER DISEASES OF TH SP 04/30/2019 IMER VEGA MD Ot Z92.21 SP PERSONAL HISTORY OF ANTINEOPLASTIC CHEMO SP 04/30/2019 IMER VEGA MD Ot Z92.3 SP PERSONAL HISTORY OF IRRADIATION SP 04/30/2019 IMER VEGA MD Ot Z93.3 SP COLOSTOMY STATUS SP 05/02/2019 WILSON OLIVAREZ Ot R90.82 SP WHITE MATTER DISEASE, UNSPECIFIED SP Procedures Code Description Performed By Per formed On POS [id number] DR WILLIS OF SMALL INTESTINE, SPOPEN APPROA 04/07/2019 SP [id number] EX CISION OF ILEUM, OPEN SP 04/07/2019 SP [id number] EX CISION OF CECUM, OPEN SP 04/07/2019 SP [id number] RE LEASE SMALL INTESTINE, SP APPROACH 04/07/2019 SP [id number] RE LEASE CECUM, OPEN APPROACH SP 04/07/2019 SP Results Test Result Range POS Complete blood count (CBC) with automate d white blood cell (WBC) differential - POS 10:08 Blood leukocytes automated count (number/volume) 6.8 10*3/uL POS 4.3-11.0 SP Blood erythrocytes automated count (number/volume) 4.61 10*6/uL SP 4.35-5.85 SP Venous blood hemoglobin measurement (mass/volume) 13.9 g/dL SP16.0 Blood hematocrit (volume fraction) 41 % 35-52 SP Automated erythrocyte mean corpuscular volume 89 [ foz_us] SP99 Automated erythrocyte mean corpuscular h emoglobin (mass per erythrocyte) SP 30 pg 25-34 SP Automated erythrocyte mean corpuscular h emoglobin concentration measurement SP 34 g/dL 32-36 SP Automated erythrocyte distribution width ratio 13. 3 % 10.0- SP Automated blood platelet count (count/volume) 272 10*3/uL SP400 Automated blood platelet mean volume measurement 10.1 [foz_us] SP 7.4-10.4 SP Automated blood neutrophils/100 leukocytes 56 % 42-75 SP Automated blood lymphocytes/100 leukocytes 33 % 12-44 SP Blood monocytes/100 leukocytes 9 % 0-12 SP Automated blood eosinophils/100 leukocytes 2 % 0-10 SP Automated blood basophils/100 leukocytes 1 % 0-10 SP Blood neutrophils automated count (number/volume) 3.8 10*3 SP7.8 Blood lymphocytes automated count (number/volume) 2.2 10*3 SP4.0 Blood monocytes automated count (number/volume) 0. 6 10*3 SP1.0 Automated eosinophil count 0.1 10*3/uL 0 .0-0.3 SP Automated blood basophil count (count/volume) 0.0 10*3/uL SP0.1 Comprehensive metabolic panel - 12/31/18 10:08 POS Serum or plasma sodium measurement (moles/volume) 139 mmol/L SP 135-145 SP Serum or plasma potassium measurement (moles/volume) 3.5 mmol/L SP 3.6-5.0 SP Serum or plasma chloride measurement (moles/volume) 108 mmol/L SP 98-107 SP Carbon dioxide 19 mmol/L 21-32 SP Serum or plasma anion gap determination (moles/volume) 12 mmol/L SP 5-14 SP Serum or plasma urea nitrogen measurement (mass/volume ) 19 mg/dL SP 7-18 SP Serum or plasma creatinine measurement (mass/volume) 0.79 mg/dL SP 0.60-1.30 SP Serum or plasma urea nitrogen/creatinine mass ratio 24 NRG SP Serum or plasma creatinine measurement w ith calculation of estimated glomerular SP rate > NRG SP Serum or plasma glucose measurement (mass/volume) 113 mg/dL SP105 Serum or plasma calcium measurement (mass/volume) 9.3 mg/dL SP10.1 Serum or plasma total bilirubin measurement (mass/volu me) 0.3 mg/dL SP 0.1-1.0 SP Serum or plasma alkaline phosphatase victor hugo surement (enzymatic activity/volume) SP 75 U/L 40-136 SP Serum or plasma aspartate aminotransfera se measurement (enzymatic SP 17 U/L 5-34 SP Serum or plasma alanine aminotransferase measurement (enzymatic activity/volume) SP 15 U/L 0-55 SP Serum or plasma protein measurement (mass/volume) 7.0 g/dL SP8.2 Serum or plasma albumin measurement (mass/volume) 4.2 g/dL SP4.5 CALCIUM CORRECTED 9.1 mg/dL 8.5-10.1 SP Magnesium - 12/31/18 10:08 POS Magnesium 1.7 mg/dL 1.8-2.4 SP Erythrocyte sedimentation rate by kenneth gren method - 12/31/18 10:08 POS Erythrocyte sedimentation rate by westergren method 17 mm 0- SP Complete urinalysis with reflex to cultu re - 12/31/18 10:41 POS Urine color determination YELLOW NRG SP Urine clarity determination SLIGHTLY CLOUDY NRG SP Urine pH measurement by test strip 5 5-9 SP Specific gravity of urine by test strip 1.020 1.016-1.022 SP Urine protein assay by test strip, semi-quantitative 2+ SP Urine glucose detection by automated test strip NE GATIVE SP Erythrocytes detection in urine sediment by light micr oscopy 5+ SP NEGATIVE SP Urine ketones detection by automated test strip NE GATIVE SP Urine nitrite detection by test strip NEGATIVE NEGATIVE SP Urine total bilirubin detection by test strip NEGA TIVE SP Urine urobilinogen measurement by automated test strip (mass/volume) SP NORMAL SP Urine leukocyte esterase detection by dipstick 3+ NEGATIVE SP Automated urine sediment erythrocyte cou nt by microscopy (number/high power SP > [HPF] NRG SP Automated urine sediment leukocyte count by microscopy (number/high power field) SP TNTC NRG SP Bacteria detection in urine sediment by light microsco py MODERATE SP NRG SP Crystals detection in urine sediment by light microsco py NONE SP NRG SP Casts detection in urine sediment by light microscopy NONE SP Mucus detection in urine sediment by light microscopy NEGATIVE SP NRG SP Complete urinalysis with reflex to culture YES NRG SP Renal epithelial cells detection in urin e sediment by light microscopy SP RARE NRG SP Bacterial urine culture - 12/31/18 10:41 POS Bacterial urine culture [id number] NRG SP COLONY COUNT >100,000/ML NRG SP FTX;REPORTABLE SUSCEPTIBILITY REPORTED 01/02 10:45 NRG SP Dirithromycin susceptibility test by dis k diffusion - 12/31/18 10:41 POS Gentamicin susceptibility test by minimum inhibitory c oncentration <= SP NRG SP Trimethoprim/sulfamethoxazole susceptibi lity test by minimum SP > NRG SP Levofloxacin susceptibility test by minimum inhibitory concentration SP NRG SP Ampicillin susceptibility test by minimum inhibitory c oncentration > SP NRG SP Cefazolin susceptibility test by minimum inhibitory co ncentration 4 SP NRG SP Ceftriaxone susceptibility test by minimum inhibitory concentration <= SP NRG SP Ciprofloxacin susceptibility test by minimum inhibitor y concentration SP NRG SP Meropenem susceptibility test by minimum inhibitory co ncentration <= SP NRG SP Nitrofurantoin susceptibility test by mi nimum inhibitory concentration SP <= NRG SP Amoxicillin and clavulanate potassium susc CALISTA = NRG SP TSH - 01/02/19 10:20 POS TSH 7.77 mIU/L NRG SP MAGNESIUM SERUM - 01/17/19 09:44 POS MAGNESIUM 1.9 mg/dL 1.5-2.5 SP CULTURE, URINE - 01/18/19 15:15 POS CULTURE, URINE, ROUTINE SEE NOTE NRG SP LIPASE - 02/16/19 12:57 POS LIPASE 33 U/L 7-60 SP STOOL (H PYLORI) AG, EIA - 02/20/19 10:2 3 POS HELICOBACTER PYLORI AG, EIA, STOOL SEE NOTE NRG SP Complete blood count (CBC) with automate d white blood cell (WBC) differential - POS 11:46 Blood leukocytes automated count (number/volume) 13.2 10*3/uL POS 4.3-11.0 SP Blood erythrocytes automated count (number/volume) 4.63 10*6/uL SP 4.35-5.85 SP Venous blood hemoglobin measurement (mass/volume) 13.8 g/dL SP16.0 Blood hematocrit (volume fraction) 38 % 35-52 SP Automated erythrocyte mean corpuscular volume 83 [ foz_us] SP99 Automated erythrocyte mean corpuscular h emoglobin (mass per erythrocyte) SP 30 pg 25-34 SP Automated erythrocyte mean corpuscular h emoglobin concentration measurement SP 36 g/dL 32-36 SP Automated erythrocyte distribution width ratio 11. 9 % 10.0- SP Automated blood platelet count (count/volume) 565 10*3/uL SP400 Automated blood platelet mean volume measurement 10.0 [foz_us] SP 7.4-10.4 SP Automated blood neutrophils/100 leukocytes 85 % 42-75 SP Automated blood lymphocytes/100 leukocytes 8 % 12-44 SP Blood monocytes/100 leukocytes 7 % 0-12 SP Automated blood eosinophils/100 leukocytes 0 % 0-10 SP Automated blood basophils/100 leukocytes 0 % 0-10 SP Blood neutrophils automated count (number/volume) 11.2 10*3 SP7.8 Blood lymphocytes automated count (number/volume) 1.0 10*3 SP4.0 Blood monocytes automated count (number/volume) 1. 0 10*3 SP1.0 Automated eosinophil count 0.0 10*3/uL 0 .0-0.3 SP Automated blood basophil count (count/volume) 0.0 10*3/uL SP0.1 Comprehensive metabolic panel - 02/20/19 11:46 POS Serum or plasma sodium measurement (moles/volume) 129 mmol/L SP 135-145 SP Serum or plasma potassium measurement (moles/volume) 3.6 mmol/L SP 3.6-5.0 SP Serum or plasma chloride measurement (moles/volume) 90 mmol/L SP 98-107 SP Carbon dioxide 22 mmol/L 21-32 SP Serum or plasma anion gap determination (moles/volume) 17 mmol/L SP 5-14 SP Serum or plasma urea nitrogen measurement (mass/volume ) 49 mg/dL SP 7-18 SP Serum or plasma creatinine measurement (mass/volume) 0.99 mg/dL SP 0.60-1.30 SP Serum or plasma urea nitrogen/creatinine mass ratio 49 NRG SP Serum or plasma creatinine measurement w ith calculation of estimated glomerular SP rate 59 NRG SP Serum or plasma glucose measurement (mass/volume) 101 mg/dL SP105 Serum or plasma calcium measurement (mass/volume) 9.7 mg/dL SP10.1 Serum or plasma total bilirubin measurement (mass/volu me) 0.4 mg/dL SP 0.1-1.0 SP Serum or plasma alkaline phosphatase victor hugo surement (enzymatic activity/volume) SP 103 U/L 40-136 SP Serum or plasma aspartate aminotransfera se measurement (enzymatic SP 16 U/L 5-34 SP Serum or plasma alanine aminotransferase measurement (enzymatic activity/volume) SP 10 U/L 0-55 SP Serum or plasma protein measurement (mass/volume) 7.8 g/dL SP8.2 Serum or plasma albumin measurement (mass/volume) 3.9 g/dL SP4.5 CALCIUM CORRECTED 9.8 mg/dL 8.5-10.1 SP Serum or plasma amylase measurement (enz ymatic activity/volume) - 02/20/19 11:46 POS Serum or plasma amylase measurement (enzymatic activit y/volume) 32 U/L POS 25-125 SP Lipase - 02/20/19 11:46 POS Lipase 27 U/L 8-78 SP Manual absolute plasma cell count - 02/09 08/30 11:46 POS Blood monocytes/100 leukocytes 7 % NRG SP Manual blood segmented neutrophils/100 leukocytes 63 % NRG SP Blood band neutrophils/100 leukocytes 13 % NRG SP Manual blood lymphocytes/100 leukocytes 16 % NRG SP Manual eosinophils/100 leukocytes in nose 1 % NRG SP Manual blood basophils/100 leukocytes 0 % NRG SP Blood erythrocyte morphology finding identification NORMAL SP CA 125 - 02/20/19 11:46 POS CA 125 C 101.1 u[iU]/mL 0.0-35.0 SP Complete urinalysis with reflex to cultu re - 02/20/19 13:31 POS Urine color determination YELLOW NRG SP Urine clarity determination CLEAR NR G SP Urine pH measurement by test strip 6 5-9 SP Specific gravity of urine by test strip 1.015 1.016-1.022 SP Urine protein assay by test strip, semi-quantitative NEGATIVE SP NEGATIVE SP Urine glucose detection by automated test strip NE GATIVE SP Erythrocytes detection in urine sediment by light micr oscopy 3+ SP NEGATIVE SP Urine ketones detection by automated test strip 3+ NEGATIVE SP Urine nitrite detection by test strip POSITIVE NEGATIVE SP Urine total bilirubin detection by test strip NEGA TIVE SP Urine urobilinogen measurement by automated test strip (mass/volume) SP NORMAL SP Urine leukocyte esterase detection by dipstick 1+ NEGATIVE SP Automated urine sediment erythrocyte cou nt by microscopy (number/high power SP RARE NRG SP Automated urine sediment leukocyte count by microscopy (number/high power field) SP [HPF] NRG SP Bacteria detection in urine sediment by light microsco py MODERATE SP NRG SP Squamous epithelial cells detection in u rine sediment by light microscopy SP RARE NRG SP Crystals detection in urine sediment by light microsco py NONE SP NRG SP Casts detection in urine sediment by light microscopy NONE SP Mucus detection in urine sediment by light microscopy NEGATIVE SP NRG SP Complete urinalysis with reflex to culture YES NRG SP Bacterial urine culture - 02/20/19 13:31 POS Bacterial urine culture [id number] NRG SP COLONY COUNT >100,000/ML NRG SP FTX;REPORTABLE SUSCEPTIBILITY REPORTED 02/22/19 11: 40 NRG SP FREE TEXT ENTRY 2 ID REPORTED 02/22/19 9:45 NRG SP Dirithromycin susceptibility test by dis k diffusion - 02/20/19 13:31 POS Gentamicin susceptibility test by minimum inhibitory c oncentration <= SP NRG SP Trimethoprim/sulfamethoxazole susceptibi lity test by minimum SP > NRG SP Levofloxacin susceptibility test by minimum inhibitory concentration SP NRG SP Ampicillin susceptibility test by minimum inhibitory c oncentration > SP NRG SP Cefazolin susceptibility test by minimum inhibitory co ncentration 4 SP NRG SP Ceftriaxone susceptibility test by minimum inhibitory concentration <= SP NRG SP Ciprofloxacin susceptibility test by minimum inhibitor y concentration SP NRG SP Meropenem susceptibility test by minimum inhibitory co ncentration <= SP NRG SP Nitrofurantoin susceptibility test by mi nimum inhibitory concentration SP <= NRG SP Amoxicillin and clavulanate potassium susc CALISTA = NRG SP Complete blood count (CBC) with automate d white blood cell (WBC) differential - POS 05:10 Blood leukocytes automated count (number/volume) 7.7 10*3/uL POS 4.3-11.0 SP Blood erythrocytes automated count (number/volume) 3.65 10*6/uL SP 4.35-5.85 SP Venous blood hemoglobin measurement (mass/volume) 10.8 g/dL SP16.0 Blood hematocrit (volume fraction) 32 % 35-52 SP Automated erythrocyte mean corpuscular volume 87 [ foz_us] SP99 Automated erythrocyte mean corpuscular h emoglobin (mass per erythrocyte) SP 30 pg 25-34 SP Automated erythrocyte mean corpuscular h emoglobin concentration measurement SP 34 g/dL 32-36 SP Automated erythrocyte distribution width ratio 12. 1 % 10.0- SP Automated blood platelet count (count/volume) 378 10*3/uL SP400 Automated blood platelet mean volume measurement 9.9 [foz_us] SP 7.4-10.4 SP Automated blood neutrophils/100 leukocytes 80 % 42-75 SP Automated blood lymphocytes/100 leukocytes 9 % 12-44 SP Blood monocytes/100 leukocytes 10 % 0-12 SP Automated blood eosinophils/100 leukocytes 0 % 0-10 SP Automated blood basophils/100 leukocytes 0 % 0-10 SP Blood neutrophils automated count (number/volume) 6.2 10*3 SP7.8 Blood lymphocytes automated count (number/volume) 0.7 10*3 SP4.0 Blood monocytes automated count (number/volume) 0. 8 10*3 SP1.0 Automated eosinophil count 0.0 10*3/uL 0 .0-0.3 SP Automated blood basophil count (count/volume) 0.0 10*3/uL SP0.1 Comprehensive metabolic panel - 02/21/19 05:10 POS Serum or plasma sodium measurement (moles/volume) 135 mmol/L SP 135-145 SP Serum or plasma potassium measurement (moles/volume) 3.4 mmol/L SP 3.6-5.0 SP Serum or plasma chloride measurement (moles/volume) 102 mmol/L SP 98-107 SP Carbon dioxide 17 mmol/L 21-32 SP Serum or plasma anion gap determination (moles/volume) 16 mmol/L SP 5-14 SP Serum or plasma urea nitrogen measurement (mass/volume ) 30 mg/dL SP 7-18 SP Serum or plasma creatinine measurement (mass/volume) 0.75 mg/dL SP 0.60-1.30 SP Serum or plasma urea nitrogen/creatinine mass ratio 40 NRG SP Serum or plasma creatinine measurement w ith calculation of estimated glomerular SP rate > NRG SP Serum or plasma glucose measurement (mass/volume) 75 mg/dL SP105 Serum or plasma calcium measurement (mass/volume) 8.3 mg/dL SP10.1 Serum or plasma total bilirubin measurement (mass/volu me) 0.3 mg/dL SP 0.1-1.0 SP Serum or plasma alkaline phosphatase victor hugo surement (enzymatic activity/volume) SP 83 U/L 40-136 SP Serum or plasma aspartate aminotransfera se measurement (enzymatic SP 11 U/L 5-34 SP Serum or plasma alanine aminotransferase measurement (enzymatic activity/volume) SP 10 U/L 0-55 SP Serum or plasma protein measurement (mass/volume) 5.6 g/dL SP8.2 Serum or plasma albumin measurement (mass/volume) 2.9 g/dL SP4.5 CALCIUM CORRECTED 9.2 mg/dL 8.5-10.1 SP Complete blood count (CBC) with automate d white blood cell (WBC) differential - POS 04:56 Blood leukocytes automated count (number/volume) 10.0 10*3/uL POS 4.3-11.0 SP Blood erythrocytes automated count (number/volume) 3.64 10*6/uL SP 4.35-5.85 SP Venous blood hemoglobin measurement (mass/volume) 10.8 g/dL SP16.0 Blood hematocrit (volume fraction) 31 % 35-52 SP Automated erythrocyte mean corpuscular volume 86 [ foz_us] SP99 Automated erythrocyte mean corpuscular h emoglobin (mass per erythrocyte) SP 30 pg 25-34 SP Automated erythrocyte mean corpuscular h emoglobin concentration measurement SP 35 g/dL 32-36 SP Automated erythrocyte distribution width ratio 11. 8 % 10.0- SP Automated blood platelet count (count/volume) 379 10*3/uL SP400 Automated blood platelet mean volume measurement 9.8 [foz_us] SP 7.4-10.4 SP Automated blood neutrophils/100 leukocytes 85 % 42-75 SP Automated blood lymphocytes/100 leukocytes 5 % 12-44 SP Blood monocytes/100 leukocytes 9 % 0-12 SP Automated blood eosinophils/100 leukocytes 1 % 0-10 SP Automated blood basophils/100 leukocytes 0 % 0-10 SP Blood neutrophils automated count (number/volume) 8.5 10*3 SP7.8 Blood lymphocytes automated count (number/volume) 0.5 10*3 SP4.0 Blood monocytes automated count (number/volume) 0. 9 10*3 SP1.0 Automated eosinophil count 0.1 10*3/uL 0 .0-0.3 SP Automated blood basophil count (count/volume) 0.0 10*3/uL SP0.1 Comprehensive metabolic panel - 02/22/19 04:56 POS Serum or plasma sodium measurement (moles/volume) 132 mmol/L SP 135-145 SP Serum or plasma potassium measurement (moles/volume) 2.7 mmol/L SP 3.6-5.0 SP Serum or plasma chloride measurement (moles/volume) 99 mmol/L SP 98-107 SP Carbon dioxide 22 mmol/L 21-32 SP Serum or plasma anion gap determination (moles/volume) 11 mmol/L SP 5-14 SP Serum or plasma urea nitrogen measurement (mass/volume ) 23 mg/dL SP 7-18 SP Serum or plasma creatinine measurement (mass/volume) 0.66 mg/dL SP 0.60-1.30 SP Serum or plasma urea nitrogen/creatinine mass ratio 35 NRG SP Serum or plasma creatinine measurement w ith calculation of estimated glomerular SP rate > NRG SP Serum or plasma glucose measurement (mass/volume) 140 mg/dL SP105 Serum or plasma calcium measurement (mass/volume) 8.4 mg/dL SP10.1 Serum or plasma total bilirubin measurement (mass/volu me) 0.2 mg/dL SP 0.1-1.0 SP Serum or plasma alkaline phosphatase victor hugo surement (enzymatic activity/volume) SP 91 U/L 40-136 SP Serum or plasma aspartate aminotransfera se measurement (enzymatic SP 15 U/L 5-34 SP Serum or plasma alanine aminotransferase measurement (enzymatic activity/volume) SP 10 U/L 0-55 SP Serum or plasma protein measurement (mass/volume) 6.0 g/dL SP8.2 Serum or plasma albumin measurement (mass/volume) 3.1 g/dL SP4.5 CALCIUM CORRECTED 9.1 mg/dL 8.5-10.1 SP Blood lactic acid measurement (moles/vol ume) - 02/22/19 10:25 POS Blood lactic acid measurement (moles/volume) 0.96 mmol/L SP2.00 Serum ragweed IgE antibody assay - 02/22 10:25 POS Serum ragweed IgE antibody assay 118 U/L 125-220 SP Prealbumin - 02/23/19 05:05 POS Serum or plasma prealbumin measurement (mass/volume) 4.4 % SP37.0 Complete blood count (CBC) with automate d white blood cell (WBC) differential - POS 05:09 Blood leukocytes automated count (number/volume) 7.7 10*3/uL POS 4.3-11.0 SP Blood erythrocytes automated count (number/volume) 3.52 10*6/uL SP 4.35-5.85 SP Venous blood hemoglobin measurement (mass/volume) 10.4 g/dL SP16.0 Blood hematocrit (volume fraction) 31 % 35-52 SP Automated erythrocyte mean corpuscular volume 87 [ foz_us] SP99 Automated erythrocyte mean corpuscular h emoglobin (mass per erythrocyte) SP 30 pg 25-34 SP Automated erythrocyte mean corpuscular h emoglobin concentration measurement SP 34 g/dL 32-36 SP Automated erythrocyte distribution width ratio 12. 2 % 10.0- SP Automated blood platelet count (count/volume) 355 10*3/uL SP400 Automated blood platelet mean volume measurement 9.4 [foz_us] SP 7.4-10.4 SP Automated blood neutrophils/100 leukocytes 79 % 42-75 SP Automated blood lymphocytes/100 leukocytes 7 % 12-44 SP Blood monocytes/100 leukocytes 13 % 0-12 SP Automated blood eosinophils/100 leukocytes 1 % 0-10 SP Automated blood basophils/100 leukocytes 0 % 0-10 SP Blood neutrophils automated count (number/volume) 6.1 10*3 SP7.8 Blood lymphocytes automated count (number/volume) 0.5 10*3 SP4.0 Blood monocytes automated count (number/volume) 1. 0 10*3 SP1.0 Automated eosinophil count 0.1 10*3/uL 0 .0-0.3 SP Automated blood basophil count (count/volume) 0.0 10*3/uL SP0.1 Comprehensive metabolic panel - 02/23/19 05:09 POS Serum or plasma sodium measurement (moles/volume) 130 mmol/L SP 135-145 SP Serum or plasma potassium measurement (moles/volume) 3.7 mmol/L SP 3.6-5.0 SP Serum or plasma chloride measurement (moles/volume) 100 mmol/L SP 98-107 SP Carbon dioxide 20 mmol/L 21-32 SP Serum or plasma anion gap determination (moles/volume) 10 mmol/L SP 5-14 SP Serum or plasma urea nitrogen measurement (mass/volume ) 12 mg/dL SP 7-18 SP Serum or plasma creatinine measurement (mass/volume) 0.63 mg/dL SP 0.60-1.30 SP Serum or plasma urea nitrogen/creatinine mass ratio 19 NRG SP Serum or plasma creatinine measurement w ith calculation of estimated glomerular SP rate > NRG SP Serum or plasma glucose measurement (mass/volume) 112 mg/dL SP105 Serum or plasma calcium measurement (mass/volume) 8.0 mg/dL SP10.1 Serum or plasma total bilirubin measurement (mass/volu me) 0.3 mg/dL SP 0.1-1.0 SP Serum or plasma alkaline phosphatase victor hugo surement (enzymatic activity/volume) SP 96 U/L 40-136 SP Serum or plasma aspartate aminotransfera se measurement (enzymatic SP 11 U/L 5-34 SP Serum or plasma alanine aminotransferase measurement (enzymatic activity/volume) SP 11 U/L 0-55 SP Serum or plasma protein measurement (mass/volume) 5.8 g/dL SP8.2 Serum or plasma albumin measurement (mass/volume) 2.9 g/dL SP4.5 CALCIUM CORRECTED 8.9 mg/dL 8.5-10.1 SP Complete blood count (CBC) with automate d white blood cell (WBC) differential - POS 05:15 Blood leukocytes automated count (number/volume) 6.4 10*3/uL POS 4.3-11.0 SP Blood erythrocytes automated count (number/volume) 3.31 10*6/uL SP 4.35-5.85 SP Venous blood hemoglobin measurement (mass/volume) 9.9 g/dL SP16.0 Blood hematocrit (volume fraction) 29 % 35-52 SP Automated erythrocyte mean corpuscular volume 87 [ foz_us] SP99 Automated erythrocyte mean corpuscular h emoglobin (mass per erythrocyte) SP 30 pg 25-34 SP Automated erythrocyte mean corpuscular h emoglobin concentration measurement SP 35 g/dL 32-36 SP Automated erythrocyte distribution width ratio 12. 0 % 10.0- SP Automated blood platelet count (count/volume) 302 10*3/uL SP400 Automated blood platelet mean volume measurement 10.0 [foz_us] SP 7.4-10.4 SP Automated blood neutrophils/100 leukocytes 75 % 42-75 SP Automated blood lymphocytes/100 leukocytes 9 % 12-44 SP Blood monocytes/100 leukocytes 15 % 0-12 SP Automated blood eosinophils/100 leukocytes 1 % 0-10 SP Automated blood basophils/100 leukocytes 0 % 0-10 SP Blood neutrophils automated count (number/volume) 4.8 10*3 SP7.8 Blood lymphocytes automated count (number/volume) 0.6 10*3 SP4.0 Blood monocytes automated count (number/volume) 0. 9 10*3 SP1.0 Automated eosinophil count 0.0 10*3/uL 0 .0-0.3 SP Automated blood basophil count (count/volume) 0.0 10*3/uL SP0.1 Comprehensive metabolic panel - 02/24/19 05:15 POS Serum or plasma sodium measurement (moles/volume) 132 mmol/L SP 135-145 SP Serum or plasma potassium measurement (moles/volume) 3.5 mmol/L SP 3.6-5.0 SP Serum or plasma chloride measurement (moles/volume) 103 mmol/L SP 98-107 SP Carbon dioxide 19 mmol/L 21-32 SP Serum or plasma anion gap determination (moles/volume) 10 mmol/L SP 5-14 SP Serum or plasma urea nitrogen measurement (mass/volume ) 6 mg/dL SP 7-18 SP Serum or plasma creatinine measurement (mass/volume) 0.60 mg/dL SP 0.60-1.30 SP Serum or plasma urea nitrogen/creatinine mass ratio 10 NRG SP Serum or plasma creatinine measurement w ith calculation of estimated glomerular SP rate > NRG SP Serum or plasma glucose measurement (mass/volume) 111 mg/dL SP105 Serum or plasma calcium measurement (mass/volume) 7.8 mg/dL SP10.1 Serum or plasma total bilirubin measurement (mass/volu me) 0.3 mg/dL SP 0.1-1.0 SP Serum or plasma alkaline phosphatase victor hugo surement (enzymatic activity/volume) SP 89 U/L 40-136 SP Serum or plasma aspartate aminotransfera se measurement (enzymatic SP 19 U/L 5-34 SP Serum or plasma alanine aminotransferase measurement (enzymatic activity/volume) SP 8 U/L 0-55 SP Serum or plasma protein measurement (mass/volume) 5.3 g/dL SP8.2 Serum or plasma albumin measurement (mass/volume) 2.6 g/dL SP4.5 CALCIUM CORRECTED 8.9 mg/dL 8.5-10.1 SP CULTURE, URINE - 03/02/19 09:35 POS CULTURE, URINE, ROUTINE SEE NOTE NRG SP Complete blood count (CBC) with automate d white blood cell (WBC) differential - POS 19:50 Blood leukocytes automated count (number/volume) 11.1 10*3/uL POS 4.3-11.0 SP Blood erythrocytes automated count (number/volume) 5.37 10*6/uL SP 4.35-5.85 SP Venous blood hemoglobin measurement (mass/volume) 15.6 g/dL SP16.0 Blood hematocrit (volume fraction) 43 % 35-52 SP Automated erythrocyte mean corpuscular volume 80 [ foz_us] SP99 Automated erythrocyte mean corpuscular h emoglobin (mass per erythrocyte) SP 29 pg 25-34 SP Automated erythrocyte mean corpuscular h emoglobin concentration measurement SP 36 g/dL 32-36 SP Automated erythrocyte distribution width ratio 13. 4 % 10.0- SP Automated blood platelet count (count/volume) 551 10*3/uL SP400 Automated blood platelet mean volume measurement 10.1 [foz_us] SP 7.4-10.4 SP Automated blood neutrophils/100 leukocytes 72 % 42-75 SP Automated blood lymphocytes/100 leukocytes 19 % 12-44 SP Blood monocytes/100 leukocytes 9 % 0-12 SP Automated blood eosinophils/100 leukocytes 0 % 0-10 SP Automated blood basophils/100 leukocytes 0 % 0-10 SP Blood neutrophils automated count (number/volume) 8.0 10*3 SP7.8 Blood lymphocytes automated count (number/volume) 2.1 10*3 SP4.0 Blood monocytes automated count (number/volume) 1. 0 10*3 SP1.0 Automated eosinophil count 0.0 10*3/uL 0 .0-0.3 SP Automated blood basophil count (count/volume) 0.1 10*3/uL SP0.1 PT panel in platelet poor plasma by coag ulation assay - 04/06/19 19:50 POS Prothrombin time (PT) in platelet poor plasma by coagu lation assay SP s 12.2-14.7 SP INR in platelet poor plasma or blood by coagulation as say 1.0 SP 0.8-1.4 SP Activated partial thromboplastin time (a PTT) in platelet poor plasma POS assay - 04/06/19 19:50 Activated partial thromboplastin time (a PTT) in platelet poor plasma POS assay 30 s 24-35 SP Comprehensive metabolic panel - 04/06/19 19:50 POS Serum or plasma sodium measurement (moles/volume) 127 mmol/L SP 135-145 SP Serum or plasma potassium measurement (moles/volume) 3.0 mmol/L SP 3.6-5.0 SP Serum or plasma chloride measurement (moles/volume) 83 mmol/L SP 98-107 SP Carbon dioxide 25 mmol/L 21-32 SP Serum or plasma anion gap determination (moles/volume) 19 mmol/L SP 5-14 SP Serum or plasma urea nitrogen measurement (mass/volume ) 31 mg/dL SP 7-18 SP Serum or plasma creatinine measurement (mass/volume) 1.01 mg/dL SP 0.60-1.30 SP Serum or plasma urea nitrogen/creatinine mass ratio 31 NRG SP Serum or plasma creatinine measurement w ith calculation of estimated glomerular SP rate 57 NRG SP Serum or plasma glucose measurement (mass/volume) 128 mg/dL SP105 Serum or plasma calcium measurement (mass/volume) 9.7 mg/dL SP10.1 Serum or plasma total bilirubin measurement (mass/volu me) 0.9 mg/dL SP 0.1-1.0 SP Serum or plasma alkaline phosphatase victor hugo surement (enzymatic activity/volume) SP 121 U/L 40-136 SP Serum or plasma aspartate aminotransfera se measurement (enzymatic SP 31 U/L 5-34 SP Serum or plasma alanine aminotransferase measurement (enzymatic activity/volume) SP 19 U/L 0-55 SP Serum or plasma protein measurement (mass/volume) 8.2 g/dL SP8.2 Serum or plasma albumin measurement (mass/volume) 4.4 g/dL SP4.5 CALCIUM CORRECTED 9.4 mg/dL 8.5-10.1 SP Lipase - 04/06/19 19:50 POS Lipase 44 U/L 8-78 SP Serum or plasma C reactive protein measu rement (mass/volume) - 04/06/19 19:50 POS Serum or plasma C reactive protein measurement (mass/v olume) 0.50 POS 0.00-0.50 SP Serum or plasma choriogonadotropin (preg veronica test) detection - 04/06/19 19:50 POS Serum or plasma choriogonadotropin ( test) de tection NEGATIVE POS NEGATIVE SP Urine drug screening test - 04/06/19 20: 11 POS Urine phencyclidine detection by screening method NEGATIVE SP Urine benzodiazepines detection by screening method NEGATIVE SP NEGATIVE SP Urine cocaine detection NEGATIVE NEGATI VE SP Urine amphetamines detection by screening method N EGATIVE SP Urine methamphetamine detection by screening method NEGATIVE SP NEGATIVE SP Urine cannabinoids detection by screening method P OSITIVE SP Urine opiates detection by screening method NEGATI VE SP Urine barbiturates detection NEGATIVE N EGATIVE SP Screening urine tricyclic antidepressants detection NEGATIVE SP NEGATIVE SP Urine methadone detection by screening method NEGA TIVE SP Urine oxycodone detection NEGATIVE NEGA TIVE SP Urine propoxyphene detection NEGATIVE N EGATIVE SP Complete urinalysis with reflex to cultu re - 04/06/19 20:11 POS Urine color determination YELLOW NRG SP Urine clarity determination SLIGHTLY CLOUDY NRG SP Urine pH measurement by test strip 5 5-9 SP Specific gravity of urine by test strip 1.025 1.016-1.022 SP Urine protein assay by test strip, semi-quantitative 2+ SP Urine glucose detection by automated test strip NE GATIVE SP Erythrocytes detection in urine sediment by light micr oscopy 2+ SP NEGATIVE SP Urine ketones detection by automated test strip 4+ NEGATIVE SP Urine nitrite detection by test strip NEGATIVE NEGATIVE SP Urine total bilirubin detection by test strip 1+ NEGATIVE SP Urine urobilinogen measurement by automated test strip (mass/volume) 1 SPmg/dL NORMAL SP Urine leukocyte esterase detection by dipstick 3+ NEGATIVE SP Automated urine sediment erythrocyte cou nt by microscopy (number/high power SP [HPF] NRG SP Automated urine sediment leukocyte count by microscopy (number/high power field) SP > [HPF] NRG SP Bacteria detection in urine sediment by light microsco py LARGE SP NRG SP Squamous epithelial cells detection in u rine sediment by light microscopy SP 5-10 NRG SP Crystals detection in urine sediment by light microsco py NONE SP NRG SP Casts detection in urine sediment by light microscopy NONE SP Mucus detection in urine sediment by light microscopy NEGATIVE SP NRG SP Complete urinalysis with reflex to culture YES NRG SP Bacterial urine culture - 04/06/19 20:11 POS Bacterial urine culture [id number] NRG SP COLONY COUNT >100,000/ML NRG SP FTX;REPORTABLE SUSCEPTIBILITY REPORTED 04-08-19, 13 53. NRG SP Dirithromycin susceptibility test by dis k diffusion - 04/06/19 20:11 POS Gentamicin susceptibility test by minimum inhibitory c oncentration <= SP NRG SP Trimethoprim/sulfamethoxazole susceptibi lity test by minimum SP > NRG SP Levofloxacin susceptibility test by minimum inhibitory concentration SP NRG SP Ampicillin susceptibility test by minimum inhibitory c oncentration > SP NRG SP Cefazolin susceptibility test by minimum inhibitory co ncentration 4 SP NRG SP Ceftriaxone susceptibility test by minimum inhibitory concentration <= SP NRG SP Ciprofloxacin susceptibility test by minimum inhibitor y concentration SP NRG SP Meropenem susceptibility test by minimum inhibitory co ncentration <= SP NRG SP Nitrofurantoin susceptibility test by mi nimum inhibitory concentration SP <= NRG SP Amoxicillin and clavulanate potassium susc CALISTA = NRG SP Complete blood count (CBC) with automate d white blood cell (WBC) differential - POS 05:43 Blood leukocytes automated count (number/volume) 5.0 10*3/uL POS 4.3-11.0 SP Blood erythrocytes automated count (number/volume) 4.00 10*6/uL SP 4.35-5.85 SP Venous blood hemoglobin measurement (mass/volume) 11.5 g/dL SP16.0 Blood hematocrit (volume fraction) 34 % 35-52 SP Automated erythrocyte mean corpuscular volume 84 [ foz_us] SP99 Automated erythrocyte mean corpuscular h emoglobin (mass per erythrocyte) SP 29 pg 25-34 SP Automated erythrocyte mean corpuscular h emoglobin concentration measurement SP 34 g/dL 32-36 SP Automated erythrocyte distribution width ratio 13. 4 % 10.0- SP Automated blood platelet count (count/volume) 292 10*3/uL SP400 Automated blood platelet mean volume measurement 10.7 [foz_us] SP 7.4-10.4 SP Automated blood neutrophils/100 leukocytes 63 % 42-75 SP Automated blood lymphocytes/100 leukocytes 24 % 12-44 SP Blood monocytes/100 leukocytes 11 % 0-12 SP Automated blood eosinophils/100 leukocytes 2 % 0-10 SP Automated blood basophils/100 leukocytes 0 % 0-10 SP Blood neutrophils automated count (number/volume) 3.2 10*3 SP7.8 Blood lymphocytes automated count (number/volume) 1.2 10*3 SP4.0 Blood monocytes automated count (number/volume) 0. 5 10*3 SP1.0 Automated eosinophil count 0.1 10*3/uL 0 .0-0.3 SP Automated blood basophil count (count/volume) 0.0 10*3/uL SP0.1 Comprehensive metabolic panel - 04/07/19 05:43 POS Serum or plasma sodium measurement (moles/volume) 130 mmol/L SP 135-145 SP Serum or plasma potassium measurement (moles/volume) 3.0 mmol/L SP 3.6-5.0 SP Serum or plasma chloride measurement (moles/volume) 91 mmol/L SP 98-107 SP Carbon dioxide 25 mmol/L 21-32 SP Serum or plasma anion gap determination (moles/volume) 14 mmol/L SP 5-14 SP Serum or plasma urea nitrogen measurement (mass/volume ) 27 mg/dL SP 7-18 SP Serum or plasma creatinine measurement (mass/volume) 0.75 mg/dL SP 0.60-1.30 SP Serum or plasma urea nitrogen/creatinine mass ratio 36 NRG SP Serum or plasma creatinine measurement w ith calculation of estimated glomerular SP rate > NRG SP Serum or plasma glucose measurement (mass/volume) 86 mg/dL SP105 Serum or plasma calcium measurement (mass/volume) 8.1 mg/dL SP10.1 Serum or plasma total bilirubin measurement (mass/volu me) 0.4 mg/dL SP 0.1-1.0 SP Serum or plasma alkaline phosphatase victor hugo surement (enzymatic activity/volume) SP 81 U/L 40-136 SP Serum or plasma aspartate aminotransfera se measurement (enzymatic SP 23 U/L 5-34 SP Serum or plasma alanine aminotransferase measurement (enzymatic activity/volume) SP 16 U/L 0-55 SP Serum or plasma protein measurement (mass/volume) 5.7 g/dL SP8.2 Serum or plasma albumin measurement (mass/volume) 3.3 g/dL SP4.5 CALCIUM CORRECTED 8.7 mg/dL 8.5-10.1 SP Methicillin resistant Staphylococcus aur eus (MRSA) screening culture - 04/07/19 POS Methicillin resistant Staphylococcus aureus (MRSA) scr eening culture POS NRG SP Blood type T Indirect antibody screen pa gia - 04/07/19 17:05 POS WRISTBAND NUMBER [id number] NRG SP ABO+Rh group OP NRG SP Blood group antibody screen NEGATIVE NR G SP Automated blood complete blood count (he mogram) panel - 04/08/19 04:45 POS Blood leukocytes automated count (number/volume) 9.6 10*3/uL SP 4.3-11.0 SP Blood erythrocytes automated count (number/volume) 4.73 10*6/uL SP 4.35-5.85 SP Venous blood hemoglobin measurement (mass/volume) 13.4 g/dL SP16.0 Blood hematocrit (volume fraction) 40 % 35-52 SP Automated erythrocyte mean corpuscular volume 85 [ foz_us] SP99 Automated erythrocyte mean corpuscular h emoglobin (mass per erythrocyte) SP 28 pg 25-34 SP Automated erythrocyte mean corpuscular h emoglobin concentration measurement SP 33 g/dL 32-36 SP Automated erythrocyte distribution width ratio 13. 9 % 10.0- SP Automated blood platelet count (count/volume) 425 10*3/uL SP400 Automated blood platelet mean volume measurement 10.1 [foz_us] SP 7.4-10.4 SP Whole blood basic metabolic panel - 03/13 02/27 04:45 POS Serum or plasma sodium measurement (moles/volume) 134 mmol/L SP 135-145 SP Serum or plasma potassium measurement (moles/volume) 3.9 mmol/L SP 3.6-5.0 SP Serum or plasma chloride measurement (moles/volume) 99 mmol/L SP 98-107 SP Carbon dioxide 22 mmol/L 21-32 SP Serum or plasma anion gap determination (moles/volume) 13 mmol/L SP 5-14 SP Serum or plasma urea nitrogen measurement (mass/volume ) 32 mg/dL SP 7-18 SP Serum or plasma creatinine measurement (mass/volume) 1.01 mg/dL SP 0.60-1.30 SP Serum or plasma urea nitrogen/creatinine mass ratio 32 NRG SP Serum or plasma creatinine measurement w ith calculation of estimated glomerular SP rate 57 NRG SP Serum or plasma glucose measurement (mass/volume) 107 mg/dL SP105 Serum or plasma calcium measurement (mass/volume) 8.2 mg/dL SP10.1 Magnesium - 04/08/19 04:45 POS Magnesium 1.8 mg/dL 1.6-2.4 SP Complete blood count (CBC) with automate d white blood cell (WBC) differential - POS 04:50 Blood leukocytes automated count (number/volume) 7.1 10*3/uL POS 4.3-11.0 SP Blood erythrocytes automated count (number/volume) 3.35 10*6/uL SP 4.35-5.85 SP Venous blood hemoglobin measurement (mass/volume) 9.7 g/dL SP16.0 Blood hematocrit (volume fraction) 29 % 35-52 SP Automated erythrocyte mean corpuscular volume 87 [ foz_us] SP99 Automated erythrocyte mean corpuscular h emoglobin (mass per erythrocyte) SP 29 pg 25-34 SP Automated erythrocyte mean corpuscular h emoglobin concentration measurement SP 33 g/dL 32-36 SP Automated erythrocyte distribution width ratio 13. 8 % 10.0- SP Automated blood platelet count (count/volume) 212 10*3/uL SP400 Automated blood platelet mean volume measurement 10.4 [foz_us] SP 7.4-10.4 SP Automated blood neutrophils/100 leukocytes 85 % 42-75 SP Automated blood lymphocytes/100 leukocytes 8 % 12-44 SP Blood monocytes/100 leukocytes 7 % 0-12 SP Automated blood eosinophils/100 leukocytes 0 % 0-10 SP Automated blood basophils/100 leukocytes 0 % 0-10 SP Blood neutrophils automated count (number/volume) 6.1 10*3 SP7.8 Blood lymphocytes automated count (number/volume) 0.5 10*3 SP4.0 Blood monocytes automated count (number/volume) 0. 5 10*3 SP1.0 Automated eosinophil count 0.0 10*3/uL 0 .0-0.3 SP Automated blood basophil count (count/volume) 0.0 10*3/uL SP0.1 Comprehensive metabolic panel - 04/09/19 04:50 POS Serum or plasma sodium measurement (moles/volume) 134 mmol/L SP 135-145 SP Serum or plasma potassium measurement (moles/volume) 4.4 mmol/L SP 3.6-5.0 SP Serum or plasma chloride measurement (moles/volume) 105 mmol/L SP 98-107 SP Carbon dioxide 21 mmol/L 21-32 SP Serum or plasma anion gap determination (moles/volume) 8 mmol/L SP 5-14 SP Serum or plasma urea nitrogen measurement (mass/volume ) 33 mg/dL SP 7-18 SP Serum or plasma creatinine measurement (mass/volume) 0.71 mg/dL SP 0.60-1.30 SP Serum or plasma urea nitrogen/creatinine mass ratio 46 NRG SP Serum or plasma creatinine measurement w ith calculation of estimated glomerular SP rate > NRG SP Serum or plasma glucose measurement (mass/volume) 92 mg/dL SP105 Serum or plasma calcium measurement (mass/volume) 7.8 mg/dL SP10.1 Serum or plasma total bilirubin measurement (mass/volu me) 0.2 mg/dL SP 0.1-1.0 SP Serum or plasma alkaline phosphatase victor hugo surement (enzymatic activity/volume) SP 74 U/L 40-136 SP Serum or plasma aspartate aminotransfera se measurement (enzymatic SP 49 U/L 5-34 SP Serum or plasma alanine aminotransferase measurement (enzymatic activity/volume) SP 14 U/L 0-55 SP Serum or plasma protein measurement (mass/volume) 4.8 g/dL SP8.2 Serum or plasma albumin measurement (mass/volume) 2.5 g/dL SP4.5 CALCIUM CORRECTED 9.0 mg/dL 8.5-10.1 SP Complete blood count (CBC) with automate d white blood cell (WBC) differential - POS 06:15 Blood leukocytes automated count (number/volume) 7.4 10*3/uL POS 4.3-11.0 SP Blood erythrocytes automated count (number/volume) 3.16 10*6/uL SP 4.35-5.85 SP Venous blood hemoglobin measurement (mass/volume) 9.0 g/dL SP16.0 Blood hematocrit (volume fraction) 28 % 35-52 SP Automated erythrocyte mean corpuscular volume 89 [ foz_us] SP99 Automated erythrocyte mean corpuscular h emoglobin (mass per erythrocyte) SP 28 pg 25-34 SP Automated erythrocyte mean corpuscular h emoglobin concentration measurement SP 32 g/dL 32-36 SP Automated erythrocyte distribution width ratio 14. 9 % 10.0- SP Automated blood platelet count (count/volume) 219 10*3/uL SP400 Automated blood platelet mean volume measurement 10.0 [foz_us] SP 7.4-10.4 SP Automated blood neutrophils/100 leukocytes 84 % 42-75 SP Automated blood lymphocytes/100 leukocytes 9 % 12-44 SP Blood monocytes/100 leukocytes 6 % 0-12 SP Automated blood eosinophils/100 leukocytes 1 % 0-10 SP Automated blood basophils/100 leukocytes 0 % 0-10 SP Blood neutrophils automated count (number/volume) 6.2 10*3 SP7.8 Blood lymphocytes automated count (number/volume) 0.7 10*3 SP4.0 Blood monocytes automated count (number/volume) 0. 4 10*3 SP1.0 Automated eosinophil count 0.1 10*3/uL 0 .0-0.3 SP Automated blood basophil count (count/volume) 0.0 10*3/uL SP0.1 Comprehensive metabolic panel - 04/10/19 06:15 POS Serum or plasma sodium measurement (moles/volume) 139 mmol/L SP 135-145 SP Serum or plasma potassium measurement (moles/volume) 4.5 mmol/L SP 3.6-5.0 SP Serum or plasma chloride measurement (moles/volume) 111 mmol/L SP 98-107 SP Carbon dioxide 16 mmol/L 21-32 SP Serum or plasma anion gap determination (moles/volume) 12 mmol/L SP 5-14 SP Serum or plasma urea nitrogen measurement (mass/volume ) 23 mg/dL SP 7-18 SP Serum or plasma creatinine measurement (mass/volume) 0.56 mg/dL SP 0.60-1.30 SP Serum or plasma urea nitrogen/creatinine mass ratio 41 NRG SP Serum or plasma creatinine measurement w ith calculation of estimated glomerular SP rate > NRG SP Serum or plasma glucose measurement (mass/volume) 61 mg/dL SP105 Serum or plasma calcium measurement (mass/volume) 8.2 mg/dL SP10.1 Serum or plasma total bilirubin measurement (mass/volu me) 0.2 mg/dL SP 0.1-1.0 SP Serum or plasma alkaline phosphatase victor hugo surement (enzymatic activity/volume) SP 72 U/L 40-136 SP Serum or plasma aspartate aminotransfera se measurement (enzymatic SP 61 U/L 5-34 SP Serum or plasma alanine aminotransferase measurement (enzymatic activity/volume) SP 25 U/L 0-55 SP Serum or plasma protein measurement (mass/volume) 5.7 g/dL SP8.2 Serum or plasma albumin measurement (mass/volume) 2.7 g/dL SP4.5 CALCIUM CORRECTED 9.2 mg/dL 8.5-10.1 SP Automated blood complete blood count (he mogram) panel - 04/11/19 09:23 POS Blood leukocytes automated count (number/volume) 6.1 10*3/uL SP 4.3-11.0 SP Blood erythrocytes automated count (number/volume) 2.95 10*6/uL SP 4.35-5.85 SP Venous blood hemoglobin measurement (mass/volume) 8.4 g/dL SP16.0 Blood hematocrit (volume fraction) 26 % 35-52 SP Automated erythrocyte mean corpuscular volume 88 [ foz_us] SP99 Automated erythrocyte mean corpuscular h emoglobin (mass per erythrocyte) SP 29 pg 25-34 SP Automated erythrocyte mean corpuscular h emoglobin concentration measurement SP 32 g/dL 32-36 SP Automated erythrocyte distribution width ratio 14. 9 % 10.0- SP Automated blood platelet count (count/volume) 252 10*3/uL SP400 Automated blood platelet mean volume measurement 9.7 [foz_us] SP 7.4-10.4 SP Comprehensive metabolic panel - 04/11/19 09:23 POS Serum or plasma sodium measurement (moles/volume) 140 mmol/L SP 135-145 SP Serum or plasma potassium measurement (moles/volume) 4.3 mmol/L SP 3.6-5.0 SP Serum or plasma chloride measurement (moles/volume) 114 mmol/L SP 98-107 SP Carbon dioxide 18 mmol/L 21-32 SP Serum or plasma anion gap determination (moles/volume) 8 mmol/L SP 5-14 SP Serum or plasma urea nitrogen measurement (mass/volume ) 12 mg/dL SP 7-18 SP Serum or plasma creatinine measurement (mass/volume) 0.53 mg/dL SP 0.60-1.30 SP Serum or plasma urea nitrogen/creatinine mass ratio 23 NRG SP Serum or plasma creatinine measurement w ith calculation of estimated glomerular SP rate > NRG SP Serum or plasma glucose measurement (mass/volume) 89 mg/dL SP105 Serum or plasma calcium measurement (mass/volume) 8.0 mg/dL SP10.1 Serum or plasma total bilirubin measurement (mass/volu me) 0.3 mg/dL SP 0.1-1.0 SP Serum or plasma alkaline phosphatase victor hugo surement (enzymatic activity/volume) SP 89 U/L 40-136 SP Serum or plasma aspartate aminotransfera se measurement (enzymatic SP 56 U/L 5-34 SP Serum or plasma alanine aminotransferase measurement (enzymatic activity/volume) SP 27 U/L 0-55 SP Serum or plasma protein measurement (mass/volume) 5.2 g/dL SP8.2 Serum or plasma albumin measurement (mass/volume) 2.6 g/dL SP4.5 CALCIUM CORRECTED 9.1 mg/dL 8.5-10.1 SP Whole blood basic metabolic panel - 08/30 05:43 POS Serum or plasma sodium measurement (moles/volume) 136 mmol/L SP 135-145 SP Serum or plasma potassium measurement (moles/volume) 3.8 mmol/L SP 3.6-5.0 SP Serum or plasma chloride measurement (moles/volume) 106 mmol/L SP 98-107 SP Carbon dioxide 20 mmol/L 21-32 SP Serum or plasma anion gap determination (moles/volume) 10 mmol/L SP 5-14 SP Serum or plasma urea nitrogen measurement (mass/volume ) 8 mg/dL SP 7-18 SP Serum or plasma creatinine measurement (mass/volume) 0.47 mg/dL SP 0.60-1.30 SP Serum or plasma urea nitrogen/creatinine mass ratio 17 NRG SP Serum or plasma creatinine measurement w ith calculation of estimated glomerular SP rate > NRG SP Serum or plasma glucose measurement (mass/volume) 94 mg/dL SP105 Serum or plasma calcium measurement (mass/volume) 7.7 mg/dL SP10.1 Serum or plasma phosphate measurement (m ass/volume) - 04/12/19 05:43 POS Serum or plasma phosphate measurement (mass/volume) 1.7 mg/dL SP 2.3-4.7 SP Magnesium - 04/12/19 05:43 POS Magnesium 1.2 mg/dL 1.6-2.4 SP Automated blood complete blood count (he mogram) panel - 04/12/19 06:17 POS Blood leukocytes automated count (number/volume) 5.4 10*3/uL SP 4.3-11.0 SP Blood erythrocytes automated count (number/volume) 2.81 10*6/uL SP 4.35-5.85 SP Venous blood hemoglobin measurement (mass/volume) 8.1 g/dL SP16.0 Blood hematocrit (volume fraction) 24 % 35-52 SP Automated erythrocyte mean corpuscular volume 86 [ foz_us] SP99 Automated erythrocyte mean corpuscular h emoglobin (mass per erythrocyte) SP 29 pg 25-34 SP Automated erythrocyte mean corpuscular h emoglobin concentration measurement SP 34 g/dL 32-36 SP Automated erythrocyte distribution width ratio 15. 0 % 10.0- SP Automated blood platelet count (count/volume) 234 10*3/uL SP400 Automated blood platelet mean volume measurement 9.6 [foz_us] SP 7.4-10.4 SP Complete blood count (CBC) with automate d white blood cell (WBC) differential - POS 05:55 Blood leukocytes automated count (number/volume) 4.5 10*3/uL POS 4.3-11.0 SP Blood erythrocytes automated count (number/volume) 3.31 10*6/uL SP 4.35-5.85 SP Venous blood hemoglobin measurement (mass/volume) 9.5 g/dL SP16.0 Blood hematocrit (volume fraction) 29 % 35-52 SP Automated erythrocyte mean corpuscular volume 86 [ foz_us] SP99 Automated erythrocyte mean corpuscular h emoglobin (mass per erythrocyte) SP 29 pg 25-34 SP Automated erythrocyte mean corpuscular h emoglobin concentration measurement SP 33 g/dL 32-36 SP Automated erythrocyte distribution width ratio 14. 9 % 10.0- SP Automated blood platelet count (count/volume) 206 10*3/uL SP400 Automated blood platelet mean volume measurement 10.4 [foz_us] SP 7.4-10.4 SP Automated blood neutrophils/100 leukocytes 59 % 42-75 SP Automated blood lymphocytes/100 leukocytes 20 % 12-44 SP Blood monocytes/100 leukocytes 16 % 0-12 SP Automated blood eosinophils/100 leukocytes 5 % 0-10 SP Automated blood basophils/100 leukocytes 1 % 0-10 SP Blood neutrophils automated count (number/volume) 2.6 10*3 SP7.8 Blood lymphocytes automated count (number/volume) 0.9 10*3 SP4.0 Blood monocytes automated count (number/volume) 0. 7 10*3 SP1.0 Automated eosinophil count 0.2 10*3/uL 0 .0-0.3 SP Automated blood basophil count (count/volume) 0.0 10*3/uL SP0.1 Whole blood basic metabolic panel - 09/27 05:55 POS Serum or plasma sodium measurement (moles/volume) 135 mmol/L SP 135-145 SP Serum or plasma potassium measurement (moles/volume) 4.2 mmol/L SP 3.6-5.0 SP Serum or plasma chloride measurement (moles/volume) 107 mmol/L SP 98-107 SP Carbon dioxide 20 mmol/L 21-32 SP Serum or plasma anion gap determination (moles/volume) 8 mmol/L SP 5-14 SP Serum or plasma urea nitrogen measurement (mass/volume ) 4 mg/dL SP 7-18 SP Serum or plasma creatinine measurement (mass/volume) 0.44 mg/dL SP 0.60-1.30 SP Serum or plasma urea nitrogen/creatinine mass ratio 9 NRG SP Serum or plasma creatinine measurement w ith calculation of estimated glomerular SP rate > NRG SP Serum or plasma glucose measurement (mass/volume) 80 mg/dL SP105 Serum or plasma calcium measurement (mass/volume) 7.4 mg/dL SP10.1 Automated blood complete blood count (he mogram) panel - 04/14/19 04:05 POS Blood leukocytes automated count (number/volume) 4.4 10*3/uL SP 4.3-11.0 SP Blood erythrocytes automated count (number/volume) 3.16 10*6/uL SP 4.35-5.85 SP Venous blood hemoglobin measurement (mass/volume) 8.9 g/dL SP16.0 Blood hematocrit (volume fraction) 27 % 35-52 SP Automated erythrocyte mean corpuscular volume 85 [ foz_us] SP99 Automated erythrocyte mean corpuscular h emoglobin (mass per erythrocyte) SP 28 pg 25-34 SP Automated erythrocyte mean corpuscular h emoglobin concentration measurement SP 33 g/dL 32-36 SP Automated erythrocyte distribution width ratio 14. 9 % 10.0- SP Automated blood platelet count (count/volume) 266 10*3/uL SP400 Automated blood platelet mean volume measurement 9.9 [foz_us] SP 7.4-10.4 SP Comprehensive metabolic panel - 04/14/19 04:05 POS Serum or plasma sodium measurement (moles/volume) 133 mmol/L SP 135-145 SP Serum or plasma potassium measurement (moles/volume) 3.6 mmol/L SP 3.6-5.0 SP Serum or plasma chloride measurement (moles/volume) 103 mmol/L SP 98-107 SP Carbon dioxide 20 mmol/L 21-32 SP Serum or plasma anion gap determination (moles/volume) 10 mmol/L SP 5-14 SP Serum or plasma urea nitrogen measurement (mass/volume ) 4 mg/dL SP 7-18 SP Serum or plasma creatinine measurement (mass/volume) 0.47 mg/dL SP 0.60-1.30 SP Serum or plasma urea nitrogen/creatinine mass ratio 9 NRG SP Serum or plasma creatinine measurement w ith calculation of estimated glomerular SP rate > NRG SP Serum or plasma glucose measurement (mass/volume) 82 mg/dL SP105 Serum or plasma calcium measurement (mass/volume) 7.5 mg/dL SP10.1 Serum or plasma total bilirubin measurement (mass/volu me) 0.4 mg/dL SP 0.1-1.0 SP Serum or plasma alkaline phosphatase victor hugo surement (enzymatic activity/volume) SP 85 U/L 40-136 SP Serum or plasma aspartate aminotransfera se measurement (enzymatic SP 21 U/L 5-34 SP Serum or plasma alanine aminotransferase measurement (enzymatic activity/volume) SP 25 U/L 0-55 SP Serum or plasma protein measurement (mass/volume) 5.0 g/dL SP8.2 Serum or plasma albumin measurement (mass/volume) 2.4 g/dL SP4.5 CALCIUM CORRECTED 8.8 mg/dL 8.5-10.1 SP Complete blood count (CBC) with automate d white blood cell (WBC) differential - POS 16:30 Blood leukocytes automated count (number/volume) 6.6 10*3/uL POS 4.3-11.0 SP Blood erythrocytes automated count (number/volume) 3.02 10*6/uL SP 4.35-5.85 SP Venous blood hemoglobin measurement (mass/volume) 8.3 g/dL SP16.0 Blood hematocrit (volume fraction) 25 % 35-52 SP Automated erythrocyte mean corpuscular volume 84 [ foz_us] SP99 Automated erythrocyte mean corpuscular h emoglobin (mass per erythrocyte) SP 28 pg 25-34 SP Automated erythrocyte mean corpuscular h emoglobin concentration measurement SP 33 g/dL 32-36 SP Automated erythrocyte distribution width ratio 15. 3 % 10.0- SP Automated blood platelet count (count/volume) 439 10*3/uL SP400 Automated blood platelet mean volume measurement 9.7 [foz_us] SP 7.4-10.4 SP Automated blood neutrophils/100 leukocytes 61 % 42-75 SP Automated blood lymphocytes/100 leukocytes 23 % 12-44 SP Blood monocytes/100 leukocytes 14 % 0-12 SP Automated blood eosinophils/100 leukocytes 1 % 0-10 SP Automated blood basophils/100 leukocytes 1 % 0-10 SP Blood neutrophils automated count (number/volume) 4.1 10*3 SP7.8 Blood lymphocytes automated count (number/volume) 1.5 10*3 SP4.0 Blood monocytes automated count (number/volume) 0. 9 10*3 SP1.0 Automated eosinophil count 0.1 10*3/uL 0 .0-0.3 SP Automated blood basophil count (count/volume) 0.1 10*3/uL SP0.1 Comprehensive metabolic panel - 04/28/19 16:30 POS Serum or plasma sodium measurement (moles/volume) 134 mmol/L SP 135-145 SP Serum or plasma potassium measurement (moles/volume) 3.0 mmol/L SP 3.6-5.0 SP Serum or plasma chloride measurement (moles/volume) 99 mmol/L SP 98-107 SP Carbon dioxide 25 mmol/L 21-32 SP Serum or plasma anion gap determination (moles/volume) 10 mmol/L SP 5-14 SP Serum or plasma urea nitrogen measurement (mass/volume ) 15 mg/dL SP 7-18 SP Serum or plasma creatinine measurement (mass/volume) 0.55 mg/dL SP 0.60-1.30 SP Serum or plasma urea nitrogen/creatinine mass ratio 27 NRG SP Serum or plasma creatinine measurement w ith calculation of estimated glomerular SP rate > NRG SP Serum or plasma glucose measurement (mass/volume) 97 mg/dL SP105 Serum or plasma calcium measurement (mass/volume) 7.2 mg/dL SP10.1 Serum or plasma total bilirubin measurement (mass/volu me) 0.3 mg/dL SP 0.1-1.0 SP Serum or plasma alkaline phosphatase victor hugo surement (enzymatic activity/volume) SP 91 U/L 40-136 SP Serum or plasma aspartate aminotransfera se measurement (enzymatic SP 11 U/L 5-34 SP Serum or plasma alanine aminotransferase measurement (enzymatic activity/volume) SP 8 U/L 0-55 SP Serum or plasma protein measurement (mass/volume) 5.1 g/dL SP8.2 Serum or plasma albumin measurement (mass/volume) 2.3 g/dL SP4.5 CALCIUM CORRECTED 8.6 mg/dL 8.5-10.1 SP Serum or plasma C reactive protein measu rement (mass/volume) - 04/28/19 16:30 POS Serum or plasma C reactive protein measurement (mass/v olume) 5.16 POS 0.00-0.50 SP PT panel in platelet poor plasma by coag ulation assay - 04/28/19 16:30 POS Prothrombin time (PT) in platelet poor plasma by coagu lation assay SP s 12.2-14.7 SP INR in platelet poor plasma or blood by coagulation as say 1.2 SP 0.8-1.4 SP Activated partial thromboplastin time (a PTT) in platelet poor plasma POS assay - 04/28/19 16:30 Activated partial thromboplastin time (a PTT) in platelet poor plasma POS assay 46 s 24-35 SP Complete urinalysis with reflex to cultu re - 04/28/19 18:50 POS Urine color determination YELLOW NRG SP Urine clarity determination SLIGHTLY CLOUDY NRG SP Urine pH measurement by test strip 7 5-9 SP Specific gravity of urine by test strip 1.010 1.016-1.022 SP Urine protein assay by test strip, semi-quantitative 1+ SP Urine glucose detection by automated test strip NE GATIVE SP Erythrocytes detection in urine sediment by light micr oscopy NEGATIVE SP NEGATIVE SP Urine ketones detection by automated test strip NE GATIVE SP Urine nitrite detection by test strip POSITIVE NEGATIVE SP Urine total bilirubin detection by test strip NEGA TIVE SP Urine urobilinogen measurement by automated test strip (mass/volume) SP NORMAL SP Urine leukocyte esterase detection by dipstick 2+ NEGATIVE SP Automated urine sediment erythrocyte cou nt by microscopy (number/high power SP NONE NRG SP Automated urine sediment leukocyte count by microscopy (number/high power field) SP [HPF] NRG SP Bacteria detection in urine sediment by light microsco py LARGE SP NRG SP Crystals detection in urine sediment by light microsco py NONE SP NRG SP Casts detection in urine sediment by light microscopy NONE SP Mucus detection in urine sediment by light microscopy NEGATIVE SP NRG SP Complete urinalysis with reflex to culture CULTURE PENDING SP Bacterial urine culture - 04/28/19 18:50 POS Bacterial urine culture [id number] NRG SP COLONY COUNT >100,000/ML NRG SP FTX;REPORTABLE SUSCEPTIBILITY REPORTED 04-30-19, 1 523 NRG SP Dirithromycin susceptibility test by dis k diffusion - 04/28/19 18:50 POS Gentamicin susceptibility test by minimum inhibitory c oncentration <= SP NRG SP Trimethoprim/sulfamethoxazole susceptibi lity test by minimum SP > NRG SP Levofloxacin susceptibility test by minimum inhibitory concentration SP NRG SP Ampicillin susceptibility test by minimum inhibitory c oncentration > SP NRG SP Cefazolin susceptibility test by minimum inhibitory co ncentration 4 SP NRG SP Ceftriaxone susceptibility test by minimum inhibitory concentration <= SP NRG SP Ciprofloxacin susceptibility test by minimum inhibitor y concentration SP NRG SP Meropenem susceptibility test by minimum inhibitory co ncentration <= SP NRG SP Nitrofurantoin susceptibility test by mi nimum inhibitory concentration SP <= NRG SP Amoxicillin and clavulanate potassium susc CALISTA = NRG SP Blood lactic acid measurement (moles/vol ume) - 04/28/19 18:55 POS Blood lactic acid measurement (moles/volume) 1.06 mmol/L SP2.00 Bacterial blood culture - 04/28/19 18:55 POS Bacterial blood culture NG NRG SP Bacterial blood culture - 04/28/19 19:25 POS Bacterial blood culture NG NRG SP Methicillin resistant Staphylococcus aur eus (MRSA) screening culture - 04/28/19 POS Methicillin resistant Staphylococcus aureus (MRSA) scr eening culture POS NRG SP Complete blood count (CBC) with automate d white blood cell (WBC) differential - POS 05:04 Blood leukocytes automated count (number/volume) 4.5 10*3/uL POS 4.3-11.0 SP Blood erythrocytes automated count (number/volume) 2.34 10*6/uL SP 4.35-5.85 SP Venous blood hemoglobin measurement (mass/volume) 6.4 g/dL SP16.0 Blood hematocrit (volume fraction) 20 % 35-52 SP Automated erythrocyte mean corpuscular volume 85 [ foz_us] SP99 Automated erythrocyte mean corpuscular h emoglobin (mass per erythrocyte) SP 27 pg 25-34 SP Automated erythrocyte mean corpuscular h emoglobin concentration measurement SP 32 g/dL 32-36 SP Automated erythrocyte distribution width ratio 15. 3 % 10.0- SP Automated blood platelet count (count/volume) 274 10*3/uL SP400 Automated blood platelet mean volume measurement 9.6 [foz_us] SP 7.4-10.4 SP Automated blood neutrophils/100 leukocytes 62 % 42-75 SP Automated blood lymphocytes/100 leukocytes 23 % 12-44 SP Blood monocytes/100 leukocytes 13 % 0-12 SP Automated blood eosinophils/100 leukocytes 2 % 0-10 SP Automated blood basophils/100 leukocytes 0 % 0-10 SP Blood neutrophils automated count (number/volume) 2.8 10*3 SP7.8 Blood lymphocytes automated count (number/volume) 1.0 10*3 SP4.0 Blood monocytes automated count (number/volume) 0. 6 10*3 SP1.0 Automated eosinophil count 0.1 10*3/uL 0 .0-0.3 SP Automated blood basophil count (count/volume) 0.0 10*3/uL SP0.1 Comprehensive metabolic panel - 04/29/19 05:04 POS Serum or plasma sodium measurement (moles/volume) 136 mmol/L SP 135-145 SP Serum or plasma potassium measurement (moles/volume) 3.7 mmol/L SP 3.6-5.0 SP Serum or plasma chloride measurement (moles/volume) 106 mmol/L SP 98-107 SP Carbon dioxide 22 mmol/L 21-32 SP Serum or plasma anion gap determination (moles/volume) 8 mmol/L SP 5-14 SP Serum or plasma urea nitrogen measurement (mass/volume ) 12 mg/dL SP 7-18 SP Serum or plasma creatinine measurement (mass/volume) 0.51 mg/dL SP 0.60-1.30 SP Serum or plasma urea nitrogen/creatinine mass ratio 24 NRG SP Serum or plasma creatinine measurement w ith calculation of estimated glomerular SP rate > NRG SP Serum or plasma glucose measurement (mass/volume) 90 mg/dL SP105 Serum or plasma calcium measurement (mass/volume) 7.1 mg/dL SP10.1 Serum or plasma total bilirubin measurement (mass/volu me) 0.4 mg/dL SP 0.1-1.0 SP Serum or plasma alkaline phosphatase victor hugo surement (enzymatic activity/volume) SP 79 U/L 40-136 SP Serum or plasma aspartate aminotransfera se measurement (enzymatic SP 8 U/L 5-34 SP Serum or plasma alanine aminotransferase measurement (enzymatic activity/volume) SP < U/L 0-55 SP Serum or plasma protein measurement (mass/volume) 5.1 g/dL SP8.2 Serum or plasma albumin measurement (mass/volume) 3.0 g/dL SP4.5 CALCIUM CORRECTED 7.9 mg/dL 8.5-10.1 SP Serum or plasma phosphate measurement (m ass/volume) - 04/29/19 05:04 POS Serum or plasma phosphate measurement (mass/volume) 2.5 mg/dL SP 2.3-4.7 SP Magnesium - 04/29/19 05:04 POS Magnesium 1.1 mg/dL 1.6-2.4 SP Serum or plasma C reactive protein measu rement (mass/volume) - 04/29/19 05:04 POS Serum or plasma C reactive protein measurement (mass/v olume) 4.15 POS 0.00-0.50 SP RED CELLS LEUKO REDUCED AS1 - 04/29/19 1 2:13 POS RED CELLS LEUKO REDUCED AS1 T RANSFUSED 04/29/19 SP NRG SP Blood type T Indirect antibody screen pa gia - 04/29/19 12:13 POS WRISTBAND NUMBER [id number] NRG SP ABO+Rh group OP NRG SP Blood group antibody screen NEGATIVE NR G SP Complete blood count (CBC) with automate d white blood cell (WBC) differential - POS 06:29 Blood leukocytes automated count (number/volume) 6.8 10*3/uL POS 4.3-11.0 SP Blood erythrocytes automated count (number/volume) 3.81 10*6/uL SP 4.35-5.85 SP Venous blood hemoglobin measurement (mass/volume) 10.4 g/dL SP16.0 Blood hematocrit (volume fraction) 31 % 35-52 SP Automated erythrocyte mean corpuscular volume 81 [ foz_us] SP99 Automated erythrocyte mean corpuscular h emoglobin (mass per erythrocyte) SP 27 pg 25-34 SP Automated erythrocyte mean corpuscular h emoglobin concentration measurement SP 34 g/dL 32-36 SP Automated erythrocyte distribution width ratio 17. 6 % 10.0- SP Automated blood platelet count (count/volume) 321 10*3/uL SP400 Automated blood platelet mean volume measurement 9.8 [foz_us] SP 7.4-10.4 SP Automated blood neutrophils/100 leukocytes 67 % 42-75 SP Automated blood lymphocytes/100 leukocytes 20 % 12-44 SP Blood monocytes/100 leukocytes 11 % 0-12 SP Automated blood eosinophils/100 leukocytes 2 % 0-10 SP Automated blood basophils/100 leukocytes 0 % 0-10 SP Blood neutrophils automated count (number/volume) 4.6 10*3 SP7.8 Blood lymphocytes automated count (number/volume) 1.3 10*3 SP4.0 Blood monocytes automated count (number/volume) 0. 7 10*3 SP1.0 Automated eosinophil count 0.1 10*3/uL 0 .0-0.3 SP Automated blood basophil count (count/volume) 0.0 10*3/uL SP0.1 Comprehensive metabolic panel - 04/30/19 06:29 POS Serum or plasma sodium measurement (moles/volume) 135 mmol/L SP 135-145 SP Serum or plasma potassium measurement (moles/volume) 3.2 mmol/L SP 3.6-5.0 SP Serum or plasma chloride measurement (moles/volume) 106 mmol/L SP 98-107 SP Carbon dioxide 21 mmol/L 21-32 SP Serum or plasma anion gap determination (moles/volume) 8 mmol/L SP 5-14 SP Serum or plasma urea nitrogen measurement (mass/volume ) 10 mg/dL SP 7-18 SP Serum or plasma creatinine measurement (mass/volume) 0.52 mg/dL SP 0.60-1.30 SP Serum or plasma urea nitrogen/creatinine mass ratio 19 NRG SP Serum or plasma creatinine measurement w ith calculation of estimated glomerular SP rate > NRG SP Serum or plasma glucose measurement (mass/volume) 94 mg/dL SP105 Serum or plasma calcium measurement (mass/volume) 7.7 mg/dL SP10.1 Serum or plasma total bilirubin measurement (mass/volu me) 0.5 mg/dL SP 0.1-1.0 SP Serum or plasma alkaline phosphatase victor hugo surement (enzymatic activity/volume) SP 89 U/L 40-136 SP Serum or plasma aspartate aminotransfera se measurement (enzymatic SP 10 U/L 5-34 SP Serum or plasma alanine aminotransferase measurement (enzymatic activity/volume) SP 9 U/L 0-55 SP Serum or plasma protein measurement (mass/volume) 5.5 g/dL SP8.2 Serum or plasma albumin measurement (mass/volume) 2.9 g/dL SP4.5 CALCIUM CORRECTED 8.6 mg/dL 8.5-10.1 SP Magnesium - 04/30/19 06:29 POS Magnesium 2.0 mg/dL 1.6-2.4 SP Encounters ACCT No. Visit Date/Time Discharge Status POS Pt. Type Provider Facility Loc./Un it POS Complaint POS [id number] 04/20/2019 13:20:00 04/20/2019 23:59: 59 [facility] SP Outpatient SANDRA MENDOZA SP [facility] SP [id number] 03/02/2019 08:20:00 Document SPRegistration SP [id number] 02/20/2019 09:20:00 Document SPRegistration SP [id number] 02/16/2019 08:00:00 Document SPRegistration SP [id number] 01/18/2019 15:00:00 Document SPRegistration SP [id number] 01/17/2019 08:40:00 Document SPRegistration SP [id number] 01/02/2019 09:00:00 Document SPRegistration SP [id number] 05/18/2019 13:15:00 23:59:59 [facility] RAD ABD PAIN SP [id number] 05/17/2019 09:45:00 23:59:59 SP [facility] RAD VAGINAL FISTULA SP [id number] 04/28/2019 19:32:00 14:15:00 SP DIS Outpatient SILVIA VELAZCO, IMER Harvey [facility] 4TH UTI,ENTEROVAGINAL SP [id number] 04/06/2019 22:11:00 14:05:00 SP DIS Inpatient LEXY VELAZCO, ROLY Hopson [facility] 4TH SBO,UTI,HYPOKALEMIA,HYPONATR EMIA SP [id number] 02/20/2019 15:07:00 13:39:00 SP DIS Inpatient JAY DO, ADRIANA V ia [facility] 4TH SBO SP [id number] 01/16/2019 15:37:00 23:59:59 SP CLS Outpatient WILSON OLIVAREZ [facility] RAD ABNORMAL CT OF BRAIN SP [id number] 12/31/2018 09:52:00 11:29:00 SP DIS Emergency LEONEL VELAZCO, DODIE Moon [facility] ER HEADACHE SP
--- OUTSIDE RECORDS SUMMARY | 2019-05-22 10:37 | XMS REPORT | Continuity of Care Document ---
Author Organization Unknown POS Address Unknown SP Phone Unavailable SP Allergies Active Description Code Type Severity POS Reaction Onset Reported/Identified POS to Patient Clinical Status POS Yes No Known Drug Allergies [id number] Drug SP Unknown N/A 02/20/2019 SP SP [...] R42 SP DIZZINESS AND GIDDINESS SP 12/31/2018 ODDIE CASTANEDA MD Ot R51 SP HEADACHE SP [...] Description Performed By Per formed On POS [id number] DR WILLIS OF SMALL INTESTINE, SPOPEN APPROA 04/07/2019 SP [id number] EX CISION OF ILEUM, OPEN SP 04/07/2019 SP [id number] EX CISION OF CECUM, OPEN SP 04/07/2019 SP [id number] RE LEASE SMALL INTESTINE, SP APPROACH 04/07/2019 SP [id number] RE LEASE CECUM, OPEN APPROACH SP 04/07/2019 [...] - 12/31/18 10:41 POS Bacterial urine culture [id number] NRG SP COLONY COUNT >100,000/ML NRG SP [...] - 02/20/19 13:31 POS Bacterial urine culture [id number] NRG SP COLONY COUNT >100,000/ML NRG SP [...] - 04/06/19 20:11 POS Bacterial urine culture [id number] NRG SP COLONY COUNT >100,000/ML NRG SP [...] gia - 04/07/19 17:05 POS WRISTBAND NUMBER [id number] NRG SP ABO+Rh group OP NRG SP [...] - 04/28/19 18:50 POS Bacterial urine culture [id number] NRG SP COLONY COUNT >100,000/ML NRG SP [...] gia - 04/29/19 12:13 POS WRISTB[employer] NUMBER [id number] NRG SP ABO+Rh group OP NRG SP [...] Provider Facility Loc./Un it POS Complaint POS [id number] 04/20/2019 13:20:00 04/20/2019 23:59: 59 [facility] SP Outpatient SANDRA MENDOZA SP [facility] SP [id number] 03/02/2019 08:20:00 Document SPRegistration SP [id number] 02/20/2019 09:20:00 Document SPRegistration SP [id number] 02/16/2019 08:00:00 Document SPRegistration SP [id number] 01/18/2019 15:00:00 Document SPRegistration SP [id number] 01/17/2019 08:40:00 Document SPRegistration SP [id number] 01/02/2019 09:00:00 Document SPRegistration SP [id number] 05/18/2019 13:15:00 23:59:59 [facility] RAD ABD PAIN SP [id number] 05/17/2019 09:45:00 23:59:59 [facility] RAD VAGINAL FISTULA SP [id number] 04/28/2019 19:32:00 14:15:00 SP DIS Outpatient SILVIA VELAZCO, IMER Harvey [facility] 4TH UTI,ENTEROVAGINAL SP [id number] 04/06/2019 22:11:00 14:05:00 SP DIS Inpatient LEXY VELAZCO, ROLY Hopson [facility] 4TH SBO,UTI,HYPOKALEMIA,HYPONATR EMIA SP [id number] 02/20/2019 15:07:00 13:39:00 SP DIS Inpatient JAY DO, ADRIANA V ia [facility] 4TH SBO SP [id number] 01/16/2019 15:37:00 23:59:59 SP CLS Outpatient WILSON OLIVAREZ [facility] RAD ABNORMAL CT OF BRAIN SP [id number] 12/31/2018 09:52:00 11:29:00 SP DIS Emergency LEONEL VELAZCO, DODIE Moon [facility] ER HEADACHE SP
== END 2019-04-30 14:15 | DRG 690 ==
LOC: EDUNIT# 15:57 → ER 15:59 → ICU 19:32 → 4TH 04-29 10:54
PROVIDERS: ADMIT Internal Medicine; ATTEND Internal Medicine
DX: N39.0 Urinary tract infection, site not specified (principal); E86.9 Volume depletion, unspecified; I95.9 Hypotension, unspecified; R10.9 Unspecified abdominal pain; G89.29 Other chronic pain; D63.8 Anemia in other chronic diseases classified elsewhere; F17.210 Nicotine dependence, cigarettes, uncomplicated; K57.90 Diverticulosis of intestine, part unspecified, without perforation or abscess without bleeding; F31.9 Bipolar disorder, unspecified; E83.42 Hypomagnesemia; Z92.21 Personal history of antineoplastic chemotherapy; Z92.3 Personal history of irradiation; Z87.19 Personal history of other diseases of the digestive system; Z85.41 Personal history of malignant neoplasm of cervix uteri; Z86.79 Personal history of other diseases of the circulatory system; Z93.3 Colostomy status
CPT/HCPCS: 36415; 71045; 74022; 74250; 80053; 81000; 83605; 83735; 84100; 85025; 85610; 85730; 86141; 86850; 86900; 86901; 86920; 87040; 87081; 87088; 87186; 96361; 96365

== ENCOUNTER → 2019-05-29 | Outpatient (CLI) | payer OTHER ==
[~2019-05-29] MED LIST changes: +DCCL10A2 PO; +DIATRIZOATE MEGLUM/SODIUM 37% 120 ML (GASTROGRAFIN) RC ONE; +IBUP-16 PO; +OMEP20TA33 PO; +SIME180C4 PO
--- NOTE | 2019-05-30 12:51 | Diagnostic Imaging Report ---
PROCEDURE: CT abdomen and pelvis without contrast. TECHNIQUE: Multiple contiguous axial images were obtained through the abdomen and pelvis without the use of intravenous contrast. Auto Exposure Controls were utilized during the CT exam to meet ALARA standards for radiation dose reduction. INDICATION: Pelvic pain. Patient does have feculent material coming out of the vagina. The study is performed for further evaluation. COMPARISON: Correlation is made with prior CT from 04/06/2019 and 02/20/2019. FINDINGS: A rectal tip was placed, and a small volume of Gastrografin contrast was infused into the patient's rectal stump. Only a small amount could be injected due to a significant patient discomfort. Axial imaging was then acquired through the abdomen and pelvis. The lung bases are clear. The liver and gallbladder are unremarkable. The pancreas and spleen are unremarkable. A right adrenal mass appears stable. Left adrenal gland is unremarkable. A low-density lesion in the upper pole of the left kidney is again noted. Right kidney is unremarkable. No calculi or hydronephrosis are seen. Aorta and iliac vessels are calcified but non-aneurysmal. There is a left lower quadrant ostomy. There is a small amount of contrast within the patient's rectal stump. Abnormal stool and contrast collection is identified more cephalad to the rectal stump in the midline of the pelvis. There is a questionable communication with right lower quadrant colonic bowel loop, image 58 and 57, series 2. This midline stool and contrast collection in the pelvis measures 3.9 cm transverse x 2.4 cm AP. This is in close proximity to the cephalic portion of the rectal stump as well as the vagina. The vagina also contains moderate contrast from rectal stump contrast administration consistent with a direct rectal stump to vagina fistulous communication. Significant presacral soft tissue thickening is present, similar to perhaps increased when compared with March. Bowel loops no longer appear obstructed. No free fluid is seen. IMPRESSION: 1. Contrast communicates freely from the rectal stump to the vagina consistent with rectovaginal fistula. In addition, there is a stool and contrast collection just above the rectal stump and vaginal cuff which appears to have fistulous communication with right lower quadrant colonic bowel loop. This is consistent with a stool abscess in the midline of the pelvis. Significant presacral soft tissue thickening is present. While this may be post-therapeutic, possibility of tumor recurrence cannot be entirely excluded. No bowel obstruction is seen. Dictated by: Dictated on workstation # [id number]
== END ==
LOC: RAD 05-25 11:01
PROVIDERS: ATTEND Surgery
DX: N89.8 Other specified noninflammatory disorders of vagina (principal); R10.2 Pelvic and perineal pain; Z98.890 Other specified postprocedural states
CPT/HCPCS: 74176